=== PATIENT | male | born 1980 | race Two or more races ===

== ENCOUNTER 2025-03-02 03:42 | Inpatient (IN) | payer MEDICAID ==
[2025-03-02] VITALS (11 sets, daily range): BP systolic 88–101; BP diastolic 49–70; PULSE 79–104; RESP 10–16; TEMP 98.2; O2SAT 96–99
[~2025-03-02] VITALS: Ht 165.1 cm; Wt 58.1 kg
--- NOTE | 2025-03-02 03:52 | ED.PDOC ---
Altered Mental Status HPI Comments 44-year-old male brought in by EMS presents with a chief complaint of ALOC x 1 hour. Per EMS, patient usually is woken up around 0300 to get ready for dialysis by his . Patients noticed that patient was saying "off the wall" responses to basic questions. Patient denies any active pain and is not in acute distress at this time. Patient believes the year is 1925. Patient mentions that he does not know why he is at the hospital and denies any symptoms. Unknown medical history however patient does take spironolactone, midodrine home per EMS. Chief Complaint: ALOC Time Seen by MD: 03:45 Reviewed Notes: Medications, Allergies Allergies: Coded Allergies: NO KNOWN ALLERGIES (Unverified , 03/02/25) Home Meds Reported Medications Lactulose (Lactulose) 10 Gm/15 Ml Monisha, ML PO 03/02/25 Magnesium Oxide (Mag-Ox) 400 Mg Tb, 1 TAB PO DAILY 03/02/25 Spironolactone (Spironolactone) 50 Mg Tab, 1 TAB PO BID 03/02/25 Furosemide (Furosemide) 80 Mg Tab, 2 PO BID 03/02/25 Midodrine Hcl (Midodrine Hcl) 10 Mg Tab, PO 03/02/25 Information Source: Patient, Emergency Med Personnel Mode of Arrival: EMS Severity: Unable to Care for Self Timing: Hours Duration: Since onset Prehospital treatment: Engagement Executive Quality: Change in Behavior, Confusion Recent: None History of: Other (Dialysis) Vital Signs Vital Signs Date Time Temp Pulse Resp B/P (MAP) Pulse Ox O2 Delivery O2 Flow Rate FiO2 03/02/25 08:30 79 11 97/64 (75) 99 03/02/25 08:00 Room Air* 0 21 03/02/25 04:40 98.4 98.4 Physical Exam General: Awake, alert No acute distress. Skin: Skin in warm, dry and intact. Appropriate color for ethnicity. HEENT: The head is normocephalic and atraumatic. Conjunctivae are clear without exudates or hemorrhage. Sclera is non-icteric. EOM are intact. No signs of nystagmus. Eyelids are normal in appearance without swelling or lesions. Oral mucosa is pink and moist Neck: The neck is supple with normal range of motion. No JVD. Cardiac: Heart rate and rhythm are normal. No murmurs, gallops, or rubs are auscultated. Respiratory: No signs of respiratory distress. Lung sounds are clear in all lobes bilaterally without rales, ronchi, or wheezes. Abdominal: Abdomen is soft, non-tender with distention. Bowel sounds are present and normoactive in all four quadrants. Extremities: Upper and lower extremities are atraumatic in appearance without deformity or edema. Neurological: The patient is awake, alert . Patient is disoriented. Speech is clear. There is no facial asymmetry. Review of Systems: REVIEW OF SYSTEMS: Unable to obtain due to altered mental status. Patient denies pain Past Medical History PAST MEDICAL HISTORY: ESRD Surgical History: Denies all surgeries Family History Family History: Reviewed,noncontributory to illness Social History Smoker: Non-Smoker Alcohol: Denies ETOH Use Drugs: Denies Drug Use Lives In: Home EKG EKG : Pulse Rate (adult): 97 [place]: Normal Cardiac Rhythm: NSR Block: None Hypertrophy: None ST: Normal Was a procedure done? Was a procedure done?: No Differential Diagnosis (ALOC) Differential Diagnosis: Dehydration, Hypoglycemia, Encephalopathy, Sepsis, Drug Overdose (Urinary tract infection, liver cirrhosis, hyperammonemia, uremia), ETOH Intoxication, Other X-Ray, Labs, Meds, VS Vital Signs Date Time Temp Pulse Resp B/P (MAP) Pulse Ox O2 Delivery O2 Flow Rate FiO2 03/02/25 08:30 79 11 97/64 (75) 99 03/02/25 08:00 79 12 98 Room Air* 0 21 03/02/25 08:00 78 03/02/25 05:52 78 11 104/68 (80) 98 03/02/25 04:46 90 12 98 Room Air* 0 21 03/02/25 04:40 98.4 90 12 108/66 (80) 98 98.4 03/02/25 04:19 97 03/02/25 04:00 82 03/02/25 03:49 98.6 101 16 99/62 (74) 96 98.6 03/02/25 03:48 97 Lab Test 03/02/25 04:54 03/02/25 04:03 03/02/25 03:56 Range/Units Influenza Type A Antigen Negative Negative Influenza Type B Antigen Negative Negative SARS-CoV-2 Antigen (Rapid) Negative NEGATIVE White Blood Count 4.9 4.4-10.8 10^3/uL Red Blood Count 3.31 L 4.5-5.90 10^6/uL Hemoglobin 11.2 L 13.5-17.5 g/dL Hematocrit 32.5 L 41.0-53.0 % Mean Corpuscular Volume 98.1 80.0-100.0 fL Mean Corpuscular Hemoglobin 33.7 H 28.0-32.0 pg Mean Corpuscular Hemoglobin Concent 34.3 32.0-36.0 g/dL Red Cell Distribution Width 19.5 H 11.8-14.3 % Platelet Count 174 140-450 10^3/uL Mean Platelet Volume 7.7 6.9-10.8 fL Neutrophils (%) (Auto) 50.4 37.0-80.0 % Lymphocytes (%) (Auto) 33.8 10.0-50.0 % Monocytes (%) (Auto) 10.5 0.0-12.0 % Eosinophils (%) (Auto) 4.8 0.0-7.0 % Basophils (%) (Auto) 0.5 0.0-2.0 % Neutrophils # (Auto) 2.5 1.6-8.6 10 ^3/uL Lymphocytes # (Auto) 1.6 0.4-5.4 10 ^3/uL Monocytes # (Auto) 0.5 0-1.3 10 ^3/uL Eosinophils # (Auto) 0.2 0-0.8 10 ^3/uL Basophils # (Auto) 0 0-0.2 10 ^3/uL Nucleated Red Blood Cells 0.0 % Prothrombin Time 10.8 9.3-11.8 sec Prothrombin Time INR 1.02 0.9-1.15 Sodium Level 135 L 136-145 mmol/L Potassium Level 3.6 3.5-5.1 mmol/L Chloride Level 102 98-107 mmol/L Carbon Dioxide Level 23 20-31 mmol/L Anion Gap 10 5-15 Blood Urea Nitrogen 32 H 9-23 mg/dL Creatinine 3.40 H 0.700-1.30 mg/dL Glomerular Filtration Rate Calc 22 >90 mL/min BUN/Creatinine Ratio 9.4 L 10.0-20.0 Serum Glucose 98 74-106 mg/dL Lactic Acid Level 2.4 *H 0.4-2.0 mmol/L Calcium Level 9.2 8.7-10.4 mg/dL Total Bilirubin 0.7 0.2-1.0 mg/dL Aspartate Amino Transferase (AST) 40 13-40 U/L Alanine Aminotransferase (ALT) 35 7-40 U/L Alkaline Phosphatase 203 H 46-116 U/L Ammonia 140 *H 11-32 umol/L B-Type Natriuretic Peptide 41.30 0-100 pg/mL Total Protein 6.3 5.7-8.2 g/dL Albumin 3.2 3.2-4.8 g/dL Plasma/Serum Blood Alcohol 4.8 <10 mg/dL Blood Gas Specimen Type Arterial Blood Gas Sample Site Left radial Blood Gas Patient Temperature 37.0 Arterial Blood Date Drawn [id number] Arterial Blood pH 7.515 H 7.350-7.450 Arterial Blood Partial Pressure CO2 27.9 L 35.0-48.0 mmHg Arterial Blood Partial Pressure O2 72.9 L 83.0-108.0 mmHg Arterial Blood HCO3 22.0 21.0-28.0 mmol/L Arterial Blood Oxygen Saturation 94.4 94.0-98.0 % Arterial Blood Base Excess 0.0 -2.0-3.0 mmol/L Arterial Blood Oxyhemoglobin 93.6 L 94.0-98.0 % Arterial Blood Carboxyhemoglobin 0.3 L 0.5-1.5 % Arterial Blood Methemoglobin 0.5 0.0-1.5 % Dragan Test Modified Blood Gas Total Hemoglobin 11.80 L 13.5-17.5 g/dL Blood Gas Modality Room air FiO2 % 21.0 Current Medications Medications (Trade) Dose Ordered Sig/Bhumi Route Start Time Stop Time Status Last Admin Ceftriaxone Sodium 50 ml @ 100 mls/hr ONCE ONCE IV 03/02/25 06:00 03/02/25 06:29 DC 03/02/25 06:10 Sodium Chloride 250 ml @ 250 mls/hr Q1H ONCE IV 03/02/25 06:00 03/02/25 06:59 DC 03/02/25 06:11 Sodium Chloride 1,000 ml @ 100 mls/hr Q10H ONCE IV 03/02/25 06:00 03/02/25 15:59 DC 03/02/25 06:11 Time of 1ST Reevaluation: 04:15 Reevaluation 1ST: Unchanged Patient Education/Counseling: Need For Follow Up Family Education/Counseling: No Family Present Departure 1 Departure Time of Disposition: 05:59 Impression: Primary Impression: Metabolic encephalopathy Disposition: ADMITTED INPATIENT Condition: Stable Comments [age] male with altered mental status. -hyperammonemia -elevated lactic acid with it no fever, no white count. Gentle IV fluids, antibiotics administered. Patient admitted for further treatment, evaluation and monitoring. Critical Care Note Critical Care Time?: No Stability Stability form required: No Heart Score Heart Score: Heart Score Response (Comments) Value History N/A 0 EKG N/A 0 Age N/A 0 Risk Factors N/A 0 Troponin N/A 0 Total 0 I personally scribed for BUSTER LINDA MD ([email or web address]) on 03/02/25 at 03:51. Electronically submitted by London Rose ([email or web address]). I personally scribed for BUSTER LINDA MD ([email or web address]) on 03/02/25 at 04:19. Electronically submitted by London Rose ([email or web address]). BUSTER LINDA MD Mar 02, 2025 03:51
[2025-03-02 04:36] LABS: Basophils # (auto) 0 10 ^3/uL (0-0.2); Basophils % (auto) 0.5 % (0.0-2.0); Eosinophils # (auto) 0.2 10 ^3/uL (0-0.8); Eosinophils % (auto) 4.8 % (0.0-7.0); Hematocrit 32.5 % (41.0-53.0); Hemoglobin 11.2 g/dL (13.5-17.5); Lymphocytes # (auto) 1.6 10 ^3/uL (0.4-5.4); Lymphocytes % (auto) 33.8 % (10.0-50.0); Mean Corpuscular Hemoglobin 33.7 pg (28.0-32.0); Mean Corpuscular Hgb Conc. 34.3 g/dL (32.0-36.0); Mean Corpuscular Volume 98.1 fL (80.0-100.0); Monocytes # (auto) 0.5 10 ^3/uL (0-1.3); Monocytes % (auto) 10.5 % (0.0-12.0); Neutrophils # (auto) 2.5 10 ^3/uL (1.6-8.6); Neutrophils % (auto) 50.4 % (37.0-80.0); Platelet Count (auto) 174 10^3/uL (140-450); Red Blood Cells 3.31 10^6/uL (4.5-5.90); Red Cell Distribution Width 19.5 % (11.8-14.3); White Blood Cell 4.9 10^3/uL (4.4-10.8)
[2025-03-02 04:48] LABS: INR 1.02 (0.9-1.15); Prothrombin Time 10.8 sec (9.3-11.8)
[2025-03-02 04:55] LABS: Alanine Aminotransferase 35 U/L (7-40); Anion Gap 10 (5-15); Aspartate Aminotransferase 40 U/L (13-40); BUN/Creatinine Ratio 9.4 (10.0-20.0); Calcium 9.2 mg/dL (8.7-10.4); Carbon Dioxide 23 mmol/L (20-31); Chloride 102 mmol/L (98-107); Glucose 98 mg/dL (74-106); Potassium 3.6 mmol/L (3.5-5.1); Total Protein 6.3 g/dL (5.7-8.2)
[2025-03-02 04:56] LABS: Bilirubin, Total 0.7 mg/dL (0.2-1.0)
[2025-03-02 05:04] LABS: Albumin 3.2 g/dL (3.2-4.8); Alkaline Phosphatase 203 U/L (46-116); Blood Urea Nitrogen 32 mg/dL (9-23); Sodium 135 mmol/L (136-145)
[2025-03-02 05:07] LABS: Lactic Acid w/Reflex 2.4 mmol/L (0.4-2.0)
--- NOTE | 2025-03-02 05:59 | DVH ---
EXAM: XY CHEST XRAY 1 VIEW HISTORY: AMS COMPARISON: None TECHNIQUE: Portable upright AP view of the chest was performed. FINDINGS: Lung volumes are low. There is a right chest tunneled dialysis catheter with its tip in the right atr ium. Probable mild bilateral lung base atelectasis. No no infiltrates, pneumothorax, or pulmonary russell ma. The heart is not enlarged. IMPRESSION: Low lung volumes and probable mild bilateral lung base atelectasis. No other acute intrathoracic pro cess is identified here.
--- NOTE | 2025-03-02 06:03 | DVH ---
EXAM: CT HEAD WITHOUT CONTRAST HISTORY: ALOC COMPARISON: None TECHNIQUE: Noncontrast axial CT images of the head were performed. Sagittal and coronal reformatted i mages were obtained. This CT exam was performed using 1 or more of the following dose reduction techn iques: Automated exposure control, adjustment of the mA and/or kv according to patient size, or the u se of iterative reconstruction techniques. Radiation Dose: CTDI volume is 54.54 mGy. Dose-length product is 874.4 mGy*cm FINDINGS: No intracranial hemorrhage, mass, midline shift, hydrocephalus, or evidence of acute large vessel inf arct. There is a mildly divergent optic gaze. The partially-visualized paranasal sinuses are clear. T he bilateral mastoid air cells and middle ear spaces are clear. There may be an old right nasal bone fracture. No cranial fracture or scalp edema. IMPRESSION: No acute intracranial process.
[2025-03-02 06:06] LABS: COVID19 ANTIGEN SOFIA FIA NEGATIVE (NEGATIVE); Rapid Influenza A Negative (Negative); Rapid Influenza B Negative (Negative)
[2025-03-02] MEDS: cefTRIAXone 1GM/50ML D5W 50 ML IV ONE (06:10)
[2025-03-02] MEDS: SODIUM CHLORIDE 0.9% 250 ML IV ONE (06:11)
[2025-03-02] MEDS: SODIUM CHLORIDE 0.9% 1,000 ML IV ONE (06:11)
[2025-03-02] MEDS ORDERED: MIDO10TA3 PO (08:58)
[2025-03-02] MEDS ORDERED: MAGN241.4 PO (08:58)
[2025-03-02] MEDS ORDERED: FURO80TA3 PO (08:58)
[2025-03-02] MEDS ORDERED: LACT10SO3 PO (08:58)
[2025-03-02] MEDS ORDERED: SPIR50TA5 PO (08:58)
[2025-03-02] MEDS ORDERED: ONDANSETRON HCL 4 MG/2 ML VIAL IV PRN (09:00)
[2025-03-02] MEDS ORDERED: NITROGLYCERIN 0.4 MG SL TAB SL PRN (09:00)
[2025-03-02] MEDS ORDERED: ACETAMINOPHEN 500 MG TAB or CAP PO PRN (09:00)
[2025-03-02] MEDS ORDERED: MORPHINE SULFATE INJ 2 MG/ml SYRG IV PRN (09:00)
--- NOTE | 2025-03-02 09:11 | DVHHP2 ---
History of Present Illness Reason for Visit: Altered mental status History of Present Illness The patient was a 44-year-old male transport to the emergency room by EMS with reports of altered mental status has been worsening over the past one day. The patient's daughter, Deb is bedside who provided medical history of the patient. The patient has a significant history of ESRD with hemodialysis on Friday, Friday, Friday, as well as cirrhosis of the liver for which the patient was currently on lactulose at home. She reports that she was assist with his care, has been compliant with his medications, but is unsure of his last bowel movement. Patient also receives paracentesis approximately every two weeks. Patient was having significant history of alcoholism, for which he was stopped drinking approximately a year and a half ago, but currently smokes. Daughter denies any previous surgical history. Hepatobiliary: Cirrhosis Psych: Addictions (Echo, history of alcoholism) Renal/: Chronic renal failure (With hemodialysis) Past Surgical History: None Family History: None Smoke: 1 pack per day ALCOHOL: none Drugs: None Lives: with Family Domestic Violence: Neg Review of Systems Constitutional: Yes: Other (Generalized weakness, altered mental status); No: Fever, Chills, Sweats, Weakness, Malaise Eyes: No: Pain, Vision change, Conjunctivae inflammation, Eyelid inflammation, Other, Redness ENT: No: Ear pain, Ear discharge, Nose pain, Nose discharge, Nose congestion, Mouth pain, Mouth swelling, Throat pain, Throat swelling, Other Respiratory: No: Cough, Dry, Shortness of breath, SOB with excertion, Wheezing, Hemoptysis, Pleuritic Pain, Sputum, Wheezing, Other Cardiovascular: No: Chest Pain, Palpitations, Orthopnea, Paroxysmal Noc. Dyspnea, Edema, Lt Headedness, Other Gastrointestinal: No: Nausea, Vomiting, Abdominal Pain, Diarrhea, Constipation, Melena, Hematochezia, Other Genitourinary: No Dysuria, No Frequency, No Incontinence, No Hematuria, No Retention, No Other Musculoskeletal: No: other, neck pain, shoulder pain, arm pain, back pain, hand pain, leg pain, foot pain Skin: No: Rash, Lesions, Jaundice, Bruising, Other Neurological: Other (Altered mental status) Allergies: Coded Allergies: NO KNOWN ALLERGIES (Unverified , 03/02/25) Medications Current Medications Medications Dose Ordered Sig/Bhumi Route Start Time Stop Time Status Last Admin Dose Admin Nitroglycerin 0.4 mg Q5MINP PRN SL 03/02/25 09:00 UNV Morphine Sulfate 2 mg Q30M PRN IV 03/02/25 09:00 UNV Lactulose 30 ml Q4HR PO 03/02/25 10:00 UNV Rifaximin 550 mg BID PO 03/02/25 10:00 UNV Acetaminophen/ Hydrocodone Bitart 1 tab Q6HPRN PRN PO 03/02/25 09:00 UNV Acetaminophen 500 mg Q8HP PRN PO 03/02/25 09:00 UNV Ondansetron HCl 4 mg Q6HP PRN IV 03/02/25 09:00 UNV Midodrine 10 mg Q8H PO 03/02/25 09:00 UNV Patient Own Medication 1 tab BID PO 03/02/25 10:00 UNV Exam Vital Signs Vital Signs Date Time Temp Pulse Resp B/P (MAP) Pulse Ox O2 Delivery O2 Flow Rate FiO2 03/02/25 08:30 79 11 97/64 (75) 99 03/02/25 04:46 Room Air* 0 21 03/02/25 04:40 98.4 98.4 General Appearance: Alert, moderate distress, Other (Encephalopathic) HEENT: Atraumatic, PERRLA Respiratory: Clear to auscultation, Normal air movement Cardiovascular: Normal S1, Normal S2 Abdominal: Normal bowel sounds, Other (Ascites) Extremities: Normal pulses Psych/Mental Status: Other (Unable to assess) Labs/Xrays Labs Test 03/02/25 04:54 03/02/25 04:03 03/02/25 03:56 Range/Units Influenza Type A Antigen Negative Negative Influenza Type B Antigen Negative Negative SARS-CoV-2 Antigen (Rapid) Negative NEGATIVE White Blood Count 4.9 4.4-10.8 10^3/uL Red Blood Count 3.31 L 4.5-5.90 10^6/uL Hemoglobin 11.2 L 13.5-17.5 g/dL Hematocrit 32.5 L 41.0-53.0 % Mean Corpuscular Volume 98.1 80.0-100.0 fL Mean Corpuscular Hemoglobin 33.7 H 28.0-32.0 pg Mean Corpuscular Hemoglobin Concent 34.3 32.0-36.0 g/dL Red Cell Distribution Width 19.5 H 11.8-14.3 % Platelet Count 174 140-450 10^3/uL Mean Platelet Volume 7.7 6.9-10.8 fL Neutrophils (%) (Auto) 50.4 37.0-80.0 % Lymphocytes (%) (Auto) 33.8 10.0-50.0 % Monocytes (%) (Auto) 10.5 0.0-12.0 % Eosinophils (%) (Auto) 4.8 0.0-7.0 % Basophils (%) (Auto) 0.5 0.0-2.0 % Neutrophils # (Auto) 2.5 1.6-8.6 10 ^3/uL Lymphocytes # (Auto) 1.6 0.4-5.4 10 ^3/uL Monocytes # (Auto) 0.5 0-1.3 10 ^3/uL Eosinophils # (Auto) 0.2 0-0.8 10 ^3/uL Basophils # (Auto) 0 0-0.2 10 ^3/uL Nucleated Red Blood Cells 0.0 % Prothrombin Time 10.8 9.3-11.8 sec Prothrombin Time INR 1.02 0.9-1.15 Sodium Level 135 L 136-145 mmol/L Potassium Level 3.6 3.5-5.1 mmol/L Chloride Level 102 98-107 mmol/L Carbon Dioxide Level 23 20-31 mmol/L Anion Gap 10 5-15 Blood Urea Nitrogen 32 H 9-23 mg/dL Creatinine 3.40 H 0.700-1.30 mg/dL Glomerular Filtration Rate Calc 22 >90 mL/min BUN/Creatinine Ratio 9.4 L 10.0-20.0 Serum Glucose 98 74-106 mg/dL Lactic Acid Level 2.4 *H 0.4-2.0 mmol/L Calcium Level 9.2 8.7-10.4 mg/dL Total Bilirubin 0.7 0.2-1.0 mg/dL Aspartate Amino Transferase (AST) 40 13-40 U/L Alanine Aminotransferase (ALT) 35 7-40 U/L Alkaline Phosphatase 203 H 46-116 U/L Ammonia 140 *H 11-32 umol/L B-Type Natriuretic Peptide 41.30 0-100 pg/mL Total Protein 6.3 5.7-8.2 g/dL Albumin 3.2 3.2-4.8 g/dL Plasma/Serum Blood Alcohol 4.8 <10 mg/dL Blood Gas Specimen Type Arterial Blood Gas Sample Site Left radial Blood Gas Patient Temperature 37.0 Arterial Blood Date Drawn [id number] Arterial Blood pH 7.515 H 7.350-7.450 Arterial Blood Partial Pressure CO2 27.9 L 35.0-48.0 mmHg Arterial Blood Partial Pressure O2 72.9 L 83.0-108.0 mmHg Arterial Blood HCO3 22.0 21.0-28.0 mmol/L Arterial Blood Oxygen Saturation 94.4 94.0-98.0 % Arterial Blood Base Excess 0.0 -2.0-3.0 mmol/L Arterial Blood Oxyhemoglobin 93.6 L 94.0-98.0 % Arterial Blood Carboxyhemoglobin 0.3 L 0.5-1.5 % Arterial Blood Methemoglobin 0.5 0.0-1.5 % Dragan Test Modified Blood Gas Total Hemoglobin 11.80 L 13.5-17.5 g/dL Blood Gas Modality Room air FiO2 % 21.0 Assessment/Plan Assessment/Plan Impression: -hepatic encephalopathy -history of cirrhosis of liver -ESRD with hemodialysis -ascites -lactic acidosis Plan: -admit to step-down ICU -nephrology consultation for HD -interventional radiology consultation if patient has notable ascites on ultrasound for paracentesis -lactulose 30 mL q.4 hours -rifaximin 550 mg p.o. b.i.d. -restart midodrine 10 mg p.o. t.i.d. -recheck ammonia level this evening, a.m. labs with ammonia level -plan of care discussed with patient was daughter, review was bedside. Critical care time spent with patient discussing and formulating plan of care: 40 minutes. This does not include time spent performing procedures. This medical document was created using an electronic medical record system with [employer] dictation system. Although this document has been carefully reviewed, there may still be some phonetic and typographical errors. These areas are purely typographical due to imperfections of the software programs, and do not reflect any compromise in the patient's medical care. Plan discussed with: Patient, Daughter, Other (RN) My Orders Orders - REENA BUSH NP Procedure Category Date Status Time Admit ADMIT 03/02/25 Transmitted 08:54 Nitroglycerin PHA 03/02/25 Logged Sublingual (Ntrostat 09:00 Morphine Sulfate PHA 03/02/25 Logged Injection 09:00 Stat Ekg For Chest [facility] 03/02/25 In Process Pain 08:54 Notify Of Changes [facility] 03/02/25 In Process From Base 08:54 Market Research Specialist For [facility] 03/02/25 In Process 24 Hours 08:54 Emergency Dysrhythmia [facility] 03/02/25 In Process Protocol 08:54 Rhythm Strips Once [facility] 03/02/25 In Process Every Shift 08:54 Oxygen By Nasal RT 03/02/25 Transmitted Cannula 08:54 Basic Metabolic Panel LAB 03/03/25 Verified 04:00 Ammonia LAB 03/03/25 Verified 04:00 Complete Blood Count LAB 03/03/25 Verified 04:00 *Dr. Nguyen Rutledge -Da CONS 03/02/25 Transmitted Greta 08:54 Lactulose Oral PHA 03/02/25 Logged 10:00 Rifaximin (Xifaxan) PHA 03/02/25 Logged 10:00 Hydrocodone-Acet PHA 03/02/25 Logged 5/325mg Tab ([place] 09:00 Acetaminophen Tab Or PHA 03/02/25 Logged Cap (Tylenol Tablet 09:00 Ondansetron Hcl PHA 03/02/25 Logged (Zofran) 09:00 Abdomen Limited US 03/02/25 Logged 08:54 Midodrine Tablet PHA 03/02/25 Logged (Proamatine Tablet) 09:00 (Nf) Spironolactone PHA 03/02/25 Logged 10:00 Ammonia LAB 03/02/25 Logged 15:00 Date of Service: Mar 02, 2025 Billing Provider: REENA BUSH HIGH SPEED OPERATOR Common Visit Codes: [id number] CARE 30-74 MIN REENA BUSH NP Mar 02, 2025 09:10
--- NOTE | 2025-03-02 09:37 | DVH ---
US ABDOMEN LIMITED HISTORY: ascites COMPARISON: None TECHNIQUE: Transverse and longitudinal sonographic images were obtained of all four quadrants of the abdomen and pelvis. FINDINGS: IMPRESSION: There is a moderate to large ascites.
[2025-03-02] MEDS: rifAXIMin 550 MG TAB PO SCH (10:08)
[2025-03-02] MEDS: LACTULOSE 20Gm/30ML SOLN PO SCH (10:08)
[2025-03-02] MEDS ORDERED: MIDODRINE HCL 10 MG TAB PO SCH (12:00)
--- NOTE | 2025-03-02 13:43 | ECG ---
[facility] Test Date: 2025-03-02 Test Time: 03:48:31 Pat Name: ILEANA Wisdompartment: ED Room: [address] [place] [address] Gender: M Post Anesthesia Nurse: ED : 1980 Requested By: BUSTER LINDA Order Number: [id number] Reading MD: Evin Palma Measurements Intervals [place] Rate: 97 P: 31 [place]: 164 QRS: 8 QRSD: 76 T: -3 QT: 382 QTc: 486 Interpretive Statements Sinus rhythm Abnormal R-wave progression, early transition Borderline T abnormalities, diffuse leads Borderline prolonged QT interval Electronically Signed On 03-03-2025 20:52:21 PDT by Evin Palma Please click the below link to view image of tracing.
--- NOTE | 2025-03-02 14:06 | DVHINCON2 ---
Date of service: Mar 02, [address] Moore Reason for Consultation End-stage renal disease History of Present Illness 44-year-old patient with significant history of end-stage renal disease on hemodialysis Friday with last dialysis on Friday, cirrhosis of the liver, ascites with paracentesis every , hyperammonemia, anemia who presents to the hospital with confusion since around 3:00 a.m. he was not able to wake up according to the daughter who is at bedside even though he has been compliant with the lactulose and has been having 3-4 bowel movements per day. Patient's last alcoholism ingestion was about a year and half ago. Otherwise patient denies any fever chills nausea vomiting or diarrhea he is feeling much better since treatment here in the hospital. Past Medical History End-stage renal disease, hepatorenal syndrome, cirrhosis of the liver. Alcoholism in remission. Past Surgical History Dialysis catheter placement. Allergies: Coded Allergies: NO KNOWN ALLERGIES (Unverified , 03/02/25) Home Meds Reported Medications Lactulose (Lactulose) 10 Gm/15 Ml Monisha, ML PO 03/02/25 Magnesium Oxide (Mag-Ox) 400 Mg Tb, 1 TAB PO DAILY 03/02/25 Spironolactone (Spironolactone) 50 Mg Tab, 1 TAB PO BID 03/02/25 Furosemide (Furosemide) 80 Mg Tab, 2 PO BID 03/02/25 Midodrine Hcl (Midodrine Hcl) 10 Mg Tab, PO 03/02/25 Current Medications Current Medications Medications (Trade) Dose Ordered Sig/Bhumi Route PRN Reason Start Time Stop Time Status Last Admin Nitroglycerin (Ntrostat Sublingual) 0.4 mg Q5MINP PRN SL FOR CHEST PAIN 03/02/25 09:00 Morphine Sulfate 2 mg Q30M PRN IV FOR CHEST PAIN 03/02/25 09:00 Lactulose 30 ml Q4HR PO 03/02/25 10:00 03/02/25 10:08 Rifaximin (Xifaxan) 550 mg BID PO 03/02/25 10:00 03/02/25 10:08 Acetaminophen/ Hydrocodone Bitart ([place] 5/325MG Tab) 1 tab Q6HPRN PRN PO MODERATE PAIN (4-6 PAIN SCALE) 03/02/25 09:00 Acetaminophen (Tylenol Tablet Or Capsule) 500 mg Q8HP PRN PO PAIN SCALE 1-3 OR TEMP>100.4 03/02/25 09:00 Ondansetron HCl (Zofran) 4 mg Q6HP PRN IV NAUSEA / VOMITING 03/02/25 09:00 Midodrine (Proamatine Tablet) 10 mg TID@0600,1200,1800 PO 03/02/25 12:00 Hold Spironolactone (Aldactone) 50 mg BIDD PO 03/02/25 18:00 Family History Patient could not tell me his family history. Social History He smokes occasionally denies alcohol ingestion for the last one and half years. No drug abuse. Review of Systems HEENT: Oral mucosa dry Neck no JVD Cardiovascular: Denies for chest pain denies orthopnea or PND Respiratory: Denies cough or shortness of breath Gastrointestinal: Denies for nausea vomiting Musculoskeletal: Denies myalgias Neurological: Generalized weakness and confusion. Dermatological: Denies any rash The rest of the review of systems were reviewed pertinent positives and pert inent negatives are as per HPI up to 12 points review of systems H&P Exam Vital Signs/I&O Vital Sign Date Time Temp Pulse Resp B/P (MAP) Pulse Ox O2 Delivery O2 Flow Rate FiO2 03/02/25 13:00 81 12 91/58 (69) 98 03/02/25 12:00 98.0 98.0 03/02/25 08:00 Room Air* 0 21 Intake and Output 03/01/25 03/02/25 19:00 07:00 Intake Total 300 ml Balance 300 ml Intake IV Total 300 ml Physical Exam HEENT: No evidence of JVD, no oral ulcers. Evidence of muscle atrophy. Pulmonary: Lungs are clear on auscultation bilaterally Cardiovascular S1-S2, no S3 or S4 Abdomen: Bowel sounds positive, soft no rebound tenderness, positive ascites without rebound tenderness. Skin: No rash Neurological: Alert, oriented, no focal weakness Labs/Diagnostic Data Labs/Diagnostic Data Laboratory Tests Test 03/02/25 10:02 03/02/25 04:54 03/02/25 04:03 03/02/25 03:56 Range/Units Lactic Acid Level 1.8 2.4 *H 0.4-2.0 mmol/L Influenza Type A Antigen Negative Negative Influenza Type B Antigen Negative Negative SARS-CoV-2 Antigen (Rapid) Negative NEGATIVE White Blood Count 4.9 4.4-10.8 10^3/uL Red Blood Count 3.31 L 4.5-5.90 10^6/uL Hemoglobin 11.2 L 13.5-17.5 g/dL Hematocrit 32.5 L 41.0-53.0 % Mean Corpuscular Volume 98.1 80.0-100.0 fL Mean Corpuscular Hemoglobin 33.7 H 28.0-32.0 pg Mean Corpuscular Hemoglobin Concent 34.3 32.0-36.0 g/dL Red Cell Distribution Width 19.5 H 11.8-14.3 % Platelet Count 174 140-450 10^3/uL Mean Platelet Volume 7.7 6.9-10.8 fL Neutrophils (%) (Auto) 50.4 37.0-80.0 % Lymphocytes (%) (Auto) 33.8 10.0-50.0 % Monocytes (%) (Auto) 10.5 0.0-12.0 % Eosinophils (%) (Auto) 4.8 0.0-7.0 % Basophils (%) (Auto) 0.5 0.0-2.0 % Neutrophils # (Auto) 2.5 1.6-8.6 10 ^3/uL Lymphocytes # (Auto) 1.6 0.4-5.4 10 ^3/uL Monocytes # (Auto) 0.5 0-1.3 10 ^3/uL Eosinophils # (Auto) 0.2 0-0.8 10 ^3/uL Basophils # (Auto) 0 0-0.2 10 ^3/uL Nucleated Red Blood Cells 0.0 % Prothrombin Time 10.8 9.3-11.8 sec Prothrombin Time INR 1.02 0.9-1.15 Sodium Level 135 L 136-145 mmol/L Potassium Level 3.6 3.5-5.1 mmol/L Chloride Level 102 98-107 mmol/L Carbon Dioxide Level 23 20-31 mmol/L Anion Gap 10 5-15 Blood Urea Nitrogen 32 H 9-23 mg/dL Creatinine 3.40 H 0.700-1.30 mg/dL Glomerular Filtration Rate Calc 22 >90 mL/min BUN/Creatinine Ratio 9.4 L 10.0-20.0 Serum Glucose 98 74-106 mg/dL Calcium Level 9.2 8.7-10.4 mg/dL Total Bilirubin 0.7 0.2-1.0 mg/dL Aspartate Amino Transferase (AST) 40 13-40 U/L Alanine Aminotransferase (ALT) 35 7-40 U/L Alkaline Phosphatase 203 H 46-116 U/L Ammonia 140 *H 11-32 umol/L B-Type Natriuretic Peptide 41.30 0-100 pg/mL Total Protein 6.3 5.7-8.2 g/dL Albumin 3.2 3.2-4.8 g/dL Plasma/Serum Blood Alcohol 4.8 <10 mg/dL Blood Gas Specimen Type Arterial Blood Gas Sample Site Left radial Blood Gas Patient Temperature 37.0 Arterial Blood Date Drawn [id number] Arterial Blood pH 7.515 H 7.350-7.450 Arterial Blood Partial Pressure CO2 27.9 L 35.0-48.0 mmHg Arterial Blood Partial Pressure O2 72.9 L 83.0-108.0 mmHg Arterial Blood HCO3 22.0 21.0-28.0 mmol/L Arterial Blood Oxygen Saturation 94.4 94.0-98.0 % Arterial Blood Base Excess 0.0 -2.0-3.0 mmol/L Arterial Blood Oxyhemoglobin 93.6 L 94.0-98.0 % Arterial Blood Carboxyhemoglobin 0.3 L 0.5-1.5 % Arterial Blood Methemoglobin 0.5 0.0-1.5 % Dragan Test Modified Blood Gas Total Hemoglobin 11.80 L 13.5-17.5 g/dL Blood Gas Modality Room air FiO2 % 21.0 Ultrasound with positive for ascites, CT head negative Assessment Assessment: 1. End-stage renal disease on hemodialysis Friday. 2. Acute hepatic encephalopathy. 3. Ascites 4. Anemia 5. Hyponatremia 6. Hyperammonemia And recommendations: Hemodialysis today, [facility] notified already Paracentesis by IR Fluid restriction less than 1 L per day Lactulose titrate for three bowel movements per day Renal, cirrhosis restricted diet. Mlaik for goal hemoglobin 10 to 11 grams/deciliter. Thank you very much for allowing us to participate in the care of this patient. Plan discussed with: Patient, Daughter HÉCTOR ESCOTOSATNAM Markham MD Mar 02, 2025 14:06
[2025-03-02 16:41] LABS: Hepatitis A Ab IgM Negative; Hepatitis B Core IgM Negative (Negative); Hepatitis B Surface Antigen Negative (Negative); Hepatitis C Antibody Negative (Negative)
[2025-03-02] MEDS: SPIRONOLACTONE 25 MG TAB PO SCH (18:00)
[2025-03-02 20:14] LABS: Urine Bacteria FEW /hpf (None Seen); Urine Blood Negative /uL (Negative); Urine Clarity Clear (Clear); Urine Color Yellow (Yellow); Urine Protein, UAD Negative (Negative); Urine Specific Gravity 1.012 (1.001-1.035); Urine Squamous Epithelial Cell None Seen /hpf (<5); Urine Urobilinogen Normal (Negative); Urine WBC 3 /HPF (0-3)
[2025-03-03] VITALS (16 sets, daily range): BP systolic 82–103; BP diastolic 45–68; PULSE 84–98; RESP 10–20; TEMP 98–98.3; O2SAT 94–100
[2025-03-03 06:07] LABS: Basophils # (auto) 0 10 ^3/uL (0-0.2); Eosinophils # (auto) 0.4 10 ^3/uL (0-0.8); Eosinophils % (auto) 7.8 % (0.0-7.0); Hematocrit 29.2 % (41.0-53.0); Lymphocytes # (auto) 1.7 10 ^3/uL (0.4-5.4); Lymphocytes % (auto) 35.7 % (10.0-50.0); Mean Corpuscular Hemoglobin 33.3 pg (28.0-32.0); Mean Corpuscular Hgb Conc. 34.1 g/dL (32.0-36.0); Mean Corpuscular Volume 97.9 fL (80.0-100.0); Monocytes # (auto) 0.6 10 ^3/uL (0-1.3); Monocytes % (auto) 12.2 % (0.0-12.0); Neutrophils % (auto) 43.3 % (37.0-80.0); Nucleated Red Blood Cells % 0.1 %; Platelet Count (auto) 177 10^3/uL (140-450); Red Blood Cells 2.99 10^6/uL (4.5-5.90); Red Cell Distribution Width 19.6 % (11.8-14.3); White Blood Cell 4.7 10^3/uL (4.4-10.8)
[2025-03-03 06:12] LABS: Chloride 105 mmol/L (98-107); Potassium 3.6 mmol/L (3.5-5.1); Sodium 139 mmol/L (136-145)
[2025-03-03 06:13] LABS: Anion Gap 11 (5-15); Carbon Dioxide 23 mmol/L (20-31)
[2025-03-03 06:18] LABS: BUN/Creatinine Ratio 10.5 (10.0-20.0); Glucose 83 mg/dL (74-106)
[2025-03-03 06:25] LABS: Blood Urea Nitrogen 36 mg/dL (9-23); Calcium 8.5 mg/dL (8.7-10.4)
[2025-03-03] MEDS: SODIUM CHL 0.9% 1000 ML BAG XX ONE (07:00)
--- NOTE | 2025-03-03 09:22 | DVHPN2 ---
Subjective Patient states that he feels better. Reviewed: Care Plan, H&P Changes from previous H/P or p: No Changes General: Per HPI Eyes: No Pain, No Vision change, No Conjunctivae inflammation, No Eyelid inflammation, No Other, No Redness ENT: No Ear pain, No Ear discharge, No Nose pain, No Nose discharge, No Nose congestion, No Mouth pain, No Mouth swelling, No Throat pain, No Throat swelling, No Other Cardiovascular: No Chest Pain, No Palpitations, No Orthopnea, No Paroxysmal Noc. Dyspnea, No Edema, No Lt Headedness, No Other Respiratory: No Cough, No Dry, No Shortness of breath, No SOB with excertion, No Wheezing, No Hemoptysis, No Pleuritic Pain, No Sputum, No Other Gastrointestinal: No Nausea, No Vomiting, No Abdominal Pain, No Diarrhea, No Constipation, No Melena, No Hematochezia, No Other Genitourinary: No Dysuria, No Frequency, No Incontinence, No Hematuria, No Retention, No Other Musculoskeletal: No other, No neck pain, No shoulder pain, No arm pain, No back pain, No hand pain, No leg pain, No foot pain Skin: No Rash, No Lesions, No Jaundice, No Bruising, No Other Objective Vitals Vital Signs Date Time Temp Pulse Resp B/P (MAP) Pulse Ox O2 Delivery O2 Flow Rate FiO2 03/03/25 08:00 97.7 85 11 98/66 (77) 94 97.7 03/03/25 07:30 Room Air* 0 21 Intake/Output Intake and Output 03/03/25 07:00 Intake Total 1680 ml Balance 1680 ml Intake Oral 780 ml IV Total 900 ml # Voids 2 # Bowel Movements 2 General Appearance: Alert, Oriented X3, Cooperative, mild distress HEENT: Atraumatic, PERRLA Lungs: Clear to auscultation, Normal air movement Cardiovascular: Normal S1, Normal S2 Abdomen: Normal bowel sounds, Soft, No tenderness, Other (Ascites) Musculoskeletal: Normal sensory function, Normal motor function Skin: Dry, Intact Psych/Mental Status: Mental status NL, Mood NL Medications Current Medications Medications Dose Ordered Sig/Bhumi Route Start Time Stop Time Status Last Admin Dose Admin Nitroglycerin 0.4 mg Q5MINP PRN SL 03/02/25 09:00 Morphine Sulfate 2 mg Q30M PRN IV 03/02/25 09:00 Lactulose 30 ml Q4HR PO 03/02/25 10:00 03/03/25 06:36 30 ML Rifaximin 550 mg BID PO 03/02/25 10:00 03/02/25 22:21 550 MG Acetaminophen/ Hydrocodone Bitart 1 tab Q6HPRN PRN PO 03/02/25 09:00 Acetaminophen 500 mg Q8HP PRN PO 03/02/25 09:00 Ondansetron HCl 4 mg Q6HP PRN IV 03/02/25 09:00 Midodrine 10 mg TID@0600,1200,1800 PO 03/02/25 12:00 Hold Spironolactone 50 mg BIDD PO 03/02/25 18:00 Laboratory Results Laboratory Tests 03/03/25 05:37 Chemistry Test 03/03/25 05:37 Calcium Level 8.5 mg/dL (8.7-10.4) L Urinalysis Test 03/02/25 20:00 Urine Color Yellow (Yellow) Urine Clarity Clear (Clear) Urine pH 6.0 (5.0-9.0) Urine Specific [place] 1.012 (1.001-1.035) Urine Protein Negative (Negative) Urine Ketones Negative (Negative) Urine Blood Negative /uL (Negative) Urine Nitrite Negative (Negative) Urine Bilirubin Negative (Negative) Urine Urobilinogen Normal mg/dL (Negative) Urine Leukocyte Esterase Negative /uL (Negative) Urine RBC 2 /hpf (0 - 3) Urine Microscopic WBC 3 /HPF (0-3) Urine Squamous Epithelial Cells None seen /hpf (<5) Urine Bacteria Few /hpf (None Seen) H Urine Glucose Normal mg/dL (Normal) Labs and/or images reviewed: Labs reviewed by me, Image(s) reviewed by me Assessment/Plan Assessment/Plan Impression: -hepatic encephalopathy -history of cirrhosis of liver -ESRD with hemodialysis -ascites -lactic acidosis Plan: -events: Patient was awake today. Ammonia level improved then despite this a.m.. Blood pressure marginal. -transfer to telemetry unit -nephrology consultation for HD : Plans for HD today -IR consultation for paracentesis, plan for tomorrow given HD today. -lactulose 30 mL q.4 hours -rifaximin 550 mg p.o. b.i.d. -continue midodrine 10 mg p.o. t.i.d. -recheck labs in a.m. Total time spent with patient discussing and formulating plan of care: 35 minutes. This medical document was created using an electronic medical record system with [employer] dictation system. Although this document has been carefully reviewed, there may still be some phonetic and typographical errors. These areas are purely typographical due to imperfections of the software programs, and do not reflect any compromise in the patient's medical care. Plan discussed with: Patient, Other (RN) My Orders Orders - REENA BUSH NP Procedure Category Date Status Time Renal DIET 03/02/25 Transmitted Standard(2gna,3gk,Lopho) Dinner * Radiologist Consult CONS 03/04/25 Verified 09:19 Ammonia LAB 03/04/25 Verified 04:00 Basic Metabolic Panel LAB 03/04/25 Verified 04:00 Hemoglobin & LAB 03/04/25 Verified Hematocrit 04:00 Transfer Orders XFER 03/03/25 Verified 09:19 Date of Service: Mar 03, 2025 Billing Provider: REENA BUSH NP Common Visit Codes: [id number] INP/OBS CARE(HIGH) REENA BUSH NP Mar 03, 2025 09:22
--- NOTE | 2025-03-03 13:58 | DVH ---
US PARACENTESIS, HISTORY: ASCITES PROCEDURE: Informed consent was obtained. The patient was placed in supine position. A limited locali zation ultrasound of the abdomen was obtained, and the skin site over the largest pocket of fluid was marked and entry site was prepped with chlorhexidine which was allowed to dry and draped in the usua l sterile fashion. Time out was performed. Following administration of 1% lidocaine local anesthetic, a 5 [place]ian centesis needle catheter was percutaneously inserted into the peritoneal collection until fluid was aspirated. The catheter was advanced into the fluid collection and the needle removed. [place] 6500 cc of fluid was aspirated . The catheter was then removed and a sterile dressing applied. No immediate complication was identified. FINDINGS: Limited ultrasound imaging demonstrates moderate ascites. Aspirated fluid was clear and ser ous. IMPRESSION: US-guided paracentesis with 6.5L removed.
--- NOTE | 2025-03-03 15:31 | DVHPN2 ---
Progress Note - Dictate Date Seen: Mar 03, 2025 Medical Necessity Reason Pt with a Central, PICC or Fol: Yes vital signs Vital Sign Date Time Temp Pulse Resp B/P (MAP) Pulse Ox O2 Delivery O2 Flow Rate FiO2 03/03/25 14:53 86 14 159/75 (103) 98 03/03/25 08:00 97.7 97.7 03/03/25 07:30 Room Air* 0 21 Total Intake and Output 03/02/25 03/02/25 03/03/25 15:00 23:00 07:00 Intake Total 800 ml 100 ml 780 ml Balance 800 ml 100 ml 780 ml medications Current Medications Medications Dose Ordered Sig/Bhumi Route Start Time Stop Time Status Last Admin Dose Admin Nitroglycerin 0.4 mg Q5MINP PRN SL 03/02/25 09:00 Morphine Sulfate 2 mg Q30M PRN IV 03/02/25 09:00 Lactulose 30 ml Q4HR PO 03/02/25 10:00 03/03/25 14:25 30 ML Rifaximin 550 mg BID PO 03/02/25 10:00 03/03/25 09:27 550 MG Acetaminophen/ Hydrocodone Bitart 1 tab Q6HPRN PRN PO 03/02/25 09:00 Acetaminophen 500 mg Q8HP PRN PO 03/02/25 09:00 Ondansetron HCl 4 mg Q6HP PRN IV 03/02/25 09:00 Midodrine 10 mg TID@0600,1200,1800 PO 03/02/25 12:00 Hold Spironolactone 50 mg BIDD PO 03/02/25 18:00 objective HEENT: No evidence of JVD, no oral ulcers. Pulmonary: Lungs are clear on auscultation bilaterally Cardiovascular S1-S2, no S3 or S4 Abdomen: Bowel sounds positive, soft no rebound tenderness, reducible umbilical hernia Skin: No rash Neurological: Alert, oriented, no focal weakness Hemodialysis catheter with no complications laboratory and microbiology Laboratory Tests 03/03/25 05:37 Test 03/03/25 05:37 Range/Units Serum Glucose 83 74-106 mg/dL Assessment/Plan Assessment: 1. End-stage renal disease on hemodialysis Friday. 2. Acute hepatic encephalopathy. 3. Ascites 4. Anemia 5. Hyponatremia 6. Hyperammonemia Recommendations: Hemodialysis today Paracentesis was done yesterday Fluid restriction less than 1 L per day Lactulose titrate for three bowel movements per day Renal, cirrhosis restricted diet. Malik for goal hemoglobin 10 to 11 grams/deciliter. Okay to discharge from Nephrology perspective after dialysis today Thank you very much for allowing us to participate in the care of this patient. Plan discussed with: Patient SATNAM MALIK MD Mar 03, 2025 15:31
[2025-03-03 15:43] LABS: Amphetamine Screen, Urine Neg (NEGATIVE); Barbiturate Scree,Urine Neg (NEGATIVE); Benzodiazephine Screen, Urine Neg (NEGATIVE); Cannabinoid Screen, Urine Neg (NEGATIVE); Cocaine Screen, Urine Neg (NEGATIVE); Opiate Scree,Urine Neg (NEGATIVE); Phencyclidine Screen, Urine Neg (NEGATIVE)
[2025-03-03 16:40] LABS: Body Fluid Red Blood Cells 73 CUMM (0-2000); Body Fluid White Blood Cells 383 CUMM (0-200)
[2025-03-03] MEDS: HYDROcodone-ACET 5/325MG TAB PO PRN (20:48)
[2025-03-04 00:45] VITALS: BP 102/58; PULSE 85; RESP 19; TEMP 98.2; O2SAT 98
[2025-03-04 05:25] VITALS: BP 91/54; PULSE 73; RESP 20; TEMP 97.9; O2SAT 98
[2025-03-04] MEDS ORDERED: SODIUM CHL 0.9% 1000 ML BAG XX ONE (07:00)
[2025-03-04 07:15] LABS: Hematocrit 32.2 % (41.0-53.0); Hemoglobin 10.7 g/dL (13.5-17.5)
[2025-03-04 07:16] LABS: Anion Gap 10 (5-15); Chloride 104 mmol/L (98-107); Sodium 138 mmol/L (136-145)
[2025-03-04 07:22] LABS: BUN/Creatinine Ratio 7.7 (10.0-20.0); Blood Urea Nitrogen 19 mg/dL (9-23); Glucose 82 mg/dL (74-106)
[2025-03-04 07:37] LABS: Carbon Dioxide 24 mmol/L (20-31)
[2025-03-04 09:00] VITALS: BP 126/81; PULSE 78; RESP 19; TEMP 97.6; O2SAT 99
[2025-03-04 12:07] LABS: Protein, Body Fluid 1.2 g/dL (.)
[2025-03-04 13:00] VITALS: BP 97/59; PULSE 72; RESP 16; TEMP 97.6; O2SAT 100
[2025-03-04] MEDS ORDERED: RIFA550T PO (13:59)
--- NOTE | 2025-03-04 14:03 | DVHDS2 ---
Discharge Summary Date of Admission Mar 02, 2025 at 08:54 Date of Discharge: Mar 04, 2025 Admitting Diagnosis Hepatic encephalopathy Labs/Diagnostic Data: Laboratory Results Test 03/04/25 05:25 03/03/25 13:30 03/03/25 05:37 03/02/25 20:00 Hemoglobin 10.7 g/dL (13.5-17.5) Hematocrit 32.2 % (41.0-53.0) Sodium Level 138 mmol/L (136-145) Potassium Level 3.0 mmol/L (3.5-5.1) Chloride Level 104 mmol/L (98-107) Carbon Dioxide Level 24 mmol/L (20-31) Anion Gap 10 (5-15) Blood Urea Nitrogen 19 mg/dL (9-23) Creatinine 2.48 mg/dL (0.700-1.30) Glomerular Filtration Rate Calc 32 mL/min (>90) BUN/Creatinine Ratio 7.7 (10.0-20.0) Serum Glucose 82 mg/dL (74-106) Calcium Level 9.0 mg/dL (8.7-10.4) Ammonia 86 umol/L (11-32) Body Fluid Source Ascities fluid Body Fluid pH 8.0 Body Fluid WBC (Manual) 383 CUMM (0-200) Body Fluid RBC (Manual) 73 CUMM (0-2000) Body Fluid Mononuclear Cells 90 % Body Fluid Polymorphonuclear Cells 10 % (0-25) Body Fluid Glucose 103 mg/dL (.) Body Fluid Total Protein 1.2 g/dL (.) Body Fluid Lactate Dehydrogenase 50 IU/L (.) White Blood Count 4.7 10^3/uL (4.4-10.8) Red Blood Count 2.99 10^6/uL (4.5-5.90) Mean Corpuscular Volume 97.9 fL (80.0-100.0) Mean Corpuscular Hemoglobin 33.3 pg (28.0-32.0) Mean Corpuscular Hemoglobin Concent 34.1 g/dL (32.0-36.0) Red Cell Distribution Width 19.6 % (11.8-14.3) Platelet Count 177 10^3/uL (140-450) Mean Platelet Volume 7.6 fL (6.9-10.8) Neutrophils (%) (Auto) 43.3 % (37.0-80.0) Lymphocytes (%) (Auto) 35.7 % (10.0-50.0) Monocytes (%) (Auto) 12.2 % (0.0-12.0) Eosinophils (%) (Auto) 7.8 % (0.0-7.0) Basophils (%) (Auto) 1.0 % (0.0-2.0) Neutrophils # (Auto) 2.0 10 ^3/uL (1.6-8.6) Lymphocytes # (Auto) 1.7 10 ^3/uL (0.4-5.4) Monocytes # (Auto) 0.6 10 ^3/uL (0-1.3) Eosinophils # (Auto) 0.4 10 ^3/uL (0-0.8) Basophils # (Auto) 0 10 ^3/uL (0-0.2) Nucleated Red Blood Cells 0.1 % Urine Color Yellow (Yellow) Urine Clarity Clear (Clear) Urine pH 6.0 (5.0-9.0) Urine Specific [place] 1.012 (1.001-1.035) Urine Protein Negative (Negative) Urine Ketones Negative (Negative) Urine Blood Negative /uL (Negative) Urine Nitrite Negative (Negative) Urine Bilirubin Negative (Negative) Urine Urobilinogen Normal mg/dL (Negative) Urine Leukocyte Esterase Negative /uL (Negative) Urine RBC 2 /hpf (0 - 3) Urine Microscopic WBC 3 /HPF (0-3) Urine Squamous Epithelial Cells None seen /hpf (<5) Urine Bacteria Few /hpf (None Seen) Urine Glucose Normal mg/dL (Normal) Urine Opiates Screen Neg (NEGATIVE) Urine Fentanyl Screen Neg (NEGATIVE) Urine Barbiturates Screen Neg (NEGATIVE) Urine Phencyclidine Screen Neg (NEGATIVE) Urine Amphetamines Screen Neg (NEGATIVE) Urine Benzodiazepines Screen Neg (NEGATIVE) Urine Cocaine Screen Neg (NEGATIVE) Urine Cannabinoids Screen Neg (NEGATIVE) Test 03/02/25 14:52 03/02/25 10:02 03/02/25 04:54 03/02/25 04:03 Hepatitis A IgM Antibody Negative Hepatitis B Surface Antigen Negative (Negative) Hepatitis B Core IgM Antibody Negative (Negative) Hepatitis C Antibody Negative (Negative) Lactic Acid Level 1.8 mmol/L (0.4-2.0) Influenza Type A Antigen Negative (Negative) Influenza Type B Antigen Negative (Negative) SARS-CoV-2 Antigen (Rapid) Negative (NEGATIVE) Prothrombin Time 10.8 sec (9.3-11.8) Prothrombin Time INR 1.02 (0.9-1.15) Total Bilirubin 0.7 mg/dL (0.2-1.0) Aspartate Amino Transferase (AST) 40 U/L (13-40) Alanine Aminotransferase (ALT) 35 U/L (7-40) Alkaline Phosphatase 203 U/L (46-116) B-Type Natriuretic Peptide 41.30 pg/mL (0-100) Total Protein 6.3 g/dL (5.7-8.2) Albumin 3.2 g/dL (3.2-4.8) Plasma/Serum Blood Alcohol 4.8 mg/dL (<10) Test 03/02/25 03:56 Blood Gas Specimen Type Arterial Blood Gas Sample Site Left radial Blood Gas Patient Temperature 37.0 Arterial Blood Date Drawn [id number] Arterial Blood pH 7.515 (7.350-7.450) Arterial Blood Partial Pressure CO2 27.9 mmHg (35.0-48.0) Arterial Blood Partial Pressure O2 72.9 mmHg (83.0-108.0) Arterial Blood HCO3 22.0 mmol/L (21.0-28.0) Arterial Blood Oxygen Saturation 94.4 % (94.0-98.0) Arterial Blood Base Excess 0.0 mmol/L (-2.0-3.0) Arterial Blood Oxyhemoglobin 93.6 % (94.0-98.0) Arterial Blood Carboxyhemoglobin 0.3 % (0.5-1.5) Arterial Blood Methemoglobin 0.5 % (0.0-1.5) Dragan Test Modified Blood Gas Total Hemoglobin 11.80 g/dL (13.5-17.5) Blood Gas Modality Room air FiO2 % 21.0 Other Laboratory Tests 03/04/25 05:25 03/03/25 05:37 Brief Hx & Hospital Course: History of Present Illness The patient was a 44-year-old male transport to the emergency room by EMS with reports of altered mental status has been worsening over the past one day. The patient's daughter, Deb is bedside who provided medical history of the patient. The patient has a significant history of ESRD with hemodialysis on Friday, Friday, Friday, as well as cirrhosis of the liver for which the patient was currently on lactulose at home. She reports that she was assist with his care, has been compliant with his medications, but is unsure of his last bowel movement. Patient also receives paracentesis approximately every two weeks. Patient was having significant history of alcoholism, for which he was stopped drinking approximately a year and a half ago, but currently smokes. Daughter denies any previous surgical history. Course of hospitalization: Patient was treated with both lactulose as well as rifaximin 550 mg p.o. b.i.d.. Patient was ammonia level improved with the patient was mentation improving. Patient had hemodialysis per Nephrology recommendations while in the hospital. Patient had paracentesis with 6.5 L removed. Patient was alert and oriented and in his requesting to be discharged home. Patient was instructed to follow up with his online media buyer for next HD treatment. He will continue all previous home medications and we will be provided a prescription for rifaximin 550 mg p.o. b.i.d. times 14 days. He was agreeable with discharge plan. All questions answered. Physical examination General: Alert and Oriented x3. No acute distress. Well-nourished. Eyes: EOMI. Anicteric. HENT: Moist mucous membranes. Lungs: Clear to auscultation bilaterally. No accessory muscle use. Cardiovascular: Regular rate and rhythm. No murmur. No JVD. Abdomen: Soft, non-tender and non-distended. No palpable masses. Extremities: No edema. Non-tender. Skin: No rashes or lesions. Warm. Neurologic: No focal neurological deficits. CN II-XII grossly intact, but not individually tested. Psychiatric: Cooperative. Appropriate mood and affect. Total time spent with patient discussing and formulating plan of care: 35 minutes. This medical document was created using an electronic medical record system with [employer] dictation system. Although this document has been carefully reviewed, there may still be some phonetic and typographical errors. These areas are purely typographical due to imperfections of the software programs, and do not reflect any compromise in the patient's medical care. Consults/Reason for consult Nephrology: Hemodialysis Interventional Radiology: Paracentesis Condition at Discharge: Guarded Final Diagnosis/Problems List Hepatic encephalopathy Secondary diagnosis: -history of cirrhosis of liver -ESRD with hemodialysis -ascites -lactic acidosis Discharge Disposition: Home Discharge Instruct/Medications Diet: Renal Activity: No Restrictions, As Tolerated Follow Up/Referral: Follow up with established hemodialysis chair time Follow up with PCP in 1-2 weeks Medications: Rifaximin 550 mg p.o. b.i.d. Continue all home medications 36 Discharge Statement: "Patient was advised to return to the ER or call 911 if any headaches, dizziness, shortness of breath, chest pain, abdominal pain, bleeding, fevers, or worsening of medical condition. Patient was counseled about treatment plan, medications, possible side effects, patientverbalized understanding. All questions were answered to the best of my ability. This discharge took greater then 30 minutes in planning, reviewing documentation, counseling the patient, and discussing with other team members." ASSESSMENT ASSESSMENT Assessment Hepatic encephalopathy Date of Service: Mar 04, 2025 Billing Provider: REENA BUSH NP Common Visit Codes: [id number]/OBS DISCH DAY >30min REENA BUSH NP Mar 04, 2025 14:03
--- NOTE | 2025-03-04 14:53 | DVHPN2 ---
Progress Note - Dictate Date Seen: Mar 04, 2025 Medical Necessity Reason Pt with a Central, PICC or Fol: Yes Subjective Patient feels much better he wants to go home. vital signs Vital Sign Date Time Temp Pulse Resp B/P (MAP) Pulse Ox O2 Delivery O2 Flow Rate FiO2 03/04/25 13:00 97.6 72 16 97/59 (72) 100 97.6 03/04/25 08:00 Room Air* 0 21 Total Intake and Output 03/03/25 03/03/25 03/04/25 15:00 23:00 07:00 Intake Total 600 ml Balance 600 ml medications Current Medications Medications Dose Ordered Sig/Bhumi Route Start Time Stop Time Status Last Admin Dose Admin Nitroglycerin 0.4 mg Q5MINP PRN SL 03/02/25 09:00 Morphine Sulfate 2 mg Q30M PRN IV 03/02/25 09:00 Lactulose 30 ml Q4HR PO 03/02/25 10:00 03/04/25 14:26 30 ML Rifaximin 550 mg BID PO 03/02/25 10:00 03/04/25 10:10 550 MG Acetaminophen/ Hydrocodone Bitart 1 tab Q6HPRN PRN PO 03/02/25 09:00 03/03/25 20:48 1 TAB Acetaminophen 500 mg Q8HP PRN PO 03/02/25 09:00 Ondansetron HCl 4 mg Q6HP PRN IV 03/02/25 09:00 Midodrine 10 mg TID@0600,1200,1800 PO 03/02/25 12:00 Hold Spironolactone 50 mg BIDD PO 03/02/25 18:00 objective HEENT: No evidence of JVD, no oral ulcers. Pulmonary: Lungs are clear on auscultation bilaterally Cardiovascular S1-S2, no S3 or S4 Abdomen: Bowel sounds positive, soft no rebound tenderness, reducible umbilical hernia Skin: No rash Neurological: Alert, oriented, no focal weakness Hemodialysis catheter with no complications laboratory and microbiology Laboratory Tests 03/04/25 05:25 03/03/25 05:37 Test 03/04/25 05:25 Range/Units Serum Glucose 82 74-106 mg/dL Assessment/Plan Assessment: 1. End-stage renal disease on hemodialysis Friday. 2. Acute hepatic encephalopathy. 3. Ascites 4. Anemia 5. Hyponatremia 6. Hyperammonemia Recommendations: Hemodialysis completed yesterday Paracentesis was done day before yesterday Fluid restriction less than 1 L per day Lactulose titrate for three bowel movements per day Renal, cirrhosis restricted diet. Malik for goal hemoglobin 10 to 11 grams/deciliter. Okay to discharge from Nephrology perspective Thank you very much for allowing us to participate in the care of this patient. Plan discussed with: Patient SATNAM MALIK MD Mar 04, 2025 14:53
[2025-03-04 16:41] VITALS: BP 94/60; PULSE 78; RESP 16; TEMP 97.7; O2SAT 99
[2025-03-04 17:50] VITALS: TEMP 36.5
[2025-03-04] MEDS ORDERED: EPOETIN ALFA-EPBX 4,000 UNIT/ML VIAL SC ONE (21:00)
== END 2025-03-04 18:30 | disposition home or self-care (01) ==
LOC: EDBD 03:42 → ER 03:42 → OVERFLOW 08:54 → TELE-CENTR 03-03 22:10
PROVIDERS: ADMIT Nurse Practitioner Acute Care; ATTEND Nurse Practitioner Acute Care
PROC: 5A1D70Z Performance of Urinary Filtration, Intermittent, Less than 6 Hours Per Day (ICD-10-PCS; principal; 2025-03-03)
PROC: 0W9G3ZZ Drainage of Peritoneal Cavity, Percutaneous Approach (ICD-10-PCS; 2025-03-03)
DX: K76.82 Hepatic encephalopathy (principal); G93.41 Metabolic encephalopathy; E87.20 Acidosis, unspecified; N18.6 End stage renal disease; R18.8 Other ascites; E72.20 Disorder of urea cycle metabolism, unspecified; Z20.822 Contact with and (suspected) exposure to COVID-19; D64.9 Anemia, unspecified; K74.60 Unspecified cirrhosis of liver; F10.21 Alcohol dependence, in remission; Z99.2 Dependence on renal dialysis; Z79.899 Other long term (current) drug therapy; Z87.891 Personal history of nicotine dependence
CPT/HCPCS: 36415; 36600; 70450; 71045; 76705; 76942; 80048; 80053; 80074; 80307; 80320; 81001; 82140; 82805; 83605; 83880; 83986; 85014; 85018; 85025; 85610; 87205; 87426; 87804; 89051; 90935; 93005; G0378

== ENCOUNTER 2025-03-14 07:58 | Inpatient (IN) | payer MEDICAID ==
[~2025-03-14] VITALS: Ht 172.7 cm; Wt 64.8 kg
[2025-03-14] VITALS (23 sets, daily range): BP systolic 94–112; BP diastolic 55–67; PULSE 99–112; RESP 13–20; TEMP 97–97.9; O2SAT 98–100
[~2025-03-14 07:58] MED LIST: FURO80TA3 PO; LACT10SO3 PO; MAGN241.4 PO; MIDO10TA3 PO; RIFA550T PO; SPIR50TA5 PO
--- NOTE | 2025-03-14 08:06 | ED.PDOC ---
Altered Mental Status HPI Comments 44 y.o male with PMHx of liver cirrhosis and ESRD with dialysis treatment M,W,F, presents to the ED via EMS for altered mental status s/p dialysis today. EMS reports patient received full treatment today, had 2.5 liters taken out and given IV fluids when he became altered. EMS on scene declared GCS of 3, gave Epinephrine and and additional 600cc IV fluids with blood pressure at 76/30. Patient remained altered and no family is present to gather additional medical history. Chief Complaint: ALOC Time Seen by MD: 08:00 Reviewed Notes: Nurses Notes, Facilities Mechanical Design Engineer Notes, Medications, Allergies Allergies: Coded Allergies: NO KNOWN ALLERGIES (Unverified , 03/02/25) Home Meds Active Scripts Rifaximin (Xifaxan) 550 Mg Tab, 1 TAB PO BID for 14 Days, #28 TAB Prov:REENA BUSH IMPROVEMENT COORDINATOR 03/04/25 Reported Medications Lactulose (Lactulose) 10 Gm/15 Ml Monisha, ML PO 03/02/25 Magnesium Oxide (Mag-Ox) 400 Mg Tb, 1 TAB PO DAILY 03/02/25 Spironolactone (Spironolactone) 50 Mg Tab, 1 TAB PO BID 03/02/25 Furosemide (Furosemide) 80 Mg Tab, 2 PO BID 03/02/25 Midodrine Hcl (Midodrine Hcl) 10 Mg Tab, PO 03/02/25 Information Source: Emergency Med Personnel Mode of Arrival: EMS Severity: Unresponsive Timing: Hours Duration: Since onset Quality: Decreased Alertness Recent: Other History of: IV Drug Use Associated Signs and Symptoms: Other Past Medical History PAST MEDICAL HISTORY: ESRD, Liver Surgical History: Denies all surgeries Family History Family History: Reviewed,noncontributory to illness Social History Smoker: Non-Smoker Alcohol: Sober Drugs: Denies Drug Use Lives In: Home Unable to Obtain due to: Altered Mental Status Physical Exam General Appearance: Severe Distress HEENT: Normal ENT Inspection, Pharynx Normal, TMs Normal Neck: Full Range of Motion, Non-Tender, Normal, Normal Inspection Respiratory: Chest Non-Tender, Lungs Clear, No Accessory Muscle Use, No Respiratory Distress, Normal Breath Sounds Cardiovascular: No Edema, No JVD, No Murmur, No Gallop, Normal Peripheral Pulses, Regular Rate/Rhythm Breast Exam: Deferred Gastrointestinal: Distended Genitalia: Deferred Pelvic: Deferred Rectal: Deferred Extremities: No pedal edema Musculoskeletal : Apperance: Normal Neurologic: Disoriented Cerebellar Function: NOT DONE Reflexes: NOT DONE Skin: Jaundice Peripheral Pulses: 3+ Radial (R), 3+ Radial (L) Lymphatic: No Adenopathy EKG EKG : Pulse Rate (adult): 101 Cardiac Rhythm: ST Was a procedure done? Was a procedure done?: Yes Sedation Sedation?: Yes Informed consent obtained: No (emergent. 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 of bead picker: Attending Physician Indication: Hypotension, Suspected infection Room prepared for procedure: Yes Trench Digger Helper performed hand hygien: Yes Maximal sterile barrier precau: Mask/Eye shield, Sterile gown, Cap, Sterlie gloves, Large sterlie drape Skin Preparation: Providine iodine, Alcohol Skin preparation completely dr: Yes Insertion site: Right, Femoral Central line catheter type: Tunneled- not dialysis Number of lumens: 3 Central line exchanged over a: Yes Antiseptic ointment applied to: Yes Post Assessment: Chest X-Ray, Proper placement Informed consent obtained: No Risks/benefits/alt described: No Intubation Indication: Respiratory Insufficiency, Altered Mental Status, Airway Protection Prep: No Preoxygenation Pretreated with: Sedation Medicated with: Succinylcholine, Other (Rocuronium) Intubation Approach: Orotracheal Intubation size: cm (8.0 tube size ) Informed consent obtained: No (emergent. patient is altered and no family is at bedside ) Risks/benefits/alt described: No (emergent. patient is altered and no family is at bedside ) Differential Diagnosis (ALOC) Differential Diagnosis: Dehydration, Hypoglycemia, Hypoxemia, Heart Failure, Renal Failure X-Ray, Labs, Meds, VS Vital Signs Date Time Temp Pulse Resp B/P (MAP) Pulse Ox O2 Delivery O2 Flow Rate FiO2 03/14/25 15:15 89/53 03/14/25 15:15 96.3 101 18 89/53 (65) 99 96.3 03/14/25 15:10 97/55 03/14/25 15:10 97/55 03/14/25 15:10 97/55 03/14/25 15:00 96.3 101 18 94/50 (65) 98 96.3 4/21/25 14:56 101 18 100/58 100 40 03/14/25 14:45 96.3 102 20 90/55 (67) 98 96.3 03/14/25 14:30 96.1 99 19 93/60 (71) 99 96.1 03/14/25 14:15 96.1 99 18 88/55 (66) 99 96.1 03/14/25 14:10 87/51 03/14/25 14:10 87/51 03/14/25 14:10 87/51 03/14/25 14:10 88/55 03/14/25 14:00 95.9 103 19 93/56 (68) 98 95.9 03/14/25 13:49 101 18 100/58 (72) 100 40 03/14/25 13:45 95.9 100 18 99/61 (74) 100 95.9 03/14/25 13:30 95.9 102 18 96/56 (69) 100 95.9 03/14/25 13:15 95.7 104 23 99/58 (72) 100 95.7 03/14/25 13:10 106/60 03/14/25 13:09 106/60 03/14/25 13:00 95.7 105 20 96/55 (69) 99 95.7 03/14/25 12:45 95.7 104 20 107/60 (76) 99 95.7 03/14/25 12:30 103/63 03/14/25 12:30 95.5 103 27 103/63 (76) 99 95.5 03/14/25 12:28 105 03/14/25 12:15 85/47 03/14/25 12:15 85/47 03/14/25 12:15 95.7 105 21 85/47 (60) 96 95.7 03/14/25 12:10 74/44 03/14/25 12:05 83/51 03/14/25 12:00 95.7 111 16 95/59 (71) 96 95.7 03/14/25 11:45 95.7 111 20 119/71 (87) 98 95.7 03/14/25 11:45 119/71 03/14/25 11:30 111 20 102/64 (77) 99 60 03/14/25 11:30 95.5 111 20 119/71 (87) 98 95.5 03/14/25 11:15 94.6 113 20 99/58 (72) 98 94.6 03/14/25 11:15 99/58 03/14/25 11:00 91.5 133 20 143/94 (110) 96 91.5 03/14/25 10:45 127 19 137/89 (105) 97 03/14/25 10:30 130 17 143/94 (110) 96 03/14/25 10:15 151/95 03/14/25 10:15 131 18 151/95 (113) 97 03/14/25 10:08 131 19 151/95 (113) 99 70 03/14/25 10:00 130 19 140/92 (108) 99 03/14/25 09:45 129 18 153/94 (113) 99 03/14/25 09:30 130 18 164/92 (116) 100 03/14/25 09:15 125 17 132/89 (103) 100 03/14/25 09:15 132/89 03/14/25 09:00 104 21 116/64 (81) 100 03/14/25 09:00 138/88 03/14/25 08:45 104 21 116/64 (81) 100 03/14/25 08:32 105 18 116/64 (81) 100 100 03/14/25 08:30 100 21 97/49 (65) 99 03/14/25 08:30 82/35 03/14/25 08:30 82/35 03/14/25 08:24 99 03/14/25 08:20 99 13 99 Nasal Cannula* 3 32 03/14/25 08:17 101 03/14/25 08:15 99 13 82/35 (51) 99 03/14/25 08:11 84/41 (55) 03/14/25 08:11 96.8 103 18 76/30 (45) 98 96.8 03/14/25 07:59 101 03/14/25 07:58 96.8 103 18 76/30 (45) 98 96.8 Lab Test 03/14/25 12:29 03/14/25 11:51 03/14/25 10:05 03/14/25 10:00 Range/Units POC Glucose 112 H 70-106 mg/dl Troponin I High Sensitivity 17 </=54 ng/L Blood Gas Specimen Type Arterial Blood Gas Sample Site Right radial Blood Gas Patient Temperature 37.0 Arterial Blood Date Drawn [id number] Arterial Blood pH 7.432 7.350-7.450 Arterial Blood Partial Pressure CO2 39.0 35.0-48.0 mmHg Arterial Blood Partial Pressure O2 166.9 H 83.0-108.0 mmHg Arterial Blood HCO3 25.4 21.0-28.0 mmol/L Arterial Blood Oxygen Saturation 99.4 H 94.0-98.0 % Arterial Blood Base Excess 1.2 -2.0-3.0 mmol/L Arterial Blood Oxyhemoglobin 98.6 H 94.0-98.0 % Arterial Blood Carboxyhemoglobin 0.0 L 0.5-1.5 % Arterial Blood Methemoglobin 0.8 0.0-1.5 % Dragan Test Modified Blood Gas Total Hemoglobin 12.20 L 13.5-17.5 g/dL Blood Gas Set Respiration Rate 18.0 Blood Gas Modality Vent - ac FiO2 % 100.0 Blood Gas Tidal Volume 450.0 Blood Gas PEEP or CPAP 5.0 Lactic Acid Level 2.9 *H 0.4-2.0 mmol/L Test 03/14/25 09:35 03/14/25 08:45 03/14/25 08:25 Range/Units Troponin I High Sensitivity 10 6 </=54 ng/L Urine Color Yellow Yellow Urine Clarity Clear Clear Urine pH 6.0 5.0-9.0 Urine Specific [place] 1.012 1.001-1.035 Urine Protein Negative Negative Urine Ketones Negative Negative Urine Blood Negative Negative /uL Urine Nitrite Negative Negative Urine Bilirubin Negative Negative Urine Urobilinogen Normal Negative mg/dL Urine Leukocyte Esterase Negative Negative /uL Urine RBC 1 0 - 3 /hpf Urine Microscopic WBC 5 H 0-3 /HPF Urine Squamous Epithelial Cells Few <5 /hpf Urine Calcium Oxalate Crystals Few None Seen Urine Bacteria None seen None Seen /hpf Urine Glucose Normal Normal mg/dL White Blood Count 3.9 L 4.4-10.8 10^3/uL Red Blood Count 3.06 L 4.5-5.90 10^6/uL Hemoglobin 10.1 L 13.5-17.5 g/dL Hematocrit 29.5 L 41.0-53.0 % Mean Corpuscular Volume 96.3 80.0-100.0 fL Mean Corpuscular Hemoglobin 32.9 H 28.0-32.0 pg Mean Corpuscular Hemoglobin Concent 34.2 32.0-36.0 g/dL Red Cell Distribution Width 19.1 H 11.8-14.3 % Platelet Count 100 L 140-450 10^3/uL Mean Platelet Volume 8.5 6.9-10.8 fL Neutrophils (%) (Auto) 62.9 37.0-80.0 % Lymphocytes (%) (Auto) 23.3 10.0-50.0 % Monocytes (%) (Auto) 10.3 0.0-12.0 % Eosinophils (%) (Auto) 3.1 0.0-7.0 % Basophils (%) (Auto) 0.4 0.0-2.0 % Neutrophils # (Auto) 2.4 1.6-8.6 10 ^3/uL Lymphocytes # (Auto) 0.9 0.4-5.4 10 ^3/uL Monocytes # (Auto) 0.4 0-1.3 10 ^3/uL Eosinophils # (Auto) 0.1 0-0.8 10 ^3/uL Basophils # (Auto) 0 0-0.2 10 ^3/uL Nucleated Red Blood Cells 0.1 % Sodium Level 135 L 136-145 mmol/L Potassium Level 3.2 L 3.5-5.1 mmol/L Chloride Level 100 98-107 mmol/L Carbon Dioxide Level 27 20-31 mmol/L Anion Gap 8 5-15 Blood Urea Nitrogen 18 9-23 mg/dL Creatinine 2.07 H 0.700-1.30 mg/dL Glomerular Filtration Rate Calc 40 >90 mL/min BUN/Creatinine Ratio 8.7 L 10.0-20.0 Serum Glucose 77 74-106 mg/dL Lactic Acid Level 2.3 *H 0.4-2.0 mmol/L Calcium Level 7.7 L 8.7-10.4 mg/dL Total Bilirubin 1.0 0.2-1.0 mg/dL Aspartate Amino Transferase (AST) 39 13-40 U/L Alanine Aminotransferase (ALT) 31 7-40 U/L Alkaline Phosphatase 162 H 46-116 U/L Ammonia 102 H 11-32 umol/L Total Protein 5.7 5.7-8.2 g/dL Albumin 2.7 L 3.2-4.8 g/dL Plasma/Serum Blood Alcohol < 3.0 <10 mg/dL Current Medications Medications (Trade) Dose Ordered Sig/Bhumi Route Start Time Stop Time Status Last Admin Norepinephrine Bitartrate 250 ml @ 3.75 mls/hr Q24H IV 03/14/25 08:30 03/14/25 08:30 Etomidate 20 mg ONCE ONCE IV 03/14/25 08:30 03/14/25 08:31 DC 03/14/25 08:30 Rocuronium Thendara 100 mg ONCE ONCE IV 03/14/25 08:30 03/14/25 08:31 DC 03/14/25 08:30 Midazolam HCl 50 ml @ 1 mls/hr Q24H IV 03/14/25 09:15 03/14/25 09:15 Lactulose 60 ml ONCE ONCE PO 03/14/25 11:45 03/14/25 11:46 DC 03/14/25 11:55 Fentanyl Citrate 250 ml @ 2.5 mls/hr Q24H IV 03/14/25 12:45 03/14/25 13:09 Patient altered. Just came from dialysis. Severe condition. Tachycardia. Blood pressure low. Started Levophed. Sepsis protocol. Hepatic encephalopathy. Ammonia level. Was given lactulose. Had to intubate the patient. Waiting for family. EXAM: CT HEAD WITHOUT CONTRAST HISTORY: altered COMPARISON: CT HEAD WITHOUT CONTRAST on DOS: 03/02/25 TECHNIQUE: Axial images of the head were obtained and reformatted in coronal and sagittal planes. All CT scans at this medical facility are performed using dose modulation techniques as appropriate to a performed exam including the following: Automated exposure control was utilized; adjustment of the MA and/or KV according to patient size; and use of iterative reconstruction technique. CT Dose: CTDI volume is 56.55 mGy. Dose-length product is 1001.31 mGy*cm FINDINGS: There is no evidence of acute intracranial hemorrhage, mass, mass effect midline shift. There is no hydrocephalus or extra-axial fluid collection. Rodriguez-white matter differentiation is maintained. The visualized paranasal sinuses and mastoid air cells are clear. The calvarium is intact. IMPRESSION: 1. No acute intracranial process. HS:Y T RADIOGRAPH Indication: sob Technique: Single frontal view of the chest was obtained COMPARISON: XY CHEST XRAY 1 VIEW on DOS: 03/02/25 FINDINGS: Lines and Tubes: Endotracheal tube is slightly low in position at the level of the aman. Right central venous catheter in satisfactory position. Enteric catheter in satisfactory position. Lungs: Low lung volumes. Pleura: No effusion. No pneumothorax. Cardiomediastinal contours: Unremarkable Bones: Unremarkable IMPRESSION: Recommend retraction of endotracheal tube by 1 cm. T RADIOGRAPH Indication: ETT PLACEMENT Technique: Single frontal view of the chest was obtained COMPARISON: XY CHEST PORTABLE on DOS: 03/14/25, XY CHEST XRAY 1 VIEW on DOS: 03/02/25 FINDINGS: Lines and Tubes: Endotracheal tube, enteric catheter and right tunneled central venous catheter in satisfactory position Lungs: Low lung volumes. Bibasilar subsegmental atelectasis. Pleura: No effusion. No pneumothorax. Cardiomediastinal contours: Unremarkable Bones: Unremarkable IMPRESSION: Lines and tubes in satisfactory position. Time of 1ST Reevaluation: 08:03 Reevaluation 1ST: Unchanged Patient Education/Counseling: Pt Unresponsive Family Education/Counseling: No Family Present Departure 1 Departure Time of Disposition: 08:16 Impression: Primary Impression: Hepatic encephalopathy Disposition: 09 ADMITTED INPATIENT Admit to: ICU Condition: Guarded Critical Care Note Critical Care Time?: Yes (90 min-critical care time only) Stability Stability form required: No I personally scribed for EMILY SANDS MD ([email or web address]) on 03/14/25 at 08:06. Electronically submitted by Arielle Monteiro ([facility]). I personally scribed for EMILY SANDS MD ([email or web address]) on 03/14/25 at 08:17. Electronically submitted by Arielle Monteiro ([facility]). I personally scribed for EMILY SANDS MD ([email or web address]) on 03/14/25 at 08:34. Electronically submitted by Arielle Monteiro ([facility]). I personally scribed for EMILY SANDS MD ([email or web address]) on 03/14/25 at 09:03. Electronically submitted by Arielle Monteiro ([facility]). I personally scribed for EMILY SANDS MD ([email or web address]) on 03/14/25 at 14:40. Electronically submitted by Arielle Monteiro ([facility]). EMILY SANDS MD Mar 14, 2025 08:06
[2025-03-14] MEDS: ROCURONIUM 10MG/ML 10ML VIAL IV ONE ×2 (08:12→08:30)
[2025-03-14] MEDS: ETOMIDATE (2MG/ML) 20ML VIAL IV ONE ×2 (08:12→08:30)
[2025-03-14] MEDS ORDERED: LACTULOSE 10g/15ml SOLN 473ML PR ONE (08:15)
[2025-03-14] MEDS: NOREPINEPHRINE 8 MG/250ML KIT 250 ML IV ONE (08:21)
[2025-03-14] MEDS: NOREPINEPHRINE 8 MG/250ML KIT 250 ML IV SCH (08:30)
[2025-03-14 08:37] LABS: Basophils # (auto) 0 10 ^3/uL (0-0.2); Basophils % (auto) 0.4 % (0.0-2.0); Eosinophils # (auto) 0.1 10 ^3/uL (0-0.8); Eosinophils % (auto) 3.1 % (0.0-7.0); Hematocrit 29.5 % (41.0-53.0); Hemoglobin 10.1 g/dL (13.5-17.5); Lymphocytes # (auto) 0.9 10 ^3/uL (0.4-5.4); Lymphocytes % (auto) 23.3 % (10.0-50.0); Mean Corpuscular Hemoglobin 32.9 pg (28.0-32.0); Mean Corpuscular Hgb Conc. 34.2 g/dL (32.0-36.0); Mean Corpuscular Volume 96.3 fL (80.0-100.0); Monocytes # (auto) 0.4 10 ^3/uL (0-1.3); Monocytes % (auto) 10.3 % (0.0-12.0); Neutrophils # (auto) 2.4 10 ^3/uL (1.6-8.6); Neutrophils % (auto) 62.9 % (37.0-80.0); Nucleated Red Blood Cells % 0.1 %; Platelet Count (auto) 100 10^3/uL (140-450); Red Blood Cells 3.06 10^6/uL (4.5-5.90); Red Cell Distribution Width 19.1 % (11.8-14.3); White Blood Cell 3.9 10^3/uL (4.4-10.8)
[2025-03-14 08:51] LABS: Urine Bacteria None Seen /hpf (None Seen)
[2025-03-14 08:52] LABS: Alanine Aminotransferase 31 U/L (7-40); Albumin 2.7 g/dL (3.2-4.8); Alkaline Phosphatase 162 U/L (46-116); Anion Gap 8 (5-15); Aspartate Aminotransferase 39 U/L (13-40); BUN/Creatinine Ratio 8.7 (10.0-20.0); Blood Alcohol < 3.0 mg/dL (<10); Blood Urea Nitrogen 18 mg/dL (9-23); Calcium 7.7 mg/dL (8.7-10.4); Carbon Dioxide 27 mmol/L (20-31); Chloride 100 mmol/L (98-107); Glucose 77 mg/dL (74-106); Potassium 3.2 mmol/L (3.5-5.1); Sodium 135 mmol/L (136-145); Total Protein 5.7 g/dL (5.7-8.2)
[2025-03-14 08:58] LABS: Lactic Acid w/Reflex 2.3 mmol/L (0.4-2.0)
[2025-03-14 09:09] LABS: Urine Blood Negative /uL (Negative); Urine Clarity Clear (Clear); Urine Color Yellow (Yellow); Urine Protein, UAD Negative (Negative); Urine Specific Gravity 1.012 (1.001-1.035); Urine Squamous Epithelial Cell FEW /hpf (<5); Urine Urobilinogen Normal (Negative); Urine WBC 5 /HPF (0-3)
--- NOTE | 2025-03-14 09:11 | DVH ---
EXAM: CT HEAD WITHOUT CONTRAST HISTORY: altered COMPARISON: CT HEAD WITHOUT CONTRAST on DOS: 03/02/25 TECHNIQUE: Axial images of the head were obtained and reformatted in coronal and sagittal planes. All CT scans at this medical facility are performed using dose modulation techniques as appropriate t o a performed exam including the following: Automated exposure control was utilized; adjustment of th e MA and/or KV according to patient size; and use of iterative reconstruction technique. CT Dose: CTDI volume is 56.55 mGy. Dose-length product is 1001.31 mGy*cm FINDINGS: There is no evidence of acute intracranial hemorrhage, mass, mass effect midline shift. There is no h ydrocephalus or extra-axial fluid collection. Rodriguez-white matter differentiation is maintained. The visualized paranasal sinuses and mastoid air cells are clear. The calvarium is intact. IMPRESSION: 1. No acute intracranial process. HS:Y
[2025-03-14] MEDS: MIDAZOLAM DRIP 50 mg/50mL 50 ML IV ONE (09:14)
[2025-03-14] MEDS: MIDAZOLAM DRIP 50 mg/50mL 50 ML IV SCH (09:15)
--- NOTE | 2025-03-14 09:42 | DVH ---
CHEST RADIOGRAPH Indication: sob Technique: Single frontal view of the chest was obtained COMPARISON: XY CHEST XRAY 1 VIEW on DOS: 03/02/25 FINDINGS: Lines and Tubes: Endotracheal tube is slightly low in position at the level of the aman. Right joanna tral venous catheter in satisfactory position. Enteric catheter in satisfactory position. Lungs: Low lung volumes. Pleura: No effusion. No pneumothorax. Cardiomediastinal contours: Unremarkable Bones: Unremarkable IMPRESSION: Recommend retraction of endotracheal tube by 1 cm.
[2025-03-14] MEDS ORDERED: MIDAZOLAM DRIP 50 mg/50mL 50 ML IV SCH (09:45)
[2025-03-14 10:15] LABS: Base Excess 1.2 mmol/L (-2.0-3.0)
[2025-03-14] MEDS: LACTULOSE 20Gm/30ML SOLN PO ONE (11:55)
[2025-03-14] MEDS: fentaNYL Drip 2500mCg/250mlNS 250 ML IV SCH (13:09)
--- NOTE | 2025-03-14 14:13 | DVH ---
CHEST RADIOGRAPH Indication: ETT PLACEMENT Technique: Single frontal view of the chest was obtained COMPARISON: XY CHEST PORTABLE on DOS: 03/14/25, XY CHEST XRAY 1 VIEW on DOS: 03/02/25 FINDINGS: Lines and Tubes: Endotracheal tube, enteric catheter and right tunneled central venous catheter in sa tisfactory position Lungs: Low lung volumes. Bibasilar subsegmental atelectasis. Pleura: No effusion. No pneumothorax. Cardiomediastinal contours: Unremarkable Bones: Unremarkable IMPRESSION: Lines and tubes in satisfactory position.
[2025-03-14] MEDS ORDERED: NITROGLYCERIN 0.4 MG SL TAB SL PRN (15:30)
[2025-03-14] MEDS ORDERED: ACETAMINOPHEN 325 MG TAB PO PRN (15:30)
[2025-03-14] MEDS ORDERED: MORPHINE SULFATE INJ 2 MG/ml SYRG IV PRN (15:30)
[2025-03-14] MEDS ORDERED: ONDANSETRON HCL 4 MG/2 ML VIAL IV PRN (15:30)
--- NOTE | 2025-03-14 16:04 | DVHHP2 ---
History of Present Illness Reason for Visit: ALOC History of Present Illness Julián Lindsay is a 44-year-old male with past medical history of ETOH induced liver cirrhosis, and ESRD on HD, who was brought in by EMS for ALOC. Patient went to his HD today, he had 2.5L removed. Daughter is who took him this morning, she states he was going well and talking on the way to dialysis, but that he did have 1 moment where he forgot where he was. Once dialysis was finishing be began to become more altered and hypotensive, EMS was called. Patient was given 2L IV fluids at the dialysis center. When patient arrived to ER his GCS was 3, he was intubated. Daughter was at bedside at time of assessment. She states he has had previous episodes like this before, but never so severe where he needs to be intubated. Patient is currently being followed by Dr. Magdi FORMAN [phone]. I was asked by daughter to call to give them an update. When I called they wanted me to call [facility], where the patient is being worked up for a liver transplant. They gave me the number of [phone]. They did not know who specifically I would speak with, just stated the ICU doctor. I called numerous times and was not able to speak with the ICU doctor. Patient is currently Intubated and sedated on 15 of versed, and 25 of fentanyl. I asked the nurse to come down on the versed as tolerated and use more Fentanyl as possible, as versed is difficult for renal patient to excrete. Patient was o n 8mcg of Levophed for BP support. Hepatobiliary: Cirrhosis Renal/: Chronic renal failure (ESRD on HD) Smoke: No ALCOHOL: none Drugs: None Lives: with Family Domestic Violence: Neg Review of Systems Constitutional: Yes: Other (ALOC); No: Fever, Chills, Sweats, Weakness, Malaise Eyes: No: Pain, Vision change, Conjunctivae inflammation, Eyelid inflammation, Other, Redness ENT: No: Ear pain, Ear discharge, Nose pain, Nose discharge, Nose congestion, Mouth pain, Mouth swelling, Throat pain, Throat swelling, Other Respiratory: No: Cough, Dry, Shortness of breath, SOB with excertion, Wheezing, Hemoptysis, Pleuritic Pain, Sputum, Wheezing, Other Gastrointestinal: No: Nausea, Vomiting, Abdominal Pain, Diarrhea, Constipation, Melena, Hematochezia, Other Genitourinary: No Dysuria, No Frequency, No Incontinence, No Hematuria, No Retention, No Other Musculoskeletal: No: other, neck pain, shoulder pain, arm pain, back pain, hand pain, leg pain, foot pain Skin: No: Rash, Lesions, Jaundice, Bruising, Other Neurological: Change in speech, Confusion; No: Weakness, Numbness, Incoordination, Seizures, Other Allergies: Coded Allergies: NO KNOWN ALLERGIES (Unverified , 03/02/25) Medications Current Medications Medications Dose Ordered Sig/Bhumi Route Start Time Stop Time Status Last Admin Dose Admin Norepinephrine Bitartrate 250 ml @ 3.75 mls/hr Q24H IV 03/14/25 08:30 03/14/25 08:30 3.75 MLS/HR Midazolam HCl 50 ml @ 1 mls/hr Q24H IV 03/14/25 09:15 03/14/25 09:15 1 MLS/HR Midazolam HCl 50 ml @ 1 mls/hr Q24H IV 03/14/25 09:45 UNV Fentanyl Citrate 250 ml @ 2.5 mls/hr Q24H IV 03/14/25 12:45 03/14/25 13:09 2.5 MLS/HR Exam Vital Signs Vital Signs Date Time Temp Pulse Resp B/P (MAP) Pulse Ox O2 Delivery O2 Flow Rate FiO2 03/14/25 14:56 101 18 100/58 100 40 03/14/25 14:15 96.1 96.1 03/14/25 08:20 Nasal Cannula* 3 General Appearance: Other (Sedated and Intubated) Respiratory: Clear to auscultation, Normal air movement, Other (intubated) Cardiovascular: Regular rate, Normal S1, Normal S2 Abdominal: Normal bowel sounds, Other (distended, firm, umbilical hernia) Extremities: No clubbing, No cyanosis, No edema, Normal pulses Skin: No rashes, No significant lesion Labs/Xrays Labs Test 03/14/25 12:29 03/14/25 11:51 03/14/25 10:05 03/14/25 10:00 Range/Units POC Glucose 112 H 70-106 mg/dl Troponin I High Sensitivity 17 </=54 ng/L Blood Gas Specimen Type Arterial Blood Gas Sample Site Right radial Blood Gas Patient Temperature 37.0 Arterial Blood Date Drawn [id number] Arterial Blood pH 7.432 7.350-7.450 Arterial Blood Partial Pressure CO2 39.0 35.0-48.0 mmHg Arterial Blood Partial Pressure O2 166.9 H 83.0-108.0 mmHg Arterial Blood HCO3 25.4 21.0-28.0 mmol/L Arterial Blood Oxygen Saturation 99.4 H 94.0-98.0 % Arterial Blood Base Excess 1.2 -2.0-3.0 mmol/L Arterial Blood Oxyhemoglobin 98.6 H 94.0-98.0 % Arterial Blood Carboxyhemoglobin 0.0 L 0.5-1.5 % Arterial Blood Methemoglobin 0.8 0.0-1.5 % Dragan Test Modified Blood Gas Total Hemoglobin 12.20 L 13.5-17.5 g/dL Blood Gas Set Respiration Rate 18.0 Blood Gas Modality Vent - ac FiO2 % 100.0 Blood Gas Tidal Volume 450.0 Blood Gas PEEP or CPAP 5.0 Lactic Acid Level 2.9 *H 0.4-2.0 mmol/L Test 03/14/25 08:45 03/14/25 08:25 Range/Units Urine Color Yellow Yellow Urine Clarity Clear Clear Urine pH 6.0 5.0-9.0 Urine Specific [place] 1.012 1.001-1.035 Urine Protein Negative Negative Urine Ketones Negative Negative Urine Blood Negative Negative /uL Urine Nitrite Negative Negative Urine Bilirubin Negative Negative Urine Urobilinogen Normal Negative mg/dL Urine Leukocyte Esterase Negative Negative /uL Urine RBC 1 0 - 3 /hpf Urine Microscopic WBC 5 H 0-3 /HPF Urine Squamous Epithelial Cells Few <5 /hpf Urine Calcium Oxalate Crystals Few None Seen Urine Bacteria None seen None Seen /hpf Urine Glucose Normal Normal mg/dL White Blood Count 3.9 L 4.4-10.8 10^3/uL Red Blood Count 3.06 L 4.5-5.90 10^6/uL Hemoglobin 10.1 L 13.5-17.5 g/dL Hematocrit 29.5 L 41.0-53.0 % Mean Corpuscular Volume 96.3 80.0-100.0 fL Mean Corpuscular Hemoglobin 32.9 H 28.0-32.0 pg Mean Corpuscular Hemoglobin Concent 34.2 32.0-36.0 g/dL Red Cell Distribution Width 19.1 H 11.8-14.3 % Platelet Count 100 L 140-450 10^3/uL Mean Platelet Volume 8.5 6.9-10.8 fL Neutrophils (%) (Auto) 62.9 37.0-80.0 % Lymphocytes (%) (Auto) 23.3 10.0-50.0 % Monocytes (%) (Auto) 10.3 0.0-12.0 % Eosinophils (%) (Auto) 3.1 0.0-7.0 % Basophils (%) (Auto) 0.4 0.0-2.0 % Neutrophils # (Auto) 2.4 1.6-8.6 10 ^3/uL Lymphocytes # (Auto) 0.9 0.4-5.4 10 ^3/uL Monocytes # (Auto) 0.4 0-1.3 10 ^3/uL Eosinophils # (Auto) 0.1 0-0.8 10 ^3/uL Basophils # (Auto) 0 0-0.2 10 ^3/uL Nucleated Red Blood Cells 0.1 % Sodium Level 135 L 136-145 mmol/L Potassium Level 3.2 L 3.5-5.1 mmol/L Chloride Level 100 98-107 mmol/L Carbon Dioxide Level 27 20-31 mmol/L Anion Gap 8 5-15 Blood Urea Nitrogen 18 9-23 mg/dL Creatinine 2.07 H 0.700-1.30 mg/dL Glomerular Filtration Rate Calc 40 >90 mL/min BUN/Creatinine Ratio 8.7 L 10.0-20.0 Serum Glucose 77 74-106 mg/dL Calcium Level 7.7 L 8.7-10.4 mg/dL Total Bilirubin 1.0 0.2-1.0 mg/dL Aspartate Amino Transferase (AST) 39 13-40 U/L Alanine Aminotransferase (ALT) 31 7-40 U/L Alkaline Phosphatase 162 H 46-116 U/L Ammonia 102 H 11-32 umol/L Total Protein 5.7 5.7-8.2 g/dL Albumin 2.7 L 3.2-4.8 g/dL Plasma/Serum Blood Alcohol < 3.0 <10 mg/dL CHEST RADIOGRAPH FINDINGS: Lines and Tubes: Endotracheal tube, enteric catheter and right tunneled central venous catheter in satisfactory position Lungs: Low lung volumes. Bibasilar subsegmental atelectasis. Pleura: No effusion. No pneumothorax. Cardiomediastinal contours: Unremarkable Bones: Unremarkable IMPRESSION: Lines and tubes in satisfactory position. EXAM: CT HEAD WITHOUT CONTRAST FINDINGS: There is no evidence of acute intracranial hemorrhage, mass, mass effect midline shift. There is no hydrocephalus or extra-axial fluid collection. Rodriguez-white matter differentiation is maintained. The visualized paranasal sinuses and mastoid air cells are clear. The calvarium is intact. IMPRESSION: 1. No acute intracranial process. Assessment/Plan Assessment/Plan Assessment: Hepatic encephalopathy, Liver cirrhosis, ESRD on HD-M,W,F, Lactic acidosis, Plan: Admit to ICU, GI consult, Nephrology consult, Ventilator support and management, Blood pressure support, Lactulose TID, Ammonia level in am, Plan discussed with: Patient Date of Service: Mar 14, 2025 Billing Provider: MICHELLE TAYLOR Common Visit Codes: [id number] INP/OBS CARE (MOD) MICHELLE TAYLOR Mar 14, 2025 16:04
[2025-03-14] MEDS: LACTULOSE 20Gm/30ML SOLN PO SCH (18:00)
[2025-03-14] MEDS: FUROSEMIDE 40 MG/4 ML VIAL IV SCH (18:01)
--- NOTE | 2025-03-14 20:45 | DVHINCON2 ---
DATE OF CONSULTATION: 03/14/2025 CONSULTING PHYSICIAN: Dr. Keene REASON FOR CONSULTATION: Management of dialysis. HISTORY OF PRESENT ILLNESS: The patient is a 44-year-old gentleman who developed low blood pressure. After dialysis this morning at the clinic, he received almost 2 liters of fluid back at the clinic and was still hypotensive, becoming slightly lethargic, so an ambulance was called and he was sent to the hospital. He is being admitted for management of low blood pressure and encephalopathy. PAST MEDICAL HISTORY: Significant for cirrhosis. He has history of alcohol abuse. He is on dialysis. He also has a history of anemia and renal failure. The patient had to be intubated in the emergency room. He is currently on mechanical ventilation. REVIEW OF SYSTEMS: Not obtainable. PHYSICAL EXAMINATION: VITAL SIGNS: Blood pressure is 89/53, heart rate 101, respirations 18, temperature 96.4. GENERAL: The patient is an adult gentleman who appears to be acutely ill on top of being chronically ill. HEENT: Shows endotracheal tube in place. Oral mucosa is moist. He has some periorbital edema. Pale conjunctivae. NECK: No jugular venous distention. LUNGS: Shows bilateral crackles. CARDIOVASCULAR: Tachycardia, 1/6 systolic murmur. ABDOMEN: Distended. There is ascites. Diminished bowel sounds. EXTREMITIES: Show no clubbing or cyanosis. 1+ edema. LABORATORY FINDINGS: Hemoglobin 10.1, white blood cell count 3.9, sodium 135, potassium 3.2, creatinine 2, BUN 18. Plasma alcohol level was less than 3. Arterial blood gas showed a pH of 7.4, pCO2 of 39, and bicarbonate of 25. Urinalysis was unremarkable. IMAGING DATA: Chest x-ray showed unremarkable lung flores, low lung volumes, some atelectasis at the bases. No effusions. No pulmonary congestion. CT of the head showed no acute intracranial process. ASSESSMENT AND PLAN: * Renal failure. The patient has been on dialysis. This is due to liver failure and renal failure in the setting of alcoholic liver disease. * Encephalopathy. * Chronic hypotension exacerbated by low blood pressure induced by ultrafiltration with dialysis, rule out sepsis. * Anemia. * Hypokalemia. * Hyponatremia. The patient received intravenous fluids with normal saline at 100 mL/h. Recommend placement of central line to measure central venous pressure and maintain between 8 to 12. Use intravenous vasopressors to maintain mean arterial pressure above 55 mmHg. Check blood cultures. Start empiric intravenous antibiotics. Continue ventilatory support. Strictly measure intake and output of fluid, placing a Pierre catheter. Monitor blood gas and metabolic panel every day. There is no need for dialysis at this point. I will follow him closely. Thank you for the consultation. MD ZACK Nixon/ANNIE TID: [id number] RECEIPT: [id number]
[2025-03-14] MEDS ORDERED: PATIENTS OWN MEDICATION (Spironolactone 1 TAB) PO SCH (22:00)
[2025-03-14] MEDS: SPIRONOLACTONE 25 MG TAB PO SCH (22:00)
[2025-03-14] MEDS: rifAXIMin 550 MG TAB PO SCH (23:40)
[2025-03-14] MEDS: MIDODRINE HCL 10 MG TAB PO SCH (23:41)
[2025-03-15] VITALS (93 sets, daily range): BP systolic 88–114; BP diastolic 39–70; PULSE 93–127; RESP 9–24; TEMP 92.5–100; O2SAT 95–100
[2025-03-15 05:12] LABS: Basophils # (auto) 0.1 10 ^3/uL (0-0.2); Basophils % (auto) 0.9 % (0.0-2.0); Eosinophils # (auto) 0.4 10 ^3/uL (0-0.8); Eosinophils % (auto) 4.7 % (0.0-7.0); Hematocrit 32.3 % (41.0-53.0); Lymphocytes # (auto) 1.9 10 ^3/uL (0.4-5.4); Mean Corpuscular Hgb Conc. 34.1 g/dL (32.0-36.0); Mean Corpuscular Volume 96.7 fL (80.0-100.0); Monocytes # (auto) 0.9 10 ^3/uL (0-1.3); Neutrophils # (auto) 5.1 10 ^3/uL (1.6-8.6); Neutrophils % (auto) 60.4 % (37.0-80.0); Nucleated Red Blood Cells % 0.1 %; Platelet Count (auto) 169 10^3/uL (140-450); Red Blood Cells 3.34 10^6/uL (4.5-5.90); Red Cell Distribution Width 18.9 % (11.8-14.3); White Blood Cell 8.4 10^3/uL (4.4-10.8)
[2025-03-15 05:30] LABS: Alanine Aminotransferase 31 U/L (7-40); Anion Gap 11 (5-15); Aspartate Aminotransferase 35 U/L (13-40); BUN/Creatinine Ratio 8.1 (10.0-20.0); Calcium 8.9 mg/dL (8.7-10.4); Carbon Dioxide 25 mmol/L (20-31); Chloride 98 mmol/L (98-107); Glucose 95 mg/dL (74-106); Potassium 3.9 mmol/L (3.5-5.1)
[2025-03-15 05:31] LABS: Bilirubin, Total 0.9 mg/dL (0.2-1.0)
[2025-03-15 05:34] LABS: Albumin 2.8 g/dL (3.2-4.8); Alkaline Phosphatase 133 U/L (46-116); Blood Urea Nitrogen 31 mg/dL (9-23); Sodium 134 mmol/L (136-145)
--- NOTE | 2025-03-15 05:38 | DVH ---
EXAM: XR Chest, 1 View CLINICAL INDICATION: intubation TECHNIQUE: Frontal view of the chest. COMPARISON: XY CHEST PORTABLE on DOS: 03/14/25, XY CHEST PORTABLE on DOS: 03/14/25, XY CHEST XRAY 1 V IEW on DOS: 03/02/25 FINDINGS: LUNGS AND PLEURAL SPACES: Pulmonary venous congestion. No consolidation. No pneumothorax. HEART: Unremarkable. No cardiomegaly. MEDIASTINUM: Unremarkable. Normal mediastinal contour. BONES/JOINTS: Unremarkable. No acute fracture. TUBES, LINES AND DEVICES: Right internal jugular central venous catheter tip in the superior vena c karlos. The endotracheal tube (ETT) is in satisfactory position. Enteric tube tip in the stomach. OTHER FINDINGS: . . . IMPRESSION: Pulmonary venous congestion.
[2025-03-15 05:40] LABS: Lactic Acid w/Reflex 3.7 mmol/L (0.4-2.0)
[2025-03-15 07:28] LABS: Base Excess -2.5 mmol/L (-2.0-3.0)
[2025-03-15] MEDS ORDERED: PATIENTS OWN MEDICATION (Magnesium Oxide (Mag-Ox) 1 TAB) PO SCH (10:00)
[2025-03-15] MEDS: MAGNESIUM OXIDE 400 MG TAB PO SCH (10:03)
--- NOTE | 2025-03-15 10:11 | ECG ---
[facility] Test Date: 2025-03-14 Test Time: 07:59:50 Pat Name: ILEANA Wisdompartment: ED Room: [address] [place] [address] A Gender: M Undercoater: edgardo : 1980 Requested By: EMILY SANDS Order Number: [id number] Reading MD: Evin Palma Measurements Intervals [place] Rate: 101 P: 47 OK: 147 QRS: 80 QRSD: 92 T: 4 QT: 417 QTc: 541 Interpretive Statements Sinus tachycardia Low voltage, extremity leads Prolonged QT interval Electronically Signed On 03-16-2025 13:05:45 PDT by Evin Palma Please click the below link to view image of tracing.
--- NOTE | 2025-03-15 12:35 | DVHPN2 ---
Progress Note - Dictate Date Seen: Mar 15, 2025 Has the PT tested + for MRSA If YES, has PT been informed?: No Medical Necessity Reason Pt with a Central, PICC or Fol: No Subjective On mechanical ventilation vital signs Vital Sign Date Time Temp Pulse Resp B/P (MAP) Pulse Ox O2 Delivery O2 Flow Rate FiO2 03/15/25 11:00 97.9 96 18 106/60 (75) 208.2 03/15/25 10:00 30 03/15/25 09:45 98 03/15/25 08:00 Mechanical Ventilator+ 03/14/25 08:20 3 Total Intake and Output 03/14/25 03/14/25 03/15/25 15:00 23:00 07:00 Intake Total 7.0 ml 321.25 ml 417.70 ml Output Total 100 ml Balance 7.0 ml 321.25 ml 317.70 ml medications Current Medications Medications Dose Ordered Sig/Bhumi Route Start Time Stop Time Status Last Admin Dose Admin Midazolam HCl 50 ml @ 1 mls/hr Q24H IV 03/14/25 09:15 03/15/25 05:27 6 MLS/HR Midazolam HCl 50 ml @ 1 mls/hr Q24H IV 03/14/25 09:45 UNV Fentanyl Citrate 250 ml @ 2.5 mls/hr Q24H IV 03/14/25 12:45 03/14/25 13:09 2.5 MLS/HR Ondansetron HCl 4 mg Q4HP PRN IV 03/14/25 15:30 Acetaminophen 650 mg Q6HP PRN PO 03/14/25 15:30 Nitroglycerin 0.4 mg Q5MINP PRN SL 03/14/25 15:30 Morphine Sulfate 2 mg Q30M PRN IV 03/14/25 15:30 Lactulose 30 ml Q6HR PO 03/14/25 18:00 03/15/25 06:18 30 ML Midodrine 10 mg TID PO 03/14/25 22:00 03/15/25 06:18 10 MG Patient Own Medication 1 tab DAILY PO 03/15/25 10:00 UNV Patient Own Medication 1 tab BID PO 03/14/25 22:00 UNV Furosemide 40 mg BIDD IV 03/14/25 18:00 03/15/25 06:18 40 MG Magnesium Oxide 400 mg DAILY PO 03/15/25 10:00 03/15/25 10:03 400 MG Spironolactone 50 mg BID PO 03/14/25 22:00 03/15/25 10:02 50 MG Rifaximin 550 mg BID PO 03/14/25 22:00 03/15/25 10:02 550 MG Pantoprazole Sodium 40 mg DAILY IV 03/15/25 12:15 Norepinephrine Bitartrate 32 mg/ Sodium Chloride 250 ml @ 0.938 mls/ hr Q24H IV 03/15/25 12:30 UNV objective Intubated Unresponsive Lungs: low air entry at bases CV: RR, no pericardial rub Abdomen: distended, low intensity BS Trace edema laboratory and microbiology Laboratory Tests 03/15/25 04:53 Test 03/15/25 04:53 Range/Units Serum Glucose 95 74-106 mg/dL Problem List 1. Renal failure. The patient has been on dialysis. This is due to liver failure and renal failure in the setting of alcoholic liver disease. 2. Encephalopathy. 3. Chronic hypotension exacerbated by low blood pressure induced by ultrafiltration with dialysis, rule out sepsis. 4. Anemia. 5. Hypokalemia. 6. Hyponatremia. IVF normal saline at 100 mL/h. Recommend placement of central line to measure central venous pressure and maintain between 8 to 12. Use intravenous vasopressors to maintain mean arterial pressure above 55 mmHg. Check blood cultures. Start empiric intravenous antibiotics. Continue ventilatory support. Strictly measure intake and output of fluid, placing a Pierre catheter. Monitor blood gas and metabolic panel every day. IV Bumex Q12 H There is no need for dialysis at this point. I will follow him closely. Plan discussed with: Other KILLIAN REZA MD Mar 15, 2025 12:35
[2025-03-15] MEDS ORDERED: VANCOMYCIN PER PHARMACY 0 MG IV SCH (12:45)
--- NOTE | 2025-03-15 13:19 | DVHPN2 ---
Subjective Patient was intubated and sedated Reviewed: Care Plan, H&P, Labs, Medications, Previous Orders Changes from previous H/P or p: No Changes General: Per HPI Eyes: No Pain, No Vision change, No Conjunctivae inflammation, No Eyelid inflammation, No Other, No Redness ENT: No Ear pain, No Ear discharge, No Nose pain, No Nose discharge, No Nose congestion, No Mouth pain, No Mouth swelling, No Throat pain, No Throat swelling, No Other Respiratory: No Cough, No Dry, No Shortness of breath, No SOB with excertion, No Wheezing, No Hemoptysis, No Pleuritic Pain, No Sputum, No Other Gastrointestinal: No Nausea, No Vomiting, No Abdominal Pain, No Diarrhea, No Constipation, No Melena, No Hematochezia, No Other Genitourinary: No Dysuria, No Frequency, No Incontinence, No Hematuria, No Retention, No Other Musculoskeletal: No other, No neck pain, No shoulder pain, No arm pain, No back pain, No hand pain, No leg pain, No foot pain Skin: No Rash, No Lesions, No Jaundice, No Bruising, No Other Objective Vitals Vital Signs Date Time Temp Pulse Resp B/P (MAP) Pulse Ox O2 Delivery O2 Flow Rate FiO2 03/15/25 11:00 97.9 96 18 106/60 (75) 208.2 03/15/25 10:00 30 03/15/25 09:45 98 03/15/25 08:00 Mechanical Ventilator+ 03/14/25 08:20 3 Intake/Output Intake and Output 03/15/25 07:00 Intake Total 745.95 ml Output Total 100 ml Balance 645.95 ml Intake IV Total 745.95 ml Output Urine Total 100 ml General Appearance: moderate distress HEENT: Atraumatic, PERRLA Lungs: Normal air movement, Other (Mechanical ventilation) Cardiovascular: Normal S1, Normal S2 Abdomen: Other (Ascites, ventral hernia) Musculoskeletal: Normal sensory function, Normal motor function Extremities: No clubbing, No cyanosis, No edema, Normal pulses Neuro: Normal gait, Normal speech Psych/Mental Status: Mental status NL, Mood NL Medications Current Medications Medications Dose Ordered Sig/Bhumi Route Start Time Stop Time Status Last Admin Dose Admin Midazolam HCl 50 ml @ 1 mls/hr Q24H IV 03/14/25 09:15 03/15/25 05:27 6 MLS/HR Midazolam HCl 50 ml @ 1 mls/hr Q24H IV 03/14/25 09:45 UNV Fentanyl Citrate 250 ml @ 2.5 mls/hr Q24H IV 03/14/25 12:45 03/14/25 13:09 2.5 MLS/HR Ondansetron HCl 4 mg Q4HP PRN IV 03/14/25 15:30 Acetaminophen 650 mg Q6HP PRN PO 03/14/25 15:30 Nitroglycerin 0.4 mg Q5MINP PRN SL 03/14/25 15:30 Morphine Sulfate 2 mg Q30M PRN IV 03/14/25 15:30 Lactulose 30 ml Q6HR PO 03/14/25 18:00 03/15/25 06:18 30 ML Midodrine 10 mg TID PO 03/14/25 22:00 03/15/25 06:18 10 MG Patient Own Medication 1 tab DAILY PO 03/15/25 10:00 UNV Patient Own Medication 1 tab BID PO 03/14/25 22:00 UNV Magnesium Oxide 400 mg DAILY PO 03/15/25 10:00 03/15/25 10:03 400 MG Spironolactone 50 mg BID PO 03/14/25 22:00 03/15/25 10:02 50 MG Rifaximin 550 mg BID PO 03/14/25 22:00 03/15/25 10:02 550 MG Pantoprazole Sodium 40 mg DAILY IV 03/15/25 12:15 Norepinephrine Bitartrate 32 mg/ Sodium Chloride 250 ml @ 0.938 mls/ hr Q24H IV 03/15/25 12:30 Bumetanide 2 mg BIDD IV 03/15/25 18:00 Vancomycin HCl 0 ml @ 0 mls/hr UD IV 03/15/25 12:45 UNV Ceftriaxone Sodium 50 ml @ 100 mls/hr DAILY@09 IV 03/15/25 13:01 Laboratory Results Laboratory Tests 03/15/25 04:53 Chemistry Test 03/15/25 04:53 Albumin 2.8 g/dL (3.2-4.8) L Calcium Level 8.9 mg/dL (8.7-10.4) Total Protein 6.0 g/dL (5.7-8.2) LFT Test 03/15/25 04:53 Alanine Aminotransferase (ALT) 31 U/L (7-40) Alkaline Phosphatase 133 U/L (46-116) H Aspartate Amino Transferase (AST) 35 U/L (13-40) Total Bilirubin 0.9 mg/dL (0.2-1.0) Urinalysis Test 03/14/25 08:45 Urine Color Yellow (Yellow) Urine Clarity Clear (Clear) Urine pH 6.0 (5.0-9.0) Urine Specific [place] 1.012 (1.001-1.035) Urine Protein Negative (Negative) Urine Ketones Negative (Negative) Urine Blood Negative /uL (Negative) Urine Nitrite Negative (Negative) Urine Bilirubin Negative (Negative) Urine Urobilinogen Normal mg/dL (Negative) Urine Leukocyte Esterase Negative /uL (Negative) Urine RBC 1 /hpf (0 - 3) Urine Microscopic WBC 5 /HPF (0-3) H Urine Squamous Epithelial Cells Few /hpf (<5) Urine Calcium Oxalate Crystals Few (None Seen) Urine Bacteria None seen /hpf (None Seen) Urine Glucose Normal mg/dL (Normal) Blood Gas Results Test 03/15/25 07:22 Arterial Blood pH 7.420 (7.350-7.450) FiO2 % 30.0 Microbiology Microbiology Date/Time Source Procedure Growth Status 03/14/25 08:25 Blood Blood Culture - Preliminary NO GROWTH AFTER 24 HOURS OF INCUBATION. Resulted Labs and/or images reviewed: Labs reviewed by me, Image(s) reviewed by me Assessment/Plan Assessment/Plan Impression: -shock, rule out septic etiology -acute hypoxic respiratory failure with mechanical ventilation -hepatic encephalopathy -cirrhosis of the liver -lactic acidosis -ascites -ESRD with hemodialysis -anemia of chronic disease Plan: -nephrology consultation: Recommendations reviewed -continue vasopressor therapy to keep map greater than 65 mmHg -start IV antibiotic therapy with Rocephin and vancomycin -interventional radiology consultation for paracentesis -[place] cultures -continue midodrine -repeat labs, chest x-ray, ABG in a.m. -discussed case with the patient was daughter who was bedside. All questions answered. Critical care time spent with patient discussing and formulating plan of care: 90 minutes. This does not include time spent performing procedures. This medical document was created using an electronic medical record system with [employer] system. Although this document has been carefully reviewed, there may still be some phonetic and typographical errors. These areas are purely typographical due to imperfections of the software programs, and do not reflect any compromise in the patient's medical care. Plan discussed with: Patient, Daughter, Other (RN) My Orders Orders - REENA BUSH NP Procedure Category Date Status Time Sodium Chl 0.9% PHA 03/15/25 In Process (Ns... 12:30 Vancomycin Per PHA 03/15/25 Logged Pharmacy 12:45 Echo 2d Mode Cardiac US 03/15/25 Logged DOP 12:40 Basic Metabolic Panel LAB 03/16/25 Verified 04:00 Chest Portable XY 03/16/25 Logged 04:00 Abg W/ Co-Ox RT 03/16/25 Logged 04:00 Complete Blood Count LAB 03/16/25 Verified 04:00 * Radiologist Consult CONS 03/15/25 Transmitted 12:51 Ceftriaxone 1gm/50ml PHA 03/15/25 In Process D5w (Rocephin) 13:01 Vancomycin PHA 03/15/25 In Process 1.25gm/250ml 14:00 Vancomycin,Random LAB 03/16/25 Verified 04:00 Date of Service: Mar 15, 2025 Billing Provider: REENA BUSH NP Common Visit Codes: [id number] CARE 30-74 MIN, [id number] CARE-EACH +30MIN REENA BUSH NP Mar 15, 2025 13:19
[2025-03-15] MEDS: cefTRIAXone 1GM/50ML D5W 50 ML IV SCH (13:37)
[2025-03-15] MEDS: PANTOPRAZOLE 40 MG/10 ML VIAL INJ IV SCH (13:37)
--- NOTE | 2025-03-15 13:39 | DVHCONRES ---
Date Seen: Mar 15, 2025 Resident Creating Document: SUNDAR JO RESIDENT Reason for Consultation Hepatic encephalopathy History of Present Illness Julián Lindsay is a 44-year-old male with past medical history of ETOH induced liver cirrhosis, and ESRD on HD, who was brought in by EMS for ALOC. Patient went to his HD today, he had 2.5L removed. Daughter is who took him this morning, she states he was going well and talking on the way to dialysis, but that he did have 1 moment where he forgot where he was. Once dialysis was finishing be began to become more altered and hypotensive, EMS was called. Patient was given 2L IV fluids at the dialysis center. When patient arrived to ER his GCS was 3, he was intubated. Daughter was at bedside at time of assessment. She states he has had previous episodes like this before, but never so severe where he needs to be intubated. patient has been obtained from alcohol since 2 years and they have been trying for liver transplant for past 8 months. PMH: Cirrhosis, ESRD PSH: Denies Family history: Denies Social history: Lives with family. Denies smoking, alcohol and other drug abuse Allergies: No known allergies Family History: FH: cancer G8 FATHER Allergies: Coded Allergies: NO KNOWN ALLERGIES (Unverified , 03/02/25) Home Meds Active Scripts Rifaximin (Xifaxan) 550 Mg Tab, 1 TAB PO BID for 14 Days, #28 TAB Prov:REENA BUSH [employer] 03/04/25 Reported Medications Lactulose (Lactulose) 10 Gm/15 Ml Monisha, ML PO 03/02/25 Magnesium Oxide (Mag-Ox) 400 Mg Tb, 1 TAB PO DAILY 03/02/25 Spironolactone (Spironolactone) 50 Mg Tab, 1 TAB PO BID 03/02/25 Furosemide (Furosemide) 80 Mg Tab, 2 PO BID 03/02/25 Midodrine Hcl (Midodrine Hcl) 10 Mg Tab, PO 03/02/25 Current Medications Current Medications Medications (Trade) Dose Ordered Sig/Bhumi Route PRN Reason Start Time Stop Time Status Last Admin Ondansetron HCl (Zofran) 4 mg Q4HP PRN IV NAUSEA / VOMITING 03/14/25 15:30 Acetaminophen (Tylenol Tablet) 650 mg Q6HP PRN PO PAIN SCALE 1-3 OR TEMP>100.4 03/14/25 15:30 Nitroglycerin (Ntrostat Sublingual) 0.4 mg Q5MINP PRN SL FOR CHEST PAIN 03/14/25 15:30 Morphine Sulfate 2 mg Q30M PRN IV FOR CHEST PAIN 03/14/25 15:30 Lactulose 30 ml Q6HR PO 03/14/25 18:00 03/15/25 06:18 Midodrine (Proamatine Tablet) 10 mg TID PO 03/14/25 22:00 03/15/25 06:18 Patient Own Medication 1 tab DAILY PO 03/15/25 10:00 UNV Patient Own Medication 1 tab BID PO 03/14/25 22:00 UNV Furosemide (Lasix Injection) 40 mg BIDD IV 03/14/25 18:00 03/15/25 12:36 DC 03/15/25 06:18 Magnesium Oxide (Mag-Ox Tablet) 400 mg DAILY PO 03/15/25 10:00 03/15/25 10:03 Spironolactone (Aldactone) 50 mg BID PO 03/14/25 22:00 03/15/25 10:02 Rifaximin (Xifaxan) 550 mg BID PO 03/14/25 22:00 03/15/25 10:02 Pantoprazole Sodium (Protonix) 40 mg DAILY IV 03/15/25 12:15 Norepinephrine Bitartrate 32 mg/ Sodium Chloride 250 ml @ 0.938 mls/ hr Q24H IV 03/15/25 12:30 Bumetanide (Bumex Injection) 2 mg BIDD IV 03/15/25 18:00 Vancomycin HCl 0 ml @ 0 mls/hr UD IV 03/15/25 12:45 Ceftriaxone Sodium 50 ml @ 100 mls/hr DAILY@09 IV 03/15/25 13:01 Review of Systems Unable to obtain ROS due to patient's clinical status. Patient is currently on mechanical ventilation and intubated. Vital Signs Vital Signs Date Time Temp Pulse Resp B/P (MAP) Pulse Ox O2 Delivery O2 Flow Rate FiO2 03/15/25 11:00 97.9 96 18 106/60 (75) 208.2 03/15/25 10:00 30 03/15/25 09:45 98 03/15/25 08:00 Mechanical Ventilator+ 03/14/25 08:20 3 Physical Exam Pt is lying on bed, currently intubated, mechanically ventilated with a RASS -3 General Appearance: Sedated, intubated HEENT: Atraumatic, Mucous membranes dry Respiratory: mechanical ventilators, bilateral airway entry normal Cardiovascular: Regular rate, Normal S1, Normal S2, No murmurs Abdominal: abdomen is distended . no hepatospleenomegaly. Bowel sounds not clearly audible, ventral hernia Extremities: No clubbing, No cyanosis, No edema, Normal pulses Neuro: pupils equal and reflex present, gag reflex present Nurse was there as sharperone during examination Labs/Diagnostic Data Labs Test 03/15/25 13:26 03/15/25 07:22 03/15/25 04:53 03/14/25 12:29 Range/Units Blood Gas Specimen Type Arterial Blood Gas Sample Site Left brachial Blood Gas Patient Temperature 37.0 Arterial Blood Date Drawn [id number] Arterial Blood pH 7.420 7.350-7.450 Arterial Blood Partial Pressure CO2 33.7 L 35.0-48.0 mmHg Arterial Blood Partial Pressure O2 77.8 L 83.0-108.0 mmHg Arterial Blood HCO3 21.4 21.0-28.0 mmol/L Arterial Blood Oxygen Saturation 94.2 94.0-98.0 % Arterial Blood Base Excess -2.5 L -2.0-3.0 mmol/L Arterial Blood Oxyhemoglobin 94.0 94.0-98.0 % Arterial Blood Carboxyhemoglobin 0.2 L 0.5-1.5 % Arterial Blood Methemoglobin 0.0 0.0-1.5 % Dragan Test N/a Blood Gas Total Hemoglobin 11.10 L 13.5-17.5 g/dL Blood Gas Set Respiration Rate 18.0 Blood Gas Modality Vent - ac Blood Gas Spontaneous Rate 18 FiO2 % 30.0 Blood Gas Tidal Volume 450.0 Blood Gas PEEP or CPAP 5.0 White Blood Count 8.4 # 4.4-10.8 10^3/uL Red Blood Count 3.34 L 4.5-5.90 10^6/uL Hemoglobin 11.0 L 13.5-17.5 g/dL Hematocrit 32.3 L 41.0-53.0 % Mean Corpuscular Volume 96.7 80.0-100.0 fL Mean Corpuscular Hemoglobin 33.0 H 28.0-32.0 pg Mean Corpuscular Hemoglobin Concent 34.1 32.0-36.0 g/dL Red Cell Distribution Width 18.9 H 11.8-14.3 % Platelet Count 169 # 140-450 10^3/uL Mean Platelet Volume 8.2 6.9-10.8 fL Neutrophils (%) (Auto) 60.4 37.0-80.0 % Lymphocytes (%) (Auto) 23.0 10.0-50.0 % Monocytes (%) (Auto) 11.0 0.0-12.0 % Eosinophils (%) (Auto) 4.7 0.0-7.0 % Basophils (%) (Auto) 0.9 0.0-2.0 % Neutrophils # (Auto) 5.1 1.6-8.6 10 ^3/uL Lymphocytes # (Auto) 1.9 0.4-5.4 10 ^3/uL Monocytes # (Auto) 0.9 0-1.3 10 ^3/uL Eosinophils # (Auto) 0.4 0-0.8 10 ^3/uL Basophils # (Auto) 0.1 0-0.2 10 ^3/uL Nucleated Red Blood Cells 0.1 % Sodium Level 134 L 136-145 mmol/L Potassium Level 3.9 3.5-5.1 mmol/L Chloride Level 98 98-107 mmol/L Carbon Dioxide Level 25 20-31 mmol/L Anion Gap 11 5-15 Blood Urea Nitrogen 31 #H 9-23 mg/dL Creatinine 3.82 H 0.700-1.30 mg/dL Glomerular Filtration Rate Calc 19 >90 mL/min BUN/Creatinine Ratio 8.1 L 10.0-20.0 Serum Glucose 95 74-106 mg/dL Lactic Acid Level 3.7 *H 0.4-2.0 mmol/L Calcium Level 8.9 8.7-10.4 mg/dL Total Bilirubin 0.9 0.2-1.0 mg/dL Aspartate Amino Transferase (AST) 35 13-40 U/L Alanine Aminotransferase (ALT) 31 7-40 U/L Alkaline Phosphatase 133 H 46-116 U/L Ammonia 47 H 11-32 umol/L Total Protein 6.0 5.7-8.2 g/dL Albumin 2.8 L 3.2-4.8 g/dL POC Glucose 112 H 70-106 mg/dl Test 03/14/25 11:51 03/14/25 08:45 03/14/25 08:25 Range/Units Troponin I High Sensitivity 17 </=54 ng/L Urine Color Yellow Yellow Urine Clarity Clear Clear Urine pH 6.0 5.0-9.0 Urine Specific [place] 1.012 1.001-1.035 Urine Protein Negative Negative Urine Ketones Negative Negative Urine Blood Negative Negative /uL Urine Nitrite Negative Negative Urine Bilirubin Negative Negative Urine Urobilinogen Normal Negative mg/dL Urine Leukocyte Esterase Negative Negative /uL Urine RBC 1 0 - 3 /hpf Urine Microscopic WBC 5 H 0-3 /HPF Urine Squamous Epithelial Cells Few <5 /hpf Urine Calcium Oxalate Crystals Few None Seen Urine Bacteria None seen None Seen /hpf Urine Glucose Normal Normal mg/dL Plasma/Serum Blood Alcohol < 3.0 <10 mg/dL Microbiology Date/Time Source Procedure Growth Status 03/14/25 08:25 Blood Blood Culture - Preliminary NO GROWTH AFTER 24 HOURS OF INCUBATION. Resulted Assessment Hepatic encephalopathy Alcohol induced decompensated liver cirrhosis MELD score likely 20 points Lactic acidosis Hyperammonemia Ascites Anemia of chronic disease ESRD on hemodialysis Plan/Recommendation - Lactulose t.i.d. 30 mL - Protonix 40 mg daily - rifaximin b.i.d. - may need paracentesis - patient was currently NPO and is on Clinimix - monitor ammonia - Aldactone, Lasix - rest of the management as per ICU team - we will recommend conservative treatment her overall prognosis is guarded Thank you so much for the opportunity to consult on your patient. GI team will follow the patient Case an action plan discussed with Dr. Ysabel Mccullough. Complex care planning needed total 49 minutes of detailed discussion. Plan discussed with: Daughter SUNDAR JO RESIDENT Mar 15, 2025 13:39
[2025-03-15 13:59] LABS: INR 1.07 (0.9-1.15); Partial Thromboplastin Time 30.1 SEC (24.5-34.5); Prothrombin Time 11.3 sec (9.3-11.8)
[2025-03-15] MEDS: VANCOMYCIN 1.25GM/250ML 250 ML IV ONE (15:12)
--- NOTE | 2025-03-15 15:25 | DVH ---
ULTRASOUND ABDOMEN limited, 4 QUADRANTS INDICATION: FLUID CHECK FOR POSSIBLE PARACENTESIS Evaluate for ascites. TECHNIQUE: The four quadrants of the abdomen were scanned in pitts-scale to assess for the presence of ascites. N o solid organ assessment was performed. FINDINGS/IMPRESSIONS: Large volume ascites.
[2025-03-15] MEDS: BUMETANIDE 1mg/4ml VIAL (0.25mg/ml) IV SCH (17:57)
[2025-03-15] MEDS: NOREPINEPHRINE BITARTRATE 32 MG in SODIUM CHL 0.9% 218 ML IV SCH (20:55)
[2025-03-16] VITALS (107 sets, daily range): BP systolic 86–121; BP diastolic 36–57; PULSE 83–115; RESP 15–23; TEMP 97–99.5; O2SAT 94–100
--- NOTE | 2025-03-16 04:12 | DVH ---
INDICATION: CHF TECHNIQUE: Frontal view of the chest. COMPARISON: XY CHEST PORTABLE on DOS: 03/15/25, XY CHEST PORTABLE on DOS: 03/14/25, XY CHEST PORTABLE o n DOS: 03/14/25, XY CHEST XRAY 1 VIEW on DOS: 03/02/25, XY CHEST PORTABLE on DOS: 03/15/25 FINDINGS: LUNGS AND PLEURAL SPACES: Pulmonary venous congestion. No consolidation. No pneumothorax. HEART: Unremarkable. No cardiomegaly. MEDIASTINUM: Unremarkable. Normal mediastinal contour. BONES/JOINTS: Unremarkable. No acute fracture. TUBES, LINES AND DEVICES: Right internal jugular central venous catheter tip in the superior vena c karlos. The endotracheal tube (ETT) is in satisfactory position. Enteric tube tip in the stomach. IMPRESSION: Pulmonary venous congestion.
[2025-03-16 04:28] LABS: Basophils # (auto) 0 10 ^3/uL (0-0.2); Basophils % (auto) 0.1 % (0.0-2.0); Eosinophils # (auto) 0.1 10 ^3/uL (0-0.8); Eosinophils % (auto) 0.4 % (0.0-7.0); Hematocrit 32.1 % (41.0-53.0); Hemoglobin 10.6 g/dL (13.5-17.5); Lymphocytes # (auto) 0.5 10 ^3/uL (0.4-5.4); Lymphocytes % (auto) 2.9 % (10.0-50.0); Mean Corpuscular Hemoglobin 32.5 pg (28.0-32.0); Mean Corpuscular Hgb Conc. 32.9 g/dL (32.0-36.0); Mean Corpuscular Volume 98.8 fL (80.0-100.0); Monocytes # (auto) 0.5 10 ^3/uL (0-1.3); Monocytes % (auto) 3.5 % (0.0-12.0); Neutrophils # (auto) 14.4 10 ^3/uL (1.6-8.6); Neutrophils % (auto) 93.1 % (37.0-80.0); Platelet Count (auto) 142 10^3/uL (140-450); Red Blood Cells 3.25 10^6/uL (4.5-5.90); Red Cell Distribution Width 18.8 % (11.8-14.3); White Blood Cell 15.5 10^3/uL (4.4-10.8)
[2025-03-16 04:36] LABS: Anion Gap 16 (5-15)
[2025-03-16 04:37] LABS: Calcium 9.2 mg/dL (8.7-10.4)
[2025-03-16 04:41] LABS: Carbon Dioxide 18 mmol/L (20-31); Chloride 98 mmol/L (98-107); Sodium 132 mmol/L (136-145)
[2025-03-16 04:42] LABS: BUN/Creatinine Ratio 7.1 (10.0-20.0); Glucose 91 mg/dL (74-106)
[2025-03-16 04:43] LABS: Blood Urea Nitrogen 35 mg/dL (9-23)
[2025-03-16 08:07] LABS: Base Excess -9.8 mmol/L (-2.0-3.0)
[2025-03-16] MEDS ORDERED: Nepro With Carb Steady 1 Liter Bottle GT SCH (09:00)
--- NOTE | 2025-03-16 09:03 | DVHPN2 ---
Progress Note Date Seen: Mar 16, 2025 Resident Creating Document: SUNDAR JO RESIDENT Has the PT tested + for MRSA If YES, has PT been informed?: No Medical Necessity Reason Pt with a Central, PICC or Fol: No Subjective Review of Systems Patient is currently intubated, on mechanical ventilation and under pressor support. Unable to obtain complete ROS due to patient's clinical status.Monitor CMP and Ammonia. Changes from previous H/P or p: No Changes Objective vital signs Vital Sign Date Time Temp Pulse Resp B/P (MAP) Pulse Ox O2 Delivery O2 Flow Rate FiO2 03/16/25 06:45 97.2 99 18 97/51 (66) 99 207.0 03/16/25 06:00 30 03/15/25 20:00 Mechanical Ventilator+ 03/14/25 08:20 3 Total Intake and Output 03/15/25 03/15/25 03/16/25 15:00 23:00 07:00 Intake Total 521.70 ml 553.65 ml 262.4 ml Output Total 25 ml Balance 521.70 ml 553.65 ml 237.4 ml medications Current Medications Medications Dose Ordered Sig/Bhumi Route Start Time Stop Time Status Last Admin Dose Admin Midazolam HCl 50 ml @ 1 mls/hr Q24H IV 03/14/25 09:15 03/16/25 06:00 6 MLS/HR Midazolam HCl 50 ml @ 1 mls/hr Q24H IV 03/14/25 09:45 UNV Fentanyl Citrate 250 ml @ 2.5 mls/hr Q24H IV 03/14/25 12:45 03/16/25 06:00 15 MLS/HR Ondansetron HCl 4 mg Q4HP PRN IV 03/14/25 15:30 Acetaminophen 650 mg Q6HP PRN PO 03/14/25 15:30 Nitroglycerin 0.4 mg Q5MINP PRN SL 03/14/25 15:30 Morphine Sulfate 2 mg Q30M PRN IV 03/14/25 15:30 Lactulose 30 ml Q6HR PO 03/14/25 18:00 03/16/25 05:57 30 ML Midodrine 10 mg TID PO 03/14/25 22:00 03/16/25 05:57 10 MG Patient Own Medication 1 tab DAILY PO 03/15/25 10:00 UNV Patient Own Medication 1 tab BID PO 03/14/25 22:00 UNV Magnesium Oxide 400 mg DAILY PO 03/15/25 10:00 03/15/25 10:03 400 MG Spironolactone 50 mg BID PO 03/14/25 22:00 03/15/25 21:35 50 MG Rifaximin 550 mg BID PO 03/14/25 22:00 03/15/25 21:32 550 MG Pantoprazole Sodium 40 mg DAILY IV 03/15/25 12:15 03/15/25 13:37 40 MG Norepinephrine Bitartrate 32 mg/ Sodium Chloride 250 ml @ 0.938 mls/ hr Q24H IV 03/15/25 12:30 03/15/25 20:55 6.563 MLS/HR Bumetanide 2 mg BIDD IV 03/15/25 18:00 03/15/25 17:57 2 MG Vancomycin HCl 0 ml @ 0 mls/hr UD IV 03/15/25 12:45 Ceftriaxone Sodium 50 ml @ 100 mls/hr DAILY@09 IV 03/15/25 13:01 03/15/25 13:37 100 MLS/HR Examination Pt is lying on bed, currently intubated, mechanically ventilated with a RASS -3 General Appearance: Sedated, intubated HEENT: Atraumatic, Mucous membranes dry Respiratory: mechanical ventilators, bilateral airway entry normal Cardiovascular: Regular rate, Normal S1, Normal S2, No murmurs Abdominal: abdomen is distended . no hepatospleenomegaly. Bowel sounds not clearly audible, ventral hernia Extremities: No clubbing, No cyanosis, No edema, Normal pulses Neuro: pupils equal and reflex present, gag reflex present Nurse was there as sharperone during examination laboratory and microbiology Laboratory Tests 03/16/25 03:00 Test 03/16/25 03:00 Range/Units Serum Glucose 91 74-106 mg/dL Microbiology Date/Time Source Procedure Growth Status 03/14/25 08:38 Sputum Gram Stain Pending Resulted 03/14/25 08:38 Sputum Respiratory Culture - Preliminary Resulted 03/14/25 08: Blood Blood Culture - Preliminary NO GROWTH AFTER 48 HOURS OF INCUBATION. Resulted Labs and/or images reviewed: Labs reviewed by me, Image(s) reviewed by me Problem List/Assessment/Plan Problem List/Assessment/Plan Hepatic encephalopathy Alcohol induced decompensated liver cirrhosis MELD score likely 20 points Lactic acidosis Hyperammonemia Ascites Anemia of chronic disease ESRD on hemodialysis Plan/Recommendation - Lactulose t.i.d. 30 mL - Protonix 40 mg daily - rifaximin b.i.d. - may need paracentesis - patient was currently NPO and is on Clinimix - monitor ammonia - hemodialysis as scheduled - Aldactone - rest of the management as per ICU team - we will recommend conservative treatment her overall prognosis is guarded Thank you so much for the opportunity to consult on your patient. GI team will follow the patient Case an action plan discussed with Dr. Ysabel Mccullough. Complex care planning needed total 49 minutes of detailed discussion. Plan discussed with: Daughter My Orders My Orders Orders - SUNDAR JO Procedure Category Date Status Time Stool Occult Blood LAB 03/15/25 Logged 12:03 Pantoprazole PHA 03/15/25 In Process (Protonix) 12:15 SUNDAR JO Mar 16, 2025 09:03
--- NOTE | 2025-03-16 09:11 | DVHPN2 ---
Subjective Patient was intubated and sedated Reviewed: Care Plan, H&P, Labs, Medications, Previous Orders Changes from previous H/P or p: No Changes General: Per HPI Eyes: No Pain, No Vision change, No Conjunctivae inflammation, No Eyelid inflammation, No Other, No Redness ENT: No Ear pain, No Ear discharge, No Nose pain, No Nose discharge, No Nose congestion, No Mouth pain, No Mouth swelling, No Throat pain, No Throat swelling, No Other Respiratory: No Cough, No Dry, No Shortness of breath, No SOB with excertion, No Wheezing, No Hemoptysis, No Pleuritic Pain, No Sputum, No Other Gastrointestinal: No Nausea, No Vomiting, No Abdominal Pain, No Diarrhea, No Constipation, No Melena, No Hematochezia, No Other Genitourinary: No Dysuria, No Frequency, No Incontinence, No Hematuria, No Retention, No Other Musculoskeletal: No other, No neck pain, No shoulder pain, No arm pain, No back pain, No hand pain, No leg pain, No foot pain Skin: No Rash, No Lesions, No Jaundice, No Bruising, No Other Objective Vitals Vital Signs Date Time Temp Pulse Resp B/P (MAP) Pulse Ox O2 Delivery O2 Flow Rate FiO2 03/16/25 06:45 97.2 99 18 97/51 (66) 99 207.0 03/16/25 06:00 30 03/15/25 20:00 Mechanical Ventilator+ 03/14/25 08:20 3 Intake/Output Intake and Output 03/16/25 06:59 Intake Total 1388.75 ml Output Total 25 ml Balance 1363.75 ml Intake Oral 60 ml IV Total 1328.75 ml Output Urine Total 25 ml General Appearance: moderate distress HEENT: Atraumatic, PERRLA Lungs: Normal air movement, Other (Mechanical ventilation) Cardiovascular: Normal S1, Normal S2 Abdomen: Other (Ascites, ventral hernia) Musculoskeletal: Normal sensory function, Normal motor function Extremities: No clubbing, No cyanosis, No edema, Normal pulses Neuro: Normal gait, Normal speech Skin: Dry, Intact Psych/Mental Status: Mental status NL, Mood NL Medications Current Medications Medications Dose Ordered Sig/Bhumi Route Start Time Stop Time Status Last Admin Dose Admin Midazolam HCl 50 ml @ 1 mls/hr Q24H IV 03/14/25 09:15 03/16/25 06:00 6 MLS/HR Midazolam HCl 50 ml @ 1 mls/hr Q24H IV 03/14/25 09:45 UNV Fentanyl Citrate 250 ml @ 2.5 mls/hr Q24H IV 03/14/25 12:45 03/16/25 06:00 15 MLS/HR Ondansetron HCl 4 mg Q4HP PRN IV 03/14/25 15:30 Acetaminophen 650 mg Q6HP PRN PO 03/14/25 15:30 Nitroglycerin 0.4 mg Q5MINP PRN SL 03/14/25 15:30 Morphine Sulfate 2 mg Q30M PRN IV 03/14/25 15:30 Lactulose 30 ml Q6HR PO 03/14/25 18:00 03/16/25 05:57 30 ML Midodrine 10 mg TID PO 03/14/25 22:00 03/16/25 05:57 10 MG Patient Own Medication 1 tab DAILY PO 03/15/25 10:00 UNV Patient Own Medication 1 tab BID PO 03/14/25 22:00 UNV Magnesium Oxide 400 mg DAILY PO 03/15/25 10:00 03/15/25 10:03 400 MG Spironolactone 50 mg BID PO 03/14/25 22:00 03/15/25 21:35 50 MG Rifaximin 550 mg BID PO 03/14/25 22:00 03/15/25 21:32 550 MG Pantoprazole Sodium 40 mg DAILY IV 03/15/25 12:15 03/15/25 13:37 40 MG Norepinephrine Bitartrate 32 mg/ Sodium Chloride 250 ml @ 0.938 mls/ hr Q24H IV 03/15/25 12:30 03/15/25 20:55 6.563 MLS/HR Bumetanide 2 mg BIDD IV 03/15/25 18:00 03/15/25 17:57 2 MG Vancomycin HCl 0 ml @ 0 mls/hr UD IV 03/15/25 12:45 Ceftriaxone Sodium 50 ml @ 100 mls/hr DAILY@09 IV 03/15/25 13:01 03/15/25 13:37 100 MLS/HR Laboratory Results Laboratory Tests 03/16/25 03:00 Chemistry Test 03/16/25 03:00 Calcium Level 9.2 mg/dL (8.7-10.4) Coagulation Test 03/15/25 13:26 Prothrombin Time 11.3 sec (9.3-11.8) Prothrombin Time INR 1.07 (0.9-1.15) Activated Partial Thromboplast Time 30.1 SEC (24.5-34.5) Urinalysis Test 03/14/25 08:45 Urine Color Yellow (Yellow) Urine Clarity Clear (Clear) Urine pH 6.0 (5.0-9.0) Urine Specific [place] 1.012 (1.001-1.035) Urine Protein Negative (Negative) Urine Ketones Negative (Negative) Urine Blood Negative /uL (Negative) Urine Nitrite Negative (Negative) Urine Bilirubin Negative (Negative) Urine Urobilinogen Normal mg/dL (Negative) Urine Leukocyte Esterase Negative /uL (Negative) Urine RBC 1 /hpf (0 - 3) Urine Microscopic WBC 5 /HPF (0-3) H Urine Squamous Epithelial Cells Few /hpf (<5) Urine Calcium Oxalate Crystals Few (None Seen) Urine Bacteria None seen /hpf (None Seen) Urine Glucose Normal mg/dL (Normal) Blood Gas Results Test 03/16/25 07:26 Arterial Blood pH 7.293 (7.350-7.450) FiO2 % 30.0 Microbiology Microbiology Date/Time Source Procedure Growth Status 03/14/25 08:38 Sputum Gram Stain Pending Resulted 03/14/25 08:38 Sputum Respiratory Culture - Preliminary Resulted 03/14/25 08:25 Blood Blood Culture - Preliminary NO GROWTH AFTER 48 HOURS OF INCUBATION. Resulted Labs and/or images reviewed: Labs reviewed by me, Image(s) reviewed by me Assessment/Plan Assessment/Plan Impression: -shock, rule out septic etiology -acute hypoxic respiratory failure with mechanical ventilation -hepatic encephalopathy -cirrhosis of the liver -lactic acidosis -ascites -ESRD with hemodialysis -anemia of chronic disease Plan: Events: Metabolic acidosis. Pending HD and Paracentesis. WBC Increased. Cultures negative thus far. Continue current antimicrobial treatment/ Cover for SBP. -nephrology consultation: Recommendations reviewed -continue vasopressor therapy to keep map greater than 65 mmHg -Continue current vent settings: FIO2 30% -Antibiotic therapy with Rocephin and vancomycin -interventional radiology consultation for paracentesis -[place] cultures -start Nepro -continue midodrine -repeat labs, chest x-ray, ABG in a.m. Critical care time spent with patient discussing and formulating plan of care: 40 minutes. This does not include time spent performing procedures. This medical document was created using an electronic medical record system with [employer] dictation system. Although this document has been carefully reviewed, there may still be some phonetic and typographical errors. These areas are purely typographical due to imperfections of the software programs, and do not reflect any compromise in the patient's medical care. Plan discussed with: Patient, Other (RN) My Orders Orders - REENA BUSH NP Procedure Category Date Status Time Sodium Chl 0.9% PHA 03/15/25 In Process (Ns... 12:30 Vancomycin Per PHA 03/15/25 In Process Pharmacy 12:45 Chest Portable XY 03/16/25 Resulted 04:00 Abg W/ Co-Ox RT 03/16/25 Logged 04:00 * Radiologist Consult CONS 03/15/25 Transmitted 12:51 Ceftriaxone 1gm/50ml PHA 03/15/25 In Process D5w (Rocephin) 13:01 Date of Service: Mar 16, 2025 Billing Provider: REENA BUSH NP Common Visit Codes: [id number] CARE 30-74 MIN REENA BUSH NP Mar 16, 2025 09:11
[2025-03-16] MEDS: VASOPRESSIN 20 UNITS in SODIUM CHL 0.9% 99 ML IV SCH (10:36)
--- NOTE | 2025-03-16 11:29 | DVHPN2 ---
Progress Note - Dictate Date Seen: Mar 16, 2025 Has the PT tested + for MRSA If YES, has PT been informed?: No Medical Necessity Reason Pt with a Central, PICC or Fol: No Subjective On mechanical ventilation vital signs Vital Sign Date Time Temp Pulse Resp B/P (MAP) Pulse Ox O2 Delivery O2 Flow Rate FiO2 03/16/25 10:36 87/39 03/16/25 09:55 98 18 97 30 03/16/25 06:45 97.2 207.0 03/15/25 20:00 Mechanical Ventilator+ 03/14/25 08:20 3 Total Intake and Output 03/15/25 03/15/25 03/16/25 15:00 23:00 07:00 Intake Total 521.70 ml 553.65 ml 262.4 ml Output Total 25 ml Balance 521.70 ml 553.65 ml 237.4 ml medications Current Medications Medications Dose Ordered Sig/Bhumi Route Start Time Stop Time Status Last Admin Dose Admin Midazolam HCl 50 ml @ 1 mls/hr Q24H IV 03/14/25 09:15 03/16/25 06:00 6 MLS/HR Midazolam HCl 50 ml @ 1 mls/hr Q24H IV 03/14/25 09:45 UNV Fentanyl Citrate 250 ml @ 2.5 mls/hr Q24H IV 03/14/25 12:45 03/16/25 06:00 15 MLS/HR Ondansetron HCl 4 mg Q4HP PRN IV 03/14/25 15:30 Acetaminophen 650 mg Q6HP PRN PO 03/14/25 15:30 Nitroglycerin 0.4 mg Q5MINP PRN SL 03/14/25 15:30 Morphine Sulfate 2 mg Q30M PRN IV 03/14/25 15:30 Lactulose 30 ml Q6HR PO 03/14/25 18:00 03/16/25 05:57 30 ML Midodrine 10 mg TID PO 03/14/25 22:00 03/16/25 05:57 10 MG Patient Own Medication 1 tab DAILY PO 03/15/25 10:00 UNV Patient Own Medication 1 tab BID PO 03/14/25 22:00 UNV Magnesium Oxide 400 mg DAILY PO 03/15/25 10:00 03/16/25 10:10 400 MG Spironolactone 50 mg BID PO 03/14/25 22:00 03/16/25 10:10 50 MG Rifaximin 550 mg BID PO 03/14/25 22:00 03/16/25 10:10 550 MG Pantoprazole Sodium 40 mg DAILY IV 03/15/25 12:15 03/16/25 10:10 40 MG Norepinephrine Bitartrate 32 mg/ Sodium Chloride 250 ml @ 0.938 mls/ hr Q24H IV 03/15/25 12:30 03/15/25 20:55 6.563 MLS/HR Bumetanide 2 mg BIDD IV 03/15/25 18:00 03/15/25 17:57 2 MG Vancomycin HCl 0 ml @ 0 mls/hr UD IV 03/15/25 12:45 Ceftriaxone Sodium 50 ml @ 100 mls/hr DAILY@09 IV 03/15/25 13:01 03/16/25 10:10 100 MLS/HR Enteral Nutritional Formula 1,000 ml 30ML/HR GT 03/16/25 09:00 Vasopressin 20 units/Sodium Chloride 100 ml @ 9 mls/hr Q11H7M IV 03/16/25 10:00 03/16/25 10:36 9 MLS/HR objective Intubated Unresponsive Lungs: low air entry at bases CV: RR, no pericardial rub Abdomen: distended, low intensity BS Trace edema laboratory and microbiology Laboratory Tests 03/16/25 03:00 Test 03/16/25 03:00 Range/Units Serum Glucose 91 74-106 mg/dL Problem List 1. Renal failure. The patient has been on dialysis for 7 months. This is due to liver failure and renal failure in the setting of alcoholic liver disease. 2. Encephalopathy. 3. Chronic hypotension exacerbated by low blood pressure induced by ultrafiltration with dialysis, rule out sepsis. 4. Anemia. 5. Hypokalemia. 6. Hyponatremia. In view of high CVP (15), will max xonxentrate all drips and lower IVFs to less 40 ml/hr Plan HD with UF for tomorrow Measure central venous pressure and maintain between 8 to 12. Use intravenous vasopressors to maintain mean arterial pressure above 55 mmHg. Continue empiric intravenous antibiotics. Continue ventilatory support. Strictly measure intake and output of fluid Plan discussed with: Other KILLIAN REZA MD Mar 16, 2025 11:29
--- NOTE | 2025-03-16 14:20 | DVHSR ---
APPROVED REPORT EXAM: Two-dimensional and M-mode echocardiogram with Doppler and color Doppler. Blood Pressure: 106/60 mmHg INDICATION SHOCK hypotension, sob RISK FACTORS Height: 5'8", Weight: 158 DIMENSIONS LVDd4.0 (3.8-5.7cm)LA (2D) (1.9-4.0cm)Aortic Root (2.0-3.7cm) LVDs2.6 (2.5-4.0cm)LA (MM) (1.9-4.0cm)Aortic Cusp Exc (1.5-2.0cm) EF (%) 63.0 (55-70%)Rt. Atrium (1.9-4.0cm)Asc. Aorta cm Mitral Valve MitralMitral Stenosis E wave0.82m/sMV Mean GR.mmHg A wave0.86m/sMV Peak GR.mmHg E/A ratio1.02D MVAcm2 DECEL [id number] 1/2 Timems Aortic Valve Aortic ValveAortic Stenosis V11.18m/Ubaldo Mean GR.mmHg V22.20m/Ubaldo Peak GR.19mmHg LVOT Diameter2.0 (1.8-2.4cm)Doppler AVA1.68cm2 Other Information Quality : Technically LimitedRhythm : Technically limited study due to body habitus, on vent and ascites. Conclusion LVEF normal 60-65% RV functional normal Valves not well visualized but grossly normal Large left pleural effusion
[2025-03-16] MEDS: ALBUMIN 25% 50 ML IV ONE ×2 (14:22)
[2025-03-16 14:51] LABS: Body Fluid Red Blood Cells 601 CUMM (0-2000); Body Fluid White Blood Cells 135 CUMM (0-200)
[2025-03-16] MEDS: BUMETANIDE 1mg/4ml VIAL (0.25mg/ml) ONE (18:40)
[2025-03-17] VITALS (114 sets, daily range): BP systolic 88–137; BP diastolic 42–84; PULSE 79–98; RESP 12–19; TEMP 95.5–98.8; O2SAT 96–100
[2025-03-17 04:16] LABS: Basophils # (auto) 0 10 ^3/uL (0-0.2); Basophils % (auto) 0.3 % (0.0-2.0); Eosinophils # (auto) 0.3 10 ^3/uL (0-0.8); Hematocrit 29.8 % (41.0-53.0); Hemoglobin 10.2 g/dL (13.5-17.5); Lymphocytes # (auto) 0.9 10 ^3/uL (0.4-5.4); Lymphocytes % (auto) 8.3 % (10.0-50.0); Mean Corpuscular Hemoglobin 33.1 pg (28.0-32.0); Mean Corpuscular Hgb Conc. 34.2 g/dL (32.0-36.0); Mean Corpuscular Volume 96.7 fL (80.0-100.0); Monocytes # (auto) 0.7 10 ^3/uL (0-1.3); Monocytes % (auto) 6.5 % (0.0-12.0); Neutrophils # (auto) 8.4 10 ^3/uL (1.6-8.6); Neutrophils % (auto) 81.9 % (37.0-80.0); Nucleated Red Blood Cells % 0.1 %; Platelet Count (auto) 169 10^3/uL (140-450); Red Blood Cells 3.08 10^6/uL (4.5-5.90); Red Cell Distribution Width 18.4 % (11.8-14.3); White Blood Cell 10.3 10^3/uL (4.4-10.8)
[2025-03-17 04:17] LABS: Calcium 9.1 mg/dL (8.7-10.4)
[2025-03-17 04:18] LABS: Anion Gap 13 (5-15); Carbon Dioxide 21 mmol/L (20-31)
[2025-03-17 04:23] LABS: BUN/Creatinine Ratio 9.6 (10.0-20.0)
[2025-03-17] MEDS: PHENYLEPHRINE IV 250 ML IV SCH (04:25)
[2025-03-17 04:29] LABS: Blood Urea Nitrogen 50 mg/dL (9-23); Chloride 96 mmol/L (98-107); Glucose 113 mg/dL (74-106); Potassium 5.3 mmol/L (3.5-5.1); Sodium 130 mmol/L (136-145)
--- NOTE | 2025-03-17 05:50 | DVH ---
EXAM: XR Chest, 1 View CLINICAL INDICATION: ACUTE RESP FAILURE TECHNIQUE: Frontal view of the chest. COMPARISON: XY CHEST PORTABLE on DOS: 03/16/25, XY CHEST PORTABLE on DOS: 03/15/25, XY CHEST PORTABLE on DOS: 03/14/25, XY CHEST PORTABLE on DOS: 03/14/25, XY CHEST XRAY 1 VIEW on DOS: 03/02/25 FINDINGS: LUNGS AND PLEURAL SPACES: Mild pulmonary congestion. No consolidation. No pneumothorax. HEART: Unremarkable. No cardiomegaly. MEDIASTINUM: Unremarkable. Normal mediastinal contour. BONES/JOINTS: Unremarkable. No acute fracture. TUBES, LINES AND DEVICES: Right internal jugular central venous catheter tip in the superior vena c karlos. The endotracheal tube (ETT) is in satisfactory position. Enteric tube tip in the stomach. OTHER FINDINGS: . . . . IMPRESSION: Mild pulmonary congestion.
--- NOTE | 2025-03-17 05:57 | DVH ---
PROCEDURE: ULTRASOUND GUIDED PARACENTESIS HISTORY: 44 Male requiring paracentesis. TECHNIQUE: The risks and benefits of the procedure including but not limited to bleeding, infection and injury t o abdominal organs were explained to the patient and written informed consent was obtained. Optimal site for puncture was determined using ultrasound and the area sterilized and draped. Using a 5 [place] Yueh catheter, paracentesis was performed in the right lower quadrant abdomen. Approximate ly 6.7 liters of serous fluid was removed. The patient tolerated the procedure well. There were no immediate complications. IMPRESSION: Ultrasound-guided paracentesis with no immediate complications. Performed by Dr. Montalvo.
[2025-03-17 06:59] LABS: Base Excess -6.2 mmol/L (-2.0-3.0)
--- NOTE | 2025-03-17 09:42 | DVHPN2 ---
Progress Note - Dictate Date Seen: Mar 17, 2025 Has the PT tested + for MRSA If YES, has PT been informed?: No Medical Necessity Reason Pt with a Central, PICC or Fol: No Subjective On mechanical ventilation vital signs Vital Sign Date Time Temp Pulse Resp B/P (MAP) Pulse Ox O2 Delivery O2 Flow Rate FiO2 03/17/25 09:06 80 18 124/68 (86) 100 30 03/17/25 06:45 97.7 207.9 03/16/25 20:00 Mechanical Ventilator+ Total Intake and Output 03/16/25 03/16/25 03/17/25 15:00 23:00 07:00 Intake Total 369.251 ml 262.750 ml 449.375 ml Output Total 100 ml 110 ml Balance 369.251 ml 162.750 ml 339.375 ml medications Current Medications Medications Dose Ordered Sig/Bhumi Route Start Time Stop Time Status Last Admin Dose Admin Midazolam HCl 50 ml @ 1 mls/hr Q24H IV 03/14/25 09:15 03/17/25 02:47 6 MLS/HR Midazolam HCl 50 ml @ 1 mls/hr Q24H IV 03/14/25 09:45 UNV Fentanyl Citrate 250 ml @ 2.5 mls/hr Q24H IV 03/14/25 12:45 03/16/25 23:24 12.5 MLS/HR Ondansetron HCl 4 mg Q4HP PRN IV 03/14/25 15:30 Acetaminophen 650 mg Q6HP PRN PO 03/14/25 15:30 Nitroglycerin 0.4 mg Q5MINP PRN SL 03/14/25 15:30 Morphine Sulfate 2 mg Q30M PRN IV 03/14/25 15:30 Lactulose 30 ml Q6HR PO 03/14/25 18:00 03/17/25 06:41 30 ML Midodrine 10 mg TID PO 03/14/25 22:00 03/17/25 06:41 10 MG Patient Own Medication 1 tab DAILY PO 03/15/25 10:00 UNV Patient Own Medication 1 tab BID PO 03/14/25 22:00 UNV Magnesium Oxide 400 mg DAILY PO 03/15/25 10:00 03/16/25 10:10 400 MG Spironolactone 50 mg BID PO 03/14/25 22:00 03/16/25 22:16 50 MG Rifaximin 550 mg BID PO 03/14/25 22:00 03/16/25 22:16 550 MG Pantoprazole Sodium 40 mg DAILY IV 03/15/25 12:15 03/16/25 10:10 40 MG Norepinephrine Bitartrate 32 mg/ Sodium Chloride 250 ml @ 0.938 mls/ hr Q24H IV 03/15/25 12:30 03/16/25 19:30 13.125 MLS/HR Bumetanide 2 mg BIDD IV 03/15/25 18:00 03/17/25 06:48 2 MG Vancomycin HCl 0 ml @ 0 mls/hr UD IV 03/15/25 12:45 Ceftriaxone Sodium 50 ml @ 100 mls/hr DAILY@09 IV 03/15/25 13:01 03/16/25 10:10 100 MLS/HR Enteral Nutritional Formula 1,000 ml 30ML/HR GT 03/16/25 09:00 Vasopressin 20 units/Sodium Chloride 100 ml @ 9 mls/hr Q11H7M IV 03/16/25 10:00 03/17/25 08:03 9 MLS/HR objective Intubated Unresponsive Lungs: low air entry at bases CV: RR, no pericardial rub Abdomen: distended, low intensity BS Trace edema laboratory and microbiology Laboratory Tests 03/17/25 03:15 Test 03/17/25 03:15 Range/Units Serum Glucose 113 H 74-106 mg/dL Problem List 1. Renal failure. The patient has been on dialysis for 7 months. This is due to liver failure and renal failure in the setting of alcoholic liver disease. 2. Encephalopathy. 3. Chronic hypotension exacerbated by low blood pressure induced by ultrafiltration with dialysis, rule out sepsis. 4. Anemia. 5. Hypokalemia. 6. Hyponatremia. HD today Measure central venous pressure and maintain between 8 to 12. Use intravenous vasopressors to maintain mean arterial pressure above 55 mmHg. Continue empiric intravenous antibiotics. Continue ventilatory support. Strictly measure intake and output of fluid Dietary Evaluation Review Comments: 1. Suggest formula Vital AF @ 60 ml/hr (GOAL). Begin at 10 ml/hr, advance by 10 ml Q4 hrs or as tolerated to goal-rate of 60 ml/hr x 24 hrs 2. Once pressor requirements reduced and if pt begins dialysis, may change to Nepro @ 40 ml/hr + 1 pckt ProStat BID (defer at this time due to high-fiber content, increased risk for bowel ischemia) 3. Provide minimal free water flushes of 30 ml Q8 hrs (90 ml total) for tube patency; adjust PRN 4. Monitor BMP/lytes and replete to WNL TF Provision: TF at goal to provide 1440 ml total volume, 1728 kcal, 108 gm pro, 7 gm fiber, 1168 ml H20 (meets 100% est. kcal needs, 100% est. pro needs) Expected Outcomes/Goals: Improved nutritional status, hemodynamic stability. Plan discussed with: Daughter KILLIAN REZA MD Mar 17, 2025 09:42
--- NOTE | 2025-03-17 09:54 | DVHPN2 ---
Subjective Patient was intubated and sedated Reviewed: Care Plan, H&P, Labs, Medications, Previous Orders Changes from previous H/P or p: No Changes General: Per HPI Eyes: No Pain, No Vision change, No Conjunctivae inflammation, No Eyelid inflammation, No Other, No Redness ENT: No Ear pain, No Ear discharge, No Nose pain, No Nose discharge, No Nose congestion, No Mouth pain, No Mouth swelling, No Throat pain, No Throat swelling, No Other Respiratory: No Cough, No Dry, No Shortness of breath, No SOB with excertion, No Wheezing, No Hemoptysis, No Pleuritic Pain, No Sputum, No Other Gastrointestinal: No Nausea, No Vomiting, No Abdominal Pain, No Diarrhea, No Constipation, No Melena, No Hematochezia, No Other Genitourinary: No Dysuria, No Frequency, No Incontinence, No Hematuria, No Retention, No Other Musculoskeletal: No other, No neck pain, No shoulder pain, No arm pain, No back pain, No hand pain, No leg pain, No foot pain Skin: No Rash, No Lesions, No Jaundice, No Bruising, No Other Objective Vitals Vital Signs Date Time Temp Pulse Resp B/P (MAP) Pulse Ox O2 Delivery O2 Flow Rate FiO2 03/17/25 09:06 80 18 124/68 (86) 100 30 03/17/25 06:45 97.7 207.9 03/16/25 20:00 Mechanical Ventilator+ Intake/Output Intake and Output 03/17/25 07:00 Intake Total 1081.376 ml Output Total 210 ml Balance 871.376 ml Intake Oral 45 ml IV Total 897.376 ml Tube Feeding 139 ml Output Urine Total 210 ml General Appearance: moderate distress HEENT: Atraumatic, PERRLA Lungs: Normal air movement, Other (Mechanical ventilation) Cardiovascular: Normal S1, Normal S2 Abdomen: Other (Ascites, ventral hernia) Musculoskeletal: Normal sensory function, Normal motor function Extremities: No clubbing, No cyanosis, No edema, Normal pulses Neuro: Normal gait, Normal speech, Other (Unable to assess) Skin: Dry, Intact Psych/Mental Status: Mental status NL, Mood NL Medications Current Medications Medications Dose Ordered Sig/Bhumi Route Start Time Stop Time Status Last Admin Dose Admin Midazolam HCl 50 ml @ 1 mls/hr Q24H IV 03/14/25 09:15 03/17/25 02:47 6 MLS/HR Midazolam HCl 50 ml @ 1 mls/hr Q24H IV 03/14/25 09:45 UNV Fentanyl Citrate 250 ml @ 2.5 mls/hr Q24H IV 03/14/25 12:45 03/16/25 23:24 12.5 MLS/HR Ondansetron HCl 4 mg Q4HP PRN IV 03/14/25 15:30 Acetaminophen 650 mg Q6HP PRN PO 03/14/25 15:30 Nitroglycerin 0.4 mg Q5MINP PRN SL 03/14/25 15:30 Morphine Sulfate 2 mg Q30M PRN IV 03/14/25 15:30 Lactulose 30 ml Q6HR PO 03/14/25 18:00 03/17/25 06:41 30 ML Midodrine 10 mg TID PO 03/14/25 22:00 03/17/25 06:41 10 MG Patient Own Medication 1 tab DAILY PO 03/15/25 10:00 UNV Patient Own Medication 1 tab BID PO 03/14/25 22:00 UNV Magnesium Oxide 400 mg DAILY PO 03/15/25 10:00 03/16/25 10:10 400 MG Spironolactone 50 mg BID PO 03/14/25 22:00 03/16/25 22:16 50 MG Rifaximin 550 mg BID PO 03/14/25 22:00 03/16/25 22:16 550 MG Pantoprazole Sodium 40 mg DAILY IV 03/15/25 12:15 03/16/25 10:10 40 MG Norepinephrine Bitartrate 32 mg/ Sodium Chloride 250 ml @ 0.938 mls/ hr Q24H IV 03/15/25 12:30 03/16/25 19:30 13.125 MLS/HR Bumetanide 2 mg BIDD IV 03/15/25 18:00 03/17/25 06:48 2 MG Vancomycin HCl 0 ml @ 0 mls/hr UD IV 03/15/25 12:45 Ceftriaxone Sodium 50 ml @ 100 mls/hr DAILY@09 IV 03/15/25 13:01 03/16/25 10:10 100 MLS/HR Enteral Nutritional Formula 1,000 ml 30ML/HR GT 03/16/25 09:00 Vasopressin 20 units/Sodium Chloride 100 ml @ 9 mls/hr Q11H7M IV 03/16/25 10:00 03/17/25 08:03 9 MLS/HR Laboratory Results Laboratory Tests 03/17/25 03:15 Chemistry Test 03/17/25 03:15 Calcium Level 9.1 mg/dL (8.7-10.4) Urinalysis Test 03/14/25 08:45 Urine Color Yellow (Yellow) Urine Clarity Clear (Clear) Urine pH 6.0 (5.0-9.0) Urine Specific [place] 1.012 (1.001-1.035) Urine Protein Negative (Negative) Urine Ketones Negative (Negative) Urine Blood Negative /uL (Negative) Urine Nitrite Negative (Negative) Urine Bilirubin Negative (Negative) Urine Urobilinogen Normal mg/dL (Negative) Urine Leukocyte Esterase Negative /uL (Negative) Urine RBC 1 /hpf (0 - 3) Urine Microscopic WBC 5 /HPF (0-3) H Urine Squamous Epithelial Cells Few /hpf (<5) Urine Calcium Oxalate Crystals Few (None Seen) Urine Bacteria None seen /hpf (None Seen) Urine Glucose Normal mg/dL (Normal) Blood Gas Results Test 03/17/25 06:43 Arterial Blood pH 7.302 (7.350-7.450) FiO2 % 30.0 Microbiology Microbiology Date/Time Source Procedure Growth Status 03/14/25 21:29 Nose MRSA Screen - Final Complete 03/14/25 08:38 Sputum Gram Stain - Final Resulted 03/14/25 08:38 Sputum Respiratory Culture - Preliminary Resulted 03/14/25 08:25 Blood Blood Culture - Preliminary NO GROWTH AFTER 72 HOURS OF INCUBATION. Resulted Labs and/or images reviewed: Labs reviewed by me, Image(s) reviewed by me Assessment/Plan Assessment/Plan Impression: -shock, rule out septic etiology -acute hypoxic respiratory failure with mechanical ventilation -hepatic encephalopathy -cirrhosis of the liver -lactic acidosis -ascites -ESRD with hemodialysis -anemia of chronic disease Plan: Events: Paracentesis performed yesterday with 6.7 L. pending HD today. CVP remains elevated at 15. Cultures thus far negative. Peritoneal fluid analysis negative for infection. Discussion made with the patient was family who was bedside. All questions answered. -nephrology consultation: Recommendations reviewed -continue vasopressor therapy to keep systolic blood pressure greater than 90 mmHg. Currently on vasopressin and norepinephrine -Continue current vent settings: FIO2 30% -Antibiotic therapy with Rocephin and vancomycin -m[place]on[place] cultures -continue Nepro -continue midodrine -repeat labs, chest x-ray, ABG in a.m. -reassess for spontaneous breathing trial in a.m. Critical care time spent with patient discussing and formulating plan of care: 40 minutes. This does not include time spent performing procedures. This medical document was created using an electronic medical record system with [employer] dictation system. Although this document has been carefully reviewed, there may still be some phonetic and typographical errors. These areas are purely typographical due to imperfections of the software programs, and do not reflect any compromise in the patient's medical care. Plan discussed with: Patient, Other (RN) My Orders Orders - REENA BSUH NP Procedure Category Date Status Time Sodium Chl 0.9% PHA 03/16/25 In Process (So... W/Vasopressin 10:00 Vancomycin Per HELENA 03/16/25 In Process Pharmacy Protoc 11:00 Chest Portable XY 03/17/25 Resulted 04:00 Date of Service: Mar 17, 2025 Billing Provider: REENA BUSH NP Common Visit Codes: [id number] CARE 30-74 MIN REENA BUSH NP Mar 17, 2025 09:54
[2025-03-17] MEDS: ALBUMIN 25% 100 ML IV ONE ×2 (10:05)
--- NOTE | 2025-03-17 10:46 | DVHPN2 ---
Progress Note Date Seen: Mar 17, 2025 Resident Creating Document: SUNDAR JO RESIDENT Has the PT tested + for MRSA If YES, has PT been informed?: No Medical Necessity Reason Pt with a Central, PICC or Fol: No Subjective Review of Systems Patient is currently intubated, on mechanical ventilation and under pressor support. Unable to obtain complete ROS due to patient's clinical status.Monitor CMP and Ammonia. yesterday patient underwent paracentesis, removed approximately 6.7 L of fluid and given albumin. Patient likely how hemodialysis today. Ordered enema. Changes from previous H/P or p: No Changes Objective vital signs Vital Sign Date Time Temp Pulse Resp B/P (MAP) Pulse Ox O2 Delivery O2 Flow Rate FiO2 03/17/25 09:06 80 18 124/68 (86) 100 30 03/17/25 06:45 97.7 207.9 03/16/25 20:00 Mechanical Ventilator+ Total Intake and Output 03/16/25 03/16/25 03/17/25 14:59 22:59 06:59 Intake Total 359.001 ml 262.750 ml 490.000 ml Output Total 100 ml 110 ml Balance 359.001 ml 162.750 ml 380.000 ml medications Current Medications Medications Dose Ordered Sig/Bhumi Route Start Time Stop Time Status Last Admin Dose Admin Midazolam HCl 50 ml @ 1 mls/hr Q24H IV 03/14/25 09:15 03/17/25 10:35 5 MLS/HR Midazolam HCl 50 ml @ 1 mls/hr Q24H IV 03/14/25 09:45 UNV Fentanyl Citrate 250 ml @ 2.5 mls/hr Q24H IV 03/14/25 12:45 03/16/25 23:24 12.5 MLS/HR Ondansetron HCl 4 mg Q4HP PRN IV 03/14/25 15:30 Acetaminophen 650 mg Q6HP PRN PO 03/14/25 15:30 Nitroglycerin 0.4 mg Q5MINP PRN SL 03/14/25 15:30 Morphine Sulfate 2 mg Q30M PRN IV 03/14/25 15:30 Lactulose 30 ml Q6HR PO 03/14/25 18:00 03/17/25 06:41 30 ML Midodrine 10 mg TID PO 03/14/25 22:00 03/17/25 06:41 10 MG Patient Own Medication 1 tab DAILY PO 03/15/25 10:00 UNV Patient Own Medication 1 tab BID PO 03/14/25 22:00 UNV Magnesium Oxide 400 mg DAILY PO 03/15/25 10:00 03/17/25 10:17 400 MG Spironolactone 50 mg BID PO 03/14/25 22:00 03/17/25 10:17 50 MG Rifaximin 550 mg BID PO 03/14/25 22:00 03/17/25 10:17 550 MG Pantoprazole Sodium 40 mg DAILY IV 03/15/25 12:15 03/17/25 10:17 40 MG Norepinephrine Bitartrate 32 mg/ Sodium Chloride 250 ml @ 0.938 mls/ hr Q24H IV 03/15/25 12:30 03/16/25 19:30 13.125 MLS/HR Bumetanide 2 mg BIDD IV 03/15/25 18:00 03/17/25 06:48 2 MG Vancomycin HCl 0 ml @ 0 mls/hr UD IV 03/15/25 12:45 Ceftriaxone Sodium 50 ml @ 100 mls/hr DAILY@09 IV 03/15/25 13:01 03/17/25 09:57 100 MLS/HR Enteral Nutritional Formula 1,000 ml 30ML/HR GT 03/16/25 09:00 Vasopressin 20 units/Sodium Chloride 100 ml @ 9 mls/hr Q11H7M IV 03/16/25 10:00 03/17/25 08:03 9 MLS/HR Examination Pt is lying on bed, currently intubated, mechanically ventilated with a RASS -3 General Appearance: Sedated, intubated HEENT: Atraumatic, Mucous membranes dry Respiratory: mechanical ventilators, bilateral airway entry normal Cardiovascular: Regular rate, Normal S1, Normal S2, No murmurs Abdominal: abdomen is Not distended . no hepatospleenomegaly. Bowel sounds not clearly audible, ventral hernia Extremities: No clubbing, No cyanosis, No edema, Normal pulses Neuro: pupils equal and reflex present, gag reflex present Nurse was there as sharperone during examination laboratory and microbiology Laboratory Tests 03/17/25 03:15 Test 03/17/25 03:15 Range/Units Serum Glucose 113 H 74-106 mg/dL Microbiology Date/Time Source Procedure Growth Status 03/14/25 21:29 Nose MRSA Screen - Final Complete 03/14/25 08:38 Sputum Gram Stain - Final Resulted 03/14/25 08:38 Sputum Respiratory Culture - Preliminary Resulted 03/14/25 08:25 Blood Blood Culture - Preliminary NO GROWTH AFTER 72 HOURS OF INCUBATION. Resulted Labs and/or images reviewed: Labs reviewed by me, Image(s) reviewed by me Problem List/Assessment/Plan Problem List/Assessment/Plan Hepatic encephalopathy Alcohol induced decompensated liver cirrhosis MELD score likely 20 points Lactic acidosis Hyperammonemia Ascites Anemia of chronic disease ESRD on hemodialysis Plan/Recommendation - Fleet enema, started nepro - Lactulose t.i.d. 30 mL - Protonix 40 mg daily - rifaximin b.i.d. - may need paracentesis - monitor ammonia - hemodialysis as scheduled - Aldactone - rest of the management as per ICU team - we will recommend conservative treatment her overall prognosis is guarded Thank you so much for the opportunity to consult on your patient. GI team will follow the patient Case an action plan discussed with Dr. Ysabel Mccullough. Complex care planning needed total 49 minutes of detailed discussion. Plan discussed with: Spouse My Orders My Orders Orders - SUNDAR OJ RESIDENT Procedure Category Date Status Time Tap Water Enema ORDERS 03/17/25 Transmitted 10:43 Dietary Evaluation Review Comments: 1. Suggest formula Vital AF @ 60 ml/hr (GOAL). Begin at 10 ml/hr, advance by 10 ml Q4 hrs or as tolerated to goal-rate of 60 ml/hr x 24 hrs 2. Once pressor requirements reduced and if pt begins dialysis, may change to Nepro @ 40 ml/hr + 1 pckt ProStat BID (defer at this time due to high-fiber content, increased risk for bowel ischemia) 3. Provide minimal free water flushes of 30 ml Q8 hrs (90 ml total) for tube patency; adjust PRN 4. Monitor BMP/lytes and replete to WNL TF Provision: TF at goal to provide 1440 ml total volume, 1728 kcal, 108 gm pro, 7 gm fiber, 1168 ml H20 (meets 100% est. kcal needs, 100% est. pro needs) Expected Outcomes/Goals: Improved nutritional status, hemodynamic stability. SUNDAR JO RESIDENT Mar 17, 2025 10:46
[2025-03-17] MEDS: SODIUM CHL 0.9% 1000 ML BAG XX ONE (11:00)
[2025-03-17 14:06] LABS: Protein, Body Fluid 0.9 g/dL (.)
[2025-03-18] VITALS (108 sets, daily range): BP systolic 89–128; BP diastolic 40–79; PULSE 73–101; RESP 8–41; TEMP 78.1–98.8; O2SAT 100
[2025-03-18 04:01] LABS: Anion Gap 9 (5-15); Carbon Dioxide 27 mmol/L (20-31); Chloride 98 mmol/L (98-107); Potassium 3.9 mmol/L (3.5-5.1)
[2025-03-18 04:02] LABS: Calcium 8.8 mg/dL (8.7-10.4)
[2025-03-18 04:07] LABS: BUN/Creatinine Ratio 9.6 (10.0-20.0); Glucose 97 mg/dL (74-106)
[2025-03-18 04:08] LABS: Blood Urea Nitrogen 36 mg/dL (9-23); Sodium 134 mmol/L (136-145)
[2025-03-18 05:44] LABS: Basophils # (auto) 0 10 ^3/uL (0-0.2); Eosinophils # (auto) 0.4 10 ^3/uL (0-0.8); Lymphocytes # (auto) 0.8 10 ^3/uL (0.4-5.4); Monocytes # (auto) 0.6 10 ^3/uL (0-1.3); Monocytes % (auto) 10.9 % (0.0-12.0); White Blood Cell 5.7 10^3/uL (4.4-10.8)
[2025-03-18 05:45] LABS: Basophils % (auto) 0.2 % (0.0-2.0); Eosinophils % (auto) 6.2 % (0.0-7.0); Hematocrit 22.8 % (41.0-53.0); Hemoglobin 7.7 g/dL (13.5-17.5); Lymphocytes % (auto) 13.4 % (10.0-50.0); Mean Corpuscular Hemoglobin 32.5 pg (28.0-32.0); Mean Corpuscular Hgb Conc. 33.9 g/dL (32.0-36.0); Neutrophils % (auto) 69.3 % (37.0-80.0); Nucleated Red Blood Cells % 0.1 %; Platelet Count (auto) 92 10^3/uL (140-450); Red Blood Cells 2.37 10^6/uL (4.5-5.90); Red Cell Distribution Width 18.5 % (11.8-14.3)
--- NOTE | 2025-03-18 05:56 | DVH ---
EXAM: XR Chest, 1 View CLINICAL INDICATION: ACUTE RESP FAILURE TECHNIQUE: Frontal view of the chest. COMPARISON: XY CHEST PORTABLE on DOS: 03/17/25, XY CHEST PORTABLE on DOS: 03/16/25, XY CHEST PORTABLE on DOS: 03/15/25, XY CHEST PORTABLE on DOS: 03/14/25, XY CHEST PORTABLE on DOS: 03/14/25 FINDINGS: LUNGS AND PLEURAL SPACES: Left basilar atelectasis or pneumonia. No pneumothorax. HEART: Unremarkable. No cardiomegaly. MEDIASTINUM: Unremarkable. Normal mediastinal contour. BONES/JOINTS: Unremarkable. No acute fracture. TUBES, LINES AND DEVICES: Right internal jugular central venous catheter tip in the superior vena c karlos. The endotracheal tube (ETT) is in satisfactory position. Enteric tube tip in the stomach. OTHER FINDINGS: . . . IMPRESSION: Left basilar atelectasis or pneumonia.
[2025-03-18 08:03] LABS: Base Excess 2.3 mmol/L (-2.0-3.0)
--- NOTE | 2025-03-18 09:09 | DVHPN2 ---
Subjective Patient was intubated and sedated Reviewed: Care Plan, H&P, Labs, Medications, Previous Orders Changes from previous H/P or p: No Changes General: Per HPI Eyes: No Pain, No Vision change, No Conjunctivae inflammation, No Eyelid inflammation, No Other, No Redness ENT: No Ear pain, No Ear discharge, No Nose pain, No Nose discharge, No Nose congestion, No Mouth pain, No Mouth swelling, No Throat pain, No Throat swelling, No Other Respiratory: No Cough, No Dry, No Shortness of breath, No SOB with excertion, No Wheezing, No Hemoptysis, No Pleuritic Pain, No Sputum, No Other Gastrointestinal: No Nausea, No Vomiting, No Abdominal Pain, No Diarrhea, No Constipation, No Melena, No Hematochezia, No Other Genitourinary: No Dysuria, No Frequency, No Incontinence, No Hematuria, No Retention, No Other Musculoskeletal: No other, No neck pain, No shoulder pain, No arm pain, No back pain, No hand pain, No leg pain, No foot pain Skin: No Rash, No Lesions, No Jaundice, No Bruising, No Other Objective Vitals Vital Signs Date Time Temp Pulse Resp B/P (MAP) Pulse Ox O2 Delivery O2 Flow Rate FiO2 03/18/25 08:10 77 18 103/58 (73) 100 30 03/18/25 06:45 97.2 207.0 03/18/25 05:45 Mechanical Ventilator+ 03/17/25 08:00 Intake/Output Intake and Output 03/18/25 07:00 Intake Total 1515.365 ml Output Total 700 ml Balance 815.365 ml Intake Oral 50 ml IV Total 968.365 ml Tube Feeding 497 ml Output Urine Total 700 ml General Appearance: moderate distress HEENT: Atraumatic, PERRLA Lungs: Normal air movement, Other (Mechanical ventilation) Cardiovascular: Normal S1, Normal S2 Abdomen: Other (Ascites, ventral hernia) Musculoskeletal: Normal sensory function, Normal motor function Extremities: No clubbing, No cyanosis, No edema, Normal pulses Neuro: Normal gait, Normal speech, Other (Unable to assess) Skin: Dry, Intact Psych/Mental Status: Mental status NL, Mood NL Medications Current Medications Medications Dose Ordered Sig/Bhumi Route Start Time Stop Time Status Last Admin Dose Admin Midazolam HCl 50 ml @ 1 mls/hr Q24H IV 03/14/25 09:15 4/25/25 07:00 12 MLS/HR Midazolam HCl 50 ml @ 1 mls/hr Q24H IV 03/14/25 09:45 UNV Fentanyl Citrate 250 ml @ 2.5 mls/hr Q24H IV 03/14/25 12:45 03/17/25 17:46 12.5 MLS/HR Ondansetron HCl 4 mg Q4HP PRN IV 03/14/25 15:30 Acetaminophen 650 mg Q6HP PRN PO 03/14/25 15:30 Nitroglycerin 0.4 mg Q5MINP PRN SL 03/14/25 15:30 Morphine Sulfate 2 mg Q30M PRN IV 03/14/25 15:30 Lactulose 30 ml Q6HR PO 03/14/25 18:00 03/18/25 05:30 30 ML Midodrine 10 mg TID PO 03/14/25 22:00 03/18/25 05:30 10 MG Patient Own Medication 1 tab DAILY PO 03/15/25 10:00 UNV Patient Own Medication 1 tab BID PO 03/14/25 22:00 UNV Magnesium Oxide 400 mg DAILY PO 03/15/25 10:00 03/17/25 10:17 400 MG Spironolactone 50 mg BID PO 03/14/25 22:00 03/17/25 21:27 50 MG Rifaximin 550 mg BID PO 03/14/25 22:00 03/17/25 21:27 550 MG Pantoprazole Sodium 40 mg DAILY IV 03/15/25 12:15 03/17/25 10:17 40 MG Norepinephrine Bitartrate 32 mg/ Sodium Chloride 250 ml @ 0.938 mls/ hr Q24H IV 03/15/25 12:30 03/17/25 14:27 14.063 MLS/HR Bumetanide 2 mg BIDD IV 03/15/25 18:00 03/18/25 05:30 2 MG Vancomycin HCl 0 ml @ 0 mls/hr UD IV 03/15/25 12:45 Ceftriaxone Sodium 50 ml @ 100 mls/hr DAILY@09 IV 03/15/25 13:01 03/17/25 09:57 100 MLS/HR Enteral Nutritional Formula 1,000 ml 30ML/HR GT 03/16/25 09:00 Vasopressin 20 units/Sodium Chloride 100 ml @ 9 mls/hr Q11H7M IV 03/16/25 10:00 03/17/25 17:24 9 MLS/HR Phenylephrine HCl 250 ml @ 30 mls/hr Q8H20M IV 03/17/25 11:45 Laboratory Results Laboratory Tests 03/18/25 03:14 03/18/25 04:00 Chemistry Test 03/18/25 03:14 Calcium Level 8.8 mg/dL (8.7-10.4) Urinalysis Test 03/14/25 08:45 Urine Color Yellow (Yellow) Urine Clarity Clear (Clear) Urine pH 6.0 (5.0-9.0) Urine Specific [place] 1.012 (1.001-1.035) Urine Protein Negative (Negative) Urine Ketones Negative (Negative) Urine Blood Negative /uL (Negative) Urine Nitrite Negative (Negative) Urine Bilirubin Negative (Negative) Urine Urobilinogen Normal mg/dL (Negative) Urine Leukocyte Esterase Negative /uL (Negative) Urine RBC 1 /hpf (0 - 3) Urine Microscopic WBC 5 /HPF (0-3) H Urine Squamous Epithelial Cells Few /hpf (<5) Urine Calcium Oxalate Crystals Few (None Seen) Urine Bacteria None seen /hpf (None Seen) Urine Glucose Normal mg/dL (Normal) Blood Gas Results Test 03/18/25 07:24 Arterial Blood pH 7.452 (7.350-7.450) FiO2 % 30.0 Microbiology Microbiology Date/Time Source Procedure Growth Status 03/16/25 13:35 Ascities Fluid Gram Stain - Final Resulted 03/16/25 13:35 Ascities Fluid Body Fluid Culture - Preliminary Resulted 03/14/25 21:29 Nose MRSA Screen - Final Complete 03/14/25 08:38 Sputum Gram Stain - Final Complete 03/14/25 08:38 Sputum Respiratory Culture - Final Complete 03/14/25 08:25 Blood Blood Culture - Preliminary NO GROWTH AFTER 72 HOURS OF INCUBATION. Resulted Labs and/or images reviewed: Labs reviewed by me, Image(s) reviewed by me Assessment/Plan Assessment/Plan Impression: -shock, rule out septic etiology -acute hypoxic respiratory failure with mechanical ventilation -hepatic encephalopathy -cirrhosis of the liver -lactic acidosis -ascites -ESRD with hemodialysis -anemia of chronic disease Plan: Events: Decreased H&H. No signs of bleeding. FiO2 30%. Spontaneous breathing trial today. Decreased vasopressor requirements. -nephrology consultation: Recommendations reviewed -continue vasopressor therapy to keep systolic blood pressure greater than 90 mmHg. Currently on vasopressin and norepinephrine -Continue current vent settings: FIO2 30% -Antibiotic therapy with Rocephin and vancomycin -m[place]on[place] cultures -continue Nepro -continue midodrine -repeat labs, chest x-ray, ABG in a.m. -reassess for spontaneous breathing trial in a.m. Critical care time spent with patient discussing and formulating plan of care: 40 minutes. This does not include time spent performing procedures. This medical document was created using an electronic medical record system with [employer] dictation system. Although this document has been carefully reviewed, there may still be some phonetic and typographical errors. These areas are purely typographical due to imperfections of the software programs, and do not reflect any compromise in the patient's medical care. Plan discussed with: Patient, Other (RN) My Orders Orders - REENA BUSH NP Procedure Category Date Status Time Phenylephrine Iv PHA 03/17/25 In Process (Phenylephrine/Ns) 11:45 Chest Portable XY 03/18/25 Resulted 04:00 Abg W/ Co-Ox RT 03/18/25 Logged 08:00 Cpap/Sed Vacation Med ORDERS 03/18/25 Transmitted Weaning 08:28 Cpap Trial For Am ORDERS 03/18/25 Transmitted 08:28 Date of Service: Mar 18, 2025 Billing Provider: REENA BUSH NP Common Visit Codes: [id number]-[id number] CARE 30-74 MIN REENA BUSH NP Mar 18, 2025 09:09
[2025-03-18 09:31] LABS: Bilirubin, Total 0.7 mg/dL (0.2-1.0)
[2025-03-18 09:36] LABS: Albumin 3.1 g/dL (3.2-4.8); Bilirubin, Direct 0.4 mg/dL (<0.3); Total Protein 5.4 g/dL (5.7-8.2)
[2025-03-18 09:55] LABS: Basophils # (auto) 0 10 ^3/uL (0-0.2); Basophils % (auto) 0.2 % (0.0-2.0); Eosinophils # (auto) 0.4 10 ^3/uL (0-0.8); Eosinophils % (auto) 7.2 % (0.0-7.0); Hematocrit 23.5 % (41.0-53.0); Lymphocytes # (auto) 0.8 10 ^3/uL (0.4-5.4); Lymphocytes % (auto) 13.6 % (10.0-50.0); Mean Corpuscular Hemoglobin 32.6 pg (28.0-32.0); Mean Corpuscular Hgb Conc. 33.8 g/dL (32.0-36.0); Mean Corpuscular Volume 96.6 fL (80.0-100.0); Monocytes # (auto) 0.6 10 ^3/uL (0-1.3); Monocytes % (auto) 11.5 % (0.0-12.0); Neutrophils # (auto) 3.7 10 ^3/uL (1.6-8.6); Neutrophils % (auto) 67.5 % (37.0-80.0); Platelet Count (auto) 99 10^3/uL (140-450); Red Blood Cells 2.44 10^6/uL (4.5-5.90); Red Cell Distribution Width 18.3 % (11.8-14.3); White Blood Cell 5.5 10^3/uL (4.4-10.8)
--- NOTE | 2025-03-18 11:46 | DVHPN2 ---
Progress Note - Dictate Date Seen: Mar 18, 2025 Has the PT tested + for MRSA If YES, has PT been informed?: No Medical Necessity Reason Pt with a Central, PICC or Fol: No Subjective On mechanical ventilation vital signs Vital Sign Date Time Temp Pulse Resp B/P (MAP) Pulse Ox O2 Delivery O2 Flow Rate FiO2 03/18/25 10:00 30 03/18/25 09:57 76 18 100/58 (72) 100 03/18/25 06:45 97.2 207.0 03/18/25 05:45 Mechanical Ventilator+ 03/17/25 08:00 Total Intake and Output 03/17/25 03/17/25 03/18/25 15:00 23:00 07:00 Intake Total 358.614 ml 738.501 ml 418.25 ml Output Total 200 ml 500 ml Balance 358.614 ml 538.501 ml -81.75 ml medications Current Medications Medications Dose Ordered Sig/Bhumi Route Start Time Stop Time Status Last Admin Dose Admin Midazolam HCl 50 ml @ 1 mls/hr Q24H IV 03/14/25 09:15 03/18/25 07:00 12 MLS/HR Midazolam HCl 50 ml @ 1 mls/hr Q24H IV 03/14/25 09:45 UNV Fentanyl Citrate 250 ml @ 2.5 mls/hr Q24H IV 03/14/25 12:45 03/17/25 17:46 12.5 MLS/HR Ondansetron HCl 4 mg Q4HP PRN IV 03/14/25 15:30 Acetaminophen 650 mg Q6HP PRN PO 03/14/25 15:30 Nitroglycerin 0.4 mg Q5MINP PRN SL 03/14/25 15:30 Morphine Sulfate 2 mg Q30M PRN IV 03/14/25 15:30 Lactulose 30 ml Q6HR PO 03/14/25 18:00 03/18/25 05:30 30 ML Midodrine 10 mg TID PO 03/14/25 22:00 03/18/25 05:30 10 MG Patient Own Medication 1 tab DAILY PO 03/15/25 10:00 UNV Patient Own Medication 1 tab BID PO 03/14/25 22:00 UNV Magnesium Oxide 400 mg DAILY PO 03/15/25 10:00 03/18/25 10:04 400 MG Spironolactone 50 mg BID PO 03/14/25 22:00 03/18/25 10:24 50 MG Rifaximin 550 mg BID PO 03/14/25 22:00 03/18/25 10:04 550 MG Pantoprazole Sodium 40 mg DAILY IV 03/15/25 12:15 03/18/25 10:04 40 MG Norepinephrine Bitartrate 32 mg/ Sodium Chloride 250 ml @ 0.938 mls/ hr Q24H IV 03/15/25 12:30 03/17/25 14:27 14.063 MLS/HR Bumetanide 2 mg BIDD IV 03/15/25 18:00 03/18/25 05:30 2 MG Vancomycin HCl 0 ml @ 0 mls/hr UD IV 03/15/25 12:45 Ceftriaxone Sodium 50 ml @ 100 mls/hr DAILY@09 IV 03/15/25 13:01 03/18/25 09:10 100 MLS/HR Enteral Nutritional Formula 1,000 ml 30ML/HR GT 03/16/25 09:00 Vasopressin 20 units/Sodium Chloride 100 ml @ 9 mls/hr Q11H7M IV 03/16/25 10:00 03/17/25 17:24 9 MLS/HR Phenylephrine HCl 250 ml @ 30 mls/hr Q8H20M IV 03/17/25 11:45 objective Intubated Unresponsive Lungs: low air entry at bases CV: RR, no pericardial rub Abdomen: distended, low intensity BS Trace edema laboratory and microbiology Laboratory Tests 03/18/25 08:45 03/18/25 03:14 Test 03/18/25 03:14 Range/Units Serum Glucose 97 74-106 mg/dL Problem List 1. Renal failure. The patient has been on dialysis for 7 months. This is due to liver failure and renal failure in the setting of alcoholic liver disease. 2. Encephalopathy. 3. Chronic hypotension exacerbated by low blood pressure induced by ultrafiltration with dialysis, rule out sepsis. 4. Anemia. 5. Hypokalemia. 6. Hyponatremia. 7. Septic shock HD again today Since he does not tolerate UF will have to try more frequent [employer] Use intravenous vasopressors to maintain mean arterial pressure above 55 mmHg. Continue empiric intravenous antibiotics. Continue ventilatory support. Strictly measure intake and output of fluid Dietary Evaluation Review Comments: 1. Suggest formula Vital AF @ 60 ml/hr (GOAL). Begin at 10 ml/hr, advance by 10 ml Q4 hrs or as tolerated to goal-rate of 60 ml/hr x 24 hrs 2. Once pressor requirements reduced and if pt begins dialysis, may change to Nepro @ 40 ml/hr + 1 pckt ProStat BID (defer at this time due to high-fiber content, increased risk for bowel ischemia) 3. Provide minimal free water flushes of 30 ml Q8 hrs (90 ml total) for tube patency; adjust PRN 4. Monitor BMP/lytes and replete to WNL TF Provision: TF at goal to provide 1440 ml total volume, 1728 kcal, 108 gm pro, 7 gm fiber, 1168 ml H20 (meets 100% est. kcal needs, 100% est. pro needs) Expected Outcomes/Goals: Improved nutritional status, hemodynamic stability. Plan discussed with: Other KILLIAN REZA MD Mar 18, 2025 11:46
--- NOTE | 2025-03-18 15:37 | DVHPN2 ---
Progress Note Date Seen: Mar 18, 2025 Resident Creating Document: SUNDAR JO RESIDENT Has the PT tested + for MRSA If YES, has PT been informed?: No Medical Necessity Reason Pt with a Central, PICC or Fol: No Subjective Review of Systems Patient is currently intubated, on mechanical ventilation. Unable to obtain complete ROS due to patient's clinical status.Monitor CMP. Patient likely how hemodialysis today. CPAP trial today. Objective vital signs Vital Sign Date Time Temp Pulse Resp B/P (MAP) Pulse Ox O2 Delivery O2 Flow Rate FiO2 03/18/25 14:29 109/69 03/18/25 13:46 85 19 100 30 03/18/25 13:00 97.9 208.2 03/18/25 12:00 Mechanical Ventilator+ 03/17/25 08:00 Total Intake and Output 03/17/25 03/17/25 03/18/25 14:59 22:59 06:59 Intake Total 360.489 ml 740.001 ml 455.50 ml Output Total 200 ml 500 ml Balance 360.489 ml 540.001 ml -44.50 ml medications Current Medications Medications Dose Ordered Sig/Bhumi Route Start Time Stop Time Status Last Admin Dose Admin Midazolam HCl 50 ml @ 1 mls/hr Q24H IV 03/14/25 09:15 03/18/25 14:29 12 MLS/HR Midazolam HCl 50 ml @ 1 mls/hr Q24H IV 03/14/25 09:45 UNV Fentanyl Citrate 250 ml @ 2.5 mls/hr Q24H IV 03/14/25 12:45 03/17/25 17:46 12.5 MLS/HR Ondansetron HCl 4 mg Q4HP PRN IV 03/14/25 15:30 Acetaminophen 650 mg Q6HP PRN PO 03/14/25 15:30 Nitroglycerin 0.4 mg Q5MINP PRN SL 03/14/25 15:30 Morphine Sulfate 2 mg Q30M PRN IV 03/14/25 15:30 Lactulose 30 ml Q6HR PO 03/14/25 18:00 03/18/25 13:21 30 ML Midodrine 10 mg TID PO 03/14/25 22:00 03/18/25 05:30 10 MG Patient Own Medication 1 tab DAILY PO 03/15/25 10:00 UNV Patient Own Medication 1 tab BID PO 03/14/25 22:00 UNV Magnesium Oxide 400 mg DAILY PO 03/15/25 10:00 03/18/25 10:04 400 MG Spironolactone 50 mg BID PO 03/14/25 22:00 03/18/25 10:24 50 MG Rifaximin 550 mg BID PO 03/14/25 22:00 03/18/25 10:04 550 MG Pantoprazole Sodium 40 mg DAILY IV 03/15/25 12:15 03/18/25 10:04 40 MG Norepinephrine Bitartrate 32 mg/ Sodium Chloride 250 ml @ 0.938 mls/ hr Q24H IV 03/15/25 12:30 03/17/25 14:27 14.063 MLS/HR Bumetanide 2 mg BIDD IV 03/15/25 18:00 03/18/25 05:30 2 MG Vancomycin HCl 0 ml @ 0 mls/hr UD IV 03/15/25 12:45 Ceftriaxone Sodium 50 ml @ 100 mls/hr DAILY@09 IV 03/15/25 13:01 03/18/25 09:10 100 MLS/HR Enteral Nutritional Formula 1,000 ml 30ML/HR GT 03/16/25 09:00 Vasopressin 20 units/Sodium Chloride 100 ml @ 9 mls/hr Q11H7M IV 03/16/25 10:00 03/17/25 17:24 9 MLS/HR Phenylephrine HCl 250 ml @ 30 mls/hr Q8H20M IV 03/17/25 11:45 Examination Pt is lying on bed, currently intubated, mechanically ventilated with a RASS -1 General Appearance: Sedated, intubated HEENT: Atraumatic, Mucous membranes dry Respiratory: mechanical ventilators, bilateral airway entry normal Cardiovascular: Regular rate, Normal S1, Normal S2, No murmurs Abdominal: abdomen is Not distended . no hepatospleenomegaly. Bowel sounds not clearly audible, ventral hernia Extremities: No clubbing, No cyanosis, No edema, Normal pulses Neuro: pupils equal and reflex present, gag reflex present Nurse was there as sharperone during examination laboratory and microbiology Laboratory Tests 03/18/25 08:45 03/18/25 03:14 Test 03/18/25 03:14 Range/Units Serum Glucose 97 74-106 mg/dL Microbiology Date/Time Source Procedure Growth Status 03/16/25 13:35 Ascities Fluid Gram Stain - Final Resulted 03/16/25 13:35 Ascities Fluid Body Fluid Culture - Preliminary Resulted 03/14/25 21:29 Nose MRSA Screen - Final Complete 03/14/25 08:38 Sputum Gram Stain - Final Complete 03/14/25 08:38 Sputum Respiratory Culture - Final Complete 03/14/25 08:25 Blood Blood Culture - Preliminary NO GROWTH AFTER 72 HOURS OF INCUBATION. Resulted Labs and/or images reviewed: Labs reviewed by me, Image(s) reviewed by me Problem List/Assessment/Plan Problem List/Assessment/Plan Hepatic encephalopathy Alcohol induced decompensated liver cirrhosis MELD score likely 20 points Lactic acidosis Hyperammonemia Ascites Anemia of chronic disease ESRD on hemodialysis Plan/Recommendation - Fleet enema, - started nepro - Lactulose t.i.d. 30 mL - Protonix 40 mg daily - rifaximin b.i.d. - may need paracentesis - monitor ammonia - hemodialysis as scheduled - Aldactone - rest of the management as per ICU team - we will recommend conservative treatment his overall prognosis is guarded Thank you so much for the opportunity to consult on your patient. GI team will follow the patient Case an action plan discussed with Dr. Ysabel Mccullough. Complex care planning needed total 49 minutes of detailed discussion. Plan discussed with: Daughter Dietary Evaluation Review Comments: 1. Suggest formula Vital AF @ 60 ml/hr (GOAL). Begin at 10 ml/hr, advance by 10 ml Q4 hrs or as tolerated to goal-rate of 60 ml/hr x 24 hrs 2. Once pressor requirements reduced and if pt begins dialysis, may change to Nepro @ 40 ml/hr + 1 pckt ProStat BID (defer at this time due to high-fiber content, increased risk for bowel ischemia) 3. Provide minimal free water flushes of 30 ml Q8 hrs (90 ml total) for tube patency; adjust PRN 4. Monitor BMP/lytes and replete to WNL TF Provision: TF at goal to provide 1440 ml total volume, 1728 kcal, 108 gm pro, 7 gm fiber, 1168 ml H20 (meets 100% est. kcal needs, 100% est. pro needs) Expected Outcomes/Goals: Improved nutritional status, hemodynamic stability. SUNDAR JO RESIDENT Mar 18, 2025 15:37
[2025-03-18] MEDS: VANCOMYCIN 1GM/200ML PM 200 ML IV ONE (16:20)
[2025-03-18] MEDS: SODIUM CHL 0.9% 1000 ML BAG XX ONE (17:25)
[2025-03-18] MEDS: ALBUMIN 25% 100 ML IV ONE (17:55)
[2025-03-19] VITALS (109 sets, daily range): BP systolic 88–128; BP diastolic 37–84; PULSE 70–135; RESP 8–26; TEMP 98.3–99.9; O2SAT 92–100
[2025-03-19 04:21] LABS: Anion Gap 8 (5-15); Carbon Dioxide 30 mmol/L (20-31); Chloride 101 mmol/L (98-107); Potassium 3.6 mmol/L (3.5-5.1); Sodium 139 mmol/L (136-145)
[2025-03-19 04:22] LABS: Calcium 8.9 mg/dL (8.7-10.4)
[2025-03-19 04:27] LABS: BUN/Creatinine Ratio 9.6 (10.0-20.0); Basophils # (auto) 0 10 ^3/uL (0-0.2); Basophils % (auto) 0.7 % (0.0-2.0); Blood Urea Nitrogen 22 mg/dL (9-23); Eosinophils # (auto) 0.3 10 ^3/uL (0-0.8); Glucose 79 mg/dL (74-106); Hematocrit 24.8 % (41.0-53.0); Hemoglobin 8.5 g/dL (13.5-17.5); Lymphocytes # (auto) 0.9 10 ^3/uL (0.4-5.4); Lymphocytes % (auto) 21.9 % (10.0-50.0); Mean Corpuscular Hemoglobin 33.1 pg (28.0-32.0); Mean Corpuscular Hgb Conc. 34.3 g/dL (32.0-36.0); Mean Corpuscular Volume 96.3 fL (80.0-100.0); Monocytes # (auto) 0.6 10 ^3/uL (0-1.3); Monocytes % (auto) 12.8 % (0.0-12.0); Neutrophils # (auto) 2.5 10 ^3/uL (1.6-8.6); Neutrophils % (auto) 57.6 % (37.0-80.0); Nucleated Red Blood Cells % 0.1 %; Platelet Count (auto) 85 10^3/uL (140-450); Red Blood Cells 2.57 10^6/uL (4.5-5.90); Red Cell Distribution Width 18.5 % (11.8-14.3); White Blood Cell 4.3 10^3/uL (4.4-10.8)
--- NOTE | 2025-03-19 06:31 | DVH ---
CHEST RADIOGRAPH Indication: ACUTE RESP FAILIRE Technique: Single frontal view of the chest was obtained COMPARISON: XY CHEST PORTABLE on DOS: 03/18/25, XY CHEST PORTABLE on DOS: 03/17/25, XY CHEST PORTABLE o n DOS: 03/16/25, XY CHEST PORTABLE on DOS: 03/15/25, XY CHEST PORTABLE on DOS: 03/14/25 FINDINGS: Lines and Tubes: Unchanged. Lungs: Clear. Diminished lung volumes. Pleura: No effusion. No pneumothorax. Cardiomediastinal contours: Unremarkable Bones: Unremarkable IMPRESSION: 1. No acute disease. Diminished lung volumes. 2. Lines and tubes unchanged.
[2025-03-19 07:39] LABS: Base Excess -0.1 mmol/L (-2.0-3.0)
--- NOTE | 2025-03-19 08:46 | DVHPN2 ---
Progress Note Date Seen: Mar 19, 2025 Resident Creating Document: SUNDAR JO RESIDENT Has the PT tested + for MRSA If YES, has PT been informed?: No Medical Necessity Reason Pt with a Central, PICC or Fol: No Subjective Review of Systems Patient seen and examined at the bedside. Unable to obtain a complete ROS due to patient's clinical status. CPAP trial today. Patient is currently sedation vacation. Patient abdomen is bloated suggested paracentesis. Changes from previous H/P or p: No Changes Objective vital signs Vital Sign Date Time Temp Pulse Resp B/P (MAP) Pulse Ox O2 Delivery O2 Flow Rate FiO2 03/19/25 07:49 96 18 116/69 (85) 100 30 03/19/25 06:45 99.1 210.4 03/19/25 06:00 Mechanical Ventilator+ 03/17/25 08:00 Total Intake and Output 03/18/25 03/18/25 03/19/25 15:00 23:00 07:00 Intake Total 324.25 ml 601.005 ml 345.375 ml Output Total 700 ml 300 ml Balance 324.25 ml -98.995 ml 45.375 ml medications Current Medications Medications Dose Ordered Sig/Bhumi Route Start Time Stop Time Status Last Admin Dose Admin Midazolam HCl 50 ml @ 1 mls/hr Q24H IV 03/14/25 09:15 03/19/25 03:56 12 MLS/HR Midazolam HCl 50 ml @ 1 mls/hr Q24H IV 03/14/25 09:45 UNV Fentanyl Citrate 250 ml @ 2.5 mls/hr Q24H IV 03/14/25 12:45 03/18/25 15:30 17.5 MLS/HR Ondansetron HCl 4 mg Q4HP PRN IV 03/14/25 15:30 Acetaminophen 650 mg Q6HP PRN PO 03/14/25 15:30 Nitroglycerin 0.4 mg Q5MINP PRN SL 03/14/25 15:30 Morphine Sulfate 2 mg Q30M PRN IV 03/14/25 15:30 Lactulose 30 ml Q6HR PO 03/14/25 18:00 03/19/25 06:07 30 ML Midodrine 10 mg TID PO 03/14/25 22:00 03/19/25 06:07 10 MG Patient Own Medication 1 tab DAILY PO 03/15/25 10:00 UNV Patient Own Medication 1 tab BID PO 03/14/25 22:00 UNV Magnesium Oxide 400 mg DAILY PO 03/15/25 10:00 03/18/25 10:04 400 MG Spironolactone 50 mg BID PO 03/14/25 22:00 03/18/25 22:38 50 MG Rifaximin 550 mg BID PO 03/14/25 22:00 03/18/25 22:38 550 MG Pantoprazole Sodium 40 mg DAILY IV 03/15/25 12:15 03/18/25 10:04 40 MG Norepinephrine Bitartrate 32 mg/ Sodium Chloride 250 ml @ 0.938 mls/ hr Q24H IV 03/15/25 12:30 03/19/25 07:47 5.625 MLS/HR Bumetanide 2 mg BIDD IV 03/15/25 18:00 03/19/25 06:07 2 MG Vancomycin HCl 0 ml @ 0 mls/hr UD IV 03/15/25 12:45 Ceftriaxone Sodium 50 ml @ 100 mls/hr DAILY@09 IV 03/15/25 13:01 03/18/25 09:10 100 MLS/HR Enteral Nutritional Formula 1,000 ml 30ML/HR GT 03/16/25 09:00 Vasopressin 20 units/Sodium Chloride 100 ml @ 9 mls/hr Q11H7M IV 03/16/25 10:00 03/17/25 17:24 9 MLS/HR Phenylephrine HCl 250 ml @ 30 mls/hr Q8H20M IV 03/17/25 11:45 Examination Pt is lying on bed General Appearance: Alert, Oriented X3, Cooperative, Not in acute distress HEENT: Atraumatic, Mucous membranes moist/pink Respiratory: Clear to auscultation, Normal air movement, No added sounds Cardiovascular: Regular rate, Normal S1, Normal S2, No murmurs Abdominal: Active bowel sounds, Soft, abdomen is distended and have internal hernia, no tenderness Extremities: No edema, Normal pulses, No tenderness/swelling Skin: No Significant rash, except past surgical scars Neuro: Normal speech, sensorimotor deficits none Psych/Mental Status: Mental status NL, Mood NL Nurse was there as sharperone during examination laboratory and microbiology Laboratory Tests 03/19/25 03:15 Test 03/19/25 03:15 Range/Units Serum Glucose 79 74-106 mg/dL Microbiology Date/Time Source Procedure Growth Status 03/16/25 13:35 Ascities Fluid Gram Stain - Final Resulted 03/16/25 13:35 Ascities Fluid Body Fluid Culture - Preliminary Resulted 03/14/25 21:29 Nose MRSA Screen - Final Complete 03/14/25 08:38 Sputum Gram Stain - Final Complete 03/14/25 08:38 Sputum Respiratory Culture - Final Complete 03/14/25 08:25 Blood Blood Culture - Final NO GROWTH AFTER 5 DAYS OF INCUBATION. Complete Labs and/or images reviewed: Labs reviewed by me, Image(s) reviewed by me Problem List/Assessment/Plan Problem List/Assessment/Plan Hepatic encephalopathy Alcohol induced decompensated liver cirrhosis MELD score likely 20 points Lactic acidosis Hyperammonemia Ascites Anemia of chronic disease ESRD on hemodialysis Plan/Recommendation - Fleet enema, did not help much - Need paracentesis - started nepro - Lactulose t.i.d. 30 mL - Protonix 40 mg daily - rifaximin b.i.d. - may need paracentesis - monitor ammonia - hemodialysis as scheduled - Aldactone - rest of the management as per ICU team - we will recommend conservative treatment his overall prognosis is guarded Thank you so much for the opportunity to consult on your patient. GI team will follow the patient Case an action plan discussed with Dr. Ysabel Mccullough. Complex care planning needed total 49 minutes of detailed discussion. Plan discussed with: Daughter Dietary Evaluation Review Comments: 1. Suggest formula Vital AF @ 60 ml/hr (GOAL). Begin at 10 ml/hr, advance by 10 ml Q4 hrs or as tolerated to goal-rate of 60 ml/hr x 24 hrs 2. Once pressor requirements reduced and if pt begins dialysis, may change to Nepro @ 40 ml/hr + 1 pckt ProStat BID (defer at this time due to high-fiber content, increased risk for bowel ischemia) 3. Provide minimal free water flushes of 30 ml Q8 hrs (90 ml total) for tube patency; adjust PRN 4. Monitor BMP/lytes and replete to WNL TF Provision: TF at goal to provide 1440 ml total volume, 1728 kcal, 108 gm pro, 7 gm fiber, 1168 ml H20 (meets 100% est. kcal needs, 100% est. pro needs) Expected Outcomes/Goals: Improved nutritional status, hemodynamic stability. SUNDAR JO RESIDENT Mar 19, 2025 08:46
--- NOTE | 2025-03-19 09:36 | DVHNC2 ---
Other Procedure Procedure Paracentesis Indication Difficulty breathing, ascitis Anesthetic Lidocaine Prep Chlorhexidine Informed consent obtained: Yes Risks, benefits, and alternati: Yes Notes Patient positioned supine. Abdomen examined with ultrasound for appropriate site placement. Site marked and prepared with? swabs of betadine. Site draped with sterile dressing. Wheel of lidocaine placed. Lidocaine then introduced deep to the peritoneum. Skin punctured with an? blade scalpel. Paracentesis needle was placed through the skin into the abdominal cavity. The needle was withdrawn and the site cleaned and bandaged with gauze and tape. Samples were sent to the lab for analysis. Yellow colored was fluid removed Amount of fluid removed: 1.6L Estimated Blood Loss: minimal Complications: The patient tolerated the procedure well without complications. Date of Service: Mar 19, 2025 Billing Provider: LYNDA HARRIS MD Common Visit Codes: PROCEDURE ONLY, NOT BILLABLE Procedure Codes: [id number] W/IMAGING SUNDAR JO RESIDENT Mar 19, 2025 09:36 LYNDA HARRIS MD Mar 20, 2025 09:22
--- NOTE | 2025-03-19 10:09 | DVHPN2 ---
Progress Note - Dictate Date Seen: Mar 19, 2025 Has the PT tested + for MRSA If YES, has PT been informed?: No Medical Necessity Reason Pt with a Central, PICC or Fol: No vital signs Vital Sign Date Time Temp Pulse Resp B/P (MAP) Pulse Ox O2 Delivery O2 Flow Rate FiO2 03/19/25 09:44 101 18 106/67 (80) 100 30 03/19/25 06:45 99.1 210.4 03/19/25 06:00 Mechanical Ventilator+ 03/17/25 08:00 Total Intake and Output 03/18/25 03/18/25 03/19/25 15:00 23:00 07:00 Intake Total 324.25 ml 601.005 ml 345.375 ml Output Total 700 ml 300 ml Balance 324.25 ml -98.995 ml 45.375 ml medications Current Medications Medications Dose Ordered Sig/Bhumi Route Start Time Stop Time Status Last Admin Dose Admin Midazolam HCl 50 ml @ 1 mls/hr Q24H IV 03/14/25 09:15 03/19/25 03:56 12 MLS/HR Midazolam HCl 50 ml @ 1 mls/hr Q24H IV 03/14/25 09:45 UNV Fentanyl Citrate 250 ml @ 2.5 mls/hr Q24H IV 03/14/25 12:45 03/18/25 15:30 17.5 MLS/HR Ondansetron HCl 4 mg Q4HP PRN IV 03/14/25 15:30 Acetaminophen 650 mg Q6HP PRN PO 03/14/25 15:30 Nitroglycerin 0.4 mg Q5MINP PRN SL 03/14/25 15:30 Morphine Sulfate 2 mg Q30M PRN IV 03/14/25 15:30 Lactulose 30 ml Q6HR PO 03/14/25 18:00 03/19/25 06:07 30 ML Midodrine 10 mg TID PO 03/14/25 22:00 03/19/25 06:07 10 MG Patient Own Medication 1 tab DAILY PO 03/15/25 10:00 UNV Patient Own Medication 1 tab BID PO 03/14/25 22:00 UNV Magnesium Oxide 400 mg DAILY PO 03/15/25 10:00 03/19/25 09:40 400 MG Spironolactone 50 mg BID PO 03/14/25 22:00 03/19/25 09:40 50 MG Rifaximin 550 mg BID PO 03/14/25 22:00 03/19/25 09:40 550 MG Pantoprazole Sodium 40 mg DAILY IV 03/15/25 12:15 03/19/25 09:39 40 MG Norepinephrine Bitartrate 32 mg/ Sodium Chloride 250 ml @ 0.938 mls/ hr Q24H IV 03/15/25 12:30 03/19/25 07:47 5.625 MLS/HR Bumetanide 2 mg BIDD IV 03/15/25 18:00 03/19/25 06:07 2 MG Vancomycin HCl 0 ml @ 0 mls/hr UD IV 03/15/25 12:45 Ceftriaxone Sodium 50 ml @ 100 mls/hr DAILY@09 IV 03/15/25 13:01 03/19/25 09:40 100 MLS/HR Enteral Nutritional Formula 1,000 ml 30ML/HR GT 03/16/25 09:00 Vasopressin 20 units/Sodium Chloride 100 ml @ 9 mls/hr Q11H7M IV 03/16/25 10:00 03/17/25 17:24 9 MLS/HR Phenylephrine HCl 250 ml @ 30 mls/hr Q8H20M IV 03/17/25 11:45 laboratory and microbiology Laboratory Tests 03/19/25 03:15 Test 03/19/25 03:15 Range/Units Serum Glucose 79 74-106 mg/dL 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 Suggest formula Vital AF @ 60 ml/hr (GOAL). Begin at 10 ml/hr, advance by 10 ml Q4 hrs or as tolerated to goal-rate of 60 ml/hr x 24 hrs 2. Once pressor requirements reduced and if pt begins dialysis, may change to Nepro @ 40 ml/hr + 1 pckt ProStat BID (defer at this time due to high-fiber content, increased risk for bowel ischemia) 3. Provide minimal free water flushes of 30 ml Q8 hrs (90 ml total) for tube patency; adjust PRN 4. Monitor BMP/lytes and replete to WNL TF Provision: TF at goal to provide 1440 ml total volume, 1728 kcal, 108 gm pro, 7 gm fiber, 1168 ml H20 (meets 100% est. kcal needs, 100% est. pro needs) Expected Outcomes/Goals: Improved nutritional status, hemodynamic stability. Plan discussed with: Other (rn) LYNDA HARRIS MD Mar 19, 2025 10:09
--- NOTE | 2025-03-19 11:04 | DVHPN2 ---
Progress Note - Dictate Date Seen: Mar 19, 2025 Has the PT tested + for MRSA If YES, has PT been informed?: No Medical Necessity Reason Pt with a Central, PICC or Fol: No Subjective On mechanical ventilation Opening eyes Follows simple commands vital signs Vital Sign Date Time Temp Pulse Resp B/P (MAP) Pulse Ox O2 Delivery O2 Flow Rate FiO2 03/19/25 09:44 101 18 106/67 (80) 100 30 03/19/25 06:45 99.1 210.4 03/19/25 06:00 Mechanical Ventilator+ 03/17/25 08:00 Total Intake and Output 03/18/25 03/18/25 03/19/25 15:00 23:00 07:00 Intake Total 324.25 ml 601.005 ml 345.375 ml Output Total 700 ml 300 ml Balance 324.25 ml -98.995 ml 45.375 ml medications Current Medications Medications Dose Ordered Sig/Bhumi Route Start Time Stop Time Status Last Admin Dose Admin Midazolam HCl 50 ml @ 1 mls/hr Q24H IV 03/14/25 09:15 03/19/25 03:56 12 MLS/HR Midazolam HCl 50 ml @ 1 mls/hr Q24H IV 03/14/25 09:45 UNV Fentanyl Citrate 250 ml @ 2.5 mls/hr Q24H IV 03/14/25 12:45 03/18/25 15:30 17.5 MLS/HR Ondansetron HCl 4 mg Q4HP PRN IV 03/14/25 15:30 Acetaminophen 650 mg Q6HP PRN PO 03/14/25 15:30 Nitroglycerin 0.4 mg Q5MINP PRN SL 03/14/25 15:30 Morphine Sulfate 2 mg Q30M PRN IV 03/14/25 15:30 Lactulose 30 ml Q6HR PO 03/14/25 18:00 03/19/25 06:07 30 ML Midodrine 10 mg TID PO 03/14/25 22:00 03/19/25 06:07 10 MG Patient Own Medication 1 tab DAILY PO 03/15/25 10:00 UNV Patient Own Medication 1 tab BID PO 03/14/25 22:00 UNV Magnesium Oxide 400 mg DAILY PO 03/15/25 10:00 03/19/25 09:40 400 MG Spironolactone 50 mg BID PO 03/14/25 22:00 03/19/25 09:40 50 MG Rifaximin 550 mg BID PO 03/14/25 22:00 03/19/25 09:40 550 MG Pantoprazole Sodium 40 mg DAILY IV 03/15/25 12:15 03/19/25 09:39 40 MG Norepinephrine Bitartrate 32 mg/ Sodium Chloride 250 ml @ 0.938 mls/ hr Q24H IV 03/15/25 12:30 03/19/25 07:47 5.625 MLS/HR Bumetanide 2 mg BIDD IV 03/15/25 18:00 03/19/25 06:07 2 MG Vancomycin HCl 0 ml @ 0 mls/hr UD IV 03/15/25 12:45 Ceftriaxone Sodium 50 ml @ 100 mls/hr DAILY@09 IV 03/15/25 13:01 03/19/25 09:40 100 MLS/HR Enteral Nutritional Formula 1,000 ml 30ML/HR GT 03/16/25 09:00 Vasopressin 20 units/Sodium Chloride 100 ml @ 9 mls/hr Q11H7M IV 03/16/25 10:00 03/17/25 17:24 9 MLS/HR Phenylephrine HCl 250 ml @ 30 mls/hr Q8H20M IV 03/17/25 11:45 objective Intubated More alert Lungs: low air entry at bases CV: RR, no pericardial rub Abdomen: distended, low intensity BS Trace edema laboratory and microbiology Laboratory Tests 03/19/25 03:15 Test 03/19/25 03:15 Range/Units Serum Glucose 79 74-106 mg/dL Problem List 1. Renal failure. The patient has been on dialysis for 7 months. This is due to liver failure and renal failure in the setting of alcoholic liver disease. 2. Encephalopathy. 3. Chronic hypotension exacerbated by low blood pressure induced by ultrafiltration with dialysis, rule out sepsis. 4. Anemia. 5. Hypokalemia. 6. Hyponatremia. 7. Septic shock 8. 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 Continue empiric intravenous antibiotics. Continue ventilatory support. Strictly measure intake and output of fluid Dietary Evaluation Review Comments: 1. Suggest formula Vital AF @ 60 ml/hr (GOAL). Begin at 10 ml/hr, advance by 10 ml Q4 hrs or as tolerated to goal-rate of 60 ml/hr x 24 hrs 2. Once pressor requirements reduced and if pt begins dialysis, may change to Nepro @ 40 ml/hr + 1 pckt ProStat BID (defer at this time due to high-fiber content, increased risk for bowel ischemia) 3. Provide minimal free water flushes of 30 ml Q8 hrs (90 ml total) for tube patency; adjust PRN 4. Monitor BMP/lytes and replete to WNL TF Provision: TF at goal to provide 1440 ml total volume, 1728 kcal, 108 gm pro, 7 gm fiber, 1168 ml H20 (meets 100% est. kcal needs, 100% est. pro needs) Expected Outcomes/Goals: Improved nutritional status, hemodynamic stability. Plan discussed with: Daughter KILLIAN REZA MD Mar 19, 2025 11:04
[2025-03-19 13:22] LABS: Base Excess 0.9 mmol/L (-2.0-3.0)
--- NOTE | 2025-03-19 13:45 | DVHPN2 ---
Subjective Intubated and sedated Reviewed: Care Plan, H&P, Labs, Medications, Previous Orders, Radiology, Other (Consultations) Changes from previous H/P or p: No Changes Objective Vitals Vital Signs Date Time Temp Pulse Resp B/P (MAP) Pulse Ox O2 Delivery O2 Flow Rate FiO2 03/19/25 13:30 99.7 103 11 127/79 (95) 100 211.5 03/19/25 12:15 30 03/19/25 12:15 Mechanical Ventilator+ 03/17/25 08:00 Intake/Output Intake and Output 03/19/25 07:00 Intake Total 1276.255 ml Output Total 1000 ml Balance 276.255 ml Intake Oral 170 ml IV Total 870.255 ml Tube Feeding 236 ml Output Urine Total 1000 ml General Appearance: Other (Intubated and sedated) HEENT: Atraumatic Lungs: Other (Mechanical ventilation sounds) Chest/Breasts: Other (Right chest hemodialysis catheter) Cardiovascular: Regular rate, Normal S1, Normal S2 Abdomen: Other (Ascites, ventral hernia) Genitourinary: Other (Pierre's) Neuro: Other (Intubated and sedated) Psych/Mental Status: Other (Intubated and sedated) Medications Current Medications Medications Dose Ordered Sig/Bhumi Route Start Time Stop Time Status Last Admin Dose Admin Midazolam HCl 50 ml @ 1 mls/hr Q24H IV 03/14/25 09:15 03/19/25 03:56 12 MLS/HR Midazolam HCl 50 ml @ 1 mls/hr Q24H IV 03/14/25 09:45 UNV Fentanyl Citrate 250 ml @ 2.5 mls/hr Q24H IV 03/14/25 12:45 03/18/25 15:30 17.5 MLS/HR Ondansetron HCl 4 mg Q4HP PRN IV 03/14/25 15:30 Acetaminophen 650 mg Q6HP PRN PO 03/14/25 15:30 Nitroglycerin 0.4 mg Q5MINP PRN SL 03/14/25 15:30 Morphine Sulfate 2 mg Q30M PRN IV 03/14/25 15:30 Lactulose 30 ml Q6HR PO 03/14/25 18:00 03/19/25 12:23 30 ML Midodrine 10 mg TID PO 03/14/25 22:00 03/19/25 13:37 10 MG Patient Own Medication 1 tab DAILY PO 03/15/25 10:00 UNV Patient Own Medication 1 tab BID PO 03/14/25 22:00 UNV Magnesium Oxide 400 mg DAILY PO 03/15/25 10:00 03/19/25 09:40 400 MG Spironolactone 50 mg BID PO 03/14/25 22:00 03/19/25 09:40 50 MG Rifaximin 550 mg BID PO 03/14/25 22:00 03/19/25 09:40 550 MG Pantoprazole Sodium 40 mg DAILY IV 03/15/25 12:15 03/19/25 09:39 40 MG Norepinephrine Bitartrate 32 mg/ Sodium Chloride 250 ml @ 0.938 mls/ hr Q24H IV 03/15/25 12:30 03/19/25 07:47 5.625 MLS/HR Bumetanide 2 mg BIDD IV 03/15/25 18:00 03/19/25 06:07 2 MG Vancomycin HCl 0 ml @ 0 mls/hr UD IV 03/15/25 12:45 Ceftriaxone Sodium 50 ml @ 100 mls/hr DAILY@09 IV 03/15/25 13:01 03/19/25 09:40 100 MLS/HR Enteral Nutritional Formula 1,000 ml 30ML/HR GT 03/16/25 09:00 Vasopressin 20 units/Sodium Chloride 100 ml @ 9 mls/hr Q11H7M IV 03/16/25 10:00 03/17/25 17:24 9 MLS/HR Phenylephrine HCl 250 ml @ 30 mls/hr Q8H20M IV 03/17/25 11:45 Albumin Human 100 ml @ 100 mls/hr Q8H IV 03/19/25 12:30 03/20/25 05:29 Laboratory Results Laboratory Tests 03/19/25 03:15 Chemistry Test 03/19/25 03:15 Calcium Level 8.9 mg/dL (8.7-10.4) Urinalysis Test 03/14/25 08:45 Urine Color Yellow (Yellow) Urine Clarity Clear (Clear) Urine pH 6.0 (5.0-9.0) Urine Specific [place] 1.012 (1.001-1.035) Urine Protein Negative (Negative) Urine Ketones Negative (Negative) Urine Blood Negative /uL (Negative) Urine Nitrite Negative (Negative) Urine Bilirubin Negative (Negative) Urine Urobilinogen Normal mg/dL (Negative) Urine Leukocyte Esterase Negative /uL (Negative) Urine RBC 1 /hpf (0 - 3) Urine Microscopic WBC 5 /HPF (0-3) H Urine Squamous Epithelial Cells Few /hpf (<5) Urine Calcium Oxalate Crystals Few (None Seen) Urine Bacteria None seen /hpf (None Seen) Urine Glucose Normal mg/dL (Normal) Blood Gas Results Test 03/19/25 07:26 03/19/25 13:16 Arterial Blood pH 7.462 (7.350-7.450) 7.479 (7.350-7.450) FiO2 % 30.0 30.0 Microbiology Microbiology Date/Time Source Procedure Growth Status 03/16/25 13:35 Ascities Fluid Gram Stain - Final Resulted 03/16/25 13:35 Ascities Fluid Body Fluid Culture - Preliminary Resulted 03/14/25 21:29 Nose MRSA Screen - Final Complete 03/14/25 08:38 Sputum Gram Stain - Final Complete 03/14/25 08:38 Sputum Respiratory Culture - Final Complete 03/14/25 08:25 Blood Blood Culture - Final NO GROWTH AFTER 5 DAYS OF INCUBATION. Complete Labs and/or images reviewed: Labs reviewed by me, Image(s) reviewed by me Assessment/Plan Assessment/Plan Covering: Acute hepatic/metabolic/toxic encephalopathy Acute hypoxic respiratory failure Alcoholic liver cirrhosis with ascites, pancytopenia, hyperammonemia, and coagulopathy End-stage renal disease on hemodialysis Shock; to rule out septic shock Reviewed the blood work including ABGs Reviewed available cultures Reviewed imaging studies including chest x-rays Continue mechanical ventilation for oxygen therapy Continue sedation as indicated Continue IV antibiotics Continue IV pressors as indicated Continue hemodialysis as per Nephrology GI, nephrology, and pulmonology are following Continue close monitoring Goals of care discussed with the patient's for 20 minutes; full code Critical care time of 99 minutes Late Entry. This medical document was created using an electronic medical record system with computerized dictation system. Although this document has been carefully reviewed, there might still be some phonetic and typographical errors. These areas are purely typographical due to imperfections of the software programs, and do not reflect any compromise in the patient's medical care. Plan discussed with: Spouse, Daughter, Other (Nurse) Date of Service: Mar 19, 2025 Billing Provider: RADHA MARTINES MD Common Visit Codes: 28476-IMVEDCDK CARE 30-74 MIN (99 minutes), [id number] CARE-EACH +30MIN Secondary Visit Codes: 19552-OXORCSUM CARE PLAN 30 MINUTES (20 minutes) RADHA MARTINES MD Mar 19, 2025 13:45
[2025-03-19] MEDS: ALBUMIN 25% 100 ML IV ONE (14:54)
[2025-03-19] MEDS: ALBUMIN 25% 100 ML IV SCH (15:35)
[2025-03-19] MEDS: HEPARIN 1,000 UNITS/ml 1ML VIAL IV ONE (16:49)
[2025-03-19] MEDS: VANCOMYCIN 500mg/100mL 100 ML IV ONE (18:56)
[2025-03-20] VITALS (99 sets, daily range): BP systolic 86–125; BP diastolic 48–78; PULSE 77–114; RESP 10–27; TEMP 98.4–99.4; O2SAT 70–100
[2025-03-20 04:16] LABS: Basophils # (auto) 0 10 ^3/uL (0-0.2); Basophils % (auto) 0.3 % (0.0-2.0); Eosinophils # (auto) 0.2 10 ^3/uL (0-0.8); Mean Corpuscular Hemoglobin 32.7 pg (28.0-32.0); Monocytes # (auto) 0.6 10 ^3/uL (0-1.3); Neutrophils # (auto) 3.9 10 ^3/uL (1.6-8.6); Platelet Count (auto) 87 10^3/uL (140-450)
[2025-03-20 04:18] LABS: Eosinophils % (auto) 2.9 % (0.0-7.0); Hematocrit 24.3 % (41.0-53.0); Hemoglobin 8.2 g/dL (13.5-17.5); Lymphocytes % (auto) 17.2 % (10.0-50.0); Mean Corpuscular Hgb Conc. 33.9 g/dL (32.0-36.0); Mean Corpuscular Volume 96.4 fL (80.0-100.0); Monocytes % (auto) 10.5 % (0.0-12.0); Neutrophils % (auto) 69.1 % (37.0-80.0); Nucleated Red Blood Cells % 0.1 %; Red Blood Cells 2.52 10^6/uL (4.5-5.90); Red Cell Distribution Width 18.3 % (11.8-14.3); White Blood Cell 5.6 10^3/uL (4.4-10.8)
[2025-03-20 04:36] LABS: Alanine Aminotransferase 18 U/L (7-40); Albumin 3.5 g/dL (3.2-4.8); Alkaline Phosphatase 111 U/L (46-116); Anion Gap 11 (5-15); Aspartate Aminotransferase 26 U/L (13-40); BUN/Creatinine Ratio 8.2 (10.0-20.0); Blood Urea Nitrogen 19 mg/dL (9-23); Carbon Dioxide 27 mmol/L (20-31); Chloride 102 mmol/L (98-107); Glucose 77 mg/dL (74-106); Potassium 3.6 mmol/L (3.5-5.1); Sodium 140 mmol/L (136-145)
[2025-03-20 04:42] LABS: Bilirubin, Total 1.3 mg/dL (0.2-1.0); Total Protein 5.3 g/dL (5.7-8.2)
--- NOTE | 2025-03-20 06:18 | DVH ---
CHEST RADIOGRAPH Indication: Intubated. Thank You! Technique: Single frontal view of the chest was obtained COMPARISON: XY CHEST PORTABLE on DOS: 03/19/25, XY CHEST PORTABLE on DOS: 03/18/25, XY CHEST PORTABLE o n DOS: 03/17/25, XY CHEST PORTABLE on DOS: 03/16/25, XY CHEST PORTABLE on DOS: 03/15/25 FINDINGS: Lines and Tubes: Status post interval extubation and removal of enteric catheter. Right permCath unc hanged. Lungs: Clear. Decreased inspiratory effort. Pleura: No effusion. No pneumothorax. Cardiomediastinal contours: Unremarkable Bones: Unremarkable IMPRESSION: 1. No acute disease. 2. Status post interval extubation and removal of enteric catheter. 3. Right PermCath.
--- NOTE | 2025-03-20 09:25 | DVHPN2 ---
Progress Note - Dictate Date Seen: Mar 20, 2025 Has the PT tested + for MRSA If YES, has PT been informed?: No Medical Necessity Reason Pt with a Central, PICC or Fol: No vital signs Vital Sign Date Time Temp Pulse Resp B/P (MAP) Pulse Ox O2 Delivery O2 Flow Rate FiO2 03/20/25 06:45 92 21 105/64 (78) 100 03/20/25 06:00 Room Air* 0 30 21 03/20/25 04:00 99.4 99.4 Total Intake and Output 03/19/25 03/19/25 03/20/25 15:00 23:00 07:00 Intake Total 95.000 ml 418.425 ml 324.376 ml Output Total 1400 ml 1300 ml Balance 95.000 ml -981.575 ml -975.624 ml medications Current Medications Medications Dose Ordered Sig/Bhumi Route Start Time Stop Time Status Last Admin Dose Admin Midazolam HCl 50 ml @ 1 mls/hr Q24H IV 03/14/25 09:15 03/19/25 03:56 12 MLS/HR Midazolam HCl 50 ml @ 1 mls/hr Q24H IV 03/14/25 09:45 UNV Fentanyl Citrate 250 ml @ 2.5 mls/hr Q24H IV 03/14/25 12:45 03/18/25 15:30 17.5 MLS/HR Ondansetron HCl 4 mg Q4HP PRN IV 03/14/25 15:30 Acetaminophen 650 mg Q6HP PRN PO 03/14/25 15:30 Nitroglycerin 0.4 mg Q5MINP PRN SL 03/14/25 15:30 Morphine Sulfate 2 mg Q30M PRN IV 03/14/25 15:30 Lactulose 30 ml Q6HR PO 03/14/25 18:00 03/19/25 12:23 30 ML Midodrine 10 mg TID PO 03/14/25 22:00 03/20/25 05:47 10 MG Patient Own Medication 1 tab DAILY PO 03/15/25 10:00 UNV Patient Own Medication 1 tab BID PO 03/14/25 22:00 UNV Magnesium Oxide 400 mg DAILY PO 03/15/25 10:00 03/19/25 09:40 400 MG Spironolactone 50 mg BID PO 03/14/25 22:00 03/19/25 22:04 50 MG Rifaximin 550 mg BID PO 03/14/25 22:00 03/19/25 22:04 550 MG Pantoprazole Sodium 40 mg DAILY IV 03/15/25 12:15 03/19/25 09:39 40 MG Norepinephrine Bitartrate 32 mg/ Sodium Chloride 250 ml @ 0.938 mls/ hr Q24H IV 03/15/25 12:30 03/19/25 07:47 5.625 MLS/HR Bumetanide 2 mg BIDD IV 03/15/25 18:00 03/20/25 05:47 2 MG Vancomycin HCl 0 ml @ 0 mls/hr UD IV 03/15/25 12:45 Ceftriaxone Sodium 50 ml @ 100 mls/hr DAILY@09 IV 03/15/25 13:01 03/20/25 08:43 100 MLS/HR Enteral Nutritional Formula 1,000 ml 30ML/HR GT 03/16/25 09:00 Vasopressin 20 units/Sodium Chloride 100 ml @ 9 mls/hr Q11H7M IV 03/16/25 10:00 03/17/25 17:24 9 MLS/HR Phenylephrine HCl 250 ml @ 30 mls/hr Q8H20M IV 03/17/25 11:45 laboratory and microbiology Laboratory Tests 03/20/25 03:20 Test 03/20/25 03:20 Range/Units Serum Glucose 77 74-106 mg/dL 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 Suggest formula Vital AF @ 60 ml/hr (GOAL). Begin at 10 ml/hr, advance by 10 ml Q4 hrs or as tolerated to goal-rate of 60 ml/hr x 24 hrs 2. Once pressor requirements reduced and if pt begins dialysis, may change to Nepro @ 40 ml/hr + 1 pckt ProStat BID (defer at this time due to high-fiber content, increased risk for bowel ischemia) 3. Provide minimal free water flushes of 30 ml Q8 hrs (90 ml total) for tube patency; adjust PRN 4. Monitor BMP/lytes and replete to WNL TF Provision: TF at goal to provide 1440 ml total volume, 1728 kcal, 108 gm pro, 7 gm fiber, 1168 ml H20 (meets 100% est. kcal needs, 100% est. pro needs) Expected Outcomes/Goals: Improved nutritional status, hemodynamic stability. Plan discussed with: Other (rn) LYNDA HARRIS MD Mar 20, 2025 09:24
--- NOTE | 2025-03-20 12:36 | DVHPN2 ---
Progress Note - Dictate Date Seen: Mar 20, 2025 Has the PT tested + for MRSA If YES, has PT been informed?: No Medical Necessity Reason Pt with a Central, PICC or Fol: No Subjective On mechanical ventilation Opening eyes Follows simple commands vital signs Vital Sign Date Time Temp Pulse Resp B/P (MAP) Pulse Ox O2 Delivery O2 Flow Rate FiO2 03/20/25 12:03 18 100 Room Air* 0 21 03/20/25 11:45 83 96/54 (68) 03/20/25 08:00 98.4 98.4 Total Intake and Output 03/19/25 03/19/25 03/20/25 15:00 23:00 07:00 Intake Total 95.000 ml 418.425 ml 326.251 ml Output Total 1400 ml 1300 ml Balance 95.000 ml -981.575 ml -973.749 ml medications Current Medications Medications Dose Ordered Sig/Bhumi Route Start Time Stop Time Status Last Admin Dose Admin Midazolam HCl 50 ml @ 1 mls/hr Q24H IV 03/14/25 09:15 03/19/25 03:56 12 MLS/HR Midazolam HCl 50 ml @ 1 mls/hr Q24H IV 03/14/25 09:45 UNV Fentanyl Citrate 250 ml @ 2.5 mls/hr Q24H IV 03/14/25 12:45 03/18/25 15:30 17.5 MLS/HR Ondansetron HCl 4 mg Q4HP PRN IV 03/14/25 15:30 Acetaminophen 650 mg Q6HP PRN PO 03/14/25 15:30 Nitroglycerin 0.4 mg Q5MINP PRN SL 03/14/25 15:30 Morphine Sulfate 2 mg Q30M PRN IV 03/14/25 15:30 Lactulose 30 ml Q6HR PO 03/14/25 18:00 03/19/25 12:23 30 ML Midodrine 10 mg TID PO 03/14/25 22:00 03/20/25 05:47 10 MG Patient Own Medication 1 tab DAILY PO 03/15/25 10:00 UNV Patient Own Medication 1 tab BID PO 03/14/25 22:00 UNV Magnesium Oxide 400 mg DAILY PO 03/15/25 10:00 03/20/25 09:53 400 MG Spironolactone 50 mg BID PO 03/14/25 22:00 03/20/25 09:52 50 MG Rifaximin 550 mg BID PO 03/14/25 22:00 03/20/25 09:52 550 MG Pantoprazole Sodium 40 mg DAILY IV 03/15/25 12:15 03/20/25 09:53 40 MG Norepinephrine Bitartrate 32 mg/ Sodium Chloride 250 ml @ 0.938 mls/ hr Q24H IV 03/15/25 12:30 03/19/25 07:47 5.625 MLS/HR Bumetanide 2 mg BIDD IV 03/15/25 18:00 03/20/25 05:47 2 MG Vancomycin HCl 0 ml @ 0 mls/hr UD IV 03/15/25 12:45 Ceftriaxone Sodium 50 ml @ 100 mls/hr DAILY@09 IV 03/15/25 13:01 03/20/25 08:43 100 MLS/HR Enteral Nutritional Formula 1,000 ml 30ML/HR GT 03/16/25 09:00 Vasopressin 20 units/Sodium Chloride 100 ml @ 9 mls/hr Q11H7M IV 03/16/25 10:00 03/17/25 17:24 9 MLS/HR Phenylephrine HCl 250 ml @ 30 mls/hr Q8H20M IV 03/17/25 11:45 objective Intubated More alert Lungs: low air entry at bases CV: RR, no pericardial rub Abdomen: distended, low intensity BS Trace edema laboratory and microbiology Laboratory Tests 03/20/25 03:20 Test 03/20/25 03:20 Range/Units Serum Glucose 77 74-106 mg/dL Problem List 1. Renal failure. The patient has been on dialysis for 7 months. This is due to liver failure and renal failure in the setting of alcoholic liver disease. 2. Encephalopathy. 3. Chronic hypotension exacerbated by low blood pressure induced by ultrafiltration with dialysis, rule out sepsis. 4. Anemia. 5. Hypokalemia. 6. Hyponatremia. 7. Septic shock 8. 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 Continue empiric intravenous antibiotics. Continue ventilatory support. Strictly measure intake and output of fluid Dietary Evaluation Review Comments: 1. Suggest formula Vital AF @ 60 ml/hr (GOAL). Begin at 10 ml/hr, advance by 10 ml Q4 hrs or as tolerated to goal-rate of 60 ml/hr x 24 hrs 2. Once pressor requirements reduced and if pt begins dialysis, may change to Nepro @ 40 ml/hr + 1 pckt ProStat BID (defer at this time due to high-fiber content, increased risk for bowel ischemia) 3. Provide minimal free water flushes of 30 ml Q8 hrs (90 ml total) for tube patency; adjust PRN 4. Monitor BMP/lytes and replete to WNL TF Provision: TF at goal to provide 1440 ml total volume, 1728 kcal, 108 gm pro, 7 gm fiber, 1168 ml H20 (meets 100% est. kcal needs, 100% est. pro needs) Expected Outcomes/Goals: Improved nutritional status, hemodynamic stability. Plan discussed with: Daughter KILLIAN REZA MD Mar 20, 2025 12:36
--- NOTE | 2025-03-20 12:50 | DVHPN2 ---
Progress Note - Dictate Date Seen: Mar 20, 2025 Has the PT tested + for MRSA If YES, has PT been informed?: No Medical Necessity Reason Pt with a Central, PICC or Fol: No Subjective Patient was extubated yesterday He underwent paracentesis with removal of 1.5 L of fluid He also had hemodialysis yesterday Patient has passed swallow eval and is currently on a renal diet He is on low-dose Levophed at four mics per hour Hemoglobin 8.2, creatinine down to 2.3, bilirubin down to 1.3 vital signs Vital Sign Date Time Temp Pulse Resp B/P (MAP) Pulse Ox O2 Delivery O2 Flow Rate FiO2 03/20/25 12:03 18 100 Room Air* 0 21 03/20/25 11:45 83 96/54 (68) 03/20/25 08:00 98.4 98.4 Total Intake and Output 03/19/25 03/19/25 03/20/25 15:00 23:00 07:00 Intake Total 95.000 ml 418.425 ml 326.251 ml Output Total 1400 ml 1300 ml Balance 95.000 ml -981.575 ml -973.749 ml medications Current Medications Medications Dose Ordered Sig/Bhumi Route Start Time Stop Time Status Last Admin Dose Admin Midazolam HCl 50 ml @ 1 mls/hr Q24H IV 03/14/25 09:15 03/19/25 03:56 12 MLS/HR Midazolam HCl 50 ml @ 1 mls/hr Q24H IV 03/14/25 09:45 UNV Fentanyl Citrate 250 ml @ 2.5 mls/hr Q24H IV 03/14/25 12:45 03/18/25 15:30 17.5 MLS/HR Ondansetron HCl 4 mg Q4HP PRN IV 03/14/25 15:30 Acetaminophen 650 mg Q6HP PRN PO 03/14/25 15:30 Nitroglycerin 0.4 mg Q5MINP PRN SL 03/14/25 15:30 Morphine Sulfate 2 mg Q30M PRN IV 03/14/25 15:30 Lactulose 30 ml Q6HR PO 03/14/25 18:00 03/19/25 12:23 30 ML Midodrine 10 mg TID PO 03/14/25 22:00 03/20/25 05:47 10 MG Patient Own Medication 1 tab DAILY PO 03/15/25 10:00 UNV Patient Own Medication 1 tab BID PO 03/14/25 22:00 UNV Magnesium Oxide 400 mg DAILY PO 03/15/25 10:00 03/20/25 09:53 400 MG Spironolactone 50 mg BID PO 03/14/25 22:00 03/20/25 09:52 50 MG Rifaximin 550 mg BID PO 03/14/25 22:00 03/20/25 09:52 550 MG Pantoprazole Sodium 40 mg DAILY IV 03/15/25 12:15 03/20/25 09:53 40 MG Norepinephrine Bitartrate 32 mg/ Sodium Chloride 250 ml @ 0.938 mls/ hr Q24H IV 03/15/25 12:30 03/19/25 07:47 5.625 MLS/HR Bumetanide 2 mg BIDD IV 03/15/25 18:00 03/20/25 05:47 2 MG Vancomycin HCl 0 ml @ 0 mls/hr UD IV 03/15/25 12:45 Ceftriaxone Sodium 50 ml @ 100 mls/hr DAILY@09 IV 03/15/25 13:01 03/20/25 08:43 100 MLS/HR Enteral Nutritional Formula 1,000 ml 30ML/HR GT 03/16/25 09:00 Vasopressin 20 units/Sodium Chloride 100 ml @ 9 mls/hr Q11H7M IV 03/16/25 10:00 03/17/25 17:24 9 MLS/HR Phenylephrine HCl 250 ml @ 30 mls/hr Q8H20M IV 03/17/25 11:45 objective Awake alert lethargic extubated on a simple mask Head neck examination slow scleral icterus Lungs decreased sounds in the bases Cardiovascular S1-S2 regular rate rhythm Abdomen is soft nontender less distended Extremities show no clubbing cyanosis or edema Neuro appears to be nonfocal laboratory and microbiology Laboratory Tests 03/20/25 03:20 Test 03/20/25 03:20 Range/Units Serum Glucose 77 74-106 mg/dL Problems(with codes): (1) Cirrhosis of liver (2) End stage renal disease on dialysis (3) Hepatic encephalopathy (4) Hyperammonemia (5) Metabolic encephalopathy Prognosis Plan Taper down the pressors and Levophed if the patient tolerates it Advance diet as tolerated Supportive care Monitor labs His MELD score is 21 points Continue lactulose 30 mL p.o. daily Patient will follow up with her mold capper down the tamiment upon discharge and continue liver and renal transplant workup Dietary Evaluation Review Comments: 1. Suggest formula Vital AF @ 60 ml/hr (GOAL). Begin at 10 ml/hr, advance by 10 ml Q4 hrs or as tolerated to goal-rate of 60 ml/hr x 24 hrs 2. Once pressor requirements reduced and if pt begins dialysis, may change to Nepro @ 40 ml/hr + 1 pckt ProStat BID (defer at this time due to high-fiber content, increased risk for bowel ischemia) 3. Provide minimal free water flushes of 30 ml Q8 hrs (90 ml total) for tube patency; adjust PRN 4. Monitor BMP/lytes and replete to WNL TF Provision: TF at goal to provide 1440 ml total volume, 1728 kcal, 108 gm pro, 7 gm fiber, 1168 ml H20 (meets 100% est. kcal needs, 100% est. pro needs) Expected Outcomes/Goals: Improved nutritional status, hemodynamic stability. Plan discussed with: Patient, Other (ICU Nurse) ALEX MONTOYA MD Mar 20, 2025 12:50
[2025-03-20] MEDS: VANCOMYCIN 500mg/100mL 100 ML IV ONE (13:55)
--- NOTE | 2025-03-20 21:10 | DVHPN2 ---
Subjective Extubated; did not share any complaints Reviewed: Care Plan, H&P, Labs, Medications, Previous Orders, Radiology, Other (Consultations) Changes from previous H/P or p: Changes Objective Vitals Vital Signs Date Time Temp Pulse Resp B/P (MAP) Pulse Ox O2 Delivery O2 Flow Rate FiO2 03/20/25 18:31 105/67 03/20/25 18:30 77 19 100 03/20/25 18:00 Room Air* 0 21 03/20/25 16:15 98.4 98.4 Intake/Output Intake and Output 03/20/25 07:00 Intake Total 839.676 ml Output Total 2700 ml Balance -1860.324 ml Intake Oral 380 ml IV Total 459.676 ml Output Urine Total 1700 ml Other 1000 ml # Bowel Movements 1 General Appearance: Alert, Other (Confused) HEENT: Atraumatic Lungs: Other (Decreased air entry bilateral) Chest/Breasts: Other (Right chest hemodialysis catheter) Cardiovascular: Regular rate, Normal S1, Normal S2 Abdomen: Normal bowel sounds, Soft, No tenderness, Other (Ascites, ventral hernia) Genitourinary: Other (Pierre's) Neuro: Normal speech, Cranial nerves 3-12 NL, Other (Confused) Psych/Mental Status: Other (Confused) Medications Current Medications Medications Dose Ordered Sig/Bhumi Route Start Time Stop Time Status Last Admin Dose Admin Midazolam HCl 50 ml @ 1 mls/hr Q24H IV 03/14/25 09:45 UNV Ondansetron HCl 4 mg Q4HP PRN IV 03/14/25 15:30 Acetaminophen 650 mg Q6HP PRN PO 03/14/25 15:30 Nitroglycerin 0.4 mg Q5MINP PRN SL 03/14/25 15:30 Morphine Sulfate 2 mg Q30M PRN IV 03/14/25 15:30 Lactulose 30 ml Q6HR PO 03/14/25 18:00 03/20/25 18:31 30 ML Midodrine 10 mg TID PO 03/14/25 22:00 03/20/25 14:16 10 MG Patient Own Medication 1 tab DAILY PO 03/15/25 10:00 UNV Patient Own Medication 1 tab BID PO 03/14/25 22:00 UNV Magnesium Oxide 400 mg DAILY PO 03/15/25 10:00 03/20/25 09:53 400 MG Spironolactone 50 mg BID PO 03/14/25 22:00 03/20/25 09:52 50 MG Rifaximin 550 mg BID PO 03/14/25 22:00 03/20/25 09:52 550 MG Pantoprazole Sodium 40 mg DAILY IV 03/15/25 12:15 03/20/25 09:53 40 MG Norepinephrine Bitartrate 32 mg/ Sodium Chloride 250 ml @ 0.938 mls/ hr Q24H IV 03/15/25 12:30 03/20/25 12:51 1.875 MLS/HR Bumetanide 2 mg BIDD IV 03/15/25 18:00 03/20/25 18:31 2 MG Vancomycin HCl 0 ml @ 0 mls/hr UD IV 03/15/25 12:45 Ceftriaxone Sodium 50 ml @ 100 mls/hr DAILY@09 IV 03/15/25 13:01 03/20/25 08:43 100 MLS/HR Laboratory Results Laboratory Tests 03/20/25 03:20 Chemistry Test 03/20/25 03:20 Albumin 3.5 g/dL (3.2-4.8) Calcium Level 9.0 mg/dL (8.7-10.4) Total Protein 5.3 g/dL (5.7-8.2) L LFT Test 03/20/25 03:20 Alanine Aminotransferase (ALT) 18 U/L (7-40) Alkaline Phosphatase 111 U/L (46-116) Aspartate Amino Transferase (AST) 26 U/L (13-40) Total Bilirubin 1.3 mg/dL (0.2-1.0) H Urinalysis Test 03/14/25 08:45 Urine Color Yellow (Yellow) Urine Clarity Clear (Clear) Urine pH 6.0 (5.0-9.0) Urine Specific [place] 1.012 (1.001-1.035) Urine Protein Negative (Negative) Urine Ketones Negative (Negative) Urine Blood Negative /uL (Negative) Urine Nitrite Negative (Negative) Urine Bilirubin Negative (Negative) Urine Urobilinogen Normal mg/dL (Negative) Urine Leukocyte Esterase Negative /uL (Negative) Urine RBC 1 /hpf (0 - 3) Urine Microscopic WBC 5 /HPF (0-3) H Urine Squamous Epithelial Cells Few /hpf (<5) Urine Calcium Oxalate Crystals Few (None Seen) Urine Bacteria None seen /hpf (None Seen) Urine Glucose Normal mg/dL (Normal) Microbiology Microbiology Date/Time Source Procedure Growth Status 03/16/25 13:35 Ascities Fluid Gram Stain - Final Resulted 03/16/25 13:35 Ascities Fluid Body Fluid Culture - Preliminary Resulted 03/14/25 21:29 Nose MRSA Screen - Final Complete 03/14/25 08:38 Sputum Gram Stain - Final Complete 03/14/25 08:38 Sputum Respiratory Culture - Final Complete 03/14/25 08:25 Blood Blood Culture - Final NO GROWTH AFTER 5 DAYS OF INCUBATION. Complete Labs and/or images reviewed: Labs reviewed by me, Image(s) reviewed by me Assessment/Plan Assessment/Plan Covering: Acute hepatic/metabolic/toxic encephalopathy; confused Acute hypoxic respiratory failure status post mechanical ventilation Alcoholic liver cirrhosis with ascites, pancytopenia, hyperammonemia, and coagulopathy End-stage renal disease on hemodialysis Shock; to rule out septic shock Reviewed the blood work including ABGs Reviewed available cultures Reviewed imaging studies including chest x-rays Continue oxygen therapy as indicated Continue IV antibiotics Continue IV pressors as indicated Continue hemodialysis as per Nephrology GI, nephrology, and pulmonology are following Continue close monitoring Goals of care discussed with the patient for 20 minutes; full code Critical care time of 60 minutes Late Entry. This medical document was created using an electronic medical record system with computerized dictation system. Although this document has been carefully reviewed, there might still be some phonetic and typographical errors. These areas are purely typographical due to imperfections of the software programs, and do not reflect any compromise in the patient's medical care. Plan discussed with: Patient, Daughter, Other (Nurse) My Orders Orders - RADHA MARTINES MD Procedure Category Date Status Time Ammonia LAB 03/21/25 Verified 04:00 Date of Service: Mar 20, 2025 Billing Provider: RADHA MARTINES MD Common Visit Codes: [id number] CARE 30-74 MIN (60 minutes) Secondary Visit Codes: [id number] CARE PLAN 30 MINUTES (20 minutes) RADHA MARTINES MD Mar 20, 2025 21:10
[2025-03-21] VITALS (96 sets, daily range): BP systolic 81–113; BP diastolic 43–81; PULSE 58–104; RESP 8–28; TEMP 98.3–98.9; O2SAT 91–100
[2025-03-21 03:58] LABS: Basophils # (auto) 0 10 ^3/uL (0-0.2); Basophils % (auto) 0.8 % (0.0-2.0); Eosinophils # (auto) 0.3 10 ^3/uL (0-0.8); Eosinophils % (auto) 6.3 % (0.0-7.0); Hematocrit 25.4 % (41.0-53.0); Hemoglobin 8.6 g/dL (13.5-17.5); Lymphocytes # (auto) 1.4 10 ^3/uL (0.4-5.4); Lymphocytes % (auto) 25.9 % (10.0-50.0); Mean Corpuscular Hemoglobin 32.1 pg (28.0-32.0); Mean Corpuscular Hgb Conc. 33.7 g/dL (32.0-36.0); Mean Corpuscular Volume 95.4 fL (80.0-100.0); Monocytes # (auto) 0.8 10 ^3/uL (0-1.3); Monocytes % (auto) 13.8 % (0.0-12.0); Neutrophils # (auto) 2.9 10 ^3/uL (1.6-8.6); Neutrophils % (auto) 53.2 % (37.0-80.0); Platelet Count (auto) 122 10^3/uL (140-450); Red Blood Cells 2.67 10^6/uL (4.5-5.90); Red Cell Distribution Width 18.3 % (11.8-14.3); White Blood Cell 5.5 10^3/uL (4.4-10.8)
[2025-03-21 04:19] LABS: Alanine Aminotransferase 19 U/L (7-40); Albumin 3.2 g/dL (3.2-4.8); Anion Gap 11 (5-15); Aspartate Aminotransferase 29 U/L (13-40); BUN/Creatinine Ratio 8.3 (10.0-20.0); Calcium 8.8 mg/dL (8.7-10.4); Carbon Dioxide 26 mmol/L (20-31); Chloride 104 mmol/L (98-107); Glucose 91 mg/dL (74-106); Sodium 141 mmol/L (136-145)
[2025-03-21 04:22] LABS: Alkaline Phosphatase 126 U/L (46-116); Blood Urea Nitrogen 24 mg/dL (9-23); Potassium 3.4 mmol/L (3.5-5.1)
[2025-03-21] MEDS: POTASSIUM CHL 20MEQ/50ML 50 ML IV ONE (05:15)
--- NOTE | 2025-03-21 10:41 | MEDREC ---
[facility] ASP Intervention Section I [facility] ASP Intervention: Deescalate AB based on CS (PLEASE CONSIDER D/C ANTIBIOTIC(S) IN ABSENCE OF BACTERIAL INFECTION) JOSIE MARTINEZ PHARMACIST Mar 21, 2025 10:41
--- NOTE | 2025-03-21 13:50 | DVH ---
AP portable chest HISTORY: sob Comparison: 03/19/2025 Comparison: XY CHEST XRAY 1 VIEW on DOS: 03/20/25, XY CHEST PORTABLE on DOS: 03/19/25, XY CHEST PORTABL E on DOS: 03/18/25 FINDINGS: No change in positioning of the central line. Heart size enlarged. Suboptimal inspiratory effort. No infiltrates or effusions. IMPRESSION: 1. No change in appearance of the lungs from previous exam. NG tube has been removed
[2025-03-21 14:46] LABS: Hepatitis A Ab IgM Negative; Hepatitis B Core IgM Negative (Negative); Hepatitis B Surface Antigen Negative (Negative); Hepatitis C Antibody Negative (Negative)
--- NOTE | 2025-03-21 15:30 | DVHPN2 ---
Progress Note Date Seen: Mar 21, 2025 Resident Creating Document: SUNDAR JO RESIDENT Has the PT tested + for MRSA If YES, has PT been informed?: No Medical Necessity Reason Pt with a Central, PICC or Fol: No Subjective Review of Systems Patient seen and examined at the bedside. Patient currently reported no new complaints, patient was extubated on Friday. Currently on renal diet. Objective vital signs Vital Sign Date Time Temp Pulse Resp B/P (MAP) Pulse Ox O2 Delivery O2 Flow Rate FiO2 03/21/25 14:00 14 96 Room Air* 0 21 03/21/25 14:00 91 93/55 (68) 03/21/25 12:00 98.3 98.3 Total Intake and Output 03/20/25 03/20/25 03/21/25 14:59 22:59 06:59 Intake Total 165.000 ml 445.000 ml 215.000 ml Output Total 420 ml 425 ml Balance 165.000 ml 25.000 ml -210.000 ml medications Current Medications Medications Dose Ordered Sig/Bhumi Route Start Time Stop Time Status Last Admin Dose Admin Midazolam HCl 50 ml @ 1 mls/hr Q24H IV 03/14/25 09:45 UNV Ondansetron HCl 4 mg Q4HP PRN IV 03/14/25 15:30 Acetaminophen 650 mg Q6HP PRN PO 03/14/25 15:30 Nitroglycerin 0.4 mg Q5MINP PRN SL 03/14/25 15:30 Morphine Sulfate 2 mg Q30M PRN IV 03/14/25 15:30 Midodrine 10 mg TID PO 03/14/25 22:00 03/21/25 13:35 10 MG Patient Own Medication 1 tab DAILY PO 03/15/25 10:00 UNV Patient Own Medication 1 tab BID PO 03/14/25 22:00 UNV Magnesium Oxide 400 mg DAILY PO 03/15/25 10:00 03/21/25 08:49 400 MG Spironolactone 50 mg BID PO 03/14/25 22:00 03/21/25 08:49 50 MG Rifaximin 550 mg BID PO 03/14/25 22:00 03/21/25 08:49 550 MG Pantoprazole Sodium 40 mg DAILY IV 03/15/25 12:15 03/21/25 08:48 40 MG Norepinephrine Bitartrate 32 mg/ Sodium Chloride 250 ml @ 0.938 mls/ hr Q24H IV 03/15/25 12:30 03/21/25 12:01 0.938 MLS/HR Bumetanide 2 mg BIDD IV 03/15/25 18:00 03/21/25 05:15 2 MG Lactulose 30 ml Q12HR PO 03/21/25 22:00 Enteral Nutritional Formula 240 ml BIDWM PO 03/21/25 18:00 Examination Awake alert lethargic extubated on a simple mask Head neck examination slow scleral icterus Lungs decreased sounds in the bases Cardiovascular S1-S2 regular rate rhythm Abdomen is soft nontender, less distended Extremities show no clubbing cyanosis or edema Neuro appears to be nonfocal laboratory and microbiology Laboratory Tests 03/21/25 03:21 Test 03/21/25 03:21 Range/Units Serum Glucose 91 74-106 mg/dL Microbiology Date/Time Source Procedure Growth Status 03/16/25 13:35 Ascities Fluid Gram Stain - Final Complete 03/16/25 13:35 Ascities Fluid Body Fluid Culture - Final Complete 03/14/25 21:29 Nose MRSA Screen - Final Complete 03/14/25 08:38 Sputum Gram Stain - Final Complete 03/14/25 08:38 Sputum Respiratory Culture - Final Complete 03/14/25 08:25 Blood Blood Culture - Final NO GROWTH AFTER 5 DAYS OF INCUBATION. Complete Labs and/or images reviewed: Labs reviewed by me, Image(s) reviewed by me Problem List/Assessment/Plan Problem List/Assessment/Plan Hepatic encephalopathy Alcohol induced decompensated liver cirrhosis MELD score likely 20 points Lactic acidosis Hyperammonemia Ascites Anemia of chronic disease ESRD on hemodialysis Plan/Recommendation - patient is on renal diet - Paracentesis, removed 1.6 L fluid on Friday - Taper down the pressors and Levophed if the patient tolerates it - Lactulosebid. 30 mL - Protonix 40 mg daily - rifaximin b.i.d. - His MELD score is 21 points - monitor ammonia - hemodialysis as scheduled - rest of the management as per ICU team - we will recommend conservative treatment Thank you so much for the opportunity to consult on your patient. GI team will follow the patient Case an action plan discussed with Dr. Ysabel Mccullough. Complex care planning needed total 49 minutes of detailed discussion. Plan discussed with: Patient, Daughter Dietary Evaluation Review Comments: 1. Suggest formula Vital AF @ 60 ml/hr (GOAL). Begin at 10 ml/hr, advance by 10 ml Q4 hrs or as tolerated to goal-rate of 60 ml/hr x 24 hrs 2. Once pressor requirements reduced and if pt begins dialysis, may change to Nepro @ 40 ml/hr + 1 pckt ProStat BID (defer at this time due to high-fiber content, increased risk for bowel ischemia) 3. Provide minimal free water flushes of 30 ml Q8 hrs (90 ml total) for tube patency; adjust PRN 4. Monitor BMP/lytes and replete to WNL TF Provision: TF at goal to provide 1440 ml total volume, 1728 kcal, 108 gm pro, 7 gm fiber, 1168 ml H20 (meets 100% est. kcal needs, 100% est. pro needs) Expected Outcomes/Goals: Improved nutritional status, hemodynamic stability. SUNDAR JO RESIDENT Mar 21, 2025 15:30
[2025-03-21] MEDS: Nepro With Carbsteady ButterPecan 8oz Carton PO SCH (17:09)
[2025-03-21] MEDS: SODIUM CHL 0.9% 1000 ML BAG XX ONE (17:56)
--- NOTE | 2025-03-21 19:39 | DVHPNRES ---
Progress Note Date Seen: Mar 21, 2025 Resident Creating Document: SULY GARCIA RESIDENT Has the PT tested + for MRSA If YES, has PT been informed?: No Medical Necessity Reason Pt with a Central, PICC or Fol: No Subjective Review of Systems Patient was seen and examined at bedside. He stated feeling well, denied any significant shortness of breath, abdominal pain, nausea he will undergo hemodialysis today. He is currently diuresing around 450 mL per shift. He was extubated two days ago, he remains on Levophed at two. He is alert and oriented x4. Objective vital signs Vital Sign Date Time Temp Pulse Resp B/P (MAP) Pulse Ox O2 Delivery O2 Flow Rate FiO2 03/21/25 18:45 90 21 105/63 (77) 95 03/21/25 18:00 Room Air* 0 21 03/21/25 16:00 98.3 98.3 Total Intake and Output 03/20/25 03/20/25 03/21/25 15:00 23:00 07:00 Intake Total 165.000 ml 445.000 ml 215.125 ml Output Total 420 ml 425 ml Balance 165.000 ml 25.000 ml -209.875 ml medications Current Medications Medications Dose Ordered Sig/Bhumi Route Start Time Stop Time Status Last Admin Dose Admin Midazolam HCl 50 ml @ 1 mls/hr Q24H IV 03/14/25 09:45 UNV Ondansetron HCl 4 mg Q4HP PRN IV 03/14/25 15:30 Acetaminophen 650 mg Q6HP PRN PO 03/14/25 15:30 Nitroglycerin 0.4 mg Q5MINP PRN SL 03/14/25 15:30 Morphine Sulfate 2 mg Q30M PRN IV 03/14/25 15:30 Midodrine 10 mg TID PO 03/14/25 22:00 03/21/25 13:35 10 MG Patient Own Medication 1 tab DAILY PO 03/15/25 10:00 UNV Patient Own Medication 1 tab BID PO 03/14/25 22:00 UNV Magnesium Oxide 400 mg DAILY PO 03/15/25 10:00 03/21/25 08:49 400 MG Spironolactone 50 mg BID PO 03/14/25 22:00 03/21/25 08:49 50 MG Rifaximin 550 mg BID PO 03/14/25 22:00 03/21/25 08:49 550 MG Pantoprazole Sodium 40 mg DAILY IV 03/15/25 12:15 03/21/25 08:48 40 MG Norepinephrine Bitartrate 32 mg/ Sodium Chloride 250 ml @ 0.938 mls/ hr Q24H IV 03/15/25 12:30 03/21/25 12:01 0.938 MLS/HR Lactulose 30 ml Q12HR PO 03/21/25 22:00 Enteral Nutritional Formula 240 ml BIDWM PO 03/21/25 18:00 03/21/25 17:09 240 ML Bumetanide 1 mg BIDD IV 03/22/25 06:00 Examination Physical examination as below: General: Awake, alert, comfortable appearing, in no acute distress. HEENT: Head is normocephalic and atraumatic. Pupils are equal, round, and reactive to light. Extraocular muscles are intact. No nasal discharge. No facial trauma. Intraoral exam shows moist mucous membranes with no tonsillar enlargement or exudate. Neck: Supple with no cervical lymphadenopathy. Heart: Regular rate without murmur, rub, or gallop. Lungs: scattered crackles Abdomen: No external sign of injury. Bowel sounds are present. Abdomen is soft, nontender. No rebound, no guarding, no rigidity. distended Extremities: Strong peripheral pulses. There is no clubbing, no cyanosis, and no edema. Skin: No rash. Neurologic: Cranial nerves II-XII intact without motor, sensory, or cerebellar deficit, no asterixis. laboratory and microbiology Laboratory Tests 03/21/25 03:21 Test 03/21/25 03:21 Range/Units Serum Glucose 91 74-106 mg/dL Microbiology Date/Time Source Procedure Growth Status 03/16/25 13:35 Ascities Fluid Gram Stain - Final Complete 03/16/25 13:35 Ascities Fluid Body Fluid Culture - Final Complete 03/14/25 21:29 Nose MRSA Screen - Final Complete 03/14/25 08:38 Sputum Gram Stain - Final Complete 03/14/25 08:38 Sputum Respiratory Culture - Final Complete 03/14/25 08:25 Blood Blood Culture - Final NO GROWTH AFTER 5 DAYS OF INCUBATION. Complete Labs and/or images reviewed: Labs reviewed by me, Image(s) reviewed by me Problem List/Assessment/Plan Problem List/Assessment/Plan #Acute hepatic/metabolic encephalopathy #Acute hypoxic respiratory failure status post mechanical ventilation, now extubated, on room air #Alcoholic liver cirrhosis with ascites, s/p paracenteis #Thrombocytopenia due to above #Hyperammonemia, due to above #Lactic acidosis due to above #End-stage renal disease on hemodialysis #Anemia normocytic, moderate, of chronic disease Plan: cultures show no growth DC antibiotics Maintain MAP of >60, continue levophed continue midodrine 10mg po tid up to chair, continue PT continue HD bumex 1mg iv bidd aldactone 50mg po bid lactulose 30mg po bid rifaximin 550mg po bid Goals of care were discussed for 34 minutes. FULL CODE. Time spent outside of procedures: 58 minutes Case was discussed with Dr. Castanon Plan discussed with: Patient, Daughter, Other (RN) My Orders My Orders Orders - SULY GARCIA RESIDENT Procedure Category Date Status Time Renal DIET 03/21/25 Transmitted Standard(2gna,3gk,Lopho) Lunch Nutritional PHA 03/21/25 In Process Supplements (Nepro 18:00 Chest Portable XY 03/21/25 Resulted 11:48 Pt Request For Service PT 03/21/25 Logged 11:48 Bumetanide Injection PHA 03/22/25 In Process (Bumex Injection) 06:00 Dietary Evaluation Review Comments: 1. Suggest formula Vital AF @ 60 ml/hr (GOAL). Begin at 10 ml/hr, advance by 10 ml Q4 hrs or as tolerated to goal-rate of 60 ml/hr x 24 hrs 2. Once pressor requirements reduced and if pt begins dialysis, may change to Nepro @ 40 ml/hr + 1 pckt ProStat BID (defer at this time due to high-fiber content, increased risk for bowel ischemia) 3. Provide minimal free water flushes of 30 ml Q8 hrs (90 ml total) for tube patency; adjust PRN 4. Monitor BMP/lytes and replete to WNL TF Provision: TF at goal to provide 1440 ml total volume, 1728 kcal, 108 gm pro, 7 gm fiber, 1168 ml H20 (meets 100% est. kcal needs, 100% est. pro needs) Expected Outcomes/Goals: Improved nutritional status, hemodynamic stability. Date of Service: Mar 21, 2025 Billing Provider: RASHAUN CASTANON MD Common Visit Codes: [id number] INP/OBS CARE(HIGH) Secondary Visit Codes: [id number] CARE PLAN 30 MINUTES SULY GARCIA RESIDENT Mar 21, 2025 19:39 RASHAUN CASTANON MD Mar 22, 2025 14:11
--- NOTE | 2025-03-21 19:55 | DVHPN2 ---
Progress Note - Dictate Date Seen: Mar 21, 2025 Has the PT tested + for MRSA If YES, has PT been informed?: No Medical Necessity Reason Pt with a Central, PICC or Fol: No Subjective no news symptoms vital signs Vital Sign Date Time Temp Pulse Resp B/P (MAP) Pulse Ox O2 Delivery O2 Flow Rate FiO2 03/21/25 18:45 90 21 105/63 (77) 95 03/21/25 18:00 Room Air* 0 21 03/21/25 16:00 98.3 98.3 Total Intake and Output 03/20/25 03/20/25 03/21/25 15:00 23:00 07:00 Intake Total 165.000 ml 445.000 ml 215.125 ml Output Total 420 ml 425 ml Balance 165.000 ml 25.000 ml -209.875 ml medications Current Medications Medications Dose Ordered Sig/Bhumi Route Start Time Stop Time Status Last Admin Dose Admin Midazolam HCl 50 ml @ 1 mls/hr Q24H IV 03/14/25 09:45 UNV Ondansetron HCl 4 mg Q4HP PRN IV 03/14/25 15:30 Acetaminophen 650 mg Q6HP PRN PO 03/14/25 15:30 Nitroglycerin 0.4 mg Q5MINP PRN SL 03/14/25 15:30 Morphine Sulfate 2 mg Q30M PRN IV 03/14/25 15:30 Midodrine 10 mg TID PO 03/14/25 22:00 03/21/25 13:35 10 MG Patient Own Medication 1 tab DAILY PO 03/15/25 10:00 UNV Patient Own Medication 1 tab BID PO 03/14/25 22:00 UNV Magnesium Oxide 400 mg DAILY PO 03/15/25 10:00 03/21/25 08:49 400 MG Spironolactone 50 mg BID PO 03/14/25 22:00 03/21/25 08:49 50 MG Rifaximin 550 mg BID PO 03/14/25 22:00 03/21/25 08:49 550 MG Pantoprazole Sodium 40 mg DAILY IV 03/15/25 12:15 03/21/25 08:48 40 MG Norepinephrine Bitartrate 32 mg/ Sodium Chloride 250 ml @ 0.938 mls/ hr Q24H IV 03/15/25 12:30 03/21/25 12:01 0.938 MLS/HR Lactulose 30 ml Q12HR PO 03/21/25 22:00 Enteral Nutritional Formula 240 ml BIDWM PO 03/21/25 18:00 03/21/25 17:09 240 ML Bumetanide 1 mg BIDD IV 03/22/25 06:00 objective Gen: NAD, AAOx3 Lungs: low air entry at bases CV: RR, no pericardial rub Abdomen: distended, low intensity BS ext: Trace edema Neuro: on focal deficits laboratory and microbiology Laboratory Tests 03/21/25 03:21 Test 03/21/25 03:21 Range/Units Serum Glucose 91 74-106 mg/dL Assessment/Plan 1. ESRD on HD 2. Encephalopathy. 3. Chronic hypotension exacerbated by low blood pressure induced by ultrafiltration with dialysis, rule out sepsis. 4. Anemia. 5. Hypokalemia. 6. Hyponatremia. 7. Septic shock 8. Respiratory failure , extubated on 03/19/25 Plan: s/p HD today (Friday) net UF 2L Next HD on Friday continue vasopressors. currently on low dose levophed Extubated on 03/19/25 Continue empiric intravenous antibiotics. Strictly measure intake and output of fluid Dietary Evaluation Review Comments: 1. Suggest formula Vital AF @ 60 ml/hr (GOAL). Begin at 10 ml/hr, advance by 10 ml Q4 hrs or as tolerated to goal-rate of 60 ml/hr x 24 hrs 2. Once pressor requirements reduced and if pt begins dialysis, may change to Nepro @ 40 ml/hr + 1 pckt ProStat BID (defer at this time due to high-fiber content, increased risk for bowel ischemia) 3. Provide minimal free water flushes of 30 ml Q8 hrs (90 ml total) for tube patency; adjust PRN 4. Monitor BMP/lytes and replete to WNL TF Provision: TF at goal to provide 1440 ml total volume, 1728 kcal, 108 gm pro, 7 gm fiber, 1168 ml H20 (meets 100% est. kcal needs, 100% est. pro needs) Expected Outcomes/Goals: Improved nutritional status, hemodynamic stability. Plan discussed with: Patient, Other SHY DUFF MD Mar 21, 2025 19:55
[2025-03-21] MEDS: LACTULOSE 20Gm/30ML SOLN PO SCH (21:23)
[2025-03-21] MEDS: EPOETIN ALFA-EPBX 4,000 UNIT/ML VIAL SC ONE (21:23)
[2025-03-21] MEDS ORDERED: VANCOMYCIN 500mg/100mL 100 ML IV ONE (22:00)
[2025-03-22] VITALS (97 sets, daily range): BP systolic 80–108; BP diastolic 36–72; PULSE 62–98; RESP 11–30; TEMP 98.2–98.8; O2SAT 91–98
[2025-03-22 03:59] LABS: Basophils # (auto) 0 10 ^3/uL (0-0.2); Basophils % (auto) 0.5 % (0.0-2.0); Eosinophils # (auto) 0.3 10 ^3/uL (0-0.8); Eosinophils % (auto) 4.7 % (0.0-7.0); Hematocrit 28.2 % (41.0-53.0); Hemoglobin 9.6 g/dL (13.5-17.5); Lymphocytes # (auto) 1.7 10 ^3/uL (0.4-5.4); Lymphocytes % (auto) 24.4 % (10.0-50.0); Mean Corpuscular Hemoglobin 32.6 pg (28.0-32.0); Mean Corpuscular Hgb Conc. 34.2 g/dL (32.0-36.0); Mean Corpuscular Volume 95.5 fL (80.0-100.0); Monocytes # (auto) 0.9 10 ^3/uL (0-1.3); Monocytes % (auto) 12.5 % (0.0-12.0); Neutrophils # (auto) 4.1 10 ^3/uL (1.6-8.6); Neutrophils % (auto) 57.9 % (37.0-80.0); Nucleated Red Blood Cells % 0.2 %; Platelet Count (auto) 115 10^3/uL (140-450); Red Blood Cells 2.96 10^6/uL (4.5-5.90); Red Cell Distribution Width 18.5 % (11.8-14.3)
[2025-03-22 04:01] LABS: Alanine Aminotransferase 20 U/L (7-40); Anion Gap 10 (5-15); BUN/Creatinine Ratio 6.7 (10.0-20.0); Blood Urea Nitrogen 17 mg/dL (9-23); Carbon Dioxide 27 mmol/L (20-31); Chloride 105 mmol/L (98-107); Glucose 91 mg/dL (74-106); Potassium 3.8 mmol/L (3.5-5.1); Sodium 142 mmol/L (136-145)
[2025-03-22 04:03] LABS: Albumin 3.5 g/dL (3.2-4.8); Aspartate Aminotransferase 29 U/L (13-40); Bilirubin, Total 1.1 mg/dL (0.2-1.0)
[2025-03-22 04:15] LABS: Alkaline Phosphatase 150 U/L (46-116)
[2025-03-22 04:16] LABS: Total Protein 5.5 g/dL (5.7-8.2)
[2025-03-22] MEDS: BUMETANIDE 1mg/4ml VIAL (0.25mg/ml) IV SCH (05:49)
--- NOTE | 2025-03-22 11:00 | DVHPNRES ---
Progress Note Date Seen: Mar 22, 2025 Resident Creating Document: SULY GARCIA RESIDENT Has the PT tested + for MRSA If YES, has PT been informed?: No Medical Necessity Reason Pt with a Central, PICC or Fol: No Subjective Review of Systems Patient was seen and examined at bedside. He stated feeling well, denied any significant shortness of breath, abdominal pain, nausea he will undergo hemodialysis tomorrow. He was extubated 3 days ago, he remains on Levophed at 4. Increased midodrine. He is alert and oriented x4. Objective vital signs Vital Sign Date Time Temp Pulse Resp B/P (MAP) Pulse Ox O2 Delivery O2 Flow Rate FiO2 03/22/25 10:00 16 95 Room Air* 0 21 03/22/25 10:00 77 03/22/25 09:30 90/53 (65) 03/22/25 08:00 98.5 98.5 Total Intake and Output 03/21/25 03/21/25 03/22/25 15:00 23:00 07:00 Intake Total 60 ml 235.375 ml 255.125 ml Output Total 2400 ml 100 ml Balance 60 ml -2164.625 ml 155.125 ml medications Current Medications Medications Dose Ordered Sig/Bhumi Route Start Time Stop Time Status Last Admin Dose Admin Midazolam HCl 50 ml @ 1 mls/hr Q24H IV 03/14/25 09:45 UNV Ondansetron HCl 4 mg Q4HP PRN IV 03/14/25 15:30 Acetaminophen 650 mg Q6HP PRN PO 03/14/25 15:30 Nitroglycerin 0.4 mg Q5MINP PRN SL 03/14/25 15:30 Morphine Sulfate 2 mg Q30M PRN IV 03/14/25 15:30 Patient Own Medication 1 tab DAILY PO 03/15/25 10:00 UNV Patient Own Medication 1 tab BID PO 03/14/25 22:00 UNV Magnesium Oxide 400 mg DAILY PO 03/15/25 10:00 03/22/25 08:33 400 MG Spironolactone 50 mg BID PO 03/14/25 22:00 03/22/25 08:34 50 MG Rifaximin 550 mg BID PO 03/14/25 22:00 03/22/25 08:33 550 MG Pantoprazole Sodium 40 mg DAILY IV 03/15/25 12:15 03/22/25 08:33 40 MG Norepinephrine Bitartrate 32 mg/ Sodium Chloride 250 ml @ 0.938 mls/ hr Q24H IV 03/15/25 12:30 03/21/25 12:01 0.938 MLS/HR Lactulose 30 ml Q12HR PO 03/21/25 22:00 03/22/25 08:33 30 ML Enteral Nutritional Formula 240 ml BIDWM PO 03/21/25 18:00 03/22/25 08:33 240 ML Bumetanide 1 mg BIDD IV 03/22/25 06:00 03/22/25 05:49 1 MG Midodrine 15 mg TID@0600,1200,1800 PO 03/22/25 12:00 Examination Physical examination as below: General: Awake, alert, comfortable appearing, in no acute distress. HEENT: Head is normocephalic and atraumatic. Pupils are equal, round, and reactive to light. Extraocular muscles are intact. No nasal discharge. No facial trauma. Intraoral exam shows moist mucous membranes with no tonsillar enlargement or exudate. Neck: Supple with no cervical lymphadenopathy. Heart: Regular rate without murmur, rub, or gallop. Lungs: scattered crackles Abdomen: No external sign of injury. Bowel sounds are present. Abdomen is soft, nontender. No rebound, no guarding, no rigidity. distended Extremities: Strong peripheral pulses. There is no clubbing, no cyanosis, and no edema. Skin: No rash. Neurologic: Cranial nerves II-XII intact without motor, sensory, or cerebellar deficit, no asterixis. laboratory and microbiology Laboratory Tests 03/22/25 03:00 Test 03/22/25 03:00 Range/Units Serum Glucose 91 74-106 mg/dL Microbiology Date/Time Source Procedure Growth Status 03/16/25 13:35 Ascities Fluid Gram Stain - Final Complete 03/16/25 13:35 Ascities Fluid Body Fluid Culture - Final Complete 03/14/25 21:29 Nose MRSA Screen - Final Complete 03/14/25 08:38 Sputum Gram Stain - Final Complete 03/14/25 08:38 Sputum Respiratory Culture - Final Complete 03/14/25 08:25 Blood Blood Culture - Final NO GROWTH AFTER 5 DAYS OF INCUBATION. Complete Labs and/or images reviewed: Labs reviewed by me, Image(s) reviewed by me Problem List/Assessment/Plan Problem List/Assessment/Plan #Acute hepatic/metabolic encephalopathy #Acute hypoxic respiratory failure status post mechanical ventilation, now extubated, on room air #Alcoholic liver cirrhosis with ascites, s/p paracentesis #Thrombocytopenia due to above #Hyperammonemia, due to above #Lactic acidosis due to above #End-stage renal disease on hemodialysis #Anemia normocytic, moderate, of chronic disease #hypovolemic/ ?distributive shock #septic shock ruled out Plan: cultures show no growth DC antibiotics Maintain MAP of >60, DC levophed continue midodrine 15mg po tid up to chair, continue PT continue HD bumex 1mg iv bidd aldactone 50mg po bid lactulose 30mg po bid rifaximin 550mg po bid Goals of care were discussed for 34 minutes. FULL CODE. critical care time including bp monitoring was 51 mins Case was discussed with Dr. Castanon Plan discussed with: Patient, Daughter, Other (RN) My Orders My Orders Orders - SULY GARCIA RESIDENT Procedure Category Date Status Time Renal DIET 03/21/25 Transmitted Standard(2gna,3gk,Lopho) Lunch Nutritional PHA 03/21/25 In Process Supplements (Nepro 18:00 Chest Portable XY 03/21/25 Resulted 11:48 Pt Request For Service PT 03/21/25 Logged 11:48 Bumetanide Injection PHA 03/22/25 In Process (Bumex Injection) 06:00 Midodrine Tablet PHA 03/22/25 In Process (Proamatine Tablet) 12:00 Dietary Evaluation Review Comments: 1. Suggest formula Vital AF @ 60 ml/hr (GOAL). Begin at 10 ml/hr, advance by 10 ml Q4 hrs or as tolerated to goal-rate of 60 ml/hr x 24 hrs 2. Once pressor requirements reduced and if pt begins dialysis, may change to Nepro @ 40 ml/hr + 1 pckt ProStat BID (defer at this time due to high-fiber content, increased risk for bowel ischemia) 3. Provide minimal free water flushes of 30 ml Q8 hrs (90 ml total) for tube patency; adjust PRN 4. Monitor BMP/lytes and replete to WNL TF Provision: TF at goal to provide 1440 ml total volume, 1728 kcal, 108 gm pro, 7 gm fiber, 1168 ml H20 (meets 100% est. kcal needs, 100% est. pro needs) Expected Outcomes/Goals: Improved nutritional status, hemodynamic stability. Date of Service: Mar 22, 2025 Billing Provider: RASHAUN CASTANON MD Common Visit Codes: [id number] CARE 30-74 MIN Date of Service: Mar 22, 2025 Billing Provider: RASHAUN CASTANON MD Common Visit Codes: [id number] CARE 30-74 MIN SULY GARCIA RESIDENT Mar 22, 2025 11:00 RASHAUN CASTANON MD Mar 23, 2025 15:29
[2025-03-22] MEDS: MIDODRINE HCL 10 MG TAB PO SCH (11:30)
--- NOTE | 2025-03-22 13:53 | DVHPN2 ---
Progress Note - Dictate Date Seen: Mar 22, 2025 Has the PT tested + for MRSA If YES, has PT been informed?: No Medical Necessity Reason Pt with a Central, PICC or Fol: No Subjective no news symptoms vital signs Vital Sign Date Time Temp Pulse Resp B/P (MAP) Pulse Ox O2 Delivery O2 Flow Rate FiO2 03/22/25 12:00 20 94 Room Air* 0 21 03/22/25 12:00 98.8 77 91/49 (63) 98.8 Total Intake and Output 03/21/25 03/21/25 03/22/25 15:00 23:00 07:00 Intake Total 60 ml 235.375 ml 255.125 ml Output Total 2400 ml 100 ml Balance 60 ml -2164.625 ml 155.125 ml medications Current Medications Medications Dose Ordered Sig/Bhumi Route Start Time Stop Time Status Last Admin Dose Admin Midazolam HCl 50 ml @ 1 mls/hr Q24H IV 03/14/25 09:45 UNV Ondansetron HCl 4 mg Q4HP PRN IV 03/14/25 15:30 Acetaminophen 650 mg Q6HP PRN PO 03/14/25 15:30 Nitroglycerin 0.4 mg Q5MINP PRN SL 03/14/25 15:30 Morphine Sulfate 2 mg Q30M PRN IV 03/14/25 15:30 Patient Own Medication 1 tab DAILY PO 03/15/25 10:00 UNV Patient Own Medication 1 tab BID PO 03/14/25 22:00 UNV Magnesium Oxide 400 mg DAILY PO 03/15/25 10:00 03/22/25 08:33 400 MG Spironolactone 50 mg BID PO 03/14/25 22:00 03/22/25 08:34 50 MG Rifaximin 550 mg BID PO 03/14/25 22:00 03/22/25 08:33 550 MG Pantoprazole Sodium 40 mg DAILY IV 03/15/25 12:15 03/22/25 08:33 40 MG Norepinephrine Bitartrate 32 mg/ Sodium Chloride 250 ml @ 0.938 mls/ hr Q24H IV 03/15/25 12:30 03/21/25 12:01 0.938 MLS/HR Lactulose 30 ml Q12HR PO 03/21/25 22:00 03/22/25 08:33 30 ML Enteral Nutritional Formula 240 ml BIDWM PO 03/21/25 18:00 03/22/25 08:33 240 ML Bumetanide 1 mg BIDD IV 03/22/25 06:00 03/22/25 05:49 1 MG Midodrine 15 mg TID@0600,1200,1800 PO 03/22/25 12:00 03/22/25 11:30 15 MG objective Gen: NAD, AAOx3 Lungs: low air entry at bases CV: RR, no pericardial rub Abdomen: distended, low intensity BS ext: Trace edema Neuro: on focal deficits laboratory and microbiology Laboratory Tests 03/22/25 03:00 Test 03/22/25 03:00 Range/Units Serum Glucose 91 74-106 mg/dL Assessment/Plan 1. ESRD on HD 2. Encephalopathy. 3. Chronic hypotension exacerbated by low blood pressure induced by ultrafiltration with dialysis, rule out sepsis. 4. Anemia. 5. Hypokalemia. 6. Hyponatremia. 7. Septic shock 8. Respiratory failure , extubated on 03/19/25 Plan: s/p HD Friday. net UF 2L Next HD on Friday continue vasopressors. currently on low dose levophed Extubated on 03/19/25. currently on room air Continue empiric intravenous antibiotics. Strictly measure intake and output of fluid Dietary Evaluation Review Comments: 1. Suggest formula Vital AF @ 60 ml/hr (GOAL). Begin at 10 ml/hr, advance by 10 ml Q4 hrs or as tolerated to goal-rate of 60 ml/hr x 24 hrs 2. Once pressor requirements reduced and if pt begins dialysis, may change to Nepro @ 40 ml/hr + 1 pckt ProStat BID (defer at this time due to high-fiber content, increased risk for bowel ischemia) 3. Provide minimal free water flushes of 30 ml Q8 hrs (90 ml total) for tube patency; adjust PRN 4. Monitor BMP/lytes and replete to WNL TF Provision: TF at goal to provide 1440 ml total volume, 1728 kcal, 108 gm pro, 7 gm fiber, 1168 ml H20 (meets 100% est. kcal needs, 100% est. pro needs) Expected Outcomes/Goals: Improved nutritional status, hemodynamic stability. Plan discussed with: Patient SHY DUFF MD Mar 22, 2025 13:53
--- NOTE | 2025-03-22 14:10 | DVHPN2 ---
Progress Note Date Seen: Mar 22, 2025 Resident Creating Document: SUNDAR JO RESIDENT Has the PT tested + for MRSA If YES, has PT been informed?: No Medical Necessity Reason Pt with a Central, PICC or Fol: No Subjective Review of Systems Patient seen and examined at the bedside. Patient reported improvement in his symptoms, reported any new complaints. We will continuously monitor. Patient is still on pressors. Objective vital signs Vital Sign Date Time Temp Pulse Resp B/P (MAP) Pulse Ox O2 Delivery O2 Flow Rate FiO2 03/22/25 14:00 16 96 Room Air* 0 21 03/22/25 14:00 77 03/22/25 13:45 92/55 (67) 03/22/25 12:00 98.8 98.8 Total Intake and Output 03/21/25 03/21/25 03/22/25 14:59 22:59 06:59 Intake Total 60 ml 235.500 ml 255.000 ml Output Total 2400 ml 100 ml Balance 60 ml -2164.500 ml 155.000 ml medications Current Medications Medications Dose Ordered Sig/Bhumi Route Start Time Stop Time Status Last Admin Dose Admin Midazolam HCl 50 ml @ 1 mls/hr Q24H IV 03/14/25 09:45 UNV Ondansetron HCl 4 mg Q4HP PRN IV 03/14/25 15:30 Acetaminophen 650 mg Q6HP PRN PO 03/14/25 15:30 Nitroglycerin 0.4 mg Q5MINP PRN SL 03/14/25 15:30 Morphine Sulfate 2 mg Q30M PRN IV 03/14/25 15:30 Patient Own Medication 1 tab DAILY PO 03/15/25 10:00 UNV Patient Own Medication 1 tab BID PO 03/14/25 22:00 UNV Magnesium Oxide 400 mg DAILY PO 03/15/25 10:00 03/22/25 08:33 400 MG Spironolactone 50 mg BID PO 03/14/25 22:00 03/22/25 08:34 50 MG Rifaximin 550 mg BID PO 03/14/25 22:00 03/22/25 08:33 550 MG Pantoprazole Sodium 40 mg DAILY IV 03/15/25 12:15 03/22/25 08:33 40 MG Norepinephrine Bitartrate 32 mg/ Sodium Chloride 250 ml @ 0.938 mls/ hr Q24H IV 03/15/25 12:30 03/21/25 12:01 0.938 MLS/HR Lactulose 30 ml Q12HR PO 03/21/25 22:00 03/22/25 08:33 30 ML Enteral Nutritional Formula 240 ml BIDWM PO 03/21/25 18:00 03/22/25 08:33 240 ML Bumetanide 1 mg BIDD IV 03/22/25 06:00 03/22/25 05:49 1 MG Midodrine 15 mg TID@0600,1200,1800 PO 03/22/25 12:00 03/22/25 11:30 15 MG Examination Awake alert mild distress Head neck examination slow scleral icterus Lungs decreased sounds in the bases Cardiovascular S1-S2 regular rate rhythm Abdomen is soft nontender, less distended Extremities show no clubbing cyanosis or edema Neuro appears to be nonfocal laboratory and microbiology Laboratory Tests 03/22/25 03:00 Test 03/22/25 03:00 Range/Units Serum Glucose 91 74-106 mg/dL Microbiology Date/Time Source Procedure Growth Status 03/16/25 13:35 Ascities Fluid Gram Stain - Final Complete 03/16/25 13:35 Ascities Fluid Body Fluid Culture - Final Complete 03/14/25 21:29 Nose MRSA Screen - Final Complete 03/14/25 08:38 Sputum Gram Stain - Final Complete 03/14/25 08:38 Sputum Respiratory Culture - Final Complete 03/14/25 08:25 Blood Blood Culture - Final NO GROWTH AFTER 5 DAYS OF INCUBATION. Complete Labs and/or images reviewed: Labs reviewed by me, Image(s) reviewed by me Problem List/Assessment/Plan Problem List/Assessment/Plan Hepatic encephalopathy Alcohol induced decompensated liver cirrhosis MELD score likely 20 points Lactic acidosis Hyperammonemia Ascites Anemia of chronic disease ESRD on hemodialysis Plan/Recommendation - patient is on renal diet - Taper down the pressors and Levophed if the patient tolerates it - Lactulose bid. 30 mL - Protonix 40 mg daily - rifaximin b.i.d. - His MELD score is 21 points (19.6% estimated 3 month mortality) - monitor ammonia - hemodialysis as scheduled - rest of the management as per ICU team - we will recommend conservative treatment Thank you so much for the opportunity to consult on your patient. GI team will follow the patient Case an action plan discussed with Dr. Ysabel Mccullough. Complex care planning needed total 49 minutes of detailed discussion. Plan discussed with: Patient, Daughter Dietary Evaluation Review Comments: 1. Suggest formula Vital AF @ 60 ml/hr (GOAL). Begin at 10 ml/hr, advance by 10 ml Q4 hrs or as tolerated to goal-rate of 60 ml/hr x 24 hrs 2. Once pressor requirements reduced and if pt begins dialysis, may change to Nepro @ 40 ml/hr + 1 pckt ProStat BID (defer at this time due to high-fiber content, increased risk for bowel ischemia) 3. Provide minimal free water flushes of 30 ml Q8 hrs (90 ml total) for tube patency; adjust PRN 4. Monitor BMP/lytes and replete to WNL TF Provision: TF at goal to provide 1440 ml total volume, 1728 kcal, 108 gm pro, 7 gm fiber, 1168 ml H20 (meets 100% est. kcal needs, 100% est. pro needs) Expected Outcomes/Goals: Improved nutritional status, hemodynamic stability. SUNDAR JO RESIDENT Mar 22, 2025 14:09
[2025-03-22] MEDS: ALBUMIN 25% 50 ML IV ONE (15:36)
[2025-03-23] VITALS (97 sets, daily range): BP systolic 80–104; BP diastolic 39–69; PULSE 57–107; RESP 11–23; TEMP 97.9–98.5; O2SAT 90–99
[2025-03-23 03:53] LABS: Basophils # (auto) 0 10 ^3/uL (0-0.2); Basophils % (auto) 0.7 % (0.0-2.0); Eosinophils # (auto) 0.5 10 ^3/uL (0-0.8); Hematocrit 27.3 % (41.0-53.0); Hemoglobin 9.2 g/dL (13.5-17.5); Lymphocytes # (auto) 2.1 10 ^3/uL (0.4-5.4); Lymphocytes % (auto) 31.9 % (10.0-50.0); Mean Corpuscular Hemoglobin 32.3 pg (28.0-32.0); Mean Corpuscular Hgb Conc. 33.5 g/dL (32.0-36.0); Mean Corpuscular Volume 96.4 fL (80.0-100.0); Monocytes # (auto) 0.6 10 ^3/uL (0-1.3); Monocytes % (auto) 9.6 % (0.0-12.0); Neutrophils # (auto) 3.3 10 ^3/uL (1.6-8.6); Neutrophils % (auto) 50.8 % (37.0-80.0); Nucleated Red Blood Cells % 0.1 %; Platelet Count (auto) 115 10^3/uL (140-450); Red Blood Cells 2.84 10^6/uL (4.5-5.90); Red Cell Distribution Width 18.4 % (11.8-14.3); White Blood Cell 6.6 10^3/uL (4.4-10.8)
[2025-03-23 04:13] LABS: Alanine Aminotransferase 23 U/L (7-40); Albumin 3.2 g/dL (3.2-4.8); Anion Gap 9 (5-15); Aspartate Aminotransferase 35 U/L (13-40); BUN/Creatinine Ratio 7.4 (10.0-20.0); Calcium 8.9 mg/dL (8.7-10.4); Carbon Dioxide 26 mmol/L (20-31); Chloride 105 mmol/L (98-107); Glucose 82 mg/dL (74-106); Magnesium 2.4 mg/dL (1.6-2.6); Potassium 3.7 mmol/L (3.5-5.1); Sodium 140 mmol/L (136-145)
[2025-03-23 04:21] LABS: Alkaline Phosphatase 151 U/L (46-116); Blood Urea Nitrogen 25 mg/dL (9-23)
[2025-03-23 04:38] LABS: Total Protein 5.3 g/dL (5.7-8.2)
[2025-03-23] MEDS: SODIUM CHL 0.9% 1000 ML BAG XX ONE (07:00)
--- NOTE | 2025-03-23 09:17 | DVHPN2 ---
Progress Note Date Seen: Mar 23, 2025 Resident Creating Document: SUNDAR JO RESIDENT Has the PT tested + for MRSA If YES, has PT been informed?: No Medical Necessity Reason Pt with a Central, PICC or Fol: No Subjective Review of Systems Patient seen and examined at the bedside. Patient reported no new abdominal complaints today. Patient is currently tolerating renal diet. His last bowel movement was 2 days ago. Continue lactulose. Objective vital signs Vital Sign Date Time Temp Pulse Resp B/P (MAP) Pulse Ox O2 Delivery O2 Flow Rate FiO2 03/23/25 06:45 76 17 95/40 (58) 95 03/23/25 06:05 Room Air* 0 21 03/23/25 04:00 98.5 98.5 Total Intake and Output 03/22/25 03/22/25 03/23/25 15:00 23:00 07:00 Intake Total 14 ml 410 ml 242.814 ml Output Total 175 ml 40 ml Balance 14 ml 235 ml 202.814 ml medications Current Medications Medications Dose Ordered Sig/Bhumi Route Start Time Stop Time Status Last Admin Dose Admin Midazolam HCl 50 ml @ 1 mls/hr Q24H IV 03/14/25 09:45 UNV Ondansetron HCl 4 mg Q4HP PRN IV 03/14/25 15:30 Acetaminophen 650 mg Q6HP PRN PO 03/14/25 15:30 Nitroglycerin 0.4 mg Q5MINP PRN SL 03/14/25 15:30 Morphine Sulfate 2 mg Q30M PRN IV 03/14/25 15:30 Patient Own Medication 1 tab DAILY PO 03/15/25 10:00 UNV Patient Own Medication 1 tab BID PO 03/14/25 22:00 UNV Magnesium Oxide 400 mg DAILY PO 03/15/25 10:00 03/22/25 08:33 400 MG Spironolactone 50 mg BID PO 03/14/25 22:00 03/22/25 21:38 50 MG Rifaximin 550 mg BID PO 03/14/25 22:00 03/22/25 21:38 550 MG Pantoprazole Sodium 40 mg DAILY IV 03/15/25 12:15 03/22/25 08:33 40 MG Norepinephrine Bitartrate 32 mg/ Sodium Chloride 250 ml @ 0.938 mls/ hr Q24H IV 03/15/25 12:30 03/23/25 03:15 0.938 MLS/HR Lactulose 30 ml Q12HR PO 03/21/25 22:00 03/22/25 21:38 30 ML Enteral Nutritional Formula 240 ml BIDWM PO 03/21/25 18:00 03/22/25 17:21 240 ML Bumetanide 1 mg BIDD IV 03/22/25 06:00 03/23/25 06:07 1 MG Midodrine 15 mg TID@0600,1200,1800 PO 03/22/25 12:00 03/23/25 06:07 15 MG Examination Pt is lying on bed General Appearance: Alert, Oriented X3, Cooperative, Not in acute distress HEENT: Atraumatic, Mucous membranes moist/pink Respiratory: Clear to auscultation, Normal air movement, scattered crackles Cardiovascular: Regular rate, Normal S1, Normal S2, No murmurs Abdominal: Active bowel sounds, Soft, no distention, no tenderness Extremities: No edema, Normal pulses, No tenderness/swelling Skin: No Significant rash, except past surgical scars Neuro: Normal speech, sensorimotor deficits none Psych/Mental Status: Mental status NL, Mood NL Nurse was there as sharperone during examination laboratory and microbiology Laboratory Tests 03/23/25 03:27 Test 03/23/25 03:27 Range/Units Serum Glucose 82 74-106 mg/dL Microbiology Date/Time Source Procedure Growth Status 03/16/25 13:35 Ascities Fluid Gram Stain - Final Complete 03/16/25 13:35 Ascities Fluid Body Fluid Culture - Final Complete 03/14/25 21:29 Nose MRSA Screen - Final Complete 03/14/25 08:38 Sputum Gram Stain - Final Complete 03/14/25 08:38 Sputum Respiratory Culture - Final Complete 03/14/25 08:25 Blood Blood Culture - Final NO GROWTH AFTER 5 DAYS OF INCUBATION. Complete Labs and/or images reviewed: Labs reviewed by me, Image(s) reviewed by me Problem List/Assessment/Plan Problem List/Assessment/Plan Hepatic encephalopathy Alcohol induced decompensated liver cirrhosis MELD score likely 20 points Lactic acidosis Hyperammonemia Ascites Anemia of chronic disease ESRD on hemodialysis Plan/Recommendation - patient is on renal diet - Taper down the pressors and Levophed if the patient tolerates it - Lactulose bid. 30 mL - Protonix 40 mg daily - rifaximin b.i.d. - His MELD score is 21 points (19.6% estimated 3 month mortality) - monitor ammonia - hemodialysis as scheduled - rest of the management as per ICU team - we will recommend conservative treatment Thank you so much for the opportunity to consult on your patient. GI team will follow the patient Case an action plan discussed with Dr. Ysabel Mccullough. Complex care planning needed total 49 minutes of detailed discussion. Plan discussed with: Patient Dietary Evaluation Review Comments: 1. Suggest formula Vital AF @ 60 ml/hr (GOAL). Begin at 10 ml/hr, advance by 10 ml Q4 hrs or as tolerated to goal-rate of 60 ml/hr x 24 hrs 2. Once pressor requirements reduced and if pt begins dialysis, may change to Nepro @ 40 ml/hr + 1 pckt ProStat BID (defer at this time due to high-fiber content, increased risk for bowel ischemia) 3. Provide minimal free water flushes of 30 ml Q8 hrs (90 ml total) for tube patency; adjust PRN 4. Monitor BMP/lytes and replete to WNL TF Provision: TF at goal to provide 1440 ml total volume, 1728 kcal, 108 gm pro, 7 gm fiber, 1168 ml H20 (meets 100% est. kcal needs, 100% est. pro needs) Expected Outcomes/Goals: Improved nutritional status, hemodynamic stability. SUNDAR JO RESIDENT Mar 23, 2025 09:17
--- NOTE | 2025-03-23 11:24 | DVHPNRES ---
Progress Note Date Seen: Mar 23, 2025 Resident Creating Document: SULY GARCIA RESIDENT Has the PT tested + for MRSA If YES, has PT been informed?: No Medical Necessity Reason Pt with a Central, PICC or Fol: No Subjective Review of Systems Patient was seen and examined at bedside. He stated feeling well, denied any significant shortness of breath, abdominal pain, nausea he will undergo hemodialysis today he remains on Levophed at 4. continue midodrine. He is alert and oriented x4. Objective vital signs Vital Sign Date Time Temp Pulse Resp B/P (MAP) Pulse Ox O2 Delivery O2 Flow Rate FiO2 03/23/25 06:45 76 17 95/40 (58) 95 03/23/25 06:05 Room Air* 0 21 03/23/25 04:00 98.5 98.5 Total Intake and Output 03/22/25 03/22/25 03/23/25 15:00 23:00 07:00 Intake Total 14 ml 410 ml 242.814 ml Output Total 175 ml 40 ml Balance 14 ml 235 ml 202.814 ml medications Current Medications Medications Dose Ordered Sig/Bhumi Route Start Time Stop Time Status Last Admin Dose Admin Midazolam HCl 50 ml @ 1 mls/hr Q24H IV 03/14/25 09:45 UNV Ondansetron HCl 4 mg Q4HP PRN IV 03/14/25 15:30 Acetaminophen 650 mg Q6HP PRN PO 03/14/25 15:30 Nitroglycerin 0.4 mg Q5MINP PRN SL 03/14/25 15:30 Morphine Sulfate 2 mg Q30M PRN IV 03/14/25 15:30 Patient Own Medication 1 tab DAILY PO 03/15/25 10:00 UNV Patient Own Medication 1 tab BID PO 03/14/25 22:00 UNV Magnesium Oxide 400 mg DAILY PO 03/15/25 10:00 03/23/25 09:45 400 MG Spironolactone 50 mg BID PO 03/14/25 22:00 03/23/25 09:45 50 MG Rifaximin 550 mg BID PO 03/14/25 22:00 03/23/25 09:45 550 MG Pantoprazole Sodium 40 mg DAILY IV 03/15/25 12:15 03/23/25 09:44 40 MG Norepinephrine Bitartrate 32 mg/ Sodium Chloride 250 ml @ 0.938 mls/ hr Q24H IV 03/15/25 12:30 03/23/25 03:15 0.938 MLS/HR Lactulose 30 ml Q12HR PO 03/21/25 22:00 03/23/25 09:44 30 ML Enteral Nutritional Formula 240 ml BIDWM PO 03/21/25 18:00 03/23/25 08:00 240 ML Bumetanide 1 mg BIDD IV 03/22/25 06:00 03/23/25 06:07 1 MG Midodrine 10 mg TID@0600,1200,1800 PO 03/23/25 18:00 Examination Physical examination as below: General: Awake, alert, comfortable appearing, in no acute distress. HEENT: Head is normocephalic and atraumatic. Pupils are equal, round, and reactive to light. Extraocular muscles are intact. No nasal discharge. No facial trauma. Intraoral exam shows moist mucous membranes with no tonsillar enlargement or exudate. Neck: Supple with no cervical lymphadenopathy. Heart: Regular rate without murmur, rub, or gallop. Lungs: scattered crackles Abdomen: No external sign of injury. Bowel sounds are present. Abdomen is soft, nontender. No rebound, no guarding, no rigidity. distended Extremities: Strong peripheral pulses. There is no clubbing, no cyanosis, and no edema. Skin: No rash. Neurologic: Cranial nerves II-XII intact without motor, sensory, or cerebellar deficit, no asterixis. laboratory and microbiology Laboratory Tests 03/23/25 03:27 Test 03/23/25 03:27 Range/Units Serum Glucose 82 74-106 mg/dL Microbiology Date/Time Source Procedure Growth Status 03/16/25 13:35 Ascities Fluid Gram Stain - Final Complete 03/16/25 13:35 Ascities Fluid Body Fluid Culture - Final Complete 03/14/25 21:29 Nose MRSA Screen - Final Complete 03/14/25 08:38 Sputum Gram Stain - Final Complete 03/14/25 08:38 Sputum Respiratory Culture - Final Complete 03/14/25 08:25 Blood Blood Culture - Final NO GROWTH AFTER 5 DAYS OF INCUBATION. Complete Labs and/or images reviewed: Labs reviewed by me, Image(s) reviewed by me Problem List/Assessment/Plan Problem List/Assessment/Plan #Acute hepatic/metabolic encephalopathy #Acute hypoxic respiratory failure status post mechanical ventilation, now extubated, on room air #Alcoholic liver cirrhosis with ascites, s/p paracentesis #Thrombocytopenia due to above #Hyperammonemia, due to above #Lactic acidosis due to above #End-stage renal disease on hemodialysis #Anemia normocytic, moderate, of chronic disease #hypovolemic/ ?distributive shock: on levophed #septic shock ruled out Plan: cultures show no growth DC antibiotics Maintain MAP of >60, DC levophed continue midodrine 15mg po tid up to chair, continue PT continue HD bumex 1mg iv bidd aldactone 50mg po bid lactulose 30mg po bid rifaximin 550mg po bid Goals of care were discussed for 34 minutes. FULL CODE. critical care time spent outside of procedures: 58 minutes Case was discussed with Dr. Castanon Plan discussed with: Patient, Daughter, Other (RN) My Orders My Orders Orders - SULY GARCIA RESIDENT Procedure Category Date Status Time * Certified Shorthand Reporter CONS 03/23/25 Transmitted Consult Midodrine Tablet PHA 03/23/25 In Process (Proamatine Tablet) 18:00 Dietary Evaluation Review Comments: 1. Suggest formula Vital AF @ 60 ml/hr (GOAL). Begin at 10 ml/hr, advance by 10 ml Q4 hrs or as tolerated to goal-rate of 60 ml/hr x 24 hrs 2. Once pressor requirements reduced and if pt begins dialysis, may change to Nepro @ 40 ml/hr + 1 pckt ProStat BID (defer at this time due to high-fiber content, increased risk for bowel ischemia) 3. Provide minimal free water flushes of 30 ml Q8 hrs (90 ml total) for tube patency; adjust PRN 4. Monitor BMP/lytes and replete to WNL TF Provision: TF at goal to provide 1440 ml total volume, 1728 kcal, 108 gm pro, 7 gm fiber, 1168 ml H20 (meets 100% est. kcal needs, 100% est. pro needs) Expected Outcomes/Goals: Improved nutritional status, hemodynamic stability. Date of Service: Mar 23, 2025 Billing Provider: RASHAUN CASTANON MD Common Visit Codes: [id number] CARE 30-74 MIN Date of Service: Mar 23, 2025 Billing Provider: RASHAUN CASTANON MD Common Visit Codes: [id number] CARE 30-74 MIN SUYL GARCIA RESIDENT Mar 23, 2025 11:23 RASHAUN CASTANON MD March 24, 2025 11:25
[2025-03-23] MEDS: BISACODYL 5 MG EC TAB PO ONE (13:08)
[2025-03-23] MEDS ORDERED: NOREPINEPHRINE BITARTRATE 32 MG in SODIUM CHL 0.9% 218 ML IV SCH (16:15)
--- NOTE | 2025-03-23 16:20 | DVHPN2 ---
Progress Note - Dictate Date Seen: Mar 23, 2025 Has the PT tested + for MRSA If YES, has PT been informed?: No Medical Necessity Reason Pt with a Central, PICC or Fol: No Subjective no news symptoms vital signs Vital Sign Date Time Temp Pulse Resp B/P (MAP) Pulse Ox O2 Delivery O2 Flow Rate FiO2 03/23/25 14:00 14 98 Room Air* 0 21 03/23/25 14:00 71 03/23/25 14:00 97/60 (72) 03/23/25 12:00 97.9 97.9 Total Intake and Output 03/22/25 03/22/25 03/23/25 15:00 23:00 07:00 Intake Total 14 ml 410 ml 243.752 ml Output Total 175 ml 40 ml Balance 14 ml 235 ml 203.752 ml medications Current Medications Medications Dose Ordered Sig/Bhumi Route Start Time Stop Time Status Last Admin Dose Admin Midazolam HCl 50 ml @ 1 mls/hr Q24H IV 03/14/25 09:45 UNV Ondansetron HCl 4 mg Q4HP PRN IV 03/14/25 15:30 Acetaminophen 650 mg Q6HP PRN PO 03/14/25 15:30 Nitroglycerin 0.4 mg Q5MINP PRN SL 03/14/25 15:30 Morphine Sulfate 2 mg Q30M PRN IV 03/14/25 15:30 Patient Own Medication 1 tab DAILY PO 03/15/25 10:00 UNV Patient Own Medication 1 tab BID PO 03/14/25 22:00 UNV Magnesium Oxide 400 mg DAILY PO 03/15/25 10:00 03/23/25 09:45 400 MG Rifaximin 550 mg BID PO 03/14/25 22:00 03/23/25 09:45 550 MG Pantoprazole Sodium 40 mg DAILY IV 03/15/25 12:15 03/23/25 09:44 40 MG Lactulose 30 ml Q12HR PO 03/21/25 22:00 03/23/25 09:44 30 ML Enteral Nutritional Formula 240 ml BIDWM PO 03/21/25 18:00 03/23/25 08:00 240 ML Bumetanide 1 mg BIDD IV 03/22/25 06:00 03/23/25 06:07 1 MG Midodrine 10 mg TID@0600,1200,1800 PO 03/23/25 18:00 Spironolactone 50 mg DAILY PO 03/24/25 10:00 Norepinephrine Bitartrate 32 mg/ Sodium Chloride 250 ml @ 0.469 mls/ hr Q24H IV 03/23/25 16:15 UNV objective Gen: NAD, AAOx3 Lungs: low air entry at bases CV: RR, no pericardial rub Abdomen: distended, low intensity BS ext: Trace edema Neuro: on focal deficits laboratory and microbiology Laboratory Tests 03/23/25 03:27 Test 03/23/25 03:27 Range/Units Serum Glucose 82 74-106 mg/dL Assessment/Plan 1. ESRD on HD 2. Encephalopathy. 3. Chronic hypotension exacerbated by low blood pressure induced by ultrafiltration with dialysis, rule out sepsis. 4. Anemia. 5. Hypokalemia. 6. Hyponatremia. 7. Septic shock 8. Respiratory failure , extubated on 03/19/25 Plan: HD today- Friday Continue HD on MWF schedule vasopressors discontinued yesterday Continue Midodrine 10 mg PO TID Extubated on 03/19/25. currently on room air Continue empiric intravenous antibiotics. Dietary Evaluation Review Comments: 1. Suggest formula Vital AF @ 60 ml/hr (GOAL). Begin at 10 ml/hr, advance by 10 ml Q4 hrs or as tolerated to goal-rate of 60 ml/hr x 24 hrs 2. Once pressor requirements reduced and if pt begins dialysis, may change to Nepro @ 40 ml/hr + 1 pckt ProStat BID (defer at this time due to high-fiber content, increased risk for bowel ischemia) 3. Provide minimal free water flushes of 30 ml Q8 hrs (90 ml total) for tube patency; adjust PRN 4. Monitor BMP/lytes and replete to WNL TF Provision: TF at goal to provide 1440 ml total volume, 1728 kcal, 108 gm pro, 7 gm fiber, 1168 ml H20 (meets 100% est. kcal needs, 100% est. pro needs) Expected Outcomes/Goals: Improved nutritional status, hemodynamic stability. Plan discussed with: Patient SHY DUFF MD Mar 23, 2025 16:19
[2025-03-23] MEDS: MIDODRINE HCL 10 MG TAB PO SCH (17:59)
[2025-03-24] VITALS (63 sets, daily range): BP systolic 79–101; BP diastolic 40–70; PULSE 68–105; RESP 11–21; TEMP 97.8–98.6; O2SAT 89–98
[2025-03-24 04:19] LABS: Basophils # (auto) 0 10 ^3/uL (0-0.2); Basophils % (auto) 0.6 % (0.0-2.0); Eosinophils # (auto) 0.3 10 ^3/uL (0-0.8); Eosinophils % (auto) 5.2 % (0.0-7.0); Hemoglobin 9.5 g/dL (13.5-17.5); Lymphocytes # (auto) 1.9 10 ^3/uL (0.4-5.4); Lymphocytes % (auto) 29.8 % (10.0-50.0); Mean Corpuscular Hemoglobin 32.6 pg (28.0-32.0); Mean Corpuscular Hgb Conc. 33.9 g/dL (32.0-36.0); Monocytes # (auto) 0.6 10 ^3/uL (0-1.3); Monocytes % (auto) 8.9 % (0.0-12.0); Neutrophils # (auto) 3.6 10 ^3/uL (1.6-8.6); Neutrophils % (auto) 55.5 % (37.0-80.0); Nucleated Red Blood Cells % 0.2 %; Platelet Count (auto) 88 10^3/uL (140-450); Red Blood Cells 2.91 10^6/uL (4.5-5.90); Red Cell Distribution Width 18.5 % (11.8-14.3); White Blood Cell 6.5 10^3/uL (4.4-10.8)
[2025-03-24 04:41] LABS: Alanine Aminotransferase 24 U/L (7-40); Albumin 3.2 g/dL (3.2-4.8); Anion Gap 8 (5-15); Aspartate Aminotransferase 32 U/L (13-40); BUN/Creatinine Ratio 6.3 (10.0-20.0); Blood Urea Nitrogen 19 mg/dL (9-23); Calcium 8.8 mg/dL (8.7-10.4); Carbon Dioxide 27 mmol/L (20-31); Chloride 105 mmol/L (98-107); Glucose 77 mg/dL (74-106); Magnesium 2.3 mg/dL (1.6-2.6); Potassium 3.7 mmol/L (3.5-5.1); Sodium 140 mmol/L (136-145)
[2025-03-24 04:42] LABS: Bilirubin, Total 0.9 mg/dL (0.2-1.0)
[2025-03-24 04:56] LABS: Alkaline Phosphatase 161 U/L (46-116); Total Protein 5.3 g/dL (5.7-8.2)
[2025-03-24] MEDS: SPIRONOLACTONE 25 MG TAB PO SCH (09:40)
--- NOTE | 2025-03-24 10:24 | DVHPN2 ---
Progress Note Date Seen: March 24, 2025 Resident Creating Document: SUNDAR JO RESIDENT Has the PT tested + for MRSA If YES, has PT been informed?: No Medical Necessity Reason Pt with a Central, PICC or Fol: No Subjective Review of Systems Patient seen and examined at the bedside. Patient reported improvement in his symptoms since admission, reported no new GI complaints. Patient reported that he passed bowel movement yesterday. Continue monitoring. Objective vital signs Vital Sign Date Time Temp Pulse Resp B/P (MAP) Pulse Ox O2 Delivery O2 Flow Rate FiO2 03/24/25 08:30 70 19 94/52 (66) 92 03/24/25 08:00 98.2 98.2 03/24/25 08:00 Room Air* 0 21 Total Intake and Output 03/23/25 03/23/25 03/24/25 14:59 22:59 06:59 Intake Total 15.940 ml 408.640 ml 100 ml Output Total 0 ml 1 ml Balance 15.940 ml 408.640 ml 99 ml medications Current Medications Medications Dose Ordered Sig/Bhumi Route Start Time Stop Time Status Last Admin Dose Admin Midazolam HCl 50 ml @ 1 mls/hr Q24H IV 03/14/25 09:45 UNV Ondansetron HCl 4 mg Q4HP PRN IV 03/14/25 15:30 Acetaminophen 650 mg Q6HP PRN PO 03/14/25 15:30 Nitroglycerin 0.4 mg Q5MINP PRN SL 03/14/25 15:30 Morphine Sulfate 2 mg Q30M PRN IV 03/14/25 15:30 Patient Own Medication 1 tab DAILY PO 03/15/25 10:00 UNV Patient Own Medication 1 tab BID PO 03/14/25 22:00 UNV Magnesium Oxide 400 mg DAILY PO 03/15/25 10:00 03/24/25 09:41 400 MG Rifaximin 550 mg BID PO 03/14/25 22:00 03/24/25 09:39 550 MG Pantoprazole Sodium 40 mg DAILY IV 03/15/25 12:15 03/24/25 09:39 40 MG Lactulose 30 ml Q12HR PO 03/21/25 22:00 03/24/25 09:39 30 ML Enteral Nutritional Formula 240 ml BIDWM PO 03/21/25 18:00 03/24/25 08:00 240 ML Bumetanide 1 mg BIDD IV 03/22/25 06:00 03/23/25 17:59 1 MG Midodrine 10 mg TID@0600,1200,1800 PO 03/23/25 18:00 03/24/25 06:02 10 MG Spironolactone 50 mg DAILY PO 03/24/25 10:00 03/24/25 09:40 50 MG Norepinephrine Bitartrate 32 mg/ Sodium Chloride 250 ml @ 0.469 mls/ hr Q24H IV 03/23/25 16:15 Examination Pt is lying on bed General Appearance: Alert, Oriented X3, Cooperative, Not in acute distress HEENT: Atraumatic, Mucous membranes moist/pink Respiratory: Clear to auscultation, Normal air movement, scattered crackles Cardiovascular: Regular rate, Normal S1, Normal S2, No murmurs Abdominal: Active bowel sounds, Soft, no distention, no tenderness Extremities: No edema, Normal pulses, No tenderness/swelling Skin: No Significant rash, except past surgical scars Neuro: Normal speech, sensorimotor deficits none Psych/Mental Status: Mental status NL, Mood NL Nurse was there as sharperone during examination laboratory and microbiology Laboratory Tests 03/24/25 03:30 Test 03/24/25 03:30 Range/Units Serum Glucose 77 74-106 mg/dL Microbiology Date/Time Source Procedure Growth Status 03/16/25 13:35 Ascities Fluid Gram Stain - Final Complete 03/16/25 13:35 Ascities Fluid Body Fluid Culture - Final Complete 03/14/25 21:29 Nose MRSA Screen - Final Complete 03/14/25 08:38 Sputum Gram Stain - Final Complete 03/14/25 08:38 Sputum Respiratory Culture - Final Complete 03/14/25 08:25 Blood Blood Culture - Final NO GROWTH AFTER 5 DAYS OF INCUBATION. Complete Labs and/or images reviewed: Labs reviewed by me, Image(s) reviewed by me Problem List/Assessment/Plan Problem List/Assessment/Plan Hepatic encephalopathy Alcohol induced decompensated liver cirrhosis MELD score likely 20 points Lactic acidosis Hyperammonemia Ascites Anemia of chronic disease ESRD on hemodialysis Plan/Recommendation - patient is on renal diet - Taper down the pressors and Levophed if the patient tolerates it - Lactulose bid. 30 mL - Protonix 40 mg daily - rifaximin b.i.d. - His MELD score is 21 points (19.6% estimated 3 month mortality) - monitor ammonia - hemodialysis as scheduled - rest of the management as per ICU team - we will recommend conservative treatment Thank you so much for the opportunity to consult on your patient. GI team will follow the patient Case an action plan discussed with Dr. Ysabel Mccullough. Complex care planning needed total 49 minutes of detailed discussion. Plan discussed with: Patient Dietary Evaluation Review Comments: 1. Suggest formula Vital AF @ 60 ml/hr (GOAL). Begin at 10 ml/hr, advance by 10 ml Q4 hrs or as tolerated to goal-rate of 60 ml/hr x 24 hrs 2. Once pressor requirements reduced and if pt begins dialysis, may change to Nepro @ 40 ml/hr + 1 pckt ProStat BID (defer at this time due to high-fiber content, increased risk for bowel ischemia) 3. Provide minimal free water flushes of 30 ml Q8 hrs (90 ml total) for tube patency; adjust PRN 4. Monitor BMP/lytes and replete to WNL TF Provision: TF at goal to provide 1440 ml total volume, 1728 kcal, 108 gm pro, 7 gm fiber, 1168 ml H20 (meets 100% est. kcal needs, 100% est. pro needs) Expected Outcomes/Goals: Improved nutritional status, hemodynamic stability. SUNDAR JO RESIDENT March 24, 2025 10:24
--- NOTE | 2025-03-24 10:26 | DVHPNRES ---
Progress Note Date Seen: March 24, 2025 Resident Creating Document: SULY GARCIA RESIDENT Has the PT tested + for MRSA If YES, has PT been informed?: No Medical Necessity Reason Pt with a Central, PICC or Fol: No Subjective Review of Systems Patient was seen and examined at bedside. He stated feeling well, denied any significant shortness of breath, abdominal pain, nausea he will undergo hemodialysis today He's off levophed. continue midodrine. He is alert and oriented x4. Objective vital signs Vital Sign Date Time Temp Pulse Resp B/P (MAP) Pulse Ox O2 Delivery O2 Flow Rate FiO2 03/24/25 08:30 70 19 94/52 (66) 92 03/24/25 08:00 98.2 98.2 03/24/25 08:00 Room Air* 0 21 Total Intake and Output 03/23/25 03/23/25 03/24/25 15:00 23:00 07:00 Intake Total 17.815 ml 405.827 ml 100 ml Output Total 0 ml 1 ml Balance 17.815 ml 405.827 ml 99 ml medications Current Medications Medications Dose Ordered Sig/Bhumi Route Start Time Stop Time Status Last Admin Dose Admin Midazolam HCl 50 ml @ 1 mls/hr Q24H IV 03/14/25 09:45 UNV Ondansetron HCl 4 mg Q4HP PRN IV 03/14/25 15:30 Acetaminophen 650 mg Q6HP PRN PO 03/14/25 15:30 Nitroglycerin 0.4 mg Q5MINP PRN SL 03/14/25 15:30 Morphine Sulfate 2 mg Q30M PRN IV 03/14/25 15:30 Patient Own Medication 1 tab DAILY PO 03/15/25 10:00 UNV Patient Own Medication 1 tab BID PO 03/14/25 22:00 UNV Magnesium Oxide 400 mg DAILY PO 03/15/25 10:00 03/24/25 09:41 400 MG Rifaximin 550 mg BID PO 03/14/25 22:00 03/24/25 09:39 550 MG Pantoprazole Sodium 40 mg DAILY IV 03/15/25 12:15 03/24/25 09:39 40 MG Lactulose 30 ml Q12HR PO 03/21/25 22:00 03/24/25 09:39 30 ML Enteral Nutritional Formula 240 ml BIDWM PO 03/21/25 18:00 03/24/25 08:00 240 ML Bumetanide 1 mg BIDD IV 03/22/25 06:00 03/23/25 17:59 1 MG Midodrine 10 mg TID@0600,1200,1800 PO 03/23/25 18:00 03/24/25 06:02 10 MG Spironolactone 50 mg DAILY PO 03/24/25 10:00 03/24/25 09:40 50 MG Norepinephrine Bitartrate 32 mg/ Sodium Chloride 250 ml @ 0.469 mls/ hr Q24H IV 03/23/25 16:15 Examination Physical examination as below: General: Awake, alert, comfortable appearing, in no acute distress. HEENT: Head is normocephalic and atraumatic. Pupils are equal, round, and reactive to light. Extraocular muscles are intact. No nasal discharge. No facial trauma. Intraoral exam shows moist mucous membranes with no tonsillar enlargement or exudate. Neck: Supple with no cervical lymphadenopathy. Heart: Regular rate without murmur, rub, or gallop. Lungs: scattered crackles Abdomen: No external sign of injury. Bowel sounds are present. Abdomen is soft, nontender. No rebound, no guarding, no rigidity. distended Extremities: Strong peripheral pulses. There is no clubbing, no cyanosis, and no edema. Skin: No rash. Neurologic: Cranial nerves II-XII intact without motor, sensory, or cerebellar deficit, no asterixis. laboratory and microbiology Laboratory Tests 03/24/25 03:30 Test 03/24/25 03:30 Range/Units Serum Glucose 77 74-106 mg/dL Microbiology Date/Time Source Procedure Growth Status 03/16/25 13:35 Ascities Fluid Gram Stain - Final Complete 03/16/25 13:35 Ascities Fluid Body Fluid Culture - Final Complete 03/14/25 21:29 Nose MRSA Screen - Final Complete 03/14/25 08:38 Sputum Gram Stain - Final Complete 03/14/25 08:38 Sputum Respiratory Culture - Final Complete 03/14/25 08:25 Blood Blood Culture - Final NO GROWTH AFTER 5 DAYS OF INCUBATION. Complete Labs and/or images reviewed: Labs reviewed by me, Image(s) reviewed by me Problem List/Assessment/Plan Problem List/Assessment/Plan #Acute hepatic/metabolic encephalopathy #Acute hypoxic respiratory failure status post mechanical ventilation, now extubated, on room air #Alcoholic liver cirrhosis with ascites, s/p paracentesis #Thrombocytopenia due to above #Hyperammonemia, due to above #Lactic acidosis due to above #End-stage renal disease on hemodialysis #Anemia normocytic, moderate, of chronic disease #distributive shock #septic shock ruled out Plan: cultures show no growth DC antibiotics Maintain MAP of >60, off levophed continue midodrine 10mg po tid up to chair, continue PT continue HD bumex 1mg iv bidd aldactone 50mg po qd lactulose 30mg po bid rifaximin 550mg po bid downgrade to telemetry Goals of care were discussed for 34 minutes. FULL CODE. Time spent outside of procedures: 48 minutes Case was discussed with Dr. Castanon Plan discussed with: Patient, Daughter, Other (RN) My Orders My Orders Orders - SULY GARCIA Procedure Category Date Status Time Communication Order ORDERS 03/23/25 Transmitted 09:00 Transfer Orders XFER 03/24/25 Transmitted 10:24 Dietary Evaluation Review Comments: 1. Suggest formula Vital AF @ 60 ml/hr (GOAL). Begin at 10 ml/hr, advance by 10 ml Q4 hrs or as tolerated to goal-rate of 60 ml/hr x 24 hrs 2. Once pressor requirements reduced and if pt begins dialysis, may change to Nepro @ 40 ml/hr + 1 pckt ProStat BID (defer at this time due to high-fiber content, increased risk for bowel ischemia) 3. Provide minimal free water flushes of 30 ml Q8 hrs (90 ml total) for tube patency; adjust PRN 4. Monitor BMP/lytes and replete to WNL TF Provision: TF at goal to provide 1440 ml total volume, 1728 kcal, 108 gm pro, 7 gm fiber, 1168 ml H20 (meets 100% est. kcal needs, 100% est. pro needs) Expected Outcomes/Goals: Improved nutritional status, hemodynamic stability. Date of Service: March 24, 2025 Billing Provider: RASHAUN CASTANON MD Common Visit Codes: [id number] INP/OBS CARE(HIGH) Secondary Visit Codes: [id number] CARE PLAN 30 MINUTES SULY GARCIA March 24, 2025 10:26 RASHAUN CASTANON MD March 27, 2025 12:10
--- NOTE | 2025-03-24 16:15 | DVHPN2 ---
Progress Note - Dictate Date Seen: March 24, 2025 Has the PT tested + for MRSA If YES, has PT been informed?: No Medical Necessity Reason Pt with a Central, PICC or Fol: No Subjective no news symptoms vital signs Vital Sign Date Time Temp Pulse Resp B/P (MAP) Pulse Ox O2 Delivery O2 Flow Rate FiO2 03/24/25 14:00 16 97 Room Air* 0 21 03/24/25 14:00 76 03/24/25 12:45 93/58 (70) 03/24/25 08:00 98.2 98.2 Total Intake and Output 03/23/25 03/23/25 03/24/25 15:00 23:00 07:00 Intake Total 17.815 ml 405.827 ml 100 ml Output Total 0 ml 1 ml Balance 17.815 ml 405.827 ml 99 ml medications Current Medications Medications Dose Ordered Sig/Bhumi Route Start Time Stop Time Status Last Admin Dose Admin Midazolam HCl 50 ml @ 1 mls/hr Q24H IV 03/14/25 09:45 UNV Ondansetron HCl 4 mg Q4HP PRN IV 03/14/25 15:30 Acetaminophen 650 mg Q6HP PRN PO 03/14/25 15:30 Nitroglycerin 0.4 mg Q5MINP PRN SL 03/14/25 15:30 Morphine Sulfate 2 mg Q30M PRN IV 03/14/25 15:30 Patient Own Medication 1 tab DAILY PO 03/15/25 10:00 UNV Patient Own Medication 1 tab BID PO 03/14/25 22:00 UNV Magnesium Oxide 400 mg DAILY PO 03/15/25 10:00 03/24/25 09:41 400 MG Rifaximin 550 mg BID PO 03/14/25 22:00 03/24/25 09:39 550 MG Lactulose 30 ml Q12HR PO 03/21/25 22:00 03/24/25 09:39 30 ML Enteral Nutritional Formula 240 ml BIDWM PO 03/21/25 18:00 03/24/25 08:00 240 ML Midodrine 10 mg TID@0600,1200,1800 PO 03/23/25 18:00 03/24/25 11:17 10 MG Pantoprazole Sodium 40 mg DAILY@0600 PO 03/25/25 06:00 Bumetanide 1 mg DAILY IV 03/25/25 10:00 objective Gen: NAD, AAOx3 Lungs: low air entry at bases CV: RR, no pericardial rub Abdomen: distended, low intensity BS ext: Trace edema Neuro: on focal deficits laboratory and microbiology Laboratory Tests 03/24/25 03:30 Test 03/24/25 03:30 Range/Units Serum Glucose 77 74-106 mg/dL Assessment/Plan Assessment: 1. ESRD on HD 2. Encephalopathy. resolved 3. Chronic hypotension 4. Anemia. 5. Hypokalemia. 6. Hyponatremia. 7. Septic shock 8. Respiratory failure , extubated on 03/19/25 Plan: Last HD on Friday Next HD on Friday Continue HD on MWF schedule Continue Midodrine 10 mg PO TID Extubated on 03/19/25. currently on room air Continue empiric intravenous antibiotics. Dietary Evaluation Review Comments: 1. Suggest formula Vital AF @ 60 ml/hr (GOAL). Begin at 10 ml/hr, advance by 10 ml Q4 hrs or as tolerated to goal-rate of 60 ml/hr x 24 hrs 2. Once pressor requirements reduced and if pt begins dialysis, may change to Nepro @ 40 ml/hr + 1 pckt ProStat BID (defer at this time due to high-fiber content, increased risk for bowel ischemia) 3. Provide minimal free water flushes of 30 ml Q8 hrs (90 ml total) for tube patency; adjust PRN 4. Monitor BMP/lytes and replete to WNL TF Provision: TF at goal to provide 1440 ml total volume, 1728 kcal, 108 gm pro, 7 gm fiber, 1168 ml H20 (meets 100% est. kcal needs, 100% est. pro needs) Expected Outcomes/Goals: Improved nutritional status, hemodynamic stability. Plan discussed with: Patient SHY DUFF MD March 24, 2025 16:14
[2025-03-24] MEDS ORDERED: EPOETIN ALFA-EPBX 4,000 UNIT/ML VIAL SC ONE (21:00)
[2025-03-25] VITALS (8 sets, daily range): BP systolic 90–104; BP diastolic 42–68; PULSE 63–94; RESP 16–20; TEMP 97.4–98.7; O2SAT 90–99
[2025-03-25] MEDS: PANTOPRAZOLE 40 MG TAB PO SCH (06:24)
[2025-03-25 06:42] LABS: Basophils # (auto) 0 10 ^3/uL (0-0.2); Basophils % (auto) 0.7 % (0.0-2.0); Eosinophils # (auto) 0.5 10 ^3/uL (0-0.8); Eosinophils % (auto) 7.2 % (0.0-7.0); Hematocrit 25.6 % (41.0-53.0); Hemoglobin 8.9 g/dL (13.5-17.5); Lymphocytes # (auto) 2.1 10 ^3/uL (0.4-5.4); Lymphocytes % (auto) 31.5 % (10.0-50.0); Mean Corpuscular Hemoglobin 33.2 pg (28.0-32.0); Mean Corpuscular Hgb Conc. 34.9 g/dL (32.0-36.0); Monocytes # (auto) 0.5 10 ^3/uL (0-1.3); Monocytes % (auto) 8.2 % (0.0-12.0); Neutrophils # (auto) 3.5 10 ^3/uL (1.6-8.6); Neutrophils % (auto) 52.4 % (37.0-80.0); Nucleated Red Blood Cells % 0.1 %; Platelet Count (auto) 121 10^3/uL (140-450); Red Blood Cells 2.69 10^6/uL (4.5-5.90); Red Cell Distribution Width 18.5 % (11.8-14.3); White Blood Cell 6.7 10^3/uL (4.4-10.8)
--- NOTE | 2025-03-25 06:47 | DVHPN2 ---
Progress Note - Dictate Date Seen: March 25, 2025 Has the PT tested + for MRSA If YES, has PT been informed?: No Medical Necessity Reason Pt with a Central, PICC or Fol: No Subjective no news symptoms downgraded from ICU vital signs Vital Sign Date Time Temp Pulse Resp B/P (MAP) Pulse Ox O2 Delivery O2 Flow Rate FiO2 03/25/25 05:00 97.4 63 18 91/58 (69) 99 97.4 03/24/25 20:00 Room Air* 0 21 Total Intake and Output 03/24/25 03/24/25 03/25/25 15:00 23:00 07:00 Intake Total 500 ml Balance 500 ml medications Current Medications Medications Dose Ordered Sig/Bhumi Route Start Time Stop Time Status Last Admin Dose Admin Midazolam HCl 50 ml @ 1 mls/hr Q24H IV 03/14/25 09:45 UNV Ondansetron HCl 4 mg Q4HP PRN IV 03/14/25 15:30 Acetaminophen 650 mg Q6HP PRN PO 03/14/25 15:30 Nitroglycerin 0.4 mg Q5MINP PRN SL 03/14/25 15:30 Morphine Sulfate 2 mg Q30M PRN IV 03/14/25 15:30 Patient Own Medication 1 tab DAILY PO 03/15/25 10:00 UNV Patient Own Medication 1 tab BID PO 03/14/25 22:00 UNV Magnesium Oxide 400 mg DAILY PO 03/15/25 10:00 03/24/25 09:41 400 MG Rifaximin 550 mg BID PO 03/14/25 22:00 03/24/25 21:23 550 MG Lactulose 30 ml Q12HR PO 03/21/25 22:00 03/24/25 21:23 30 ML Enteral Nutritional Formula 240 ml BIDWM PO 03/21/25 18:00 03/24/25 08:00 240 ML Midodrine 10 mg TID@0600,1200,1800 PO 03/23/25 18:00 03/25/25 06:24 10 MG Pantoprazole Sodium 40 mg DAILY@0600 PO 03/25/25 06:00 03/25/25 06:24 40 MG Bumetanide 1 mg DAILY IV 03/25/25 10:00 objective Gen: NAD, AAOx3 Lungs: low air entry at bases CV: RR, no pericardial rub Abdomen: distended, low intensity BS ext: Trace edema Neuro: on focal deficits laboratory and microbiology Test 03/25/25 06:02 Range/Units Serum Glucose Pending Assessment/Plan Assessment: 1. ESRD on HD 2. Encephalopathy. resolved 3. Chronic hypotension 4. Anemia. 5. Hypokalemia. 6. Hyponatremia. 7. Septic shock 8. Respiratory failure , extubated on 03/19/25 Plan: Scheduled for HD for today Continue HD on MWF schedule Continue Midodrine 10 mg PO TID Extubated on 03/19/25. currently on room air Continue empiric intravenous antibiotics. Dietary Evaluation Review Comments: 1. Suggest formula Vital AF @ 60 ml/hr (GOAL). Begin at 10 ml/hr, advance by 10 ml Q4 hrs or as tolerated to goal-rate of 60 ml/hr x 24 hrs 2. Once pressor requirements reduced and if pt begins dialysis, may change to Nepro @ 40 ml/hr + 1 pckt ProStat BID (defer at this time due to high-fiber content, increased risk for bowel ischemia) 3. Provide minimal free water flushes of 30 ml Q8 hrs (90 ml total) for tube patency; adjust PRN 4. Monitor BMP/lytes and replete to WNL TF Provision: TF at goal to provide 1440 ml total volume, 1728 kcal, 108 gm pro, 7 gm fiber, 1168 ml H20 (meets 100% est. kcal needs, 100% est. pro needs) Expected Outcomes/Goals: Improved nutritional status, hemodynamic stability. Plan discussed with: Patient SHY DUFF MD March 25, 2025 06:47
[2025-03-25 06:57] LABS: Anion Gap 7 (5-15); Carbon Dioxide 27 mmol/L (20-31); Chloride 102 mmol/L (98-107); Potassium 3.6 mmol/L (3.5-5.1); Sodium 136 mmol/L (136-145)
[2025-03-25 07:03] LABS: BUN/Creatinine Ratio 7.1 (10.0-20.0)
[2025-03-25 07:04] LABS: Blood Urea Nitrogen 28 mg/dL (9-23); Calcium 8.6 mg/dL (8.7-10.4); Glucose 74 mg/dL (74-106)
[2025-03-25] MEDS: BUMETANIDE 1mg/4ml VIAL (0.25mg/ml) IV SCH (10:00)
--- NOTE | 2025-03-25 10:04 | DVHPN2 ---
Progress Note Date Seen: March 25, 2025 Resident Creating Document: SUNDAR JO RESIDENT Has the PT tested + for MRSA If YES, has PT been informed?: No Medical Necessity Reason Pt with a Central, PICC or Fol: No Subjective Review of Systems Patient seen and examined at the bedside. Patient reported improvement in his symptoms since admission, reported no GI complaints. Patient is able to pass bowel movement. Continue current management. Patient reports: No new complaints, Feels better Objective vital signs Vital Sign Date Time Temp Pulse Resp B/P (MAP) Pulse Ox O2 Delivery O2 Flow Rate FiO2 03/25/25 08:30 98.3 81 16 94/55 (68) 93 98.3 03/24/25 20:00 Room Air* 0 21 Total Intake and Output 03/24/25 03/24/25 03/25/25 14:59 22:59 06:59 Intake Total 500 ml 500 ml Balance 500 ml 500 ml medications Current Medications Medications Dose Ordered Sig/Bhumi Route Start Time Stop Time Status Last Admin Dose Admin Midazolam HCl 50 ml @ 1 mls/hr Q24H IV 03/14/25 09:45 UNV Ondansetron HCl 4 mg Q4HP PRN IV 03/14/25 15:30 Acetaminophen 650 mg Q6HP PRN PO 03/14/25 15:30 Nitroglycerin 0.4 mg Q5MINP PRN SL 03/14/25 15:30 Morphine Sulfate 2 mg Q30M PRN IV 03/14/25 15:30 Patient Own Medication 1 tab DAILY PO 03/15/25 10:00 UNV Patient Own Medication 1 tab BID PO 03/14/25 22:00 UNV Magnesium Oxide 400 mg DAILY PO 03/15/25 10:00 03/24/25 09:41 400 MG Rifaximin 550 mg BID PO 03/14/25 22:00 03/24/25 21:23 550 MG Lactulose 30 ml Q12HR PO 03/21/25 22:00 03/24/25 21:23 30 ML Enteral Nutritional Formula 240 ml BIDWM PO 03/21/25 18:00 03/24/25 08:00 240 ML Midodrine 10 mg TID@0600,1200,1800 PO 03/23/25 18:00 03/25/25 06:24 10 MG Pantoprazole Sodium 40 mg DAILY@0600 PO 03/25/25 06:00 03/25/25 06:24 40 MG Bumetanide 1 mg DAILY IV 03/25/25 10:00 Examination Pt is lying on bed General Appearance: Alert, Oriented X3, Cooperative, Not in acute distress HEENT: Atraumatic, Mucous membranes moist/pink Respiratory: Clear to auscultation, Normal air movement, scattered crackles Cardiovascular: Regular rate, Normal S1, Normal S2, No murmurs Abdominal: Active bowel sounds, Soft, no distention, no tenderness Extremities: No edema, Normal pulses, No tenderness/swelling Skin: No Significant rash, except past surgical scars Neuro: Normal speech, sensorimotor deficits none Psych/Mental Status: Mental status NL, Mood NL Nurse was there as sharperone during examination laboratory and microbiology Laboratory Tests 03/25/25 06:02 Test 03/25/25 06:02 Range/Units Serum Glucose 74 74-106 mg/dL Microbiology Date/Time Source Procedure Growth Status 03/16/25 13:35 Ascities Fluid Gram Stain - Final Complete 03/16/25 13:35 Ascities Fluid Body Fluid Culture - Final Complete 03/14/25 21:29 Nose MRSA Screen - Final Complete 03/14/25 08:38 Sputum Gram Stain - Final Complete 03/14/25 08:38 Sputum Respiratory Culture - Final Complete 03/14/25 08:25 Blood Blood Culture - Final NO GROWTH AFTER 5 DAYS OF INCUBATION. Complete Labs and/or images reviewed: Labs reviewed by me, Image(s) reviewed by me Problem List/Assessment/Plan Problem List/Assessment/Plan Hepatic encephalopathy Alcohol induced decompensated liver cirrhosis MELD score likely 20 points Lactic acidosis Hyperammonemia Ascites Anemia of chronic disease ESRD on hemodialysis Plan/Recommendation - patient is on renal diet - Lactulose bid. 30 mL - Protonix 40 mg daily - rifaximin b.i.d. - His MELD score is 21 points (19.6% estimated 3 month mortality) - monitor ammonia - hemodialysis as scheduled - rest of the management as per ICU team - we will recommend conservative treatment Thank you so much for the opportunity to consult on your patient. GI team will follow the patient Case an action plan discussed with Dr. Ysabel Mccullough. Complex care planning needed total 49 minutes of detailed discussion. Plan discussed with: Patient, Daughter Dietary Evaluation Review Comments: 1. Suggest formula Vital AF @ 60 ml/hr (GOAL). Begin at 10 ml/hr, advance by 10 ml Q4 hrs or as tolerated to goal-rate of 60 ml/hr x 24 hrs 2. Once pressor requirements reduced and if pt begins dialysis, may change to Nepro @ 40 ml/hr + 1 pckt ProStat BID (defer at this time due to high-fiber content, increased risk for bowel ischemia) 3. Provide minimal free water flushes of 30 ml Q8 hrs (90 ml total) for tube patency; adjust PRN 4. Monitor BMP/lytes and replete to WNL TF Provision: TF at goal to provide 1440 ml total volume, 1728 kcal, 108 gm pro, 7 gm fiber, 1168 ml H20 (meets 100% est. kcal needs, 100% est. pro needs) Expected Outcomes/Goals: Improved nutritional status, hemodynamic stability. SUNDAR JO RESIDENT March 25, 2025 10:04
[2025-03-25] MEDS ORDERED: POLYETHYLENE GLYCOL 17 GM PWDR PO PRN (10:15)
[2025-03-25] MEDS: POLYETHYLENE GLYCOL 17 GM PWDR PO ONE (12:34)
[2025-03-25] MEDS ORDERED: LACT10SO3 PO (13:16)
[2025-03-25] MEDS ORDERED: POLYPOW59 PO (13:16)
[2025-03-25] MEDS ORDERED: RIFA550T PO (13:16)
[2025-03-25] MEDS ORDERED: MID10T PO (13:16)
--- NOTE | 2025-03-25 15:06 | DVHDSRES ---
Discharge Summary Date of Admission Resident Creating Document: SUNDAR JO RESIDENT Mar 14, 2025 at 15:23 Date of Discharge: March 25, 2025 Admitting Diagnosis Hepatic encephalopathy Labs/Diagnostic Data: Laboratory Results Test 03/25/25 06:02 03/24/25 03:30 03/22/25 03:00 03/21/25 13:05 White Blood Count 6.7 10^3/uL (4.4-10.8) Red Blood Count 2.69 10^6/uL (4.5-5.90) Hemoglobin 8.9 g/dL (13.5-17.5) Hematocrit 25.6 % (41.0-53.0) Mean Corpuscular Volume 95.0 fL (80.0-100.0) Mean Corpuscular Hemoglobin 33.2 pg (28.0-32.0) Mean Corpuscular Hemoglobin Concent 34.9 g/dL (32.0-36.0) Red Cell Distribution Width 18.5 % (11.8-14.3) Platelet Count 121 10^3/uL (140-450) Mean Platelet Volume 8.7 fL (6.9-10.8) Neutrophils (%) (Auto) 52.4 % (37.0-80.0) Lymphocytes (%) (Auto) 31.5 % (10.0-50.0) Monocytes (%) (Auto) 8.2 % (0.0-12.0) Eosinophils (%) (Auto) 7.2 % (0.0-7.0) Basophils (%) (Auto) 0.7 % (0.0-2.0) Neutrophils # (Auto) 3.5 10 ^3/uL (1.6-8.6) Lymphocytes # (Auto) 2.1 10 ^3/uL (0.4-5.4) Monocytes # (Auto) 0.5 10 ^3/uL (0-1.3) Eosinophils # (Auto) 0.5 10 ^3/uL (0-0.8) Basophils # (Auto) 0 10 ^3/uL (0-0.2) Nucleated Red Blood Cells 0.1 % Sodium Level 136 mmol/L (136-145) Potassium Level 3.6 mmol/L (3.5-5.1) Chloride Level 102 mmol/L (98-107) Carbon Dioxide Level 27 mmol/L (20-31) Anion Gap 7 (5-15) Blood Urea Nitrogen 28 mg/dL (9-23) Creatinine 3.92 mg/dL (0.700-1.30) Glomerular Filtration Rate Calc 18 mL/min (>90) BUN/Creatinine Ratio 7.1 (10.0-20.0) Serum Glucose 74 mg/dL (74-106) Calcium Level 8.6 mg/dL (8.7-10.4) Magnesium Level 2.3 mg/dL (1.6-2.6) Total Bilirubin 0.9 mg/dL (0.2-1.0) Aspartate Amino Transferase (AST) 32 U/L (13-40) Alanine Aminotransferase (ALT) 24 U/L (7-40) Alkaline Phosphatase 161 U/L (46-116) Ammonia 22 umol/L (11-32) Total Protein 5.3 g/dL (5.7-8.2) Albumin 3.2 g/dL (3.2-4.8) Random Vancomycin Level 10.4 ug/mL (5-10) Hepatitis A IgM Antibody Negative Hepatitis B Surface Antigen Negative (Negative) Hepatitis B Core IgM Antibody Negative (Negative) Hepatitis C Antibody Negative (Negative) Test 03/19/25 13:16 03/19/25 07:26 03/18/25 03:14 03/16/25 13:35 Blood Gas Specimen Type Arterial Blood Gas Sample Site Right radial Blood Gas Patient Temperature 37.0 Arterial Blood Date Drawn [id number] Arterial Blood pH 7.479 (7.350-7.450) Arterial Blood Partial Pressure CO2 33.2 mmHg (35.0-48.0) Arterial Blood Partial Pressure O2 108.8 mmHg (83.0-108.0) Arterial Blood HCO3 24.1 mmol/L (21.0-28.0) Arterial Blood Oxygen Saturation 97.4 % (94.0-98.0) Arterial Blood Base Excess 0.9 mmol/L (-2.0-3.0) Arterial Blood Oxyhemoglobin 96.6 % (94.0-98.0) Arterial Blood Carboxyhemoglobin 0.2 % (0.5-1.5) Arterial Blood Methemoglobin 0.6 % (0.0-1.5) Dragan Test Modified Blood Gas Total Hemoglobin 9.50 g/dL (13.5-17.5) Blood Gas Modality Vent - cpap Blood Gas Spontaneous Rate 12 FiO2 % 30.0 Blood Gas Spontaneous Tidal Volume 561 Blood Gas Inspiratory Pressure 13.0 Blood Gas Pressure Support 5 Blood Gas PEEP or CPAP 8.0 Bl Gas Inspiratory/Expiratory Ratio 1:4.1 Specimen Drawn By laurence rt Blood Gas Set Respiration Rate 18.0 Blood Gas Tidal Volume 450.0 Direct Bilirubin 0.4 mg/dL (<0.3) Body Fluid Source Ascites Body Fluid pH 8.0 Body Fluid WBC (Manual) 135 CUMM (0-200) Body Fluid RBC (Manual) 601 CUMM (0-2000) Body Fluid Mononuclear Cells 92 % Body Fluid Polymorphonuclear Cells 8 % (0-25) Body Fluid Glucose 102 mg/dL (.) Body Fluid Total Protein 0.9 g/dL (.) Body Fluid Lactate Dehydrogenase 44 IU/L (.) Test 03/15/25 13:26 03/15/25 04:53 03/14/25 12:29 03/14/25 11:51 Prothrombin Time 11.3 sec (9.3-11.8) Prothrombin Time INR 1.07 (0.9-1.15) Activated Partial Thromboplast Time 30.1 SEC (24.5-34.5) Lactic Acid Level 3.7 mmol/L (0.4-2.0) POC Glucose 112 mg/dl (70-106) Troponin I High Sensitivity 17 ng/L (</=54) Test 03/14/25 08:45 03/14/25 08:25 Urine Color Yellow (Yellow) Urine Clarity Clear (Clear) Urine pH 6.0 (5.0-9.0) Urine Specific [place] 1.012 (1.001-1.035) Urine Protein Negative (Negative) Urine Ketones Negative (Negative) Urine Blood Negative /uL (Negative) Urine Nitrite Negative (Negative) Urine Bilirubin Negative (Negative) Urine Urobilinogen Normal mg/dL (Negative) Urine Leukocyte Esterase Negative /uL (Negative) Urine RBC 1 /hpf (0 - 3) Urine Microscopic WBC 5 /HPF (0-3) Urine Squamous Epithelial Cells Few /hpf (<5) Urine Calcium Oxalate Crystals Few (None Seen) Urine Bacteria None seen /hpf (None Seen) Urine Glucose Normal mg/dL (Normal) Plasma/Serum Blood Alcohol < 3.0 mg/dL (<10) Other Laboratory Tests 03/25/25 06:02 Brief Hx & Hospital Course: This is a 44-year-old male with past medical history of ETOH induced liver cirrhosis, and ESRD on HD, who was brought in by EMS for ALOC. Hepatobiliary: Cirrhosis Renal/: Chronic renal failure (ESRD on HD) Smoke: No ALCOHOL: none Drugs: None Lives: with Family Patient went to his HD today, he had 2.5L removed. Daughter is who took him this morning, she states he was going well and talking on the way to dialysis, but that he did have 1 moment where he forgot where he was. Once dialysis was finishing be began to become more altered and hypotensive, EMS was called. Patient was given 2L IV fluids at the dialysis center. When patient arrived to ER his GCS was 3, he was intubated. Daughter was at bedside at time of assessment. She states he has had previous episodes like this before, but never so severe where he needs to be intubated. Patient is currently being followed by Dr. Magdi FORMAN [phone]. I was asked by daughter to call to give them an update. When I called they wanted me to call [facility], where the patient is being worked up for a liver transplant. They gave me the number of [phone]. They did not know who specifically I would speak with, just stated the ICU doctor. I called numerous times and was not able to speak with the ICU doctor. Patient is currently Intubated and sedated on 15 of versed, and 25 of fentanyl. I asked the nurse to come down on the versed as tolerated and use more Fentanyl as possible, as versed is difficult for renal patient to excrete. Patient was on 8mcg of Levophed for BP support. Patient has had significant clinical improvement from admission, he was extubated successfully, he remained on Levophed for a couple of days, midodrine was started. Patient has had two paracentesis done, no infection was established, patient was likely in distributive shock. He was well alert and oriented throughout the following days of hospitalization. He was able to do physical therapy without any complications, blood pressure was stable. We are all to remove Levophed and patient was sent to the floor for continuous monitoring. He continued to have significant clinical improvement. He currently denies any significant chest pain, shortness of breath, lightheadedness, dizziness, abdominal pain, nausea, vomiting, he is currently tolerating diet, ambulatory with assistance. Physical examination as below: General: Awake, alert, comfortable appearing, in no acute distress. HEENT: Head is normocephalic and atraumatic. Pupils are equal, round, and reactive to light. Extraocular muscles are intact. No nasal discharge. No facial trauma. Intraoral exam shows moist mucous membranes with no tonsillar enlargement or exudate. Neck: Supple with no cervical lymphadenopathy. Heart: Regular rate without murmur, rub, or gallop. Lungs: scattered crackles Abdomen: No external sign of injury. Bowel sounds are present. Abdomen is soft, nontender. No rebound, no guarding, no rigidity. distended Extremities: Strong peripheral pulses. There is no clubbing, no cyanosis, and no edema. Skin: No rash. Neurologic: Cranial nerves II-XII intact without motor, sensory, or cerebellar deficit, no asterixis. Patient will be discharge home, will continue home medications as prescribed. Follow-up with PCP in 1-2 weeks. Patient verbalized understanding and agree with the DC plan, we spent over 30 minutes explaining the plan. Case was discussed with Dr. High Consults/Reason for consult Nephrology was consulted due to ESRD on HD GI was consulted due to hepatic encephalopathy Operations or Procedures [place] [address] Ph: [phone] DIAGNOSTIC IMAGING Diagnostic Imaging Report : [id number] Signed PATIENT: ILEANA BURNETTACCT: [id number] UNIT: [id number] : 1980 LOC: [facility] ROOM / BED: [address] [place] [address] AGE / SEX: 44 / M ADM STATUS: ADM IN SERVICE 1240 ORDERING PHYSICIAN: REENA BUSH NP PROCEDURE(s): ECIDC - ECHO 2D MODE CARDIAC DOP REASON: SHOCK, ? CARDIAC ETIOLOGY ORDER NUMBER(s): [id number], ACCESSION NUMBER(s): [id number] APPROVED REPORT EXAM: Two-dimensional and M-mode echocardiogram with Doppler and color Doppler. Blood Pressure: 106/60 mmHg INDICATION SHOCK hypotension, sob RISK FACTORS Height: 5'8", Weight: 158 DIMENSIONS LVDd 4.0 (3.8-5.7cm) LA (2D) (1.9-4.0cm) Aortic Root (2.0-3.7cm) LVDs 2.6 (2.5-4.0cm) LA (MM) (1.9-4.0cm) Aortic Cusp Exc (1.5- 2.0cm) EF (%) 63.0 (55-70%) Rt. Atrium (1.9-4.0cm) Asc. Aorta cm Mitral Valve Mitral Mitral Stenosis E wave 0.82m/s MV Mean GR. mmHg A wave 0.86m/s MV Peak GR. mmHg E/A ratio 1.0 2D MVA cm2 DECEL Time 215ms PRESS 1/2 Time ms Aortic Valve Aortic Valve Aortic Stenosis V1 1.18m/s AO Mean GR. mmHg V2 2.20m/s AO Peak GR. 19mmHg LVOT Diameter 2.0 (1.8-2.4cm) Doppler SERGIO 1.68cm2 Other Information Quality : Technically Limited Rhythm : Technically limited study due to body habitus, on vent and ascites. Conclusion LVEF normal 60-65% RV functional normal Valves not well visualized but grossly normal Large left pleural effusion SIGNED BY: FREEDOM PFEIFFER MD SIGNED DATE/TIME: 03/16/25 1421 CC: [place] [address] Ph: [phone] DIAGNOSTIC IMAGING Diagnostic Imaging Report : [id number] Signed PATIENT: ILEANA BURNETTACCT: [id number] UNIT: [id number] : 1980 LOC: ER ROOM / BED: / AGE / SEX: 44 / M ADM STATUS: REG ER SERVICE 0807 ORDERING PHYSICIAN: EMILY SANDS MD PROCEDURE(s): CXRP - CHEST PORTABLE REASON: sob ORDER NUMBER(s): [id number], ACCESSION NUMBER(s): [id number] CHEST RADIOGRAPH Indication: sob Technique: Single frontal view of the chest was obtained COMPARISON: XY CHEST XRAY 1 VIEW on DOS: 03/02/25 FINDINGS: Lines and Tubes: Endotracheal tube is slightly low in position at the level of the aman. Right central venous catheter in satisfactory position. Enteric catheter in satisfactory position. Lungs: Low lung volumes. Pleura: No effusion. No pneumothorax. Cardiomediastinal contours: Unremarkable Bones: Unremarkable IMPRESSION: Recommend retraction of endotracheal tube by 1 cm. ATED BY: JR VILA MD DICTATED DATE/TIME: 03/14/25939 SIGNED BY: JR VILA MD SIGNED DATE/TIME: 03/14/25939 CC: [place] [address] Ph: [phone] DIAGNOSTIC IMAGING Diagnostic Imaging Report : [id number] Signed PATIENT: ILEANA BURNETTACCT: [id number] UNIT: [id number] : 1980 LOC: ER ROOM / BED: / AGE / SEX: 44 / M ADM STATUS: REG ER SERVICE 6 ORDERING PHYSICIAN: EMILY SANDS MD PROCEDURE(s): HWOCT - HEAD WITHOUT CONTRAST REASON: altered ORDER NUMBER(s): [id number], ACCESSION NUMBER(s): [id number] EXAM: CT HEAD WITHOUT CONTRAST HISTORY: altered COMPARISON: CT HEAD WITHOUT CONTRAST on DOS: 03/02/25 TECHNIQUE: Axial images of the head were obtained and reformatted in coronal and sagittal planes. All CT scans at this medical facility are performed using dose modulation techniques as appropriate to a performed exam including the following: Automated exposure control was utilized; adjustment of the MA and/or KV according to patient size; and use of iterative reconstruction technique. CT Dose: CTDI volume is 56.55 mGy. Dose-length product is 1001.31 mGy*cm FINDINGS: There is no evidence of acute intracranial hemorrhage, mass, mass effect midline shift. There is no hydrocephalus or extra-axial fluid collection. Rodriguez-white matter differentiation is maintained. The visualized paranasal sinuses and mastoid air cells are clear. The calvarium is intact. IMPRESSION: 1. No acute intracranial process. HS:Y ATED BY: RICCI LEE MD DICTATED DATE/TIME: 03/14/25 0909 SIGNED BY: RICCI LEE MD SIGNED DATE/TIME: 03/14/25 0909 CC: [place] [address] Ph: [phone] DIAGNOSTIC IMAGING Diagnostic Imaging Report : [id number] Signed PATIENT: MAY BURNETTT: [id number] UNIT: [id number] : 1980 LOC: ICU [facility] ROOM / BED: [address] [place] [address] A AGE / SEX: 44 / M ADM STATUS: ADM IN SERVICE 1449 ORDERING PHYSICIAN: JAVIER MONATLVO MD PROCEDURE(s): ABDL - ABDOMEN LIMITED REASON: FLUID CHECK FOR POSSIBLE PARACENTESIS ORDER NUMBER(s): [id number], ACCESSION NUMBER(s): [id number] ULTRASOUND ABDOMEN limited, 4 QUADRANTS INDICATION: FLUID CHECK FOR POSSIBLE PARACENTESIS Evaluate for ascites. TECHNIQUE: The four quadrants of the abdomen were scanned in pitts-scale to assess for the presence of ascites. No solid organ assessment was performed. FINDINGS/IMPRESSIONS: Large volume ascites. ATED BY: TARYN ZUÑIGA MD DICTATED DATE/TIME: 03/15/25 152 SIGNED BY: TARYN ZUÑIGA MD SIGNED DATE/TIME: 03/15/25 1523 CC: [place] [address] Ph: [phone] DIAGNOSTIC IMAGING Diagnostic Imaging Report : [id number] Signed PATIENT: MAY BURNETTT: [id number] UNIT: [id number] : 1980 LOC: ICU [facility] ROOM / BED: [address] [place] [address] / A AGE / SEX: 44 / M ADM STATUS: ADM IN SERVICE 0909 ORDERING PHYSICIAN: REENA BUSH NP PROCEDURE(s): PARAC - PARACENTESIS REASON: ASCITES ORDER NUMBER(s): [id number], ACCESSION NUMBER(s): [id number] PROCEDURE: ULTRASOUND GUIDED PARACENTESIS HISTORY: 44 Male requiring paracentesis. TECHNIQUE: The risks and benefits of the procedure including but not limited to bleeding, infection and injury to abdominal organs were explained to the patient and written informed consent was obtained. Optimal site for puncture was determined using ultrasound and the area sterilized and draped. Using a 5 Croatian Yueh catheter, paracentesis was performed in the right lower quadrant abdomen. Approximately 6.7 liters of serous fluid was removed. The patient tolerated the procedure well. There were no immediate complications. IMPRESSION: Ultrasound-guided paracentesis with no immediate complications. Performed by Dr. Montalvo. ATED BY: JR VILA MD DICTATED DATE/TIME: 03/17/25553 SIGNED BY: JR VILA MD SIGNED DATE/TIME: 03/17/25553 CC: [place] [address] Ph: [phone] DIAGNOSTIC IMAGING Diagnostic Imaging Report : [id number] Signed PATIENT: ILEANA BURNETTACCT: [id number] UNIT: [id number] : 1980 LOC: [facility] ROOM / BED: [address] [place] [address] AGE / SEX: 44 / M ADM STATUS: ADM IN SERVICE 9 ORDERING PHYSICIAN: REENA BUSH NP PROCEDURE(s): CXRP - CHEST PORTABLE REASON: ACUTE RESP FAILIRE ORDER NUMBER(s): [id number], ACCESSION NUMBER(s): [id number] CHEST RADIOGRAPH Indication: ACUTE RESP FAILIRE Technique: Single frontal view of the chest was obtained COMPARISON: XY CHEST PORTABLE on DOS: 03/18/25, XY CHEST PORTABLE on DOS: 03/17/25, XY CHEST PORTABLE on DOS: 03/16/25, XY CHEST PORTABLE on DOS: 03/15/25, XY CHEST PORTABLE on DOS: 03/14/25 FINDINGS: Lines and Tubes: Unchanged. Lungs: Clear. Diminished lung volumes. Pleura: No effusion. No pneumothorax. Cardiomediastinal contours: Unremarkable Bones: Unremarkable IMPRESSION: 1. No acute disease. Diminished lung volumes. 2. Lines and tubes unchanged. ATED BY: HELEN HIDALGO MD DICTATED DATE/TIME: 03/19/25628 SIGNED BY: HELEN HIDALGO MD SIGNED DATE/TIME: 03/19/25628 CC: Condition at Discharge: Guarded Final Diagnosis/Problems List #Acute hepatic/metabolic encephalopathy #Acute hypoxic respiratory failure status post mechanical ventilation, now extubated, on room air #Alcoholic liver cirrhosis with ascites, s/p paracentesis #Thrombocytopenia due to above #Hyperammonemia, due to above #Lactic acidosis due to above #End-stage renal disease on hemodialysis #Anemia normocytic, moderate, of chronic disease #distributive shock #septic shock ruled out Discharge Disposition: Home Discharge Instruct/Medications Diet: Renal Activity: No Restrictions, As Tolerated Follow Up/Referral: fu with pcp in 1-2 weeks fu with psychological anthropologist Medications: continue meds as prescribed Discharge Statement: "Patient was advised to return to the ER or call 911 if any headaches, dizziness, shortness of breath, chest pain, abdominal pain, bleeding, fevers, or worsening of medical condition. Patient was counseled about treatment plan, medications, possible side effects, patientverbalized understanding. All questions were answered to the best of my ability. This discharge took greater then 30 minutes in planning, reviewing documentation, counseling the patient, and discussing with other team members." ASSESSMENT ASSESSMENT Assessment hepatic encephalopathy SULY GARCIA RESIDENT March 25, 2025 15:06
[2025-03-25] MEDS ORDERED: ALBUMIN 25% 100 ML IV ONE ×2 (18:00→19:00)
[2025-03-25] MEDS ORDERED: EPOETIN ALFA-EPBX 10,000 UNIT/1ML VIAL SC ONE (21:00)
== END 2025-03-26 00:06 | disposition home or self-care (01) | DRG 280 ==
LOC: ER 07:58 → EDBD 07:58 → OVERFLOW 15:23 → ICU WEST 03-15 05:55 → TELE-CENTR 03-24 16:37
PROVIDERS: ADMIT Internal Medicine Pulmonary Disease; ATTEND Internal Medicine Pulmonary Disease
PROC: 5A1955Z Respiratory Ventilation, Greater than 96 Consecutive Hours (ICD-10-PCS; 2025-03-14)
PROC: 0BH17EZ Insertion of Endotracheal Airway into Trachea, Via Natural or Artificial Opening (ICD-10-PCS; 2025-03-14)
PROC: 02HV33Z Insertion of Infusion Device into Superior Vena Cava, Percutaneous Approach (ICD-10-PCS; 2025-03-14)
PROC: 0W9G3ZX Drainage of Peritoneal Cavity, Percutaneous Approach, Diagnostic (ICD-10-PCS; 2025-03-17)
PROC: 5A1D70Z Performance of Urinary Filtration, Intermittent, Less than 6 Hours Per Day (ICD-10-PCS; 2025-03-17)
PROC: 5A1D70Z Performance of Urinary Filtration, Intermittent, Less than 6 Hours Per Day (ICD-10-PCS; 2025-03-18)
PROC: 0W9G3ZX Drainage of Peritoneal Cavity, Percutaneous Approach, Diagnostic (ICD-10-PCS; principal; 2025-03-19)
PROC: 5A1D70Z Performance of Urinary Filtration, Intermittent, Less than 6 Hours Per Day (ICD-10-PCS; 2025-03-19)
PROC: 5A1935Z Respiratory Ventilation, Less than 24 Consecutive Hours (ICD-10-PCS; 2025-03-19)
PROC: 5A1D70Z Performance of Urinary Filtration, Intermittent, Less than 6 Hours Per Day (ICD-10-PCS; 2025-03-21)
PROC: 5A1D70Z Performance of Urinary Filtration, Intermittent, Less than 6 Hours Per Day (ICD-10-PCS; 2025-03-23)
DX: K76.82 Hepatic encephalopathy (principal); K70.40 Alcoholic hepatic failure without coma; J96.01 Acute respiratory failure with hypoxia; R57.8 Other shock; G93.41 Metabolic encephalopathy; D61.818 Other pancytopenia; E72.20 Disorder of urea cycle metabolism, unspecified; N18.6 End stage renal disease; D68.9 Coagulation defect, unspecified; D69.6 Thrombocytopenia, unspecified; E87.20 Acidosis, unspecified; K70.31 Alcoholic cirrhosis of liver with ascites; E87.1 Hypo-osmolality and hyponatremia; D63.8 Anemia in other chronic diseases classified elsewhere; I95.89 Other hypotension; E87.6 Hypokalemia; Z99.2 Dependence on renal dialysis; F10.10 Alcohol abuse, uncomplicated; Z88.8 Allergy status to other drugs, medicaments and biological substances; Z79.899 Other long term (current) drug therapy
CPT/HCPCS: 31500; 36415; 36569; 36600; 49083; 70450; 71045; 76705; 76942; 80048; 80053; 80074; 80076; 80202; 80320; 81001; 82140; 82805; 82962; 83605; 83735; 83986; 84132; 84484; 85025; 85610; 85730; 87040; 87070; 87081; 87205; 89051; 90935; 93005; 93306; 94002; 94003; 97110; 97116; 97163; 97530; 99291; 99292; A4565; G0378; J1642; J2470; P9047

== ENCOUNTER 2025-04-19 07:41 | Inpatient (IN) | payer MEDICAID ==
[~2025-04-19] VITALS: Ht 172.7 cm; Wt 60.6 kg
[~2025-04-19 07:41] MED LIST changes: +MID10T PO; +POLYPOW59 PO
[2025-04-19] MEDS: SODIUM CHLORIDE 0.9% 1,000 ML IV ONE ×2 (08:00)
--- NOTE | 2025-04-19 08:08 | ED.PDOC ---
Altered Mental Status HPI Comments 44 y/o M with PMHx of ESRD and liver cirrhosis, SHAMA, presents to the ED for CC of ALOC. EMS reports, patient is coming from home where paramedics were called by family d/t patient displaying ALOC since, 0600 this morning (04/19/25). EMS states, last known well by family to be 2200 last night (04/19/25). Patient is a dialysis patient and is compliant with dialysis every, MWF. No other symptoms or modifying factors obtainable at this time. Chief Complaint: ALOC Time Seen by MD: 07:58 Primary Care Provider: MAYANK Reviewed Notes: Nurses Notes, Clinical Phlebotomist Notes, Medications, Allergies Allergies: Coded Allergies: NO KNOWN ALLERGIES (Unverified , 03/02/25) Home Meds Active Scripts Polyethylene Glycol 3350 (Goodsense Clearlax) 17 Gm/Scoop Pow, 17 GM PO DAILYP PRN for 30 Days, #30 POW 1 Refill Prov:SULY GARCIA RESIDENT 03/25/25 Midodrine HCl (Midodrine HCl) 10 Mg Tab, 10 MG PO TID@0600,1200,1800 for 30 Days, #100 TAB Prov:SULY GARCIA RESIDENT 03/25/25 Rifaximin (Xifaxan) 550 Mg Tab, 1 TAB PO BID for 30 Days, #60 TAB 1 Refill Prov:SULY GARCIA RESIDENT 03/25/25 Lactulose (Lactulose) 10 Gm/15 Ml Monisha, 30 ML PO BID for 30 Days, #1600 ML 1 Refill Prov:SULY GARCIA RESIDENT 03/25/25 Reported Medications Magnesium Oxide (Mag-Ox) 400 Mg Tb, 1 TAB PO DAILY 03/02/25 Spironolactone (Spironolactone) 50 Mg Tab, 1 TAB PO BID 03/02/25 Furosemide (Furosemide) 80 Mg Tab, 2 PO BID 03/02/25 Midodrine Hcl (Midodrine Hcl) 10 Mg Tab, PO 03/02/25 Information Source: Emergency Med Personnel Mode of Arrival: EMS Severity: Moderate Timing: Hours Duration: Since onset Prehospital treatment: IVF Quality: Decreased Alertness, Change in Behavior Recent: None Associated Signs and Symptoms: None Past Medical History PAST MEDICAL HISTORY: ESRD, Liver Surgical History: Denies all surgeries Family History Family History: Reviewed,noncontributory to illness Social History Smoker: Non-Smoker Alcohol: Sober Drugs: Denies Drug Use Lives In: Home Unable to Obtain due to: Altered Mental Status Physical Exam General Appearance: Moderate Distress HEENT: Normal ENT Inspection, Pharynx Normal, TMs Normal Neck: Full Range of Motion, Non-Tender, Normal, Normal Inspection Respiratory: Chest Non-Tender, Lungs Clear, No Accessory Muscle Use, No Respiratory Distress, Normal Breath Sounds Cardiovascular: No Edema, No JVD, No Murmur, No Gallop, Normal Peripheral Pulses, Regular Rate/Rhythm Breast Exam: Deferred Gastrointestinal: Distended Genitalia: Deferred Pelvic: Deferred Rectal: Deferred Extremities: No calf tenderness, No pedal edema Musculoskeletal : Apperance: Normal Neurologic: Disoriented Cerebellar Function: NOT DONE Reflexes: NOT DONE Skin: Pallor Peripheral Pulses: 3+ Radial (R), 3+ Radial (L) Lymphatic: No Adenopathy EKG EKG : Pulse Rate (adult): 87 Cardiac Rhythm: NSR Was a procedure done? Was a procedure done?: No Differential Diagnosis (ALOC) Differential Diagnosis: Dehydration, Hypoglycemia, Renal Failure X-Ray, Labs, Meds, VS Vital Signs Date Time Temp Pulse Resp B/P (MAP) Pulse Ox O2 Delivery O2 Flow Rate FiO2 04/19/25 08:12 87 04/19/25 07:50 97.9 87 15 96/58 (71) 98 97.9 04/19/25 07:48 85 Lab Test 04/19/25 08:16 04/19/25 08:06 Range/Units White Blood Count 3.8 L 4.4-10.8 10^3/uL Red Blood Count 2.84 L 4.5-5.90 10^6/uL Hemoglobin 9.0 L 13.5-17.5 g/dL Hematocrit 26.9 L 41.0-53.0 % Mean Corpuscular Volume 94.8 80.0-100.0 fL Mean Corpuscular Hemoglobin 31.5 28.0-32.0 pg Mean Corpuscular Hemoglobin Concent 33.3 32.0-36.0 g/dL Red Cell Distribution Width 17.3 H 11.8-14.3 % Platelet Count 163 140-450 10^3/uL Mean Platelet Volume 8.7 6.9-10.8 fL Neutrophils (%) (Auto) 52.2 37.0-80.0 % Lymphocytes (%) (Auto) 30.5 10.0-50.0 % Monocytes (%) (Auto) 10.1 0.0-12.0 % Eosinophils (%) (Auto) 6.5 0.0-7.0 % Basophils (%) (Auto) 0.7 0.0-2.0 % Neutrophils # (Auto) 2.0 1.6-8.6 10 ^3/uL Lymphocytes # (Auto) 1.1 0.4-5.4 10 ^3/uL Monocytes # (Auto) 0.4 0-1.3 10 ^3/uL Eosinophils # (Auto) 0.2 0-0.8 10 ^3/uL Basophils # (Auto) 0 0-0.2 10 ^3/uL Nucleated Red Blood Cells 0.1 % Sodium Level 137 136-145 mmol/L Potassium Level 4.2 3.5-5.1 mmol/L Chloride Level 101 98-107 mmol/L Carbon Dioxide Level 27 20-31 mmol/L Anion Gap 9 5-15 Blood Urea Nitrogen 18 9-23 mg/dL Creatinine 2.38 H 0.700-1.30 mg/dL Glomerular Filtration Rate Calc 33 >90 mL/min BUN/Creatinine Ratio 7.6 L 10.0-20.0 Serum Glucose 86 74-106 mg/dL Calcium Level 8.5 L 8.7-10.4 mg/dL Lactic Acid Level 2.0 0.4-2.0 mmol/L Ammonia 94 H 11-32 umol/L Current Medications Medications (Trade) Dose Ordered Sig/Bhumi Route Start Time Stop Time Status Last Admin Ceftriaxone Sodium 50 ml @ 100 mls/hr ONCE ONCE IV 04/19/25 08:00 04/19/25 08:29 DC 04/19/25 08:42 Metronidazole 100 ml @ 100 mls/hr ONCE ONCE IV 04/19/25 08:00 04/19/25 08:59 DC 04/19/25 09:17 Sodium Chloride 1,000 ml @ 1,000 mls/hr Q1H ONCE IV 04/19/25 08:00 04/19/25 08:59 DC 04/19/25 08:00 Sodium Chloride 1,000 ml @ 150 mls/hr Q6H40M ONCE IV 04/19/25 08:00 04/19/25 14:39 04/19/25 08:00 [place] [id number] Ph: [phone] DIAGNOSTIC IMAGING Diagnostic Imaging Report : [id number] Signed PATIENT: MAY BURNETTT: [id number] UNIT: [id number] : 1980 LOC: ER ROOM / BED: / AGE / SEX: 44 / M ADM STATUS: REG ER SERVICE 6 ORDERING PHYSICIAN: EMILY SANDS MD PROCEDURE(s): CXRP - CHEST PORTABLE REASON: sob ORDER NUMBER(s): [id number], ACCESSION NUMBER(s): [id number] CHEST RADIOGRAPH Indication: sob Technique: Single frontal view of the chest was obtained COMPARISON: XY CHEST PORTABLE on DOS: 03/21/25, XY CHEST XRAY 1 VIEW on DOS: 03/20/25, XY CHEST PORTABLE on DOS: 03/19/25, XY CHEST PORTABLE on DOS: 03/18/25, XY CHEST PORTABLE on DOS: 03/17/25 FINDINGS: Lines and Tubes: Tunneled right central venous catheter in satisfactory position Lungs: Low lung volumes. Mild congestion. Pleura: No effusion. No pneumothorax. Cardiomediastinal contours: Cardiomegaly Bones: Unremarkable IMPRESSION: Low lung volumes. Mild congestion. ATED BY: JESSICA HARE MD DICTATED DATE/TIME: 04/19/25913 SIGNED BY: JESSICA HARE MD SIGNED DATE/TIME: 04/19/25913 CC: [place] [id number] Ph: [phone] DIAGNOSTIC IMAGING Diagnostic Imaging Report : [id number] Signed PATIENT: MAY BURNETTT: [id number] UNIT: [id number] : 1980 LOC: ER ROOM / BED: / AGE / SEX: 44 / M ADM STATUS: REG ER SERVICE 6 ORDERING PHYSICIAN: EMILY SANDS MD PROCEDURE(s): HWOCT - HEAD WITHOUT CONTRAST REASON: altered ORDER NUMBER(s): [id number], ACCESSION NUMBER(s): [id number] EXAM: CT HEAD WITHOUT CONTRAST HISTORY: altered COMPARISON: CT HEAD WITHOUT CONTRAST on DOS: 03/14/25, CT HEAD WITHOUT CONTRAST on DOS: 03/02/25 TECHNIQUE: Axial images of the head were obtained and reformatted in coronal and sagittal planes. All CT scans at this medical facility are performed using dose modulation techniques as appropriate to a performed exam including the following: Automated exposure control was utilized; adjustment of the MA and/or KV according to patient size; and use of iterative reconstruction technique. CT Dose: CTDI volume is 65 mGy. Dose-length product is 1987 mGy*cm FINDINGS: There is no evidence of acute intracranial hemorrhage, mass, mass effect midline shift. There is no hydrocephalus or extra-axial fluid collection. Rodriguez-white matter differentiation is maintained. The visualized paranasal sinuses and mastoid air cells are clear. The calvarium is intact. IMPRESSION: 1. No acute intracranial process. HS:Y ATED BY: TARAS LEE MD DICTATED DATE/TIME: 04/19/25918 SIGNED BY: TARAS LEE MD SIGNED DATE/TIME: 04/19/25918 CC: [place] [id number] Ph: [phone] DIAGNOSTIC IMAGING Diagnostic Imaging Report : [id number] Signed PATIENT: ILEANA BURNETTACCT: [id number] UNIT: [id number] : 1980 LOC: ER ROOM / BED: / AGE / SEX: 44 / M ADM STATUS: REG ER SERVICE 0757 ORDERING PHYSICIAN: EMILY SANDS MD PROCEDURE(s): ABPL - CT AB PEL WO CON-NO ORAL OR IV REASON: distended ORDER NUMBER(s): [id number], ACCESSION NUMBER(s): [id number] CT ABDOMEN AND PELVIS WITHOUT CONTRAST CLINICAL HISTORY: distended TECHNIQUE: Multiple contiguous axial images of the abdomen and pelvis without intravenous contrast. The images were reformatted degenerate coronal and sagittal reconstructions. All CT scans at this medical facility are performed using dose modulation techniques as appropriate to a performed exam including the following:Automated exposure control was utilized; adjustment of the MA and/or KV according to patient size; and use of iterative reconstruction technique. Radiation Dose Information: CT Dose: CTDI volume is 11 mGy. Dose-length product is 1987 mGy*cm Comparison: None FINDINGS: Evaluation of the abdomen and pelvis is limited without intravenous contrast. There is a small size liver with nodular surface contour compatible with hepatic cirrhosis. The gallbladder, pancreas, kidneys, adrenal glands, and spleen appear within normal limits. There is large amount of ascites. There is no free intraperitoneal air. The stomach grossly appears unremarkable. There are mildly dilated fluid-filled small bowel loops in the right abdomen measuring up to 3.1 cm in diameter. There is no obvious transition point. Air intermixed with stool is seen in the nondilated colon. The abdominal aorta and IVC appear within normal limits. The bladder appears unremarkable for the degree of distention. Pelvic organ appears within normal limits. There is no gross evidence of a pelvic mass. There is free fluid in the pelvis. There is scarring versus atelectasis in the bilateral posterior lung bases. There is no acute osseous abnormality. IMPRESSION: 1. Hepatic cirrhosis with large amount of ascites. 2. Mildly dilated fluid-filled small bowel loops in the right abdomen. There is no obvious transition point. Findings May relate to small bowel ileus versus enteritis. Clinical correlation is recommended. HS:Y ATED BY: TARAS LEE MD DICTATED DATE/TIME: 04/19/25937 SIGNED BY: TARAS LEE MD SIGNED DATE/TIME: 04/19/25937 CC: Patient altered. Abdomen is distended. Hypotension. Establish intravenous access. Was given fluids. Unable to get history from the patient. History of liver disease. Has a ascites. Continue fluids for his hypotension. Possible sepsis. Was given Rocephin. Was given Flagyl. Continue to monitor. Time of 1ST Reevaluation: 08:22 Reevaluation 1ST: Unchanged Patient Education/Counseling: Diagnosis, Treatment Family Education/Counseling: No Family Present Sepsis Sepsis Reasesment Focused Exam Orders: Laboratory Tests 04/19/25 08:06: Lactic Acid Level 2.0 Departure 1 Departure Time of Disposition: 08:11 Impression: Primary Impression: Hepatic encephalopathy Additional Impressions: End stage renal disease on dialysis Cirrhosis of liver Qualified Codes: K70.31 - Alcoholic cirrhosis of liver with ascites Disposition: ADMITTED INPATIENT Admit to: Med Surg Condition: Guarded Critical Care Note Critical Care Time?: Yes (90 min-critical care time only) Critical care comment: Confused continue to monitor Stability Stability form required: No Heart Score Heart Score: Heart Score Response (Comments) Value History Slightly Suspicious 0 EKG Normal 0 Age <45 0 Risk Factors >3 or Hx ASHD 2 Troponin N/A 0 Total 2 I personally scribed for EMILY SANDS MD ([email or web address]) on 04/19/25 at 08:08. Electronically submitted by Azucena Cheung ([email or web address]). I personally scribed for EMILY SANDS MD ([email or web address]) on 04/19/25 at 09:54. Electronically submitted by Azucena Cheung ([email or web address]). I personally scribed for EMILY SANDS MD ([email or web address]) on 04/19/25 at 09:55. Electronically submitted by Azucena Cheung ([email or web address]). I personally scribed for EMILY SANDS MD ([email or web address]) on 04/19/25 at 09:56. Electronically submitted by Azucena Cheung ([email or web address]). EMILY SANDS MD April 19, 2025 08:08
[2025-04-19] MEDS: cefTRIAXone 1GM/50ML D5W 50 ML IV ONE (08:42)
[2025-04-19 08:46] LABS: Chloride 101 mmol/L (98-107); Potassium 4.2 mmol/L (3.5-5.1); Sodium 137 mmol/L (136-145)
[2025-04-19 08:47] LABS: Anion Gap 9 (5-15); Calcium 8.5 mg/dL (8.7-10.4); Carbon Dioxide 27 mmol/L (20-31)
[2025-04-19 08:51] LABS: Basophils # (auto) 0 10 ^3/uL (0-0.2); Basophils % (auto) 0.7 % (0.0-2.0); Eosinophils # (auto) 0.2 10 ^3/uL (0-0.8); Eosinophils % (auto) 6.5 % (0.0-7.0); Hematocrit 26.9 % (41.0-53.0); Lymphocytes # (auto) 1.1 10 ^3/uL (0.4-5.4); Lymphocytes % (auto) 30.5 % (10.0-50.0); Mean Corpuscular Hemoglobin 31.5 pg (28.0-32.0); Mean Corpuscular Hgb Conc. 33.3 g/dL (32.0-36.0); Mean Corpuscular Volume 94.8 fL (80.0-100.0); Monocytes # (auto) 0.4 10 ^3/uL (0-1.3); Monocytes % (auto) 10.1 % (0.0-12.0); Neutrophils % (auto) 52.2 % (37.0-80.0); Nucleated Red Blood Cells % 0.1 %; Platelet Count (auto) 163 10^3/uL (140-450); Red Blood Cells 2.84 10^6/uL (4.5-5.90); Red Cell Distribution Width 17.3 % (11.8-14.3); White Blood Cell 3.8 10^3/uL (4.4-10.8)
[2025-04-19 08:52] LABS: BUN/Creatinine Ratio 7.6 (10.0-20.0); Blood Urea Nitrogen 18 mg/dL (9-23); Glucose 86 mg/dL (74-106)
--- NOTE | 2025-04-19 09:16 | DVH ---
CHEST RADIOGRAPH Indication: sob Technique: Single frontal view of the chest was obtained COMPARISON: XY CHEST PORTABLE on DOS: 03/21/25, XY CHEST XRAY 1 VIEW on DOS: 03/20/25, XY CHEST PORTABL E on DOS: 03/19/25, XY CHEST PORTABLE on DOS: 03/18/25, XY CHEST PORTABLE on DOS: 03/17/25 FINDINGS: Lines and Tubes: Tunneled right central venous catheter in satisfactory position Lungs: Low lung volumes. Mild congestion. Pleura: No effusion. No pneumothorax. Cardiomediastinal contours: Cardiomegaly Bones: Unremarkable IMPRESSION: Low lung volumes. Mild congestion.
[2025-04-19] MEDS: metroNIDAZOLE 500MG/100ML 100 ML IV ONE (09:17)
--- NOTE | 2025-04-19 09:21 | DVH ---
EXAM: CT HEAD WITHOUT CONTRAST HISTORY: altered COMPARISON: CT HEAD WITHOUT CONTRAST on DOS: 03/14/25, CT HEAD WITHOUT CONTRAST on DOS: 03/02/25 TECHNIQUE: Axial images of the head were obtained and reformatted in coronal and sagittal planes. All CT scans at this medical facility are performed using dose modulation techniques as appropriate t o a performed exam including the following: Automated exposure control was utilized; adjustment of th e MA and/or KV according to patient size; and use of iterative reconstruction technique. CT Dose: CTDI volume is 65 mGy. Dose-length product is 1987 mGy*cm FINDINGS: There is no evidence of acute intracranial hemorrhage, mass, mass effect midline shift. There is no h ydrocephalus or extra-axial fluid collection. Rodriguez-white matter differentiation is maintained. The visualized paranasal sinuses and mastoid air cells are clear. The calvarium is intact. IMPRESSION: 1. No acute intracranial process. HS:Y
--- NOTE | 2025-04-19 09:40 | DVH ---
CT ABDOMEN AND PELVIS WITHOUT CONTRAST CLINICAL HISTORY: distended TECHNIQUE: Multiple contiguous axial images of the abdomen and pelvis without intravenous contrast. T he images were reformatted degenerate coronal and sagittal reconstructions. All CT scans at this medical facility are performed using dose modulation techniques as appropriate t o a performed exam including the following:Automated exposure control was utilized; adjustment of the MA and/or KV according to patient size; and use of iterative reconstruction technique. Radiation Dose Information: CT Dose: CTDI volume is 11 mGy. Dose-length product is 1987 mGy*cm Comparison: None FINDINGS: Evaluation of the abdomen and pelvis is limited without intravenous contrast. There is a small size liver with nodular surface contour compatible with hepatic cirrhosis. The gallbladder, pancreas, kidneys, adrenal glands, and spleen appear within normal limits. There is large amount of ascites. There is no free intraperitoneal air. The stomach grossly appears unremarkable. There are mildly dilated fluid-filled small bowel loops in the right abdomen measuring up to 3.1 cm in diameter. There is no obvious transition point. Air inte rmixed with stool is seen in the nondilated colon. The abdominal aorta and IVC appear within normal limits. The bladder appears unremarkable for the degree of distention. Pelvic organ appears within normal zapien its. There is no gross evidence of a pelvic mass. There is free fluid in the pelvis. There is scarring versus atelectasis in the bilateral posterior lung bases. There is no acute osseous abnormality. IMPRESSION: 1. Hepatic cirrhosis with large amount of ascites. 2. Mildly dilated fluid-filled small bowel loops in the right abdomen. There is no obvious transitio n point. Findings May relate to small bowel ileus versus enteritis. Clinical correlation is recommend ed. HS:Y
[2025-04-19] MEDS: LACTULOSE 20Gm/30ML SOLN PO ONE (12:37)
[2025-04-19] MEDS ORDERED: HYDROcodone-ACET 5/325MG TAB PO PRN (12:45)
[2025-04-19] MEDS ORDERED: ACETAMINOPHEN 325 MG TAB PO PRN (12:45)
[2025-04-19] MEDS ORDERED: MORPHINE SULFATE INJ 2 MG/ml SYRG IV PRN (12:45)
[2025-04-19] MEDS ORDERED: ONDANSETRON HCL 4 MG/2 ML VIAL IV PRN (12:45)
[2025-04-19] MEDS ORDERED: DOCUSATE SOD 100 MG CAP PO PRN (12:45)
[2025-04-19] MEDS ORDERED: NITROGLYCERIN 0.4 MG SL TAB SL PRN (12:45)
--- NOTE | 2025-04-19 13:14 | DVHHP2 ---
History of Present Illness Reason for Visit: ALOC History of Present Illness Julián Lindsay is a 44-year-old male with past medial history of hypotension, liver cirrhosis, and ESRD on HD M,W,F, who was brought in for ALOC. Daughter states she found him confused around 0600, last known well time is yesterday about 2200. Patient is able to tell me his name and date of on assessment. However, when asked other questions he answers with his date of most of the time. Sometimes he will answer with a yes or no, but difficult to assess if it is an appropriate response. Cardiovascular: Other (Hypotension) Hepatobiliary: Cirrhosis Renal/: Chronic renal failure Smoke: No ALCOHOL: none Drugs: None Lives: Alone Domestic Violence: Neg Review of Systems Constitutional: No: Fever, Chills, Sweats, Weakness, Malaise, Other Eyes: No: Pain, Vision change, Conjunctivae inflammation, Eyelid inflammation, Other, Redness ENT: No: Ear pain, Ear discharge, Nose pain, Nose discharge, Nose congestion, Mouth pain, Mouth swelling, Throat pain, Throat swelling, Other Respiratory: No: Cough, Dry, Shortness of breath, SOB with excertion, Wheezing, Hemoptysis, Pleuritic Pain, Sputum, Wheezing, Other Cardiovascular: No: Chest Pain, Palpitations, Orthopnea, Paroxysmal Noc. Dyspnea, Edema, Lt Headedness, Other Gastrointestinal: No: Nausea, Vomiting, Abdominal Pain, Diarrhea, Constipation, Melena, Hematochezia, Other Genitourinary: No Dysuria, No Frequency, No Incontinence, No Hematuria, No Retention, No Other Musculoskeletal: No: other, neck pain, shoulder pain, arm pain, back pain, hand pain, leg pain, foot pain Skin: No: Rash, Lesions, Jaundice, Bruising, Other Neurological: Weakness, Incoordination, Change in speech, Confusion; No: Numbness, Seizures, Other Allergies: Coded Allergies: NO KNOWN ALLERGIES (Unverified , 03/02/25) Exam Vital Signs Vital Signs Date Time Temp Pulse Resp B/P (MAP) Pulse Ox O2 Delivery O2 Flow Rate FiO2 04/19/25 12:44 68 15 97/62 (74) 98 04/19/25 08:30 97.8 97.8 04/19/25 08:30 Room Air* 0 21 General Appearance: Alert, Cooperative, mild distress, Other (Oriented x 1) HEENT: Atraumatic, PERRLA Respiratory: Clear to auscultation, Normal air movement Cardiovascular: Regular rate, Normal S1, Normal S2, No murmurs Abdominal: Normal bowel sounds, No tenderness, No hepatospenomegaly, Other (firm, distended) Extremities: No clubbing, No cyanosis, No edema, Normal pulses, No tenderness/swelling Skin: No rashes, No breakdown, No significant lesion Neuro: Normal gait, Strength at 5/5 X4 ext Psych/Mental Status: Mood NL Labs/Xrays Labs Test 04/19/25 08:16 04/19/25 08:06 Range/Units White Blood Count 3.8 L 4.4-10.8 10^3/uL Red Blood Count 2.84 L 4.5-5.90 10^6/uL Hemoglobin 9.0 L 13.5-17.5 g/dL Hematocrit 26.9 L 41.0-53.0 % Mean Corpuscular Volume 94.8 80.0-100.0 fL Mean Corpuscular Hemoglobin 31.5 28.0-32.0 pg Mean Corpuscular Hemoglobin Concent 33.3 32.0-36.0 g/dL Red Cell Distribution Width 17.3 H 11.8-14.3 % Platelet Count 163 140-450 10^3/uL Mean Platelet Volume 8.7 6.9-10.8 fL Neutrophils (%) (Auto) 52.2 37.0-80.0 % Lymphocytes (%) (Auto) 30.5 10.0-50.0 % Monocytes (%) (Auto) 10.1 0.0-12.0 % Eosinophils (%) (Auto) 6.5 0.0-7.0 % Basophils (%) (Auto) 0.7 0.0-2.0 % Neutrophils # (Auto) 2.0 1.6-8.6 10 ^3/uL Lymphocytes # (Auto) 1.1 0.4-5.4 10 ^3/uL Monocytes # (Auto) 0.4 0-1.3 10 ^3/uL Eosinophils # (Auto) 0.2 0-0.8 10 ^3/uL Basophils # (Auto) 0 0-0.2 10 ^3/uL Nucleated Red Blood Cells 0.1 % Sodium Level 137 136-145 mmol/L Potassium Level 4.2 3.5-5.1 mmol/L Chloride Level 101 98-107 mmol/L Carbon Dioxide Level 27 20-31 mmol/L Anion Gap 9 5-15 Blood Urea Nitrogen 18 9-23 mg/dL Creatinine 2.38 H 0.700-1.30 mg/dL Glomerular Filtration Rate Calc 33 >90 mL/min BUN/Creatinine Ratio 7.6 L 10.0-20.0 Serum Glucose 86 74-106 mg/dL Calcium Level 8.5 L 8.7-10.4 mg/dL Lactic Acid Level 2.0 0.4-2.0 mmol/L Ammonia 94 H 11-32 umol/L CT ABDOMEN AND PELVIS WITHOUT CONTRAST FINDINGS: Evaluation of the abdomen and pelvis is limited without intravenous contrast. There is a small size liver with nodular surface contour compatible with hepatic cirrhosis. The gallbladder, pancreas, kidneys, adrenal glands, and spleen appear within normal limits. There is large amount of ascites. There is no free intraperitoneal air. The stomach grossly appears unremarkable. There are mildly dilated fluid-filled small bowel loops in the right abdomen measuring up to 3.1 cm in diameter. There is no obvious transition point. Air intermixed with stool is seen in the nondilated colon. The abdominal aorta and IVC appear within normal limits. The bladder appears unremarkable for the degree of distention. Pelvic organ appears within normal limits. There is no gross evidence of a pelvic mass. There is free fluid in the pelvis. There is scarring versus atelectasis in the bilateral posterior lung bases. There is no acute osseous abnormality. IMPRESSION: 1. Hepatic cirrhosis with large amount of ascites. 2. Mildly dilated fluid-filled small bowel loops in the right abdomen. There is no obvious transition point. Findings May relate to small bowel ileus versus enteritis. Clinical correlation is recommended. CHEST RADIOGRAPH FINDINGS: Lines and Tubes: Tunneled right central venous catheter in satisfactory position Lungs: Low lung volumes. Mild congestion. Pleura: No effusion. No pneumothorax. Cardiomediastinal contours: Cardiomegaly Bones: Unremarkable IMPRESSION: Low lung volumes. Mild congestion. EXAM: CT HEAD WITHOUT CONTRAST FINDINGS: There is no evidence of acute intracranial hemorrhage, mass, mass effect midline shift. There is no hydrocephalus or extra-axial fluid collection. Rodriguez-white matter differentiation is maintained. The visualized paranasal sinuses and mastoid air cells are clear. The calvarium is intact. IMPRESSION: 1. No acute intracranial process. Assessment/Plan Assessment/Plan Assessment: Hepatic encephalopathy, Ascites, ESRD on HD, Plan: Admit to Tele, Nephrology consult, Lactulose Q 6 hours, Radiology consult for paracentesis, Ammonia level in morning, Home medications reconciled, Plan discussed with: Patient My Orders Orders - MICHELLE TAYLOR Procedure Category Date Status Time Admit ADMIT 04/19/25 Transmitted 12:37 Code Status CODE 04/19/25 Transmitted 12:37 Renal DIET 04/19/25 Transmitted Standard(2gna,3gk,Lopho) Lunch Sodium Chloride Lock PHA 04/19/25 Transmitted (Saline Lock Ns) 14:00 Ondansetron Hcl PHA 04/19/25 Transmitted (Zofran) 12:45 Docusate Sodium PHA 04/19/25 Transmitted Capsule (Colace 12:45 Complete Blood Count LAB 04/20/25 Verified 04:00 Comprehensive LAB 04/20/25 Verified Metabolic Panel 04:00 Condition: Critical [facility] 04/19/25 Transmitted 12:37 Acetaminophen Tablet PHA 04/19/25 Transmitted (Tylenol Tablet) 12:45 Nitroglycerin PHA 04/19/25 Transmitted Sublingual (Ntrostat 12:45 Morphine Sulfate PHA 04/19/25 Transmitted Injection 12:45 Stat Ekg For Chest [facility] 04/19/25 Transmitted Pain 12:37 Notify Md Of Changes [facility] 04/19/25 Transmitted From Base 12:37 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 Nguyen Rutledge -Da CONS 04/19/25 Transmitted Greta 12:37 Hydrocodone-Acet PHA 04/19/25 Verified 5/325mg Tab ([place] 12:45 Date of Service: April 19, 2025 Billing Provider: MICHELLE TAYLOR Common Visit Codes: [id number] INP/OBS CARE (MOD) MICHELLE TAYLOR [facility] April 19, 2025 13:14
--- NOTE | 2025-04-19 13:37 | ECG ---
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
--- NOTE | 2025-04-19 13:52 | DVH ---
ULTRASOUND ABDOMEN limited, 4 QUADRANTS INDICATION: FLUID CHECK FOR POSSIBLE PARACENTESIS Evaluate for ascites. TECHNIQUE: The four quadrants of the abdomen were scanned in pitts-scale to assess for the presence of ascites. N o solid organ assessment was performed. FINDINGS/IMPRESSIONS: Large volume ascites.
[2025-04-19] MEDS: SODIUM CHLOR 0.9% PF (SALINE LOCK) 10ML VIAL/SYR IV SCH (14:00)
[2025-04-19 14:27] LABS: INR 1.05 (0.9-1.15); Partial Thromboplastin Time 28.5 SEC (24.5-34.5); Prothrombin Time 11.1 sec (9.3-11.8)
[2025-04-19] MEDS: MIDODRINE HCL 10 MG TAB PO SCH (18:17)
[2025-04-19] MEDS: LACTULOSE 20Gm/30ML SOLN PO SCH (18:17)
[2025-04-19 19:45] VITALS: PULSE 81; RESP 13; O2SAT 98
[2025-04-20] VITALS (8 sets, daily range): BP systolic 98–155; BP diastolic 57–75; PULSE 70–86; RESP 16–20; TEMP 96.8–98.9; O2SAT 96–100
[2025-04-20 08:42] LABS: Basophils # (auto) 0 10 ^3/uL (0-0.2); Basophils % (auto) 0.6 % (0.0-2.0); Eosinophils # (auto) 0.3 10 ^3/uL (0-0.8); Eosinophils % (auto) 7.6 % (0.0-7.0); Hematocrit 27.2 % (41.0-53.0); Hemoglobin 9.1 g/dL (13.5-17.5); Lymphocytes # (auto) 1.1 10 ^3/uL (0.4-5.4); Lymphocytes % (auto) 29.6 % (10.0-50.0); Mean Corpuscular Hemoglobin 31.7 pg (28.0-32.0); Mean Corpuscular Hgb Conc. 33.5 g/dL (32.0-36.0); Mean Corpuscular Volume 94.6 fL (80.0-100.0); Monocytes # (auto) 0.3 10 ^3/uL (0-1.3); Monocytes % (auto) 8.2 % (0.0-12.0); Neutrophils # (auto) 1.9 10 ^3/uL (1.6-8.6); Nucleated Red Blood Cells % 0.1 %; Platelet Count (auto) 165 10^3/uL (140-450); Red Blood Cells 2.87 10^6/uL (4.5-5.90); Red Cell Distribution Width 16.7 % (11.8-14.3); White Blood Cell 3.6 10^3/uL (4.4-10.8)
[2025-04-20 08:56] LABS: Alanine Aminotransferase 27 U/L (7-40); Alkaline Phosphatase 121 U/L (46-116); Anion Gap 7 (5-15); Aspartate Aminotransferase 27 U/L (13-40); BUN/Creatinine Ratio 11.6 (10.0-20.0); Bilirubin, Total 0.8 mg/dL (0.2-1.0); Blood Urea Nitrogen 25 mg/dL (9-23); Calcium 9.1 mg/dL (8.7-10.4); Carbon Dioxide 27 mmol/L (20-31); Chloride 110 mmol/L (98-107); Glucose 89 mg/dL (74-106); Potassium 3.8 mmol/L (3.5-5.1); Sodium 144 mmol/L (136-145); Total Protein 5.3 g/dL (5.7-8.2)
[2025-04-20] MEDS: MAGNESIUM OXIDE 400 MG TAB PO SCH (09:33)
[2025-04-20] MEDS ORDERED: PATIENTS OWN MEDICATION (Magnesium Oxide (Mag-Ox) 1 TAB) PO SCH (10:00)
[2025-04-20 13:21] LABS: Urine Bacteria None Seen /hpf (None Seen)
[2025-04-20 13:30] LABS: Urine Blood Negative /uL (Negative); Urine Clarity Clear (Clear); Urine Color Yellow (Yellow); Urine Hyaline Cast FEW /lpf (0 - 2); Urine Protein, UAD Negative (Negative); Urine Specific Gravity 1.013 (1.001-1.035); Urine Squamous Epithelial Cell FEW /hpf (<5); Urine Urobilinogen Normal (Negative); Urine WBC 1 /HPF (0-3)
--- NOTE | 2025-04-20 14:40 | DVH ---
US PARACENTESIS, HISTORY: ASCITES PROCEDURE: Informed consent was obtained. The patient was placed in supine position. A limited locali zation ultrasound of the abdomen was obtained, and the skin site over the largest pocket of fluid was marked and entry site was prepped with chlorhexidine which was allowed to dry and draped in the usua l sterile fashion. Time out was performed. Following administration of 1% lidocaine local anesthetic, a 5 [place] centesis needle catheter was percutaneously inserted into the peritoneal collection until fluid was aspirated. The catheter was advanced into the fluid collection and the needle removed. Abo ut 5400 cc of fluid was aspirated . The catheter was then removed and a sterile dressing applied. No immediate complication was identified. FINDINGS: Limited ultrasound imaging demonstrates moderate ascites. Aspirated fluid was clear and ser ous. IMPRESSION: US-guided paracentesis with 5.4L removed.
[2025-04-20 14:48] LABS: Body Fluid Red Blood Cells 203 CUMM (0-2000); Body Fluid White Blood Cells 154 CUMM (0-200)
--- NOTE | 2025-04-20 15:40 | DVHINCON2 ---
Date of service: April 20, [address] Vivas Reason for Consultation End-stage kidney disease History of Present Illness This is a 44-year-old male with history of end-stage kidney disease on hemodialysis 3 times a week, liver cirrhosis brought into the emergency room by the daughter because of increasing confusion. Patient admitted with impression of hepatic encephalopathy. Nephrology consulted for continuation of dialysis. Patient is started on lactulose. Underwent paracentesis with removal of 5.4 L of fluid. Past Medical History End-stage kidney disease on hemodialysis Liver cirrhosis Past Surgical History Dialysis access Family History: FH: cancer G8 FATHER Social History No active history of smoking, alcohol or drug abuse Allergies: Coded Allergies: NO KNOWN ALLERGIES (Unverified , 03/02/25) Home Meds Active Scripts Polyethylene Glycol 3350 (Goodsense Clearlax) 17 Gm/Scoop Pow, 17 GM PO DAILYP PRN for 30 Days, #30 POW 1 Refill Prov:SULY GARCIA [facility] 03/25/25 Midodrine HCl (Midodrine HCl) 10 Mg Tab, 10 MG PO TID@0600,1200,1800 for 30 Days, #100 TAB Prov:SULY GARCIA [facility] 03/25/25 Rifaximin (Xifaxan) 550 Mg Tab, 1 TAB PO BID for 30 Days, #60 TAB 1 Refill Prov:GORGE WORTHINGTONSULY [facility] 03/25/25 Lactulose (Lactulose) 10 Gm/15 Ml Monisha, 30 ML PO BID for 30 Days, #1600 ML 1 Refill Prov:GORGE WORTHINGTONSULY [facility] 03/25/25 Reported Medications Magnesium Oxide (Mag-Ox) 400 Mg Tb, 1 TAB PO DAILY 03/02/25 Spironolactone (Spironolactone) 50 Mg Tab, 1 TAB PO BID 03/02/25 Furosemide (Furosemide) 80 Mg Tab, 2 PO BID 03/02/25 Discontinued Reported Medications Midodrine Hcl (Midodrine Hcl) 10 Mg Tab, PO 03/02/25 Current Medications Current Medications Medications (Trade) Dose Ordered Sig/Bhumi Route PRN Reason Start Time Stop Time Status Last Admin Lactulose 30 ml Q6HR PO 04/19/25 18:04/20/25 12:52 Midodrine (Proamatine Tablet) 10 mg TID@0600,1200,1800 PO 04/19/25 18:00 04/20/25 12:52 Patient Own Medication 1 tab DAILY PO 04/20/25 10:00 UNV Magnesium Oxide (Mag-Ox Tablet) 400 mg DAILY PO 04/20/25 10:00 04/20/25 09:33 Review of Systems 12 point review of systems negative except as stated in the HPI Vital Signs Vital Signs Date Time Temp Pulse Resp B/P (MAP) Pulse Ox O2 Delivery O2 Flow Rate FiO2 04/20/25 13:00 97.3 72 16 106/61 (76) 100 97.3 04/20/25 08:00 Room Air* 0 21 Physical Exam General Appearance: In no acute distress HEENT: Atraumatic, PERRLA Respiratory: Clear to auscultation, Normal air movement Cardiovascular: Regular rate, Normal S1, Normal S2, No murmurs Abdominal: Normal bowel sounds Extremities: No clubbing, No cyanosis, No edema, Normal pulses, No tenderness/swelling Skin: No rashes, No breakdown, No significant lesion Neuro: Normal gait, Strength at 5/5 X4 ext Psych/Mental Status: Mood NL Labs/Diagnostic Data Labs Test 04/20/25 13:00 04/20/25 12:05 04/20/25 08:01 04/19/25 13:51 Range/Units Urine Color Yellow Yellow Urine Clarity Clear Clear Urine pH 8.0 5.0-9.0 Urine Specific [place] 1.013 1.001-1.035 Urine Protein Negative Negative Urine Ketones Negative Negative Urine Blood Negative Negative /uL Urine Nitrite Negative Negative Urine Bilirubin Negative Negative Urine Urobilinogen Normal Negative mg/dL Urine Leukocyte Esterase Negative Negative /uL Urine RBC None seen 0 - 3 /hpf Urine Microscopic WBC 1 0-3 /HPF Urine Squamous Epithelial Cells Few <5 /hpf Urine Bacteria None seen None Seen /hpf Urine Hyaline Casts Few 0 - 2 /lpf Urine Glucose Normal Normal mg/dL Body Fluid Source Peritoneal fluid Body Fluid pH 8.0 Body Fluid WBC (Manual) 154 0-200 CUMM Body Fluid RBC (Manual) 203 0-2000 CUMM Body Fluid Mononuclear Cells 98 % Body Fluid Polymorphonuclear Cells 2 0-25 % White Blood Count 3.6 L 4.4-10.8 10^3/uL Red Blood Count 2.87 L 4.5-5.90 10^6/uL Hemoglobin 9.1 L 13.5-17.5 g/dL Hematocrit 27.2 L 41.0-53.0 % Mean Corpuscular Volume 94.6 80.0-100.0 fL Mean Corpuscular Hemoglobin 31.7 28.0-32.0 pg Mean Corpuscular Hemoglobin Concent 33.5 32.0-36.0 g/dL Red Cell Distribution Width 16.7 H 11.8-14.3 % Platelet Count 165 140-450 10^3/uL Mean Platelet Volume 8.0 6.9-10.8 fL Neutrophils (%) (Auto) 54.0 37.0-80.0 % Lymphocytes (%) (Auto) 29.6 10.0-50.0 % Monocytes (%) (Auto) 8.2 0.0-12.0 % Eosinophils (%) (Auto) 7.6 H 0.0-7.0 % Basophils (%) (Auto) 0.6 0.0-2.0 % Neutrophils # (Auto) 1.9 1.6-8.6 10 ^3/uL Lymphocytes # (Auto) 1.1 0.4-5.4 10 ^3/uL Monocytes # (Auto) 0.3 0-1.3 10 ^3/uL Eosinophils # (Auto) 0.3 0-0.8 10 ^3/uL Basophils # (Auto) 0 0-0.2 10 ^3/uL Nucleated Red Blood Cells 0.1 % Sodium Level 144 # 136-145 mmol/L Potassium Level 3.8 3.5-5.1 mmol/L Chloride Level 110 H 98-107 mmol/L Carbon Dioxide Level 27 20-31 mmol/L Anion Gap 7 5-15 Blood Urea Nitrogen 25 H 9-23 mg/dL Creatinine 2.15 H 0.700-1.30 mg/dL Glomerular Filtration Rate Calc 38 >90 mL/min BUN/Creatinine Ratio 11.6 10.0-20.0 Serum Glucose 89 74-106 mg/dL Calcium Level 9.1 8.7-10.4 mg/dL Total Bilirubin 0.8 0.2-1.0 mg/dL Aspartate Amino Transferase (AST) 27 13-40 U/L Alanine Aminotransferase (ALT) 27 7-40 U/L Alkaline Phosphatase 121 H 46-116 U/L Ammonia 16 11-32 umol/L Total Protein 5.3 L 5.7-8.2 g/dL Albumin 3.0 L 3.2-4.8 g/dL Prothrombin Time 11.1 9.3-11.8 sec Prothrombin Time INR 1.05 0.9-1.15 Activated Partial Thromboplast Time 28.5 24.5-34.5 SEC Test 04/19/25 08:06 Range/Units Lactic Acid Level 2.0 0.4-2.0 mmol/L Microbiology Date/Time Source Procedure Growth Status 04/19/25 08:16 Blood Blood Culture - Preliminary NO GROWTH AFTER 24 HOURS OF INCUBATION. Resulted Assessment End-stage kidney disease on hemodialysis Hepatic encephalopathy Ascites status post paracentesis History of liver cirrhosis Plan/Recommendation Ammonia levels with improvement. Albumin 25 % 100 mL x1 today. Electrolytes within acceptable limits. No urgency for dialysis today. Plan discussed with: Other SHAUNA ORNELAS MD April 20, 2025 15:40
[2025-04-20] MEDS: ALBUMIN 25% 100 ML IV ONE (17:00)
--- NOTE | 2025-04-20 17:41 | DVHPN2 ---
Subjective Seen and examined at bedside. Underwent paracentesis 5.4L removed. Possible DC tomorrow Changes from previous H/P or p: No Changes Eyes: No Pain, No Vision change, No Conjunctivae inflammation, No Eyelid inflammation, No Other, No Redness ENT: No Ear pain, No Ear discharge, No Nose pain, No Nose discharge, No Nose congestion, No Mouth pain, No Mouth swelling, No Throat pain, No Throat swelling, No Other Cardiovascular: No Chest Pain, No Palpitations, No Orthopnea, No Paroxysmal Noc. Dyspnea, No Edema, No Lt Headedness, No Other Respiratory: No Cough, No Dry, No Shortness of breath, No SOB with excertion, No Wheezing, No Hemoptysis, No Pleuritic Pain, No Sputum, No Other Gastrointestinal: No Nausea, No Vomiting, No Abdominal Pain, No Diarrhea, No Constipation, No Melena, No Hematochezia, No Other Genitourinary: No Dysuria, No Frequency, No Incontinence, No Hematuria, No Retention, No Other Musculoskeletal: No other, No neck pain, No shoulder pain, No arm pain, No back pain, No hand pain, No leg pain, No foot pain Skin: No Rash, No Lesions, No Jaundice, No Bruising, No Other Objective Vitals Vital Signs Date Time Temp Pulse Resp B/P (MAP) Pulse Ox O2 Delivery O2 Flow Rate FiO2 04/20/25 16:37 97.7 70 18 99/66 (77) 100 97.7 04/20/25 08:00 Room Air* 0 21 Intake/Output Intake and Output 04/20/25 07:00 Intake Total 2290 ml Output Total 900 ml Balance 1390 ml Intake Oral 0 ml IV Total 2050 ml Other 240 ml Output Urine Total 900 ml General Appearance: Alert, Oriented X3, Cooperative, No acute distress Neck: Other (Right Dialysis Catheter) Lungs: Other (Creps) Cardiovascular: Regular rate, Normal S1, Normal S2 Psych/Mental Status: Mental status NL Medications Current Medications Medications Dose Ordered Sig/Bhumi Route Start Time Stop Time Status Last Admin Dose Admin Sodium Chloride 10 ml Q8HR IV 04/19/25 14:00 04/20/25 12:52 10 ML Acetaminophen/ Hydrocodone Bitart 1 tab Q4HP PRN PO 04/19/25 12:45 Ondansetron HCl 4 mg Q4HP PRN IV 04/19/25 12:45 Docusate Sodium 100 mg BIDPRN PRN PO 04/19/25 12:45 Acetaminophen 650 mg Q6HP PRN PO 04/19/25 12:45 Nitroglycerin 0.4 mg Q5MINP PRN SL 04/19/25 12:45 Morphine Sulfate 2 mg Q30M PRN IV 04/19/25 12:45 Lactulose 30 ml Q6HR PO 04/19/25 18:00 04/20/25 17:01 30 ML Midodrine 10 mg TID@0600,1200,1800 PO 04/19/25 18:00 04/20/25 12:52 10 MG Patient Own Medication 1 tab DAILY PO 04/20/25 10:00 UNV Magnesium Oxide 400 mg DAILY PO 04/20/25 10:00 04/20/25 09:33 400 MG Laboratory Results Laboratory Tests 04/20/25 08:01 Chemistry Test 04/20/25 08:01 Albumin 3.0 g/dL (3.2-4.8) L Calcium Level 9.1 mg/dL (8.7-10.4) Total Protein 5.3 g/dL (5.7-8.2) L LFT Test 04/20/25 08:01 Alanine Aminotransferase (ALT) 27 U/L (7-40) Alkaline Phosphatase 121 U/L (46-116) H Aspartate Amino Transferase (AST) 27 U/L (13-40) Total Bilirubin 0.8 mg/dL (0.2-1.0) Urinalysis Test 04/20/25 13:00 Urine Color Yellow (Yellow) Urine Clarity Clear (Clear) Urine pH 8.0 (5.0-9.0) Urine Specific [place] 1.013 (1.001-1.035) Urine Protein Negative (Negative) Urine Ketones Negative (Negative) Urine Blood Negative /uL (Negative) Urine Nitrite Negative (Negative) Urine Bilirubin Negative (Negative) Urine Urobilinogen Normal mg/dL (Negative) Urine Leukocyte Esterase Negative /uL (Negative) Urine RBC None seen /hpf (0 - 3) Urine Microscopic WBC 1 /HPF (0-3) Urine Squamous Epithelial Cells Few /hpf (<5) Urine Bacteria None seen /hpf (None Seen) Urine Hyaline Casts Few /lpf (0 - 2) Urine Glucose Normal mg/dL (Normal) Microbiology Microbiology Date/Time Source Procedure Growth Status 04/19/25 08:16 Blood Blood Culture - Preliminary NO GROWTH AFTER 24 HOURS OF INCUBATION. Resulted Assessment/Plan Assessment/Plan # Fluid Overload due to Ascites - s/p Paracentesis 5.4L removed # ESRD on HD # Pulm Edema # Liver Cirrhosis # Moderate protein malnutrition- Consult Dietary Plan discussed with: Patient My Orders Orders - MAIRA VELASQUEZ MD Procedure Category Date Status Time Dietary Cons For NOURISH 04/20/25 Transmitted Malnutrition 17:37 Date of Service: April 20, 2025 Billing Provider: MAIRA VELASQUEZ MD Common Visit Codes: [id number] INP/OBS CARE(HIGH) MAIRA VELASQUEZ MD April 20, 2025 17:41
[2025-04-20] MEDS: rifAXIMin 550 MG TAB PO SCH (22:13)
[2025-04-21 05:00] VITALS: BP 92/60; PULSE 78; RESP 18; TEMP 99.3; O2SAT 99
[2025-04-21 06:54] LABS: Hemoglobin 8.4 g/dL (13.5-17.5)
[2025-04-21 07:00] LABS: Hematocrit 25.2 % (41.0-53.0)
[2025-04-21] MEDS ORDERED: SODIUM CHL 0.9% 1000 ML BAG XX ONE (07:00)
[2025-04-21 08:00] VITALS: PULSE 70; PULSE 72; RESP 18; O2SAT 99
[2025-04-21 09:00] VITALS: BP 96/66; PULSE 70; RESP 18; TEMP 98.3; O2SAT 99
[2025-04-21 13:00] VITALS: BP 101/66; PULSE 79; RESP 18; TEMP 98.3; O2SAT 97
[2025-04-21 13:07] LABS: Protein, Body Fluid 1.6 g/dL (.)
--- NOTE | 2025-04-21 15:26 | DVHDS2 ---
Discharge Summary Date of Admission April 19, 2025 at 12:37 Date of Discharge: April 21, 2025 Admitting Diagnosis Fluid Overload due to Ascites Labs/Diagnostic Data: Laboratory Results Test 04/21/25 05:23 04/20/25 13:00 04/20/25 12:05 04/20/25 08:01 Hemoglobin 8.4 g/dL (13.5-17.5) Hematocrit 25.2 % (41.0-53.0) Urine Color Yellow (Yellow) Urine Clarity Clear (Clear) Urine pH 8.0 (5.0-9.0) Urine Specific [place] 1.013 (1.001-1.035) Urine Protein Negative (Negative) Urine Ketones Negative (Negative) Urine Blood Negative /uL (Negative) Urine Nitrite Negative (Negative) Urine Bilirubin Negative (Negative) Urine Urobilinogen Normal mg/dL (Negative) Urine Leukocyte Esterase Negative /uL (Negative) Urine RBC None seen /hpf (0 - 3) Urine Microscopic WBC 1 /HPF (0-3) Urine Squamous Epithelial Cells Few /hpf (<5) Urine Bacteria None seen /hpf (None Seen) Urine Hyaline Casts Few /lpf (0 - 2) Urine Glucose Normal mg/dL (Normal) Body Fluid Source Peritoneal fluid Body Fluid pH 8.0 Body Fluid WBC (Manual) 154 CUMM (0-200) Body Fluid RBC (Manual) 203 CUMM (0-2000) Body Fluid Mononuclear Cells 98 % Body Fluid Polymorphonuclear Cells 2 % (0-25) Body Fluid Glucose 99 mg/dL (.) Body Fluid Total Protein 1.6 g/dL (.) Body Fluid Lactate Dehydrogenase 54 IU/L (.) White Blood Count 3.6 10^3/uL (4.4-10.8) Red Blood Count 2.87 10^6/uL (4.5-5.90) Mean Corpuscular Volume 94.6 fL (80.0-100.0) Mean Corpuscular Hemoglobin 31.7 pg (28.0-32.0) Mean Corpuscular Hemoglobin Concent 33.5 g/dL (32.0-36.0) Red Cell Distribution Width 16.7 % (11.8-14.3) Platelet Count 165 10^3/uL (140-450) Mean Platelet Volume 8.0 fL (6.9-10.8) Neutrophils (%) (Auto) 54.0 % (37.0-80.0) Lymphocytes (%) (Auto) 29.6 % (10.0-50.0) Monocytes (%) (Auto) 8.2 % (0.0-12.0) Eosinophils (%) (Auto) 7.6 % (0.0-7.0) Basophils (%) (Auto) 0.6 % (0.0-2.0) Neutrophils # (Auto) 1.9 10 ^3/uL (1.6-8.6) Lymphocytes # (Auto) 1.1 10 ^3/uL (0.4-5.4) Monocytes # (Auto) 0.3 10 ^3/uL (0-1.3) Eosinophils # (Auto) 0.3 10 ^3/uL (0-0.8) Basophils # (Auto) 0 10 ^3/uL (0-0.2) Nucleated Red Blood Cells 0.1 % Sodium Level 144 mmol/L (136-145) Potassium Level 3.8 mmol/L (3.5-5.1) Chloride Level 110 mmol/L (98-107) Carbon Dioxide Level 27 mmol/L (20-31) Anion Gap 7 (5-15) Blood Urea Nitrogen 25 mg/dL (9-23) Creatinine 2.15 mg/dL (0.700-1.30) Glomerular Filtration Rate Calc 38 mL/min (>90) BUN/Creatinine Ratio 11.6 (10.0-20.0) Serum Glucose 89 mg/dL (74-106) Calcium Level 9.1 mg/dL (8.7-10.4) Total Bilirubin 0.8 mg/dL (0.2-1.0) Aspartate Amino Transferase (AST) 27 U/L (13-40) Alanine Aminotransferase (ALT) 27 U/L (7-40) Alkaline Phosphatase 121 U/L (46-116) Ammonia 16 umol/L (11-32) Total Protein 5.3 g/dL (5.7-8.2) Albumin 3.0 g/dL (3.2-4.8) Test 04/19/25 13:51 04/19/25 08:06 Prothrombin Time 11.1 sec (9.3-11.8) Prothrombin Time INR 1.05 (0.9-1.15) Activated Partial Thromboplast Time 28.5 SEC (24.5-34.5) Lactic Acid Level 2.0 mmol/L (0.4-2.0) Other Laboratory Tests 04/21/25 05:23 04/20/25 08:01 Brief Hx & Hospital Course: Julián Lindsay is a 44-year-old male with past medial history of hypotension, liver cirrhosis, and ESRD on HD M,W,F, who was brought in for ALOC. Daughter states she found him confused around 0600, last known well time is yesterday about 2200. Patient underwent paracentesis had 5.4L removed. Patient can be discharged home to followup as outpatient. Operations or Procedures US PARACENTESIS, HISTORY: ASCITES PROCEDURE: Informed consent was obtained. The patient was placed in supine position. A limited localization ultrasound of the abdomen was obtained, and the skin site over the largest pocket of fluid was marked and entry site was prepped with chlorhexidine which was allowed to dry and draped in the usual sterile fashion. Time out was performed. Following administration of 1% lidocaine local anesthetic, a 5 [place] centesis needle catheter was percutaneously inserted into the peritoneal collection until fluid was aspirated. The catheter was advanced into the fluid collection and the needle removed. About 5400 cc of fluid was aspirated . The catheter was then removed and a sterile dressing applied. No immediate complication was identified. FINDINGS: Limited ultrasound imaging demonstrates moderate ascites. Aspirated fluid was clear and serous. IMPRESSION: US-guided paracentesis with 5.4L removed. Condition at Discharge: Poor Final Diagnosis/Problems List # Fluid Overload due to Ascites - s/p Paracentesis 5.4L removed # ESRD on HD # Pulm Edema # Liver Cirrhosis # Moderate protein malnutrition- Consult Dietary Discharge Disposition: Home Discharge Instruct/Medications Diet: Renal Activity: Light activity Follow Up/Referral: DC Clinic Discharge Statement: "Patient was advised to return to the ER or call 911 if any headaches, dizziness, shortness of breath, chest pain, abdominal pain, bleeding, fevers, or worsening of medical condition. Patient was counseled about treatment plan, medications, possible side effects, patientverbalized understanding. All questions were answered to the best of my ability. This discharge took greater then 30 minutes in planning, reviewing documentation, counseling the patient, and discussing with other team members." ASSESSMENT ASSESSMENT Assessment Date of Service: April 21, 2025 Billing Provider: MAIRA VELASQUEZ MD Common Visit Codes: [id number] DISCH DAY >30min MAIRA VELASQUEZ MD April 21, 2025 15:26
--- NOTE | 2025-04-21 16:12 | DVHPN2 ---
Progress Note - Dictate Date Seen: April 21, 2025 Medical Necessity Reason Pt with a Central, PICC or Fol: No Subjective no acute issues overnight vital signs Vital Sign Date Time Temp Pulse Resp B/P (MAP) Pulse Ox O2 Delivery O2 Flow Rate FiO2 04/21/25 13:00 98.3 79 18 101/66 (78) 97 98.3 04/21/25 08:00 Room Air* 0 21 Total Intake and Output 04/20/25 04/20/25 04/21/25 15:00 23:00 07:00 Intake Total 360 ml 570 ml 700 ml Balance 360 ml 570 ml 700 ml medications Current Medications Medications Dose Ordered Sig/Bhumi Route Start Time Stop Time Status Last Admin Dose Admin Sodium Chloride 10 ml Q8HR IV 04/19/25 14:00 04/21/25 13:03 10 ML Acetaminophen/ Hydrocodone Bitart 1 tab Q4HP PRN PO 04/19/25 12:45 Ondansetron HCl 4 mg Q4HP PRN IV 04/19/25 12:45 Docusate Sodium 100 mg BIDPRN PRN PO 04/19/25 12:45 Acetaminophen 650 mg Q6HP PRN PO 04/19/25 12:45 Nitroglycerin 0.4 mg Q5MINP PRN SL 04/19/25 12:45 Morphine Sulfate 2 mg Q30M PRN IV 04/19/25 12:45 Lactulose 30 ml Q6HR PO 04/19/25 18:00 04/21/25 11:41 30 ML Midodrine 10 mg TID@0600,1200,1800 PO 04/19/25 18:00 04/21/25 11:41 10 MG Patient Own Medication 1 tab DAILY PO 04/20/25 10:00 UNV Magnesium Oxide 400 mg DAILY PO 04/20/25 10:00 04/21/25 11:30 400 MG Rifaximin 550 mg BID PO 04/20/25 22:00 04/21/25 11:30 550 MG objective General Appearance: In no acute distress HEENT: Atraumatic, PERRLA Respiratory: Clear to auscultation, Normal air movement Cardiovascular: Regular rate, Normal S1, Normal S2, No murmurs Abdominal: Normal bowel sounds Extremities: No clubbing, No cyanosis, No edema, Normal pulses, No tenderness/swelling Skin: No rashes, No breakdown, No significant lesion Neuro: Normal gait, Strength at 03/28 X4 ext Psych/Mental Status: Mood NL laboratory and microbiology Laboratory Tests 04/21/25 05:23 04/20/25 08:01 Test 04/20/25 08:01 Range/Units Serum Glucose 89 74-106 mg/dL Problem List End-stage kidney disease on hemodialysis Hepatic encephalopathy Ascites status post paracentesis History of liver cirrhosis Assessment/Plan Stable for dc from renal standpoint . F/UP at [facility] tomorrow for HD Plan discussed with: Patient SHAUNA ORNELAS MD April 21, 2025 16:12
[2025-04-21 17:00] VITALS: BP 96/61; PULSE 70; RESP 20; TEMP 98.8; O2SAT 97
[2025-04-21 17:02] VITALS: BP 96/66; PULSE 70; RESP 18; TEMP 98.3; O2SAT 99
[2025-04-21] MEDS ORDERED: EPOETIN ALFA-EPBX 4,000 UNIT/ML VIAL SC ONE (21:00)
== END 2025-04-21 16:17 | disposition home or self-care (01) ==
LOC: ER 07:41 → EDBD 07:41 → OVERFLOW 12:37 → TELE-EAST 04-20 04:30
PROVIDERS: ADMIT Internal Medicine; ATTEND Internal Medicine
PROC: 0W9G3ZZ Drainage of Peritoneal Cavity, Percutaneous Approach (ICD-10-PCS; principal; 2025-04-20)
DX: K76.82 Hepatic encephalopathy (principal); J81.1 Chronic pulmonary edema; N18.6 End stage renal disease; E44.0 Moderate protein-calorie malnutrition; R18.8 Other ascites; K74.60 Unspecified cirrhosis of liver; Z99.2 Dependence on renal dialysis; E87.70 Fluid overload, unspecified; Z68.22 Body mass index [BMI] 22.0-22.9, adult; Z79.899 Other long term (current) drug therapy
CPT/HCPCS: 36415; 49083; 70450; 71045; 74176; 76705; 76942; 80048; 80053; 81001; 82140; 83605; 83986; 85014; 85018; 85025; 85610; 85730; 87040; 87205; 89051; 90935; 93005; 96365; 99291; 99292; G0378; J3490; P9047

== ENCOUNTER 2025-04-27 15:41 | Emergency (ER) | payer MEDICAID ==
[~2025-04-27] VITALS: Ht 165.1 cm; Wt 67.3 kg
[~2025-04-27 15:41] MED LIST changes: -MIDO10TA3 PO
[2025-04-27 16:00] VITALS: TEMP 98.4
--- NOTE | 2025-04-27 16:30 | ED.PDOC ---
GI ASSESSMENT HPI Comments 44y M who presents to the ED for chief complaint of abdominal pain. Pt states he has been having abdominal pain for the past 2-3 days. Pt states he has history of liver cirrhosis and states he has been having abdominal distention for the past 1 week. Pt states he gets paracentesis 1x weekly but states it is the 8th day and states he has not gotten paracentesis since last 1 week. Pt in the otherwise denies any associated symptoms including nausea, vomiting, diarrhea, fever, cough or chills. Pt in the ED, noted to have BP of 95/49 but otherwise all other vitals in normal range. Pt states he otherwise has ESRD on dialysis and gets dialyzed M, W, F and received dialysis today. Pt otherwise denies any o ther symptoms at this time. Chief Complaint: Abdominal Pain Time Seen by MD: 16:27 Primary Care Provider: Dr. Dias Reviewed Notes: Nurses Notes, Medications, Allergies Allergies: Coded Allergies: NO KNOWN ALLERGIES (Unverified , 03/02/25) Home Meds Active Scripts Polyethylene Glycol 3350 (Goodsense Clearlax) 17 Gm/Scoop Pow, 17 GM PO DAILYP PRN for 30 Days, #30 POW 1 Refill Prov:SULY GARCIA RESIDENT 03/25/25 Midodrine HCl (Midodrine HCl) 10 Mg Tab, 10 MG PO TID@0600,1200,1800 for 30 Days, #100 TAB Prov:SULY GARCIA RESIDENT 03/25/25 Rifaximin (Xifaxan) 550 Mg Tab, 1 TAB PO BID for 30 Days, #60 TAB 1 Refill Prov:SULY GARCIA RESIDENT 03/25/25 Lactulose (Lactulose) 10 Gm/15 Ml Monisha, 30 ML PO BID for 30 Days, #1600 ML 1 Refill Prov:SULY GARCIA RESIDENT 03/25/25 Reported Medications Magnesium Oxide (Mag-Ox) 400 Mg Tb, 1 TAB PO DAILY 03/02/25 Spironolactone (Spironolactone) 50 Mg Tab, 1 TAB PO BID 03/02/25 Furosemide (Furosemide) 80 Mg Tab, 2 PO BID 03/02/25 Information Source: Patient Mode of Arrival: Ambulatory Brought in by: self Timing: Days Duration: Since onset Prehospital treatment: None Quality: None Vomitus: None Stool: Normal Severity: Moderate Recent: None Recent Hx of: Liver Disease Pain Location: Diffuse Modifying Factors: Nothing Associated sign and symptoms: Abdominal Pain Past Medical History PAST MEDICAL HISTORY: ESRD, Liver Surgical History: Denies all surgeries Family History Family History: Reviewed,noncontributory to illness Social History Smoker: Non-Smoker Alcohol: Sober Drugs: Denies Drug Use Lives In: Home Constitutional: denies: chills, diaphoresis, fatigue, fever, malaise, sweats, weakness, others EENTM: denies: blurred vision, double vision, ear bleeding, ear discharge, ear drainage, ear pain, ear ringing, eye pain, eye redness, hearing loss, mouth pain, mouth swelling, nasal discharge, nose bleeding, nose congestion, nose pain, photophobia, tearing, throat pain, throat swelling, voice changes, others Respiratory: denies: cough, hemoptysis, orthopnea, SOB at rest, shortness of breath, SOB with excertion, stridor, wheezing, others Cardiovascular: denies: chest pain, dizzy spells, diaphoresis, Dyspnea on exertion, edema, irregular heart beat, left arm pain, lightheadedness, palpitations, PND, syncope, others Gastrointestinal: reports: abdominal pain; denies: abdomen distended, blood streaked bowels, constipated, diarrhea, dysphagia, difficulty swallowing, hematemesis, melena, nausea, poor appetite, poor fluid intake, rectal bleeding, rectal pain, vomiting, others Genitourinary: denies: burning, dysuria, flank pain, frequency, hematuria, incontinence, penile discharge, penile sore, pain, testicle pain, testicle swelling, urgency, others Neurological: denies: dizziness, fainting, headache, left sided numbness, left sided weakness, numbness, paresthesia, pre-existing deficit, right sided numbness, right sided weakness, seizure, speech problems, tingling, tremors, weakness, others Musculoskeletal: denies: back pain, gout, joint pain, joint swelling, muscle pain, muscle stiffness, neck pain, others Integumetry: denies: bruises, change in color, change in hair/nails, dryness, laceration, lesions, lumps, rash, wounds, others Allergic/Immunocompromised: denies: Difficulty Healing, Frequent Infections, Hives, Itching, others Hematologic/Lymphatic: denies: anemia, blood clots, easy bleeding, easy bruising, swollen glands, others Endocrine: denies: excessive hunger, excessive sweating, excessive thirst, excessive urination, flushing, intolerance to cold, intolerance to heat, unexplained weight gain, unexplained weight loss, others Psychiatric: denies: anxiety, bipolar disorder, depression, hopeless, panic disorder, schizophrenia, sleepless, suicidal, others All Other Systems: Reviewed and Negative Physical Exam General Appearance: Moderate Distress HEENT: Pale Conjuntivae (L), Pale Conjuntivae (R), Pharynx Normal, TMs Normal Neck: Full Range of Motion, Non-Tender, Normal, Normal Inspection Respiratory: Chest Non-Tender, Lungs Clear, No Accessory Muscle Use, No Respiratory Distress, Normal Breath Sounds Cardiovascular: No Edema, No JVD, No Murmur, No Gallop, Normal Peripheral Pulses, Regular Rate/Rhythm Breast Exam: Deferred Gastrointestinal: Distended, Hepatomegaly, No Pulsatile Mass, Normal Bowel Sounds Genitalia: Deferred Pelvic: Deferred Rectal: Deferred Extremities: No calf tenderness, Normal capillary refill, Normal inspection, Normal range of motion, Non-tender, No pedal edema Musculoskeletal : Apperance: Normal Neurologic: Alert, 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 Was a procedure done?: No GI differential Dx Differential Diagnosis: Gastritis/PUD, Gastroenteritis, Pancreatitis, Dehydration Other Differential Diagnosis liver disease, paracentesis, X-Ray, Labs, Meds, VS Vital Signs Date Time Temp Pulse Resp B/P (MAP) Pulse Ox O2 Delivery O2 Flow Rate FiO2 04/27/25 16:57 100 15 100/56 (71) 96 04/27/25 16:51 100 15 96 Room Air* 0 21 04/27/25 16:30 107 04/27/25 16:07 107 04/27/25 16:00 98.4 109 18 95/49 (64) 98 98.4 Lab Test 04/27/25 16:20 Range/Units White Blood Count 4.5 4.4-10.8 10^3/uL Red Blood Count 2.74 L 4.5-5.90 10^6/uL Hemoglobin 8.5 L 13.5-17.5 g/dL Hematocrit 25.5 L 41.0-53.0 % Mean Corpuscular Volume 92.7 80.0-100.0 fL Mean Corpuscular Hemoglobin 31.1 28.0-32.0 pg Mean Corpuscular Hemoglobin Concent 33.6 32.0-36.0 g/dL Red Cell Distribution Width 16.1 H 11.8-14.3 % Platelet Count 137 L 140-450 10^3/uL Mean Platelet Volume 8.0 6.9-10.8 fL Neutrophils (%) (Auto) 55.7 37.0-80.0 % Lymphocytes (%) (Auto) 27.6 10.0-50.0 % Monocytes (%) (Auto) 10.5 0.0-12.0 % Eosinophils (%) (Auto) 5.3 0.0-7.0 % Basophils (%) (Auto) 0.9 0.0-2.0 % Neutrophils # (Auto) 2.5 1.6-8.6 10 ^3/uL Lymphocytes # (Auto) 1.3 0.4-5.4 10 ^3/uL Monocytes # (Auto) 0.5 0-1.3 10 ^3/uL Eosinophils # (Auto) 0.2 0-0.8 10 ^3/uL Basophils # (Auto) 0 0-0.2 10 ^3/uL Nucleated Red Blood Cells 0.1 % Prothrombin Time 10.7 9.3-11.8 sec Prothrombin Time INR 1.01 0.9-1.15 Activated Partial Thromboplast Time 28.1 24.5-34.5 SEC Sodium Level 136 136-145 mmol/L Potassium Level 3.7 3.5-5.1 mmol/L Chloride Level 99 98-107 mmol/L Carbon Dioxide Level 31 20-31 mmol/L Anion Gap 6 5-15 Blood Urea Nitrogen 24 H 9-23 mg/dL Creatinine 2.10 H 0.700-1.30 mg/dL Glomerular Filtration Rate Calc 39 >90 mL/min BUN/Creatinine Ratio 11.4 10.0-20.0 Serum Glucose 119 H 74-106 mg/dL Calcium Level 8.5 L 8.7-10.4 mg/dL EXAM: US Abdomen Limited . IMPRESSION: Ascites noted in all 4 quadrants. The patient's CBC shows anemia with a hemoglobin of 8.5 hematocrit 25.5. The BUN is 24 and the creatinine is 2.1 At this time, the patient is being admitted but now he states that he would like to go home because they are not doing the paracentesis until tomorrow The patient states that he asked to take care of his family and is willing to sign out AMA. The patient understands the risks of leaving. 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 Electronically submitted by Freedom White (Disrupt CK). I personally scribed for BRUCE KOHLI MD ([email or web address]) on 04/27/25 at 17:15. Electronically submitted by Freedom White (Disrupt CK). BRUCE KOHLI MD Apr 27, 2025 16:30
[2025-04-27 16:37] LABS: Basophils # (auto) 0 10 ^3/uL (0-0.2); Basophils % (auto) 0.9 % (0.0-2.0); Eosinophils # (auto) 0.2 10 ^3/uL (0-0.8); Eosinophils % (auto) 5.3 % (0.0-7.0); Hematocrit 25.5 % (41.0-53.0); Hemoglobin 8.5 g/dL (13.5-17.5); Lymphocytes # (auto) 1.3 10 ^3/uL (0.4-5.4); Lymphocytes % (auto) 27.6 % (10.0-50.0); Mean Corpuscular Hemoglobin 31.1 pg (28.0-32.0); Mean Corpuscular Hgb Conc. 33.6 g/dL (32.0-36.0); Mean Corpuscular Volume 92.7 fL (80.0-100.0); Monocytes # (auto) 0.5 10 ^3/uL (0-1.3); Monocytes % (auto) 10.5 % (0.0-12.0); Neutrophils # (auto) 2.5 10 ^3/uL (1.6-8.6); Neutrophils % (auto) 55.7 % (37.0-80.0); Nucleated Red Blood Cells % 0.1 %; Platelet Count (auto) 137 10^3/uL (140-450); Red Blood Cells 2.74 10^6/uL (4.5-5.90); Red Cell Distribution Width 16.1 % (11.8-14.3); White Blood Cell 4.5 10^3/uL (4.4-10.8)
[2025-04-27 16:45] LABS: Chloride 99 mmol/L (98-107); Potassium 3.7 mmol/L (3.5-5.1)
[2025-04-27 16:46] LABS: Anion Gap 6 (5-15); Calcium 8.5 mg/dL (8.7-10.4); Carbon Dioxide 31 mmol/L (20-31); Sodium 136 mmol/L (136-145)
[2025-04-27 16:51] VITALS: PULSE 100; RESP 15; O2SAT 96
[2025-04-27 16:51] LABS: BUN/Creatinine Ratio 11.4 (10.0-20.0); Blood Urea Nitrogen 24 mg/dL (9-23); Glucose 119 mg/dL (74-106)
[2025-04-27 16:57] VITALS: BP 100/56; PULSE 100; RESP 15; O2SAT 96
[2025-04-27 16:57] LABS: INR 1.01 (0.9-1.15); Partial Thromboplastin Time 28.1 SEC (24.5-34.5); Prothrombin Time 10.7 sec (9.3-11.8)
--- NOTE | 2025-04-27 17:09 | DVH ---
EXAM: US Abdomen Limited CLINICAL INDICATION: ASCITES TECHNIQUE: Real-time ultrasound of the abdomen limited with image documentation. COMPARISON: US ABDOMEN LIMITED on DOS: 04/19/25, US ABDOMEN LIMITED on DOS: 03/15/25, US ABDOMEN LIMI LUIS ALFREDO on DOS: 03/02/25 FINDINGS: Ascites noted in all 4 quadrants. . IMPRESSION: Ascites noted in all 4 quadrants.
--- NOTE | 2025-04-28 07:07 | ECG ---
[facility] Test Date: 2025-04-27 Test Time: 16:07:36 Pat Name: ILEANA Wisdompartment: ER Room: Gender: Emr Implementation Specialist: MARISSA : 1980 Requested By: BRUCE KOHLI Order Number: [id number] Reading MD: Evin Palma Measurements Intervals [place] Rate: 107 P: 43 NV: 138 QRS: 39 QRSD: 85 T: -7 QT: 395 QTc: 527 Interpretive Statements Sinus tachycardia Borderline low voltage, extremity leads Posterior infarct, old Prolonged QT interval Electronically Signed On 04-28-2025 9:35:09 PDT by Evin Palma Please click the below link to view image of tracing.
== END 2025-04-27 17:39 | disposition left against medical advice (07) ==
LOC: ER 15:45
DX: K70.31 Alcoholic cirrhosis of liver with ascites (principal); N18.6 End stage renal disease; Z79.899 Other long term (current) drug therapy; Z99.2 Dependence on renal dialysis
CPT/HCPCS: 36415; 76705; 80048; 85025; 85610; 85730; 93005

== ENCOUNTER 2025-05-05 08:19 | Inpatient (IN) | payer MEDICAID ==
[~2025-05-05] VITALS: Ht 165.1 cm; Wt 70.0 kg
--- NOTE | 2025-05-05 08:36 | ED.PDOC ---
Altered Mental Status HPI Comments HPI: This is a 44 year old male BIBA presenting to the ED with chief complaint of ALOC. EMS reports that the patient was in the middle of dialysis at [facility], about 2 hours in, when he suddenly became altered and unresponsive to questions. EMS relays that the patient's daughter was on scene and had stated he has had a similar episode in the past being due to hyperammonemia. EMS states patient does not answer questions, does not follow commands, but does make eye contact. EMS denies any LOC, fall, trauma, or any further complaint at this time. Daughter notes patient is complaint with all his medication including lactulose. No history of seizures. Initial Vitals BP: 106/72 HR: 95 RR: 14 O2: 96% Temp: 97.4F Past Medical History: ESRD, CHF, Liver cirrhosis Past Surgical History: Denies Social History: Denies ETOH, smoking, and drug use. Medications: Spirolactone, Lactulose, Lasix, Midodrine Allergies: NDKA DUMONT; DIALYSIS PATIENT, HIGH AMMONIA HPI: Poor Historian. REVIEW OF SYSTEMS: Review of systems limited given the patient's altered level of consciousness. History obtained from EMS. CONSTITUTIONAL: Denies acute: fever, diaphoresis, chills, HEAD: Denies acute: headache, photophobia Eyes: Denies acute: Double vision, vision loss, eye pain, eye discharge. EARS: Denies acute: tinnitus, hearing loss, ear discharge, ear pain, THROAT: Denies acute: sore throat, swelling, difficulty swallowing , pain with swallowing, change in voice. NECK: Denies acute: neck pain, neck swelling, stiff neck. HEART: Denies acute : chest pain, palpitations, LUNGS: Denies acute: SOB, wheezing, cough, hemoptysis ABDOMEN: Denies acute: abdominal pain, Nausea, Vomiting, diarrhea, melena , hematemesis, hematochezia SKIN: Denies acute: rash, redness, lesions, itchiness. EXTREMITIES: Denies acute: calf pain, numbness, tingling, weakness, denies pain in extremity. Denies acute: Low back pain. Neuro: Denies acute: focal neurological deficit, motor or sensory focal neurological deficit, tremors, seizure like activity, confusion, dizziness, change in mental status, loss of bowel or bladder function, cauda equina like symptoms. : Denies acute: dysuria, hematuria, flank pain, increase in urinary frequency. PSYCH: Denies acute: hallucination, suicidal ideation, homicidal ideation. PHYSICAL EXAM: General: ---[id number]----acute distress, awake and alert. Head: normocephalic, atraumatic. Neck: supple, trachea is midline, no swelling. Dry oral mucosa Eyes:, no erythema, no purulent discharge, no proptosis, slightly icterus. Heart: regular rate, regular rhythm, no significant murmur appreciated. Lungs: no apparent respiratory distress, No wheezing, no rhonchi, no crackles. No stridors Clear to auscultation bilaterally. Abdomen: non tender to palpation, mildly distended, soft, no guarding, no rebound, + bowel sounds. Neuro: Eyes are open, makes occasional eye contact. Turns his eyes to painful stimuli. Skin: no petechia, no purpura, no cyanosis, non-pale, slightly jaundice. History of liver cirrhosis Lower extremities: --2/4 bilateral- Pitting edema no deformity, no focal swelling, no calf TTP. Makes eye contact. moves all four extremities. Face: no apparent facial droop. PERRLA, No nuchal rigidity, Kernig's sign, Brudzinski's sign, no meningeal signs. ED COURSE: Chief Complaint: ALOC Time Seen by MD: 08:31 Primary Care Provider: Dr. Dias Reviewed Notes: Medications, Allergies Allergies: Coded Allergies: NO KNOWN ALLERGIES (Unverified , 03/02/25) Home Meds Active Scripts Lactulose (Lactulose) 10 Gm/15 Ml Monisha, 10 GM PO Q6HPRN PRN for 30 Days, #1200 ML Prov:ARGELIA DUKES MD 05/07/25 Polyethylene Glycol 3350 (Goodsense Clearlax) 17 Gm/Scoop Pow, 17 GM PO DAILYP PRN for 30 Days, #30 POW 1 Refill Prov:SULY GARCIA 03/25/25 Midodrine HCl (Midodrine HCl) 10 Mg Tab, 10 MG PO TID@0600,1200,1800 for 30 Days, #100 TAB Prov:SULY GARCIA RESIDENT 03/25/25 Rifaximin (Xifaxan) 550 Mg Tab, 1 TAB PO BID for 30 Days, #60 TAB 1 Refill Prov:SULY GARCIA RESIDENT 03/25/25 Lactulose (Lactulose) 10 Gm/15 Ml Monisha, 30 ML PO BID for 30 Days, #1600 ML 1 Refill Prov:SULY GARCIA RESIDENT 03/25/25 Reported Medications Magnesium Oxide (Mag-Ox) 400 Mg Tb, 1 TAB PO DAILY 03/02/25 Spironolactone (Spironolactone) 50 Mg Tab, 1 TAB PO BID 03/02/25 Furosemide (Furosemide) 80 Mg Tab, 2 PO BID 03/02/25 Information Source: Emergency Med Personnel Mode of Arrival: EMS EKG EKG : Pulse Rate (adult): 89 [place]: Normal Cardiac Rhythm: NSR Block: None Hypertrophy: None ST: Normal Comments T-Wave inversion in lead 3 Was a procedure done? Was a procedure done?: No Differential Diagnosis (ALOC) Differential Diagnosis: Other (DDX include CVA, TGA, cerebellar ischemia/ infarct, carotid stenosis, Intracranial mass/infection/bleed, encephalopathy, electrolyte abnormality, thyroid disease, hydrocephalus, hypoglycemia, drug toxicity, cardiac arrhythmia, seizure, infection in the elderly, Hyperammonemia., kidney failure., sepsis.) X-Ray, Labs, Meds, VS Vital Signs Date Time Temp Pulse Resp B/P (MAP) Pulse Ox O2 Delivery O2 Flow Rate FiO2 05/05/25 12:00 97.8 115 13 102/62 (75) 95 97.8 05/05/25 09:00 80 05/05/25 08:50 85 12 97 Room Air* 0 21 05/05/25 08:50 97.7 85 12 114/69 (84) 97 97.7 05/05/25 08:36 89 05/05/25 08:35 97.4 95 14 106/72 (83) 96 97.4 05/05/25 08:30 89 Lab Test 05/05/25 08:52 05/05/25 08:50 Range/Units Prothrombin Time 11.1 9.3-11.8 sec Prothrombin Time INR 1.05 0.9-1.15 White Blood Count 3.0 L 4.4-10.8 10^3/uL Red Blood Count 2.90 L 4.5-5.90 10^6/uL Hemoglobin 9.2 L 13.5-17.5 g/dL Hematocrit 26.9 L 41.0-53.0 % Mean Corpuscular Volume 92.8 80.0-100.0 fL Mean Corpuscular Hemoglobin 31.7 28.0-32.0 pg Mean Corpuscular Hemoglobin Concent 34.2 32.0-36.0 g/dL Red Cell Distribution Width 17.5 H 11.8-14.3 % Platelet Count 197 140-450 10^3/uL Mean Platelet Volume 7.5 6.9-10.8 fL Neutrophils (%) (Auto) 48.9 37.0-80.0 % Lymphocytes (%) (Auto) 31.7 10.0-50.0 % Monocytes (%) (Auto) 11.6 0.0-12.0 % Eosinophils (%) (Auto) 7.0 0.0-7.0 % Basophils (%) (Auto) 0.8 0.0-2.0 % Neutrophils # (Auto) 1.5 L 1.6-8.6 10 ^3/uL Lymphocytes # (Auto) 1.0 0.4-5.4 10 ^3/uL Monocytes # (Auto) 0.3 0-1.3 10 ^3/uL Eosinophils # (Auto) 0.2 0-0.8 10 ^3/uL Basophils # (Auto) 0 0-0.2 10 ^3/uL Nucleated Red Blood Cells 0.0 % Sodium Level 137 136-145 mmol/L Potassium Level 2.9 L 3.5-5.1 mmol/L Chloride Level 100 98-107 mmol/L Carbon Dioxide Level 28 20-31 mmol/L Anion Gap 9 5-15 Blood Urea Nitrogen 20 9-23 mg/dL Creatinine 1.86 H 0.700-1.30 mg/dL Glomerular Filtration Rate Calc 45 >90 mL/min BUN/Creatinine Ratio 10.8 10.0-20.0 Serum Glucose 98 74-106 mg/dL Lactic Acid Level 1.6 0.4-2.0 mmol/L Calcium Level 8.0 L 8.7-10.4 mg/dL Total Bilirubin 0.9 0.2-1.0 mg/dL Aspartate Amino Transferase (AST) 32 0-34 U/L Alanine Aminotransferase (ALT) 27 7-40 U/L Alkaline Phosphatase 178 H 46-116 U/L Ammonia 178 *H 11-32 umol/L Troponin I High Sensitivity < 3 L </=54 ng/L Total Protein 6.3 5.7-8.2 g/dL Albumin 3.3 3.2-4.8 g/dL Plasma/Serum Blood Alcohol 5.9 <10 mg/dL [address] [address] Ph: [phone] DIAGNOSTIC IMAGING Diagnostic Imaging Report : [id number] Signed PATIENT: MAY BURNETTT: [id number] UNIT: [id number] : 1980 LOC: ER ROOM / BED: / AGE / SEX: 44 / M ADM STATUS: REG ER SERVICE 1 ORDERING PHYSICIAN: MARY ANNE JANE DO PROCEDURE(s): CXRP - CHEST PORTABLE REASON: ALOC ORDER NUMBER(s): [id number], ACCESSION NUMBER(s): [id number] CHEST RADIOGRAPH Indication: ALOC Technique: Single frontal view of the chest was obtained Comparison: XY CHEST PORTABLE on DOS: 04/19/25 FINDINGS: Lines and Tubes: Right central venous catheter with its tip terminating in the right atrium. Lungs: Bibasilar opacities. Pleura: No effusion. No pneumothorax. Cardiomediastinal contours: Unremarkable Bones: No acute osseous abnormality. IMPRESSION: 1. Bibasilar opacities which may reflect atelectasis or pneumonia. ATED BY: BURKE NGO MD DICTATED DATE/TIME: 05/05/25916 SIGNED BY: BURKE NGO MD SIGNED DATE/TIME: 05/05/25916 CC: [address] [address] Ph: [phone] DIAGNOSTIC IMAGING Diagnostic Imaging Report : [id number] Signed PATIENT: MAY BURNETTT: [id number] UNIT: [id number] : 1980 LOC: TELE-CENTR ROOM / BED: 0217 / B AGE / SEX: 44 / M ADM STATUS: ADM IN SERVICE 0732 ORDERING PHYSICIAN: BENITA GUIDO PROCEDURE(s): HWOCT - HEAD WITHOUT CONTRAST REASON: ALOC ORDER NUMBER(s): [id number], ACCESSION NUMBER(s): [id number] EXAM: CT HEAD WITHOUT CONTRAST INDICATION: ALOC TECHNIQUE: CT of the head without intravenous contrast. Coronal and sagittal reformatted images are submitted. Radiation Dose : 1. Head: CT Dose: CTDI volume is 91.56 mGy. Dose-length product is 1619.79 mGy*cm The dose indicators for CT are the volume Computed Tomography (CT) Dose Index (CTDIvol) and the Dose Length Product (DLP), and are measured in units of mGy and mGy-cm, respectively. These indicators are not patient dose, but values generated from the CT scanner acquisition factors. The report includes radiation exposure data for exposures received during this examination. All CT scans at this medical facility are performed using dose modulation techniques as appropriate to a performed exam including the following: Automated exposure control was utilized; adjustment of the MA and/or KV according to patient size; and use of iterative reconstruction technique. COMPARISON: CT HEAD WITHOUT CONTRAST on DOS: 04/19/25 FINDINGS: There is no evidence of acute intracranial hemorrhage, extra-axial collection, mass effect, midline shift, herniation or hydrocephalus. The ventricles, sulci and cisterns are age appropriate. The ayala-white differentiation is intact. The visualized paranasal sinuses and mastoid air cells are clear. No depressed calvarial fracture. The surrounding soft tissues are unremarkable. IMPRESSION: 1. No evidence of acute intracranial abnormality. ATED BY: BURKE NGO MD DICTATED DATE/TIME: 05/06/25914 SIGNED BY: BURKE NGO MD SIGNED DATE/TIME: 05/06/25914 CC: Time of 1ST Reevaluation: 09:31 Reevaluation 1ST: Unchanged Time of 2ND Reevaluation: 11:42 (PATIENT BECAME COMBATIVE AFTER THE NURSE ATTEMPTED TO INSERT RECTAL TUBE FOR LACTULOSE. We did not go through the oral route since patient is altered. Patient is moving all four extremities with force. Patient is protecting his airway. Four-point restraints were applied to protect the patient from self-harm and from IV access and to be able to administer the medication he needs. I ordered a small dose of Ativan as well.) Patient Education/Counseling: Diagnosis, Treatment Family Education/Counseling: No Family Present Comments Patient presented with the above HPI.--altered level of consciousness----workup was initiated. patient was found with the above mentioned diagnosis. the following medications were ordered: please refer to order lists of meds and tests obtained by myself Dr. Jane. Patient ED course and VS have been stabilized. Patient has been reassessed in the ED and remained in a guarded condition. Patient has been observed in the ED adequate length of time to insure improvement/stability. Escalation of care considered: Consideration of escalation to observation or admission Patient was combative. Patient was placed on restraints. Rectal tube was placed for lactulose. Patient is protecting his airway. Chest x-ray suggests a possible pneumonia. Antibiotics initiated. Patient was ADMITTED to the medicine team for further evaluation and treatment of their presentation. All the reports of any imaging studies that were ordered by myself were reviewed by myself. Departure 1 Departure Time of Disposition: 08:45 Impression: Primary Impression: Altered level of consciousness Additional Impressions: Hyperammonemia Hepatic encephalopathy Pneumonia Disposition: ADMITTED INPATIENT Admit to: Tele Condition: Guarded e-Prescriptions Lactulose (Lactulose) 10 Gm/15 Ml Monisha 10 GM PO Q6HPRN PRN for 30 Days, #1200 ML Prov: ARGELIA DUKES MD 05/07/25 Discharged With: Self Critical Care Note Critical Care Time?: Yes (90 min-critical care time only) I personally scribed for MARY ANNE JANE DO ([email or web address]) on 05/05/25 at 08:36. Electronically submitted by Wil Moody ([email or web address]). I personally scribed for MARY ANNE JANE DO ([email or web address]) on 05/05/25 at 09:22. Electronically submitted by Wil Moody ([email or web address]). I personally scribed for MARY ANNE JANE DO ([email or web address]) on 05/05/25 at 11:29. Electronically submitted by Wil Moody ([email or web address]). MARY ANNE JANE DO May 05, 2025 08:36
[2025-05-05 08:50] VITALS: PULSE 85; RESP 12; O2SAT 97
[2025-05-05] MEDS: LACTULOSE 20Gm/30ML SOLN PO ONE (08:56)
[2025-05-05 09:13] LABS: Basophils # (auto) 0 10 ^3/uL (0-0.2); Basophils % (auto) 0.8 % (0.0-2.0); Eosinophils # (auto) 0.2 10 ^3/uL (0-0.8); Hematocrit 26.9 % (41.0-53.0); Hemoglobin 9.2 g/dL (13.5-17.5); Lymphocytes % (auto) 31.7 % (10.0-50.0); Mean Corpuscular Hemoglobin 31.7 pg (28.0-32.0); Mean Corpuscular Hgb Conc. 34.2 g/dL (32.0-36.0); Mean Corpuscular Volume 92.8 fL (80.0-100.0); Monocytes # (auto) 0.3 10 ^3/uL (0-1.3); Monocytes % (auto) 11.6 % (0.0-12.0); Neutrophils # (auto) 1.5 10 ^3/uL (1.6-8.6); Neutrophils % (auto) 48.9 % (37.0-80.0); Platelet Count (auto) 197 10^3/uL (140-450); Red Cell Distribution Width 17.5 % (11.8-14.3)
--- NOTE | 2025-05-05 09:19 | DVH ---
CHEST RADIOGRAPH Indication: ALOC Technique: Single frontal view of the chest was obtained Comparison: XY CHEST PORTABLE on DOS: 04/19/25 FINDINGS: Lines and Tubes: Right central venous catheter with its tip terminating in the right atrium. Lungs: Bibasilar opacities. Pleura: No effusion. No pneumothorax. Cardiomediastinal contours: Unremarkable Bones: No acute osseous abnormality. IMPRESSION: 1. Bibasilar opacities which may reflect atelectasis or pneumonia.
[2025-05-05] MEDS: cefTRIAXone 1GM/50ML D5W 50 ML IV ONE (09:43)
[2025-05-05 11:11] LABS: Alanine Aminotransferase 27 U/L (7-40); Anion Gap 9 (5-15); BUN/Creatinine Ratio 10.8 (10.0-20.0); Blood Urea Nitrogen 20 mg/dL (9-23); Carbon Dioxide 28 mmol/L (20-31); Chloride 100 mmol/L (98-107); Glucose 98 mg/dL (74-106); Sodium 137 mmol/L (136-145); Total Protein 6.3 g/dL (5.7-8.2)
[2025-05-05 11:12] LABS: Albumin 3.3 g/dL (3.2-4.8); Alkaline Phosphatase 178 U/L (46-116); Aspartate Aminotransferase 32 U/L (0-34); Bilirubin, Total 0.9 mg/dL (0.2-1.0); Potassium 2.9 mmol/L (3.5-5.1)
[2025-05-05] MEDS: LORazepam 2MG/ML-1ML VIAL IV ONE (11:40)
[2025-05-05] MEDS: LORazepam 2MG/ML-1ML VIAL ONE (11:40)
[2025-05-05] MEDS ORDERED: NITROGLYCERIN 0.4 MG SL TAB SL PRN (12:30)
[2025-05-05] MEDS ORDERED: ACETAMINOPHEN 325 MG TAB PO PRN (12:30)
[2025-05-05] MEDS ORDERED: ONDANSETRON HCL 4 MG/2 ML VIAL IV PRN (12:30)
--- NOTE | 2025-05-05 12:53 | DVHHP2 ---
History of Present Illness Reason for Visit: ALOC History of Present Illness Julián Lindsay is a 44-year-old male with past medical history of hypertension, liver cirrhosis, ESRD on HD (M/W/F), and CHF who presents to the ED with altered level of consciousness. Patient was at his dialysis when he became altered per reports. Patient unable to answer questions at this time due to his level consciousness. He is able to protect his airway breathing room air sats 96-100%. ED ordered rectal tube in patient woke up and attempting to fight with the nurse. Cardiovascular: CHF Hepatobiliary: Cirrhosis Renal/: Chronic renal failure Past Medical History Hypotension Review of Systems Constitutional: Yes: Other (ALOC) Allergies: Coded Allergies: NO KNOWN ALLERGIES (Unverified , 03/02/25) Medications Current Medications Medications Dose Ordered Sig/Bhumi Route Start Time Stop Time Status Last Admin Dose Admin Potassium Chloride 100 ml @ 50 mls/hr Q2H IV 05/05/25 12:30 05/05/25 16:29 UNV Ceftriaxone Sodium 50 ml @ 100 mls/hr DAILY@09 IV 05/05/25 12:30 UNV Azithromycin 250 ml @ 125 mls/hr DAILY IV 05/05/25 12:30 UNV Ondansetron HCl 4 mg Q4HP PRN IV 05/05/25 12:30 UNV Acetaminophen 650 mg Q6HP PRN PO 05/05/25 12:30 UNV Nitroglycerin 0.4 mg Q5MINP PRN SL 05/05/25 12:30 UNV Morphine Sulfate 2 mg Q30M PRN IV 05/05/25 12:30 UNV Lactulose 300 ml Q6HR NC 05/05/25 18:00 UNV Exam Vital Signs Vital Signs Date Time Temp Pulse Resp B/P (MAP) Pulse Ox O2 Delivery O2 Flow Rate FiO2 05/05/25 12:00 97.8 115 13 102/62 (75) 95 97.8 05/05/25 08:50 Room Air* 0 21 General Appearance: No acute distress HEENT: Atraumatic Respiratory: Clear to auscultation, Normal air movement Cardiovascular: Normal S1, Normal S2 Abdominal: Soft Extremities: Normal pulses Neuro: Sensation intact Labs/Xrays Labs Test 05/05/25 08:50 Range/Units White Blood Count 3.0 L 4.4-10.8 10^3/uL Red Blood Count 2.90 L 4.5-5.90 10^6/uL Hemoglobin 9.2 L 13.5-17.5 g/dL Hematocrit 26.9 L 41.0-53.0 % Mean Corpuscular Volume 92.8 80.0-100.0 fL Mean Corpuscular Hemoglobin 31.7 28.0-32.0 pg Mean Corpuscular Hemoglobin Concent 34.2 32.0-36.0 g/dL Red Cell Distribution Width 17.5 H 11.8-14.3 % Platelet Count 197 140-450 10^3/uL Mean Platelet Volume 7.5 6.9-10.8 fL Neutrophils (%) (Auto) 48.9 37.0-80.0 % Lymphocytes (%) (Auto) 31.7 10.0-50.0 % Monocytes (%) (Auto) 11.6 0.0-12.0 % Eosinophils (%) (Auto) 7.0 0.0-7.0 % Basophils (%) (Auto) 0.8 0.0-2.0 % Neutrophils # (Auto) 1.5 L 1.6-8.6 10 ^3/uL Lymphocytes # (Auto) 1.0 0.4-5.4 10 ^3/uL Monocytes # (Auto) 0.3 0-1.3 10 ^3/uL Eosinophils # (Auto) 0.2 0-0.8 10 ^3/uL Basophils # (Auto) 0 0-0.2 10 ^3/uL Nucleated Red Blood Cells 0.0 % Sodium Level 137 136-145 mmol/L Potassium Level 2.9 L 3.5-5.1 mmol/L Chloride Level 100 98-107 mmol/L Carbon Dioxide Level 28 20-31 mmol/L Anion Gap 9 5-15 Blood Urea Nitrogen 20 9-23 mg/dL Creatinine 1.86 H 0.700-1.30 mg/dL Glomerular Filtration Rate Calc 45 >90 mL/min BUN/Creatinine Ratio 10.8 10.0-20.0 Serum Glucose 98 74-106 mg/dL Lactic Acid Level 1.6 0.4-2.0 mmol/L Calcium Level 8.0 L 8.7-10.4 mg/dL Total Bilirubin 0.9 0.2-1.0 mg/dL Aspartate Amino Transferase (AST) 32 0-34 U/L Alanine Aminotransferase (ALT) 27 7-40 U/L Alkaline Phosphatase 178 H 46-116 U/L Ammonia 178 *H 11-32 umol/L Troponin I High Sensitivity < 3 L </=54 ng/L Total Protein 6.3 5.7-8.2 g/dL Albumin 3.3 3.2-4.8 g/dL CHEST RADIOGRAPH Indication: ALOC Technique: Single frontal view of the chest was obtained Comparison: XY CHEST PORTABLE on DOS: 04/19/25 FINDINGS: Lines and Tubes: Right central venous catheter with its tip terminating in the right atrium. Lungs: Bibasilar opacities. Pleura: No effusion. No pneumothorax. Cardiomediastinal contours: Unremarkable Bones: No acute osseous abnormality. IMPRESSION: 1. Bibasilar opacities which may reflect atelectasis or pneumonia. Assessment/Plan Assessment/Plan Assessment Acute metabolic encephalopathy likely due to Hyperammonemia Anemia Acute on chronic renal failure on HD (M/W/F) Bibasilar opacities which may reflect atelectasis or pneumonia Hypokalemia History of CHF History of hypertension History of liver cirrhosis Plan Admit to tele CT head ordered Replete lytes IV antibiotics-ceftriaxone + azithromycin Lactulose ordered Troponin noted negative Chest x-ray UA UDS Ammonia levels trend Blood alcohol EKG noted PT INR UA NPO for now Strict I&Os Daily weight Home medications reconciled DVT prophylaxis-SCDs PUD prophylaxis-PPIs Discussed plan of care with nurse GI consult Plan discussed with: Other My Orders Orders - BENITA GUIDO [employer]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 Procedure Category Date Status Time Potassium Chl PHA 05/05/25 Logged 20meq/100ml 12:30 Magnesium Sulfate PHA 05/05/25 Logged 1gm/100ml 12:30 Ceftriaxone 1gm/50ml PHA 05/05/25 Logged D5w (Rocephin) 12:30 Azithromycin 500mg/ PHA 05/05/25 Logged 250ml (Zithromax 50 12:30 Admit ADMIT 05/05/25 Transmitted 12:27 Allergies HELENA 05/05/25 In Process 12:27 Code Status CODE 05/05/25 Transmitted 12:27 Ondansetron Hcl PHA 05/05/25 Logged (Zofran) 12:30 Complete Blood Count LAB 05/06/25 Verified 04:00 Comprehensive LAB 05/06/25 Verified Metabolic Panel 04:00 Npo (Nothing By DIET 05/05/25 Transmitted Mouth) Diet Lunch Acetaminophen Tablet PHA 05/05/25 Logged (Tylenol Tablet) 12:30 Sequential HELENA 05/05/25 In Process Compression Device Nitroglycerin PHA 05/05/25 Logged Sublingual (Ntrostat 12:30 Morphine Sulfate PHA 05/05/25 Logged Injection 12:30 Stat Ekg For Chest HELENA 05/05/25 In Process Pain 12:27 Notify Md Of Changes HELENA 05/05/25 In Process From Base 12:27 Clothing Man For HELENA 05/05/25 In Process 24 Hours 12:27 Emergency Dysrhythmia [facility] 05/05/25 In Process Protocol 12:27 Rhythm Strips Once [facility] 05/05/25 In Process Every Shift 12:27 Oxygen By Nasal RT 05/05/25 Transmitted Cannula 12:27 Lactulose Rectal PHA 05/05/25 Logged 18:00 * [facility] [employer] CONS 05/05/25 Transmitted 12:27 Ammonia LAB 05/06/25 Verified 05:00 Ammonia LAB 05/07/25 Verified 05:00 Ammonia LAB 05/08/25 Verified 05:00 Prothrombin Time W/ LAB 05/05/25 Logged INR 12:50 Midodrine Tablet PHA 05/05/25 Verified (Proamatine Tablet) 18:00 (Nf) Magnesium Oxide PHA 05/06/25 Verified (Mag-Ox) 10:00 (Nf) Spironolactone PHA 05/05/25 Verified 22:00 Date of Service: May 05, 2025 Billing Provider: BENITA GUIDO Common Visit Codes: [id number] INP/OBS CARE (HIGH) BENITA GUIDO May 05, 2025 12:53
[2025-05-05 13:12] LABS: INR 1.05 (0.9-1.15); Prothrombin Time 11.1 sec (9.3-11.8)
[2025-05-05] MEDS ORDERED: MORPHINE SULFATE 4 MG/ML SYR/VIAL IV PRN (13:45)
[2025-05-05] MEDS: POTASSIUM CHL 20MEQ/100ML 100 ML IV SCH (13:56)
[2025-05-05] MEDS: MAGNESIUM SULFATE 1GM/100ML 100 ML IV ONE (13:56)
[2025-05-05] MEDS: AZITHROMYCIN 500MG/ 250ML 250 ML IV SCH (14:33)
[2025-05-05 16:02] LABS: Blood Alcohol 5.9 mg/dL (<10)
[2025-05-05 17:15] VITALS: BP 109/78; PULSE 94; RESP 16; TEMP 96.1; O2SAT 97
[2025-05-05] MEDS: SPIRONOLACTONE 25 MG TAB PO SCH (18:00)
[2025-05-05] MEDS: MIDODRINE HCL 10 MG TAB PO SCH (18:00)
[2025-05-05] MEDS: LACTULOSE 10g/15ml SOLN 473ML PR SCH (19:30)
[2025-05-05 20:00] VITALS: PULSE 91
[2025-05-05 21:00] VITALS: BP 102/66; PULSE 70; RESP 18; TEMP 98; O2SAT 97
[2025-05-06] VITALS (8 sets, daily range): BP systolic 94–105; BP diastolic 53–70; PULSE 73–99; RESP 17–19; TEMP 97.8–99.6; O2SAT 96–100
[2025-05-06 00:38] LABS: Urine Bacteria None Seen /hpf (None Seen)
[2025-05-06 00:45] LABS: Urine Blood Negative /uL (Negative); Urine Clarity Clear (Clear); Urine Color Light-Yellow (Yellow); Urine Protein, UAD Negative (Negative); Urine Squamous Epithelial Cell FEW /hpf (<5); Urine Urobilinogen Normal (Negative); Urine WBC < 1 /HPF (0-3); Urine pH 7.5 (5.0-9.0)
[2025-05-06 01:29] LABS: Amphetamine Screen, Urine Neg (NEGATIVE); Barbiturate Scree,Urine Neg (NEGATIVE); Benzodiazephine Screen, Urine Neg (NEGATIVE); Cannabinoid Screen, Urine Neg (NEGATIVE); Cocaine Screen, Urine Neg (NEGATIVE); Opiate Scree,Urine Neg (NEGATIVE); Phencyclidine Screen, Urine Neg (NEGATIVE)
[2025-05-06 05:11] LABS: Basophils # (auto) 0 10 ^3/uL (0-0.2); Basophils % (auto) 0.6 % (0.0-2.0); Eosinophils # (auto) 0.1 10 ^3/uL (0-0.8); Eosinophils % (auto) 2.6 % (0.0-7.0); Hematocrit 27.9 % (41.0-53.0); Hemoglobin 9.5 g/dL (13.5-17.5); Lymphocytes # (auto) 1.1 10 ^3/uL (0.4-5.4); Lymphocytes % (auto) 23.2 % (10.0-50.0); Mean Corpuscular Hemoglobin 31.9 pg (28.0-32.0); Mean Corpuscular Volume 93.7 fL (80.0-100.0); Monocytes # (auto) 0.4 10 ^3/uL (0-1.3); Monocytes % (auto) 7.5 % (0.0-12.0); Neutrophils # (auto) 3.2 10 ^3/uL (1.6-8.6); Neutrophils % (auto) 66.1 % (37.0-80.0); Platelet Count (auto) 196 10^3/uL (140-450); Red Blood Cells 2.98 10^6/uL (4.5-5.90); Red Cell Distribution Width 17.8 % (11.8-14.3); White Blood Cell 4.9 10^3/uL (4.4-10.8)
[2025-05-06] MEDS: HYDROcodone-ACET 5/325MG TAB PO PRN (05:19)
[2025-05-06 05:27] LABS: Alanine Aminotransferase 27 U/L (7-40); Anion Gap 13 (5-15); BUN/Creatinine Ratio 10.9 (10.0-20.0); Carbon Dioxide 23 mmol/L (20-31); Chloride 103 mmol/L (98-107); Glucose 78 mg/dL (74-106); Potassium 3.5 mmol/L (3.5-5.1); Sodium 139 mmol/L (136-145); Total Protein 6.1 g/dL (5.7-8.2)
[2025-05-06 05:28] LABS: Bilirubin, Total 0.9 mg/dL (0.2-1.0)
[2025-05-06 05:30] LABS: Albumin 3.1 g/dL (3.2-4.8); Alkaline Phosphatase 129 U/L (46-116); Aspartate Aminotransferase 38 U/L (0-34); Blood Urea Nitrogen 25 mg/dL (9-23); Calcium 8.3 mg/dL (8.7-10.4)
--- NOTE | 2025-05-06 07:35 | ECG ---
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
--- NOTE | 2025-05-06 09:18 | DVH ---
EXAM: CT HEAD WITHOUT CONTRAST INDICATION: ALOC TECHNIQUE: CT of the head without intravenous contrast. Coronal and sagittal reformatted images are s ubmitted. Radiation Dose : 1. Head: CT Dose: CTDI volume is 91.56 mGy. Dose-length product is 1619.79 mGy*cm The dose indicators for CT are the volume Computed Tomography (CT) Dose Index (CTDIvol) and the Dose Length Product (DLP), and are measured in units of mGy and mGy-cm, respectively. These indicators are not patient dose, but values generated from the CT scanner acquisition factors. The report includes radiation exposure data for exposures received during this examination. All CT scans at this medical facility are performed using dose modulation techniques as appropriate to a performed exam including the following: Automated exposure control was utilized; adjustment of the MA and/or KV according to patient size; and use of iterative reconstruction technique. COMPARISON: CT HEAD WITHOUT CONTRAST on DOS: 04/19/25 FINDINGS: There is no evidence of acute intracranial hemorrhage, extra-axial collection, mass effect, midline s hift, herniation or hydrocephalus. The ventricles, sulci and cisterns are age appropriate. The ayala-white differentiation is intact. The visualized paranasal sinuses and mastoid air cells are clear. No depressed calvarial fracture. The surrounding soft tissues are unremarkable. IMPRESSION: 1. No evidence of acute intracranial abnormality.
[2025-05-06] MEDS: FAMOTIDINE (10MG/ML) 2ML VL IV SCH (09:24)
[2025-05-06] MEDS: cefTRIAXone 1GM/50ML D5W 50 ML IV SCH (09:24)
[2025-05-06] MEDS: MAGNESIUM OXIDE 400 MG TAB PO SCH (09:24)
--- NOTE | 2025-05-06 13:47 | DVHPN2 ---
Assessment/Plan Assessment/Plan Progress note 44 M with ESRD on HD (MWF [facility]), HTN, cirrhosis admitted for ALOC. patient woke up after rectal tube placement. Physical exam AOx4 PERLLA MMM Clear breath sounds S1 S2 rrr no murmur soft abdomen, hepatomegaly, nontender No LE edema Labs ekg imaging reviewed Assessment and plan encephalopathy possible hepatic? resolved ESRD on HD MWF liver cirrhosis cirrhosis related hypotension anemia chronic disease nephron consult, hd per renal c/w ceft and azithro lactulose to oral, 2-3 BM daily goal dc rectal tube c/w midodrine diet hepatic dvt ppx lovenox Plan discussed with: Patient My Orders Orders - ARGELIA DUKES MD Procedure Category Date Status Time Lactulose Oral PHA 05/07/25 In Process 10:00 Communication Order ORDERS 05/06/25 Transmitted 12:02 *[facility] -[facility] CONS 05/06/25 Transmitted Greta 12:02 Enoxaparin Sodium PHA 05/07/25 Verified (Lovenox) 10:00 Date of Service: May 06, 2025 Billing Provider: ARGELIA DUKES MD Common Visit Codes: [id number] INP/OBS CARE(HIGH) ARGELIA DUKES MD May 06, 2025 13:47
[2025-05-07 01:00] VITALS: BP 103/66; PULSE 84; RESP 18; TEMP 97.4; O2SAT 99
[2025-05-07 05:00] VITALS: BP 100/67; PULSE 91; RESP 19; TEMP 98.1; O2SAT 97
[2025-05-07 05:47] LABS: Basophils # (auto) 0 10 ^3/uL (0-0.2); Basophils % (auto) 0.8 % (0.0-2.0); Eosinophils # (auto) 0.3 10 ^3/uL (0-0.8); Eosinophils % (auto) 6.3 % (0.0-7.0); Hematocrit 25.1 % (41.0-53.0); Hemoglobin 8.5 g/dL (13.5-17.5); Lymphocytes # (auto) 1.3 10 ^3/uL (0.4-5.4); Lymphocytes % (auto) 28.6 % (10.0-50.0); Mean Corpuscular Hemoglobin 31.7 pg (28.0-32.0); Mean Corpuscular Hgb Conc. 33.9 g/dL (32.0-36.0); Mean Corpuscular Volume 93.7 fL (80.0-100.0); Monocytes # (auto) 0.4 10 ^3/uL (0-1.3); Monocytes % (auto) 9.7 % (0.0-12.0); Neutrophils # (auto) 2.4 10 ^3/uL (1.6-8.6); Neutrophils % (auto) 54.6 % (37.0-80.0); Nucleated Red Blood Cells % 0.1 %; Platelet Count (auto) 186 10^3/uL (140-450); Red Blood Cells 2.68 10^6/uL (4.5-5.90); White Blood Cell 4.4 10^3/uL (4.4-10.8)
[2025-05-07 06:09] LABS: Alanine Aminotransferase 26 U/L (7-40); Anion Gap 11 (5-15); Aspartate Aminotransferase 31 U/L (<34); BUN/Creatinine Ratio 11.3 (10.0-20.0); Bilirubin, Total 0.8 mg/dL (0.2-1.0); Carbon Dioxide 24 mmol/L (20-31); Chloride 104 mmol/L (98-107); Glucose 85 mg/dL (74-106); Magnesium 2.6 mg/dL (1.6-2.6); Phosphorus 4.5 mg/dL (2.4-5.1); Sodium 139 mmol/L (136-145)
[2025-05-07 06:30] LABS: Albumin 2.9 g/dL (3.2-4.8); Alkaline Phosphatase 124 U/L (46-116); Blood Urea Nitrogen 29 mg/dL (9-23); Calcium 8.4 mg/dL (8.7-10.4); Potassium 3.1 mmol/L (3.5-5.1); Total Protein 5.6 g/dL (5.7-8.2)
[2025-05-07 08:00] VITALS: PULSE 71
[2025-05-07 08:35] VITALS: BP 96/56; PULSE 70; RESP 16; TEMP 97.9; O2SAT 98
[2025-05-07] MEDS: LACTULOSE 20Gm/30ML SOLN PO SCH (08:55)
[2025-05-07] MEDS: ENOXAPARIN SOD 40 MG/0.4 ML SYRINGE SC SCH (08:55)
[2025-05-07 12:55] VITALS: BP 95/60; PULSE 79; RESP 16; TEMP 98; O2SAT 99
[2025-05-07] MEDS: POTASSIUM EFFERVESENT TAB 25 MEQ PO ONE (13:55)
[2025-05-07] MEDS ORDERED: LACT10SO3 PO (15:44)
--- NOTE | 2025-05-07 15:46 | DVHDS2 ---
Discharge Summary Date of Admission May 05, 2025 at 12:27 Date of Discharge: May 07, 2025 Labs/Diagnostic Data: Laboratory Results Test 05/07/25 05:13 05/06/25 00:00 05/05/25 08:52 05/05/25 08:50 White Blood Count 4.4 10^3/uL (4.4-10.8) Red Blood Count 2.68 10^6/uL (4.5-5.90) Hemoglobin 8.5 g/dL (13.5-17.5) Hematocrit 25.1 % (41.0-53.0) Mean Corpuscular Volume 93.7 fL (80.0-100.0) Mean Corpuscular Hemoglobin 31.7 pg (28.0-32.0) Mean Corpuscular Hemoglobin Concent 33.9 g/dL (32.0-36.0) Red Cell Distribution Width 17.0 % (11.8-14.3) Platelet Count 186 10^3/uL (140-450) Mean Platelet Volume 7.7 fL (6.9-10.8) Neutrophils (%) (Auto) 54.6 % (37.0-80.0) Lymphocytes (%) (Auto) 28.6 % (10.0-50.0) Monocytes (%) (Auto) 9.7 % (0.0-12.0) Eosinophils (%) (Auto) 6.3 % (0.0-7.0) Basophils (%) (Auto) 0.8 % (0.0-2.0) Neutrophils # (Auto) 2.4 10 ^3/uL (1.6-8.6) Lymphocytes # (Auto) 1.3 10 ^3/uL (0.4-5.4) Monocytes # (Auto) 0.4 10 ^3/uL (0-1.3) Eosinophils # (Auto) 0.3 10 ^3/uL (0-0.8) Basophils # (Auto) 0 10 ^3/uL (0-0.2) Nucleated Red Blood Cells 0.1 % Sodium Level 139 mmol/L (136-145) Potassium Level 3.1 mmol/L (3.5-5.1) Chloride Level 104 mmol/L (98-107) Carbon Dioxide Level 24 mmol/L (20-31) Anion Gap 11 (5-15) Blood Urea Nitrogen 29 mg/dL (9-23) Creatinine 2.56 mg/dL (0.700-1.30) Glomerular Filtration Rate Calc 31 mL/min (>90) BUN/Creatinine Ratio 11.3 (10.0-20.0) Serum Glucose 85 mg/dL (74-106) Calcium Level 8.4 mg/dL (8.7-10.4) Phosphorus Level 4.5 mg/dL (2.4-5.1) Magnesium Level 2.6 mg/dL (1.6-2.6) Total Bilirubin 0.8 mg/dL (0.2-1.0) Aspartate Amino Transferase (AST) 31 U/L (<34) Alanine Aminotransferase (ALT) 26 U/L (7-40) Alkaline Phosphatase 124 U/L (46-116) Ammonia < 10 umol/L (11-32) Total Protein 5.6 g/dL (5.7-8.2) Albumin 2.9 g/dL (3.2-4.8) Urine Color Light-yellow (Yellow) Urine Clarity Clear (Clear) Urine pH 7.5 (5.0-9.0) Urine Specific [place] 1.010 (1.001-1.035) Urine Protein Negative (Negative) Urine Ketones Negative (Negative) Urine Blood Negative /uL (Negative) Urine Nitrite Negative (Negative) Urine Bilirubin Negative (Negative) Urine Urobilinogen Normal mg/dL (Negative) Urine Leukocyte Esterase Negative /uL (Negative) Urine RBC <1 /hpf (0 - 3) Urine Microscopic WBC < 1 /HPF (0-3) Urine Squamous Epithelial Cells Few /hpf (<5) Urine Bacteria None seen /hpf (None Seen) Urine Glucose Normal mg/dL (Normal) Urine Opiates Screen Neg (NEGATIVE) Urine Fentanyl Screen Neg (NEGATIVE) Urine Barbiturates Screen Neg (NEGATIVE) Urine Phencyclidine Screen Neg (NEGATIVE) Urine Amphetamines Screen Neg (NEGATIVE) Urine Benzodiazepines Screen Neg (NEGATIVE) Urine Cocaine Screen Neg (NEGATIVE) Urine Cannabinoids Screen Neg (NEGATIVE) Prothrombin Time 11.1 sec (9.3-11.8) Prothrombin Time INR 1.05 (0.9-1.15) Lactic Acid Level 1.6 mmol/L (0.4-2.0) Troponin I High Sensitivity < 3 ng/L (</=54) Plasma/Serum Blood Alcohol 5.9 mg/dL (<10) Other Laboratory Tests 05/07/25 05:13 Brief Hx & Hospital Course: 44 M with ESRD on HD (MWF [facility]), HTN, cirrhosis admitted for ALOC. patient woke up after rectal tube placement. started on oral lactulose. educated pt and family to aim for 2-3 bm daily with lactulose. seen by renal. stable to dc. c/w HD MWF at center. Condition at Discharge: Good Final Diagnosis/Problems List encephalopathy possible hepatic? resolved ESRD on HD MWF liver cirrhosis cirrhosis related hypotension anemia chronic disease Discharge Disposition: Home Discharge Instruct/Medications Diet: Consistent carbohydrate, Cardiac 2g Na,low cholest, Renal Activity: No Restrictions, As Tolerated Medications: lactulose Discharge Statement: "Patient was advised to return to the ER or call 911 if any headaches, dizziness, shortness of breath, chest pain, abdominal pain, bleeding, fevers, or worsening of medical condition. Patient was counseled about treatment plan, medications, possible side effects, patientverbalized understanding. All questions were answered to the best of my ability. This discharge took greater then 30 minutes in planning, reviewing documentation, counseling the patient, and discussing with other team members." ASSESSMENT ASSESSMENT Assessment hepatic encephalopathy Date of Service: May 07, 2025 Billing Provider: ARGELIA DUKES MD Common Visit Codes: [id number] DISCH DAY >30min ARGELIA DUKES MD May 07, 2025 15:46
[2025-05-07 16:50] VITALS: BP 104/62; PULSE 75; RESP 15; TEMP 98.2; O2SAT 98
== END 2025-05-07 18:14 | disposition home or self-care (01) ==
LOC: ER 08:19 → EDBD 08:19 → OVERFLOW 12:27 → TELE-CENTR 17:10
PROVIDERS: ADMIT Student in an Organized Health Care Education/Training Program; ATTEND Student in an Organized Health Care Education/Training Program
DX: K76.82 Hepatic encephalopathy (principal); I13.2 Hypertensive heart and chronic kidney disease with heart failure and with stage 5 chronic kidney disease, or end stage renal disease; J15.69 Pneumonia due to other Gram-negative bacteria; J15.9 Unspecified bacterial pneumonia; N18.6 End stage renal disease; E72.20 Disorder of urea cycle metabolism, unspecified; D63.8 Anemia in other chronic diseases classified elsewhere; I50.9 Heart failure, unspecified; K74.60 Unspecified cirrhosis of liver; E87.6 Hypokalemia; Z99.2 Dependence on renal dialysis; Z79.2 Long term (current) use of antibiotics; Z79.899 Other long term (current) drug therapy
CPT/HCPCS: 36415; 70450; 71045; 80053; 80307; 80320; 81001; 82140; 83605; 83735; 84100; 84132; 84484; 85025; 85610; 87081; 93005; G0378; J3480; J3490